=== PATIENT | male | born 1940 | race Caucasian/White ===

== ENCOUNTER 2018-02-03 11:58 | Outpatient (REF) | payer MEDICARE, OTHER, SELFPAY ==
[2018-02-03 21:18] LABS: HGB 12.6 g/dL (13.5-17.5); Mean Corp. HGB Concentration 32.3 g/dL (32.0-36.0); Mean Corpuscular Hemoglobin 30.6 pg (27.0-33.0); Mean Corpuscular Volume 94.7 fL (80-95); Mean Platelet Volume 11.9 fL (8.0-11.0); Platelet Count 175 x1000/uL (130-400); RBC 4.12 m/cumm (4.50-6.00); RBC Distribution Width 13.4 % (11.8-14.1); White Blood Cell Count 7.62 k/cumm (4.4-10.8)
[2018-02-03 22:21] LABS: BUN 25 mg/dL (7-18); CREATININE 1.31 mg/dL (0.70-1.30); Calcium 8.8 mg/dL (8.5-10.1); Chloride 108 mmol/L (98-107); Cholesterol 127 mg/dL (50-200); Estimated GFR 53.06 (mL/min/1.73m2); Glucose 113 mg/dL (70-100); HDL Cholesterol 48 mg/dL (40-60); LDL CHOLESTEROL 60 mg/dL (<100); Potassium 4.9 mmol/L (3.5-5.1); Sodium 142 mmol/L (136-145); Triglyceride 203 mg/dL (30-150); Vitamin B12 523 pg/mL (193-986)
== END 2018-02-03 11:59 ==
LOC: NCHCN 11:58
PROVIDERS: Visit Provider Family Medicine
DX: I25.10 Atherosclerotic heart disease of native coronary artery without angina pectoris (principal); R53.83 Other fatigue; D72.819 Decreased white blood cell count, unspecified; E11.8 Type 2 diabetes mellitus with unspecified complications; E53.8 Deficiency of other specified B group vitamins; E29.1 Testicular hypofunction; F34.1 Dysthymic disorder; M54.5 Low back pain
CPT/HCPCS: 80048; 80061; 83721; 85027; 82607

== ENCOUNTER 2018-05-12 12:40 | Outpatient (REF) | payer MEDICARE, OTHER, SELFPAY ==
[2018-05-12 22:55] LABS: Hemoglobin A1C 6.7 % (4.5-6.2)
[2018-05-16 12:55] LABS: Testosterone, Bioavailable 23 ng/dL (40-168); Testosterone, Total 212 ng/dL (240-950)
[2018-07-17 10:50] LABS: BUN 28 mg/dL (7-18); Calcium 8.9 mg/dL (8.5-10.1); Glucose 117 mg/dL (70-100)
[2018-07-17 10:51] LABS: CREATININE 1.63 mg/dL (0.70-1.30); Estimated GFR 41.12 (mL/min/1.73m2); Total Protein 6.8 g/dL (6.4-8.2)
[2018-07-17 10:52] LABS: Albumin 3.5 g/dL (3.4-5.0); Alkaline Phosphatase 107 U/L (46-116); Bilirubin, Total 0.3 mg/dL (0.2-1.0); Sodium 142 mmol/L (136-145)
[2018-07-17 10:53] LABS: ALT 23 U/L (12-78); AST 17 U/L (15-37); Anion Gap 10.6 mmol/L (3-11); CO2 23.4 mmol/L (21.0-32.0); Chloride 108 mmol/L (98-107); Potassium 4.9 mmol/L (3.5-5.1)
[2018-07-17 10:54] LABS: Bilirubin, Direct 0.11 mg/dL (0.00-0.20)
== END 2018-05-12 13:00 ==
LOC: NCHCN 12:40
PROVIDERS: Visit Provider Family Medicine
DX: E29.1 Testicular hypofunction (principal); E11.8 Type 2 diabetes mellitus with unspecified complications; E78.5 Hyperlipidemia, unspecified
CPT/HCPCS: 80048; 80076; 84402; 84403; 84410; 83036

== ENCOUNTER 2019-05-18 09:55 | Outpatient (REF) | payer MEDICARE, OTHER, SELFPAY ==
[2019-05-22 13:57] LABS: Testosterone, Free 8.75 ng/dL (3.08-11.3); Testosterone, Total 486 ng/dL (240-950)
== END 2019-05-18 10:15 ==
LOC: LBN 09:55
PROVIDERS: Visit Provider Urology
DX: R33.9 Retention of urine, unspecified (principal); N13.8 Other obstructive and reflux uropathy; N40.1 Benign prostatic hyperplasia with lower urinary tract symptoms; E29.1 Testicular hypofunction
CPT/HCPCS: 84402; 84403; 84153

== ENCOUNTER 2019-07-20 15:49 | Outpatient (REF) | payer MEDICARE, OTHER, SELFPAY ==
[2019-07-20 22:16] LABS: HCT 46.3 % (40.0-50.0); HGB 14.9 g/dL (13.5-17.5); Mean Corp. HGB Concentration 32.2 g/dL (32.0-36.0); Mean Corpuscular Hemoglobin 30.3 pg (27.0-33.0); Mean Corpuscular Volume 94.1 fL (80-95); Mean Platelet Volume 11.8 fL (8.0-11.0); Platelet Count 200 x1000/uL (130-400); RBC 4.92 m/cumm (4.50-6.00); RBC Distribution Width 13.8 % (11.8-14.1); White Blood Cell Count 8.09 k/cumm (4.4-10.8)
[2019-07-20 23:04] LABS: ALT 24 U/L (16-63); AST 21 U/L (15-37); Albumin 3.8 g/dL (3.4-5.0); Alkaline Phosphatase 132 U/L (46-116); Anion Gap 13.8 mmol/L (3-11); BUN 29 mg/dL (7-18); Bilirubin, Total 0.4 mg/dL (0.2-1.0); CO2 22.2 mmol/L (21.0-32.0); CREATININE 1.57 mg/dL (0.70-1.30); Calcium 8.8 mg/dL (8.5-10.1); Chloride 107 mmol/L (98-107); Estimated GFR 42.83 (mL/min/1.73m2); Glucose 107 mg/dL (74-106); Potassium 4.7 mmol/L (3.5-5.1); Sodium 143 mmol/L (136-145); Total Protein 7.1 g/dL (6.4-8.2)
== END 2019-07-20 16:09 ==
LOC: NCHCN 15:49
PROVIDERS: Visit Provider Family Medicine
DX: I10 Essential (primary) hypertension (principal); E29.1 Testicular hypofunction; I25.10 Atherosclerotic heart disease of native coronary artery without angina pectoris
CPT/HCPCS: 80053; 85027; 82043; 82570

== ENCOUNTER 2020-01-18 15:44 | Outpatient (REF) | payer MEDICARE, OTHER, SELFPAY ==
[2020-01-19 17:40] LABS: PSA, Diagnostic 3.1 ng/mL (0.0-6.5)
[2020-01-22 11:15] LABS: Testosterone, Free 44.5 ng/dL (3.08-11.3); Testosterone, Total 1590 ng/dL (240-950)
== END 2020-01-18 16:04 ==
LOC: LBN 15:44
PROVIDERS: Visit Provider Urology
DX: N40.1 Benign prostatic hyperplasia with lower urinary tract symptoms (principal); N13.8 Other obstructive and reflux uropathy
CPT/HCPCS: 84402; 84403; 84153

== ENCOUNTER 2020-05-29 22:23 | Outpatient (REF) | payer MEDICARE, OTHER, SELFPAY ==
[2020-06-02 10:12] LABS: COVID-19 RT-PCR Result NEGATIVE (Negative)
== END 2020-05-29 22:43 ==
LOC: NCHCN 22:23
PROVIDERS: Visit Provider Nurse Practitioner Family
DX: R05 Cough (principal)
CPT/HCPCS: U0003

== ENCOUNTER 2020-05-31 19:23 | Outpatient (REF) | payer MEDICARE, OTHER, SELFPAY ==
[2020-05-31 22:27] LABS: HCT 43.3 % (40.0-50.0); HGB 13.9 g/dL (13.5-17.5); MCH 30.9 pg (27.0-33.0); MCHC 32.1 % (32.0-36.0); MCV 96.2 fL (80-95); MPV 11.9 fL (8.0-11.0); Platelet Count 177 10^3/uL (130-400); RDW 13.2 % (11.8-14.1); RDW-SD 47.2 fL; WBC 9.42 10^3/uL (4.4-10.8)
[2020-05-31 22:37] LABS: Bilirubin Negative (Negative); Blood Negative (Negative); Clarity Clear (Clear); Glucose 500 mg/dL (Negative); Ketones Negative (Negative); Leukocyte Esterase Negative (Negative); Nitrite Negative (Negative); Urobilinogen 0.2 EU/dL (Up TO 0.2); pH 5.5 (5-8)
[2020-05-31 22:45] LABS: Anion Gap 10.6 mmol/L (3-11); BUN 24 mg/dL (7-18); CO2 22.4 mmol/L (21.0-32.0); CREATININE 1.64 mg/dL (0.70-1.30); Chloride 108 mmol/L (98-107); Estimated GFR 40.62 (mL/min/1.73m2); Glucose 144 mg/dL (74-106); NT-proBNP 7117 pg/mL (<300); Potassium 4.7 mmol/L (3.5-5.1); Sodium 141 mmol/L (136-145)
[2020-05-31 23:21] LABS: D-Dimer 3026 ng/mlFEU (<500)
== END 2020-05-31 19:43 ==
LOC: NCHCN 19:23
PROVIDERS: Urology; Visit Provider Nurse Practitioner Family
DX: D64.9 Anemia, unspecified (principal); R53.83 Other fatigue; R06.09 Other forms of dyspnea; R07.89 Other chest pain; I25.10 Atherosclerotic heart disease of native coronary artery without angina pectoris; N40.1 Benign prostatic hyperplasia with lower urinary tract symptoms; N13.8 Other obstructive and reflux uropathy; R33.9 Retention of urine, unspecified
CPT/HCPCS: 80048; 85027; 81003; 83880; 85379

== ENCOUNTER 2020-12-19 16:22 | Outpatient (REF) | payer MEDICARE, OTHER, SELFPAY ==
[2020-12-19 21:26] LABS: Abs Immature Grans 0.02 10^3/uL (0.0-0.06); Absolute Basophil Count 0.06 10^3/uL (0.0-0.2); Absolute Lymphocyte Count 1.27 10^3/uL (1.2-3.4); Absolute Monocyte Count 0.89 10^3/uL (0.1-0.8); Absolute Neutrophil Count 5.34 10^3/uL (1.2-6.7); Basophils % 0.8; HCT 44.5 % (40.0-50.0); HGB 14.1 g/dL (13.5-17.5); Immature Grans % 0.3; Lymphocytes % 15.9; MCH 31.2 pg (27.0-33.0); MCHC 31.7 % (32.0-36.0); MCV 98.5 fL (80-95); Monocytes % 11.2; Neutrophils % 66.8; Nucleated RBC 0 %; Platelet Count 159 10^3/uL (130-400); RBC 4.52 10^6/uL (4.36-5.78); RDW 13.2 % (11.8-14.1); RDW-SD 48.2 fL; WBC 7.98 10^3/uL (4.4-10.8)
[2020-12-19 21:39] LABS: ESR 10 mm/hr (0-20)
[2020-12-19 22:41] LABS: ALT 24 U/L (16-63); AST 12 U/L (15-37); Albumin 3.8 g/dL (3.4-5.0); Alkaline Phosphatase 101 U/L (46-116); Anion Gap 14.7 mmol/L (3-11); BUN 45 mg/dL (7-18); Bilirubin, Total 0.4 mg/dL (0.2-1.0); CO2 19.3 mmol/L (21.0-32.0); CREATININE 1.8 mg/dL (0.70-1.30); Calcium 8.9 mg/dL (8.5-10.1); Calculated LDL 54 mg/dL (<100); Chloride 111 mmol/L (98-107); Cholesterol 113 mg/dL (<200); Estimated GFR 36.49 (mL/min/1.73m2); Glucose 145 mg/dL (74-106); HDL Cholesterol 43 mg/dL (40-60); Potassium 4.8 mmol/L (3.5-5.1); Sodium 145 mmol/L (136-145); Total Protein 6.9 g/dL (6.4-8.2); Triglyceride 84 mg/dL (<150)
[2020-12-19 22:50] LABS: C-Reactive Protein 0.06 mg/dL (0.0-0.3)
== END 2020-12-19 16:23 | disposition home or self-care (01) ==
LOC: NCHCN 16:22
PROVIDERS: Visit Provider Family Medicine
DX: I12.9 Hypertensive chronic kidney disease with stage 1 through stage 4 chronic kidney disease, or unspecified chronic kidney disease (principal); E11.22 Type 2 diabetes mellitus with diabetic chronic kidney disease; N18.4 Chronic kidney disease, stage 4 (severe); D63.1 Anemia in chronic kidney disease; M54.5 Low back pain; G89.29 Other chronic pain; E29.1 Testicular hypofunction; M62.81 Muscle weakness (generalized)
CPT/HCPCS: 80053; 80061; 85652; 85025; 86140

== ENCOUNTER 2021-02-19 20:25 | Outpatient (REF) | payer MEDICARE, OTHER, SELFPAY ==
[2021-02-23 15:35] LABS: Testosterone, Total 640 ng/dL (240-950)
== END 2021-02-19 20:26 | disposition home or self-care (01) ==
LOC: NCHCN 20:25
PROVIDERS: Visit Provider Family Medicine
DX: E29.1 Testicular hypofunction (principal)
CPT/HCPCS: 84403

== ENCOUNTER 2021-05-02 15:09 | Outpatient (REF) | payer MEDICARE, OTHER, SELFPAY ==
[2021-05-03 08:19] LABS: BUN 34 mg/dL (7-18); CREATININE 1.5 mg/dL (0.70-1.30); Calcium 8.8 mg/dL (8.5-10.1); Calculated LDL 113 mg/dL (<100); Chloride 108 mmol/L (98-107); Cholesterol 203 mg/dL (<200); Estimated GFR 45.03 (mL/min/1.73m2); Glucose 134 mg/dL (74-106); HDL Cholesterol 46 mg/dL (40-60); Potassium 4.9 mmol/L (3.5-5.1); Sodium 144 mmol/L (136-145); Triglyceride 220 mg/dL (<150); Vitamin B12 > 2000 pg/mL (193-986)
== END 2021-05-02 15:10 | disposition home or self-care (01) ==
LOC: NCHCN 15:09
PROVIDERS: Visit Provider Family Medicine
DX: E11.22 Type 2 diabetes mellitus with diabetic chronic kidney disease (principal); N18.4 Chronic kidney disease, stage 4 (severe); E78.5 Hyperlipidemia, unspecified; E53.8 Deficiency of other specified B group vitamins
CPT/HCPCS: 80048; 80061; 82607

== ENCOUNTER 2021-06-19 13:38 | Outpatient (REF) | payer MEDICARE, OTHER, SELFPAY ==
[2021-06-19 15:27] LABS: COMMENT (LAB VIEW ONLY) 38.78 mg/dL; Microalb ug/mg Crea 22.7 ug/mg Cr
== END 2021-06-19 13:39 | disposition home or self-care (01) ==
LOC: NCHCN 13:38
PROVIDERS: Visit Provider Family Medicine
DX: I10 Essential (primary) hypertension (principal); E11.8 Type 2 diabetes mellitus with unspecified complications
CPT/HCPCS: 82043; 82570

== ENCOUNTER 2021-11-20 15:39 | Outpatient (REF) | payer MEDICARE, OTHER, SELFPAY ==
[2021-11-20 14:24] LABS: ESR 12 mm/hr (0-20)
[2021-11-20 14:53] LABS: C-Reactive Protein 0.11 mg/dL (0.0-0.3); Calculated LDL 103 mg/dL (<100); Cholesterol 183 mg/dL (<200); HDL Cholesterol 53 mg/dL (40-60); NT-proBNP 284 pg/mL (<300); Triglyceride 138 mg/dL (<150)
== END 2021-11-20 15:40 | disposition home or self-care (01) ==
LOC: NCHCN 15:39
PROVIDERS: Visit Provider Family Medicine
DX: E11.8 Type 2 diabetes mellitus with unspecified complications (principal); E78.5 Hyperlipidemia, unspecified; Z71.89 Other specified counseling
CPT/HCPCS: 80061; 85652; 83880; 86140

== ENCOUNTER 2022-02-11 15:32 | Outpatient (REF) | payer MEDICARE, OTHER, SELFPAY ==
[2022-02-11 17:52] LABS: BUN 27 mg/dL (7-18); CREATININE 1.7 mg/dL (0.70-1.30); Estimated GFR 38.88 (mL/min/1.73m2)
== END 2022-02-11 15:33 | disposition home or self-care (01) ==
LOC: LBN 15:32
PROVIDERS: Visit Provider Surgery Vascular Surgery
DX: I71.4 Abdominal aortic aneurysm, without rupture (principal)
CPT/HCPCS: 84520; 82565

== ENCOUNTER 2022-07-17 17:42 | Outpatient (REF) | payer MEDICARE, OTHER, SELFPAY ==
[2022-07-17 15:39] LABS: MCH 31.5 pg (27.0-33.0); MCHC 33.3 % (32.0-36.0); MCV 95 fL (80-95); MPV 11.9 fL (8.0-11.0); Platelet Count 158 10^3/uL (130-400); RBC 4.76 10^6/uL (4.36-5.78); RDW 13.1 % (11.8-14.1); WBC 7.29 10^3/uL (4.4-10.8)
[2022-07-17 16:05] LABS: Anion Gap 10.4 mmol/L (3-11); BUN 26 mg/dL (7-18); CO2 22.6 mmol/L (21.0-32.0); CREATININE 1.7 mg/dL (0.70-1.30); Calcium 9.2 mg/dL (8.5-10.1); Calculated LDL 96 mg/dL (<100); Chloride 102 mmol/L (98-107); Cholesterol 192 mg/dL (<200); Estimated GFR 39.75 (mL/min/1.73m2); Glucose 163 mg/dL (74-106); HDL Cholesterol 50 mg/dL (40-60); Potassium 4.9 mmol/L (3.5-5.1); Sodium 135 mmol/L (136-145); Triglyceride 231 mg/dL (<150)
[2022-07-18 19:25] LABS: PSA, Screening 3.8 ng/mL (<=6.5)
[2022-07-26 13:20] LABS: Testosterone, Bioavailable 72 ng/dL (40-168); Testosterone, Free 14.6 ng/dL (2.88-10.5); Testosterone, Total 646 ng/dL (240-950)
== END 2022-07-17 17:43 | disposition home or self-care (01) ==
LOC: NCHCN 17:42
PROVIDERS: Visit Provider Family Medicine
DX: I10 Essential (primary) hypertension (principal); R53.83 Other fatigue; E29.1 Testicular hypofunction; Z86.73 Personal history of transient ischemic attack (TIA), and cerebral infarction without residual deficits; Z12.5 Encounter for screening for malignant neoplasm of prostate; D63.8 Anemia in other chronic diseases classified elsewhere; E78.5 Hyperlipidemia, unspecified
CPT/HCPCS: 80048; 80061; 84153; 84402; 84403; 84410; 85027

== ENCOUNTER 2022-09-20 21:14 | Outpatient (REF) | payer MEDICARE, OTHER, SELFPAY ==
[2022-09-20 21:33] LABS: HCT 44.8 % (40.0-50.0); HGB 14.8 g/dL (13.5-17.5); MCH 31.4 pg (27.0-33.0); MCV 95 fL (80-95); MPV 11.9 fL (8.0-11.0); Platelet Count 167 10^3/uL (130-400); RBC 4.71 10^6/uL (4.36-5.78); RDW 12.2 % (11.8-14.1); RDW-SD 42.7 fL; WBC 7.98 10^3/uL (4.4-10.8)
[2022-09-20 21:55] LABS: Anion Gap 7.6 mmol/L (3-11); BUN 34 mg/dL (7-18); CO2 26.4 mmol/L (21.0-32.0); CREATININE 1.9 mg/dL (0.70-1.30); Chloride 99 mmol/L (98-107); Estimated GFR 34.79 (mL/min/1.73m2); Glucose 162 mg/dL (74-106); NT-proBNP 483 pg/mL (<300); Potassium 4.8 mmol/L (3.5-5.1); Sodium 133 mmol/L (136-145)
[2022-09-20 22:07] LABS: COMMENT (LAB VIEW ONLY) 27.23 mg/dL; Microalb ug/mg Crea 14.7 ug/mg Cr
== END 2022-09-20 21:15 | disposition home or self-care (01) ==
LOC: NCHCN 21:14
PROVIDERS: Visit Provider Family Medicine
DX: E11.8 Type 2 diabetes mellitus with unspecified complications (principal); R55 Syncope and collapse; I50.21 Acute systolic (congestive) heart failure
CPT/HCPCS: 80048; 85027; 82043; 82570; 83880

== ENCOUNTER 2022-11-12 16:15 | Outpatient (REF) | payer MEDICARE, OTHER, SELFPAY ==
[2022-11-12 20:22] LABS: ESR 19 mm/hr (0-20)
[2022-11-12 21:06] LABS: ALT 30 U/L (16-63); AST 29 U/L (15-37); Albumin 3.9 g/dL (3.4-5.0); Alkaline Phosphatase 95 U/L (46-116); Bilirubin, Direct 0.1 mg/dL (0.0-0.2); Bilirubin, Total 0.4 mg/dL (0.2-1.0); C-Reactive Protein 0.11 mg/dL (0.0-0.3); TSH 1.56 uIU/mL (0.36-3.74)
[2022-11-13 19:09] LABS: Rheumatoid Factor 35.6 IU/mL (<12.0)
[2022-11-14 10:00] LABS: Cyclic Citrullinated Peptide <2.5 U/mL (<5.0)
[2022-11-14 15:30] LABS: ANA Interpretation Negative (Negative)
== END 2022-11-12 16:16 | disposition home or self-care (01) ==
LOC: NCHCN 16:15
PROVIDERS: Visit Provider Family Medicine
DX: R53.83 Other fatigue (principal); M13.0 Polyarthritis, unspecified; Z01.84 Encounter for antibody response examination; I10 Essential (primary) hypertension; E11.9 Type 2 diabetes mellitus without complications
CPT/HCPCS: 80076; 85652; 86200; 84443; 86038; 86140; 86431

== ENCOUNTER 2023-01-14 16:20 | Outpatient (REF) | payer MEDICARE, OTHER, SELFPAY ==
[2023-01-15 10:15] LABS: Lyme Ab w Rflx to Lyme Confirm Negative (Negative)
== END 2023-01-14 16:21 | disposition home or self-care (01) ==
LOC: NCHCN 16:20
PROVIDERS: Visit Provider Family Medicine
DX: R53.83 Other fatigue (principal)
CPT/HCPCS: 86618

== ENCOUNTER 2023-07-11 09:31 | Outpatient (REF) | payer MEDICARE, OTHER, SELFPAY ==
[2023-07-11 14:16] LABS: HCT 38.5 % (40.0-50.0); HGB 12.6 g/dL (13.5-17.5)
[2023-07-15 14:56] LABS: Testosterone, Total 813 ng/dL (240-950)
== END 2023-07-11 09:32 | disposition home or self-care (01) ==
LOC: NCHCN 09:31
PROVIDERS: PCP Family Medicine; Visit Provider Family Medicine
DX: E29.1 Testicular hypofunction (principal)
CPT/HCPCS: 84403; 85014; 85018

== ENCOUNTER 2023-07-20 09:10 | Emergency (ER) | payer MEDICARE, OTHER, SELFPAY ==
[2023-07-20] VITALS (17 sets, daily range): BP systolic 127–163; BP diastolic 52–71; PULSE 55–66; RESP 14–21; TEMP 36.5; O2SAT 97–100
[2023-07-20 09:50] LABS: Abs Immature Grans 0.07 10^3/uL (0.0-0.06); Absolute Basophil Count 0.05 10^3/uL (0.0-0.2); Absolute Eosinophil Count 0.22 10^3/uL (0.0-0.7); Absolute Lymphocyte Count 0.99 10^3/uL (1.2-3.4); Absolute Neutrophil Count 12.69 10^3/uL (1.2-6.7); Basophils % 0.3; Eosinophils % 1.4; HCT 35.4 % (40.0-50.0); HGB 11.6 g/dL (13.5-17.5); Immature Grans % 0.5; Lymphocytes % 6.4; MCH 30.5 pg (27.0-33.0); MCHC 32.8 % (32.0-36.0); MCV 93 fL (80-95); MPV 9.6 fL (8.0-11.0); Monocytes % 9.1; Neutrophils % 82.3; Platelet Count 326 10^3/uL (130-400); RDW 12.6 % (11.8-14.1); RDW-SD 43.2 fL; WBC 15.42 10^3/uL (4.4-10.8)
[2023-07-20] MEDS: Lactated Ringers 500 ML IV (09:57)
[2023-07-20 10:05] LABS: ALT 19 U/L (16-63); AST 11 U/L (15-37); Albumin 2.8 g/dL (3.4-5.0); Alkaline Phosphatase 81 U/L (46-116); Anion Gap 9.5 mmol/L (3-11); BUN 29 mg/dL (7-18); Bilirubin, Total 0.5 mg/dL (0.2-1.0); CO2 24.5 mmol/L (21.0-32.0); CREATININE 1.6 mg/dL (0.70-1.30); Calcium 9.4 mg/dL (8.5-10.1); Chloride 100 mmol/L (98-107); Estimated GFR 42.49 (mL/min/1.73m2); Glucose 174 mg/dL (74-106); Lipase 65 U/L (16-77); Potassium 4.8 mmol/L (3.5-5.1); Sodium 134 mmol/L (136-145); Total Protein 7.3 g/dL (6.4-8.2)
--- NOTE | 2023-07-20 10:15 | DI.CT_ITS ---
Exam(s) CT ABDOMEN PELVIS W EXAM: CT ABDOMEN PELVIS W CLINICAL HISTORY: abdominal pain, leukocytosis, constipation TECHNIQUE: Imaging Protocol: Axial computed tomography images with coronal and sagittal reformatted images were created and reviewed. CONTRAST MATERIAL: Intravenous: Omnipaque 350 Contrast volume:100 mL Oral: No COMPARISON: No exams were available for comparison FINDINGS: ABDOMEN: Lung Bases: Coronary artery calcifications and/or stents are present. There is a calcified granuloma in the right lower lobe. Dependent atelectasis is seen in the lung bases. Liver: Normal density. No measurable mass. Portal, Superior Mesenteric, and Splenic Veins: Unremarkable. Gallbladder and Biliary Tract: No radiodense calculus or dilation. Pancreas: Normal density, no abnormal calcifications or inflammatory process. Spleen: Normal. Adrenals: No masses seen. Kidneys: Normal size, contour and axis. Calcifications are seen in the renal pelves bilaterally which appear vascular. There may be a few nonobstructing stones particularly in the left kidney. No mass es seen. Abdominal Aorta: There is a bill moore's slough 3.7 x 3.7 cm infrarenal abdominal aortic aneurysm. Atherosclerosi s. There is soft tissue thickening around the aorta proximally. There is associated soft tissue str anding around this region. There does appear to be a small arm of contrast anterior to the aorta whi ch may be outside of the aortic lumen (series 5 images 257 through 278). There does appear to be mil d narrowing of both the origins of the celiac axis and the superior mesenteric artery. There is an a tommy bi-iliac stent in place. Bowel: There is a diverticulum associated with the 3rd portion of the duodenum. There is extensive d iverticulosis in the colon but no evidence of acute diverticulitis. There is a moderate amount of st ool throughout the colon suggesting constipation. The cecum has a horizontal appearance and crosses the midline. There is no bowel wall thickening pneumatosis or evidence of obstruction. No evidence of appendicitis. Peritoneal Cavity: No ascites, collection or mesenteric inflammatory response. No free air. Lymph Nodes: Within normal limits. Bones: Within normal limits for the patient's age. Soft Tissues: There is a small fat containing umbilical hernia. There are bilateral fat containing i nguinal hernias. There is a small amount of fluid in the left inguinal hernia. PELVIS: Bladder: Symmetric distention, no gross wall thickening. Reproductive Organs: The prostate gland is enlarged. Lymph Nodes: Within normal limits. Bones: Within normal limits for the patient's age. IMPRESSION: 1. There is an endovascular aortic stent in place. There is soft tissue thickening and fat stranding around the proximal abdominal aorta and the proximal stent. Aortitis should be considered. There a re mildly enlarged lymph nodes in the periaortic region which may be reactive secondary to aortitis. There is a small arm of fluids which appears to go beyond the wall of the aorta which may represent a pseudoaneurysm. A ruptured pseudoaneurysm should also be considered. 2. No other acute abdominal or pelvic process. Incidental findings in the abdomen and pelvis as desc ribed above. RADIATION DOSE DELIVERED: 899.98mGy.cm Total DLP DATA REPOSITORY: All CT scans at this facility are submitted to the National Radiology Data Registry (NRDR) Dose Index Registry (DIR) with the [employer] (A[employer]). RADIATION OPTIMIZATION: All CT scans at this facility use at least one of these dose optimization te chniques: automated exposure control; mA and/or kV adjustment per patient size (includes targeted exa ms where dose is matched to clinical indication); or iterative reconstruction.
[2023-07-20] MEDS: Normal Saline Flush 10 ML SYR IVP (10:31)
[2023-07-20] MEDS: Normal Saline - Diluent 50 ML VIAL IJ (10:33)
[2023-07-20] MEDS: Omnipaque 350 MG/ML 100 ML BTL IJ (10:34)
[2023-07-20 11:03] LABS: Bilirubin Negative (Negative); Blood Negative (Negative); Clarity Clear (Clear); Glucose >=1000 mg/dL (Negative); Ketones Negative (Negative); Leukocyte Esterase Negative (Negative); Nitrite Negative (Negative); Specific Gravity <= 1.005 (1.005-1.025); Urobilinogen 0.2 mg/dL (Up to 0.2)
--- NOTE | 2023-07-20 11:15 | RT.EKG_ITS ---
APPROVED REPORT Exam: Resting ECG Reason for Exam: abdominal pain Patient Location: E HR:57 bpm ECG Measurements Heart Rate 57 AXIS AZ 187 P 76 QRSd 157 QRS -78 QT 458 T 47 QTc 448 Conclusion Sinus bradycardia RBBB
--- NOTE | 2023-07-20 11:24 | DI.VRAD_ITS ---
PROCEDURE INFORMATION: Exam: CT Abdomen And Pelvis With Contrast Exam date and time: 07/20/2023 10:31 AM Age: 83 years old Clinical indication: Other: Abdominal pain, leukocytosis, constipation TECHNIQUE: Imaging protocol: Computed tomography of the abdomen and pelvis with contrast. Radiation optimization: All CT scans at this facility use at least one of these dose optimization techniques: automated exposure control; mA and/or kV adjustment per patient size (includes targeted exams where dose is matched to clinical indication); or iterative reconstruction. Contrast material: OMNI 350; Contrast volume: 100 ml; Contrast route: INTRAVENOUS (IV); COMPARISON: No relevant prior studies available. FINDINGS: Coronary arteries: Coronary artery calcifications noted. Liver: Area of hypoattenuation along the anterior margin of the liver adjacent to the falciform ligament consistent with focal fatty infiltration. The liver is normal in size and contour. Gallbladder and bile ducts: The gallbladder appears unremarkable. No intra- or extra-hepatic biliary ductal dilatation. Pancreas: The pancreas appears normal. Spleen: The spleen appears normal. Adrenal glands: The adrenals appear normal. Kidneys and ureters: The kidneys enhance symmetrically and empty into non-dilated ureters. Stomach and bowel: The stomach appears unremarkable. Air and fluid-filled duodenal diverticula noted. The small bowel loops are not abnormally dilated. The large bowel loops are not abnormally dilated. Redundant mobile cecum located in the left mid abdomen. Mildly prominent fecal burden in the colon. Appendix: The appendix appears normal. Intraperitoneal space: No ascites or significant fluid collection. Vasculature: Fat stranding/soft tissue density along the anterior margin of the aorta in the region of the celiac, SMA, and renal arteries. Endovascular aortic stent graft noted in place. Small focal area of contrast along the right anterior margin of the aorta possibly outside the normal confines of the aortic lumen (axial series 5, image 267) in the region of periaortic fat stranding at and just superior to the region of EVAR placement, measuring approximately 10 x 7 x 8 mm. Questionable mild stenosis at the origin of the celiac artery. Prominent calcified and noncalcified atherosclerotic disease of the origin of the superior mesenteric artery with likely stenosis. The origin of the renal arteries are poorly visualized but with possible at least mild stenosis. Lymph nodes: A few mildly prominent but not significantly enlarged lymph nodes in the periaortic region. Urinary bladder: The bladder is distended and demonstrates no focal contour abnormality. Reproductive: Prostatomegaly. Bones/joints: Unremarkable. Soft tissues: Fat containing bilateral inguinal hernias. Minimal herniation of a portion of the sigmoid colon in the left inguinal hernia. Minimal trapped fluid in the left inguinal hernia. IMPRESSION: 1. Fat stranding/soft tissue density along the anterior margin of the aorta in the region of the celiac, SMA, and renal arteries. Endovascular aortic stent graft noted in place. Small focal area of contrast along the right anterior margin of the aorta possibly outside the normal confines of the aortic lumen (axial series 5, image 267) in the region of periaortic fat stranding at and just superior to the region of EVAR placement, measuring approximately 10 x 7 x 8 mm. Recommend evaluation for possible ruptured pseudoaneurysm versus arteritis. Consider dedicated CTA with noncontrast, arterial, and venous phase imaging. 2. A few mildly prominent but not significantly enlarged lymph nodes in the periaortic region, which could support a diagnosis of arteritis. Recommend comparison with any prior outside imaging. 3. Questionable mild stenosis at the origin of the celiac artery. Prominent calcified and noncalcified atherosclerotic disease of the origin of the superior mesenteric artery with likely stenosis. The origin of the renal arteries are poorly visualized but with possible at least mild stenosis. THIS REPORT CONTAINS FINDINGS THAT MAY BE CRITICAL TO PATIENT CARE. The findings were verbally communicated via telephone conference with Dr. Valerio at 11:20 AM EST on 07/20/2023. The findings were acknowledged and understood. Dictated and Authenticated by: Khanh Guerrero MD. Ordering:MICHELLE Goel MD
--- NOTE | 2023-07-20 11:49 | W.ED.GENAD ---
HPI General Date/Time Provider Initiated Documentation: 07/20/23 09:20. HPI Narrative: This 83-year-old gentleman with history of EVAR placement, diabetes hypertension BPH presents with report of abdominal pain for the past week. Patient states he is having trouble moving his bowels and has not had a bowel movement approximately 1 week, he states this is unusual for him. He denies any new changes aside from discontinuing a probiotic 1 week ago. States that the pain initially was in his back at onset and is now predominantly in his left lower quadrant. He denies exacerbation with walking or movement, with palpation he states exacerbates his pain. He denies any nausea or vomiting. He denies any chest pain or shortness of breath. Denies any falls or injuries or blood in stools. Denies history of coagulopathy. States last colonoscopy was in 2009 not show acute abnormality per patient. Denies fever or chills. Denies any urinary complaints. Related Data Home Medications Medication Instructions Recorded Confirmed acetaminophen 500 mg capsule 500 mg PO Q6H PRN 07/20/23 07/20/23 alogliptin 12.5 mg tablet (Nesina) 12.5 mg PO DAILY 07/20/23 07/20/23 aspirin 325 mg capsule 325 mg PO DAILY 07/20/23 07/20/23 canagliflozin 100 mg tablet 100 mg PO DAILY 07/20/23 07/20/23 (Invokana) coenzyme Q10 10 mg capsule (Co 10 mg PO ONCE 07/20/23 07/20/23 Q-10) diclofenac sodium 1 % topical gel 2 g topical QID 07/20/23 07/20/23 (Aleve (diclofenac)) finasteride 5 mg tablet 5 mg PO DAILY 07/20/23 07/20/23 magnesium oxide 400 mg PO DAILY 07/20/23 07/20/23 metformin 500 mg tablet,extended 500 mg PO DAILY 07/20/23 07/20/23 release 24 hr nebivolol 5 mg tablet 5 mg PO DAILY 07/20/23 07/20/23 omega 9-cof-tpp-fish oil 1,000 mg 1 cap PO DAILY 07/20/23 07/20/23 (120 mg-180 mg) capsule (Fish Oil) valsartan 40 mg tablet 40 mg PO DAILY 07/20/23 07/20/23 vit C 250 mg-vit E 200 unit-zinc 1 cap PO DAILY 07/20/23 07/20/23 ox 12.5 sr-xqwpvd-wotzis-zeax capsule (ICaps AREDS2) vitamin B complex (Complex B-100 1 tab PO DAILY 07/20/23 07/20/23 tablet,extended release) Allergies Allergy/AdvReac Type Severity Reaction Status Date / Time levofloxacin AdvReac Mild Other (See Unverified 07/20/23 09:47 Comment) Statins AdvReac Mild Other (See Uncoded 07/20/23 09:47 Comment) General Stated Complaint: Abd Prob YNES: 3 Course Vital Signs Vital signs: Vital Signs Temperature 36.5 C 07/20/23 09:16 Pulse 66 07/20/23 09:16 Respiratory Rate 16 07/20/23 09:16 Blood Pressure 147/66 H 07/20/23 09:16 Pulse Oximetry 99 07/20/23 09:16 Temperature 36.5 C 07/20/23 09:54 Temperature Source Temporal Artery Scan 07/20/23 09:54 Pulse 66 07/20/23 09:54 Respiratory Rate 16 07/20/23 09:54 Respiratory Effort Normal, Non-Labored 07/20/23 09:54 Blood Pressure 147/66 H 07/20/23 09:54 Blood Pressure Position Supine 07/20/23 09:54 Pulse Oximetry 99 07/20/23 09:54 Pain Level 3 07/20/23 09:54 Lab/Test Results Lab/Test Results: 07/20/23 11:23 Blood Blood Culture - Pending 07/20/23 11:23 Blood Blood Culture - Pending Laboratory Tests Range/Units 07/20/23 07/20/23 09:44 10:55 WBC (4.4-10.8) 10^3/uL 15.42 H RBC (4.36-5.78) 10^6/uL 3.80 L Hgb (13.5-17.5) g/dL 11.6 L Hct (40.0-50.0) % 35.4 L MCV (80-95) fL 93 MCH (27.0-33.0) pg 30.5 MCHC (32.0-36.0) % 32.8 RDW (11.8-14.1) % 12.6 Plt Count (130-400) 10^3/uL 326 MPV (8.0-11.0) fL 9.6 Immature Gran % 0.5 Neutrophils % 82.3 Lymphocytes % 6.4 Monocytes % 9.1 Eosinophils % 1.4 Basophils % 0.3 Nucleated RBC % (0.0-0.3) % 0.0 Absolute Neutrophils (1.2-6.7) 10^3/uL 12.69 H Absolute Lymphocytes (1.2-3.4) 10^3/uL 0.99 L Absolute Monocytes (0.1-0.8) 10^3/uL 1.40 H Absolute Eosinophils (0.0-0.7) 10^3/uL 0.22 Absolute Basophils (0.0-0.2) 10^3/uL 0.05 Sodium (136-145) mmol/L 134 L Potassium (3.5-5.1) mmol/L 4.8 Chloride (98-107) mmol/L 100 Carbon Dioxide (21.0-32.0) mmol/L 24.5 Anion Gap (3-11) mmol/L 9.5 BUN (7-18) mg/dL 29 H Creatinine (0.70-1.30) mg/dL 1.6 H Est GFR (CKD-EPI 2020) (mL/min/1.73m2) 42.49 Glucose (74-106) mg/dL 174 H Calcium (8.5-10.1) mg/dL 9.4 Total Bilirubin (0.2-1.0) mg/dL 0.5 AST (15-37) U/L 11 L ALT (16-63) U/L 19 Alkaline Phosphatase (46-116) U/L 81 Total Protein (6.4-8.2) g/dL 7.3 Albumin (3.4-5.0) g/dL 2.8 L Lipase (16-77) U/L 65 Urine Color (Yellow) Yellow Urine Clarity (Clear) Clear Urine pH (5-8) 5.0 Ur Specific Mobile (1.005-1.025) <= 1.005 Urine Protein (Negative) mg/dL Negative Urine Ketones (Negative) mg/dL Negative Urine Blood (Negative) Negative Urine Nitrite (Negative) Negative Urine Bilirubin (Negative) Negative Urine Urobilinogen (Up to 0.2) mg/dL 0.2 Ur Leukocyte Esterase (Negative) Negative Urine Glucose (Negative) mg/dL >=1000 H Medical Decision Making This 83-year-old male presents with report of abdominal pain for the past week with decreased bowel movements Exquisitely tender diffusely on abdominal exam, no acute distress on assessment, vital stable Mild leukocytosis 15,000, no rebound or guarding appreciated on exam Creatinine baseline for patient at 1.6, actually improved from prior assessment CT with visualized stranding along the anterior margin of the aorta the region of the celiac and SMA and renal arteries, there is a aortic stent in place with concern for extravasation along the right anterior margin of the aorta, radiologist is concern regarding ruptured pseudoaneurysm versus arteritis Case discussed with Dr. Ley, vascular surgeon and recommendation to transfer to emergency department at [facility] for dedicated CTA Patient agreeable to transportation at this time, advanced directives reviewed for transfer, DNR/DNI Patient has been hemodynamically stable throughout this emergency department visit, agreeable to transportation at this time Vitals reviewed with goals [facility] vascular surgeon, Dr Ley and Dr Spain, ED physician and pt accepted in transport will recheck glucose prior to transport Quality:SDOH Health Related Social Needs: No Data to Display PFSH All Active Problems (Updated 07/20/23 @ 14:58 by GEORGE Murray) History of aortic aneurysm repair (Acute) Pseudoaneurysm of aorta (Acute) CKD (chronic kidney disease) (Chronic) Leukocytosis (Acute) Social History Smoking/Tobacco Use Status: Former Tobacco Use Smoking risk assessment performed?: Yes Alcohol Intake: current Alcohol Intake frequency: 0-2 drinks per day Drug use: Never Substance use type: does not use Details: Pt quit smoking 10 years ago Housing: house Do you feel safe at home: Yes Do you feel safe in your relationship?: Yes PAWSS Have you Been Recently Intoxicated or Drunk Within the Last 30 days?: No Have you Ever Experienced Previous Episodes of Alcohol Withdrawal?: No Have you ever Experienced Withdrawal Seizures?: No Have you ever Experienced Delirium Tremens(DT)s?: No Have you ever undergone Alcohol Rehabilitation Treatment (i.e, inpt ot outpatient treatment programs)?: No Have you ever Experienced Blackouts?: No Have you ever Combined Alcohol with other Downers within the last 90 days?: No Have you ever Combined Alcohol with any other Substance of Abuse during the last 90 days?: No Positive Blood Alcohol level on Presentation? [PCS.BAL]: No Evidence of Increased Autonomic Activity (i.e. HR>120, tremor, sweating, agitation, nausea)?: No Result: 0 Discharge Plan Disposition Patient Disposition: Transfer-Acute Inpatient Care Specific Acute Inpt Facility: [facility] Condition: Serious Discharge Details Clinical Impression: Leukocytosis, CKD (chronic kidney disease), Pseudoaneurysm of aorta, History of aortic aneurysm repair Primary Care Provider: Viry Jasmine ED Provider: Manasa Bobo Home Meds and New Rx's Prescriptions: No Action valsartan 40 mg tablet 40 mg PO DAILY Patient Comments: Take 1 tablet by mouth twice a day nebivolol 5 mg tablet 5 mg PO DAILY metformin 500 mg tablet extended release 24 hr 500 mg PO DAILY Patient Comments: Take 1 tablet by mouth once a day alogliptin [Nesina] 12.5 mg tablet 12.5 mg PO DAILY Invokana 100 mg tablet 100 mg PO DAILY finasteride 5 mg tablet 5 mg PO DAILY Patient Comments: Take 1 tablet by mouth every night ICaps AREDS2 250 mg-200 unit -12.5 mg-1 mg capsule 1 cap PO DAILY aspirin 325 mg capsule 325 mg PO DAILY coenzyme Q10 [Co Q-10] 10 mg capsule 10 mg PO ONCE omega 7-qkz-qeu-fish oil [Fish Oil] 1,000 mg (120 mg-180 mg) capsule 1 cap PO DAILY Complex B-100 Tablet Extended Release 1 tab PO DAILY acetaminophen 500 mg capsule 500 mg PO Q6H PRN diclofenac sodium [Aleve (diclofenac)] 1 % gel 2 g topical QID Rx Instructions: apply to single elbow, wrist or hand; for hand includes palm/fingers/back of hand magnesium oxide 400 mg magnesium capsule 400 mg PO DAILY
[2023-07-20 11:54] LABS: ESR 26 mm/hr (0-20)
[2023-07-20 12:05] LABS: INR 1.1 (0.9-1.1); Prothrombin Time 11.2 sec (9.1-11.1)
[2023-07-20 13:35] LABS: Glucose 155 mg/dL (74-106)
--- NOTE | 2023-07-21 07:36 | NUR.NOTE ---
Acessed Pt chart to see if prescribed an antibiotic for the specimen result sheet.
--- NOTE | 2023-07-21 17:44 | NUR.NOTE ---
Accessed Pt chart to obtain if antibiotics were prescribed to patient
--- NOTE | 2023-07-22 15:55 | NUR.NOTE ---
Accessed Pt chart to see if Pt was prescribed any antibiotics for the specimen document.
--- NOTE | 2023-07-23 12:53 | NUR.NOTE ---
Positive blood culture results faxed to [facility] [email or web address]. Fax # . Nursing Note:
== END 2023-07-20 14:02 | disposition short-term general hospital (02) ==
PROVIDERS: Emergency Medicine; Emergency Provider Physician Assistant; PCP Family Medicine
DX: R10.32 Left lower quadrant pain (principal); I71.43 Infrarenal abdominal aortic aneurysm, without rupture; D72.829 Elevated white blood cell count, unspecified; N18.9 Chronic kidney disease, unspecified; E11.9 Type 2 diabetes mellitus without complications; I12.9 Hypertensive chronic kidney disease with stage 1 through stage 4 chronic kidney disease, or unspecified chronic kidney disease; Z79.82 Long term (current) use of aspirin; Z79.84 Long term (current) use of oral hypoglycemic drugs; Z87.891 Personal history of nicotine dependence
CPT/HCPCS: 36410; 80053; 82947; 83690; 85652; 87040; 87077; 93005; 96360; 99285; 74177; 81003; 83605; 85025; 85610; 86140; 87186; 93010; J3490

== ENCOUNTER 2023-11-03 15:31 | Inpatient (IN) | payer MEDICARE, OTHER, SELFPAY ==
[2023-11-03] VITALS (66 sets, daily range): BP systolic 111–172; BP diastolic 35–94; PULSE 36–82; RESP 9–27; TEMP 36.8–36.9; O2SAT 96–100
--- NOTE | 2023-11-03 15:30 | RT.EKG_ITS ---
APPROVED REPORT Exam: Resting ECG Reason for Exam: bradycardia Patient Location: E HR:35 bpm ECG Measurements Heart Rate 35 AXIS MI [id number] P [id number] QRSd 148 QRS -99 QT 529 T [id number] QTc 405 Conclusion Atrial fibrillation...? atrial activity Right bundle branch block...QRSd>120, terminal axis(90,270) Inferior infarct, old...Q >35mS, II III aVF ?junctional rhythm
--- NOTE | 2023-11-03 15:41 | ED.GENADUL_ITS ---
Discharge Plan Disposition Patient Disposition: Admit to [facility] Condition: Stable Discharge Details Clinical Impression: Symptomatic bradycardia Primary Care Provider: Viry Jasmine ED Provider: Be Armstrong Home Meds and New Rx's Prescriptions: No Action ascorbic acid (vitamin C) [Vitamin C] 500 mg tablet 500 mg PO DAILY Senna Plus 8.6-50 mg capsule 1 tab-cap PO PRN ferrous sulfate 325 mg (65 mg iron) tablet 325 mg PO DAILY clopidogrel 75 mg tablet 75 mg PO DAILY carvedilol 25 mg tablet 25 mg PO BID aspirin 81 mg tablet,chewable 1 tab PO DAILY silodosin [Rapaflo] 8 mg capsule 8 mg PO DAILY Patient Comments: Take 1 capsule by mouth once a day with food doxycycline hyclate 100 mg tablet 100 mg PO BID Patient Comments: TAKE 1 TABLET BY MOUTH TWICE DAILY FOR SUPRESSIVE THERAPY amlodipine 10 mg tablet 10 mg PO DAILY B-complex with vitamin C Tablet 1 tab PO DAILY valsartan 40 mg tablet 40 mg PO DAILY Patient Comments: Take 1 tablet by mouth twice a day nebivolol 5 mg tablet 5 mg PO DAILY metformin 500 mg tablet extended release 24 hr 500 mg PO DAILY Patient Comments: Take 1 tablet by mouth once a day Invokana 100 mg tablet 100 mg PO DAILY finasteride 5 mg tablet 5 mg PO DAILY Patient Comments: Take 1 tablet by mouth every night ICaps AREDS2 250 mg-200 unit -12.5 mg-1 mg capsule 1 cap PO DAILY omega 8-qdo-hir-fish oil [Fish Oil] 1,000 mg (120 mg-180 mg) capsule 1 cap PO DAILY Complex B-100 Tablet Extended Release 1 tab PO DAILY HPI General Date/Time Provider Initiated Documentation: 11/03/23 15:41 . HPI Narrative: 83 year-old male presents to ED today by POV with his partner with a chief complaint of severe dizziness, shortness of breath, and some mid-back pain when he sits up with onset this morning, to a lesser degree yesterday. 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 Quality described as severe dizziness, bradycardic in 30s on arrival- is on beta-ana laura, has known atrial fibrillation, no radiation to crushing chest pain, cough, fever, severe abdominal pain. Severity is described as 10/10 for dizziness. Palliating factors include nothing specific attempted. Provoking factors include nothing specific. Patient not anticoagulated, is on DAPT therapy. Related Data Home Medications Medication Instructions Recorded Confirmed canagliflozin 100 mg tablet 100 mg PO DAILY 07/20/23 11/03/23 (Invokana) finasteride 5 mg tablet 5 mg PO DAILY 07/20/23 11/03/23 metformin 500 mg tablet,extended 500 mg PO DAILY 07/20/23 11/03/23 release 24 hr nebivolol 5 mg tablet 5 mg PO DAILY 07/20/23 07/20/23 omega 4-qvz-cps-fish oil 1,000 mg 1 cap PO DAILY 07/20/23 11/03/23 (120 mg-180 mg) capsule (Fish Oil) valsartan 40 mg tablet 40 mg PO DAILY 07/20/23 07/20/23 vit C 250 mg-vit E 200 unit-zinc 1 cap PO DAILY 07/20/23 11/03/23 ox 12.5 jd-bmpcts-zwhiqm-zeax capsule (ICaps AREDS2) vitamin B complex (Complex B-100 1 tab PO DAILY 07/20/23 11/03/23 tablet,extended release) B-complex with vitamin C 1 tab PO DAILY 11/03/23 11/03/23 amlodipine 10 mg tablet 10 mg PO DAILY 11/03/23 11/03/23 ascorbic acid (vitamin C) 500 mg 500 mg PO DAILY 11/03/23 11/03/23 tablet (Vitamin C) aspirin 81 mg chewable tablet 1 tab PO DAILY 11/03/23 11/03/23 carvedilol 25 mg tablet 25 mg PO BID 11/03/23 11/03/23 clopidogrel 75 mg tablet 75 mg PO DAILY 11/03/23 11/03/23 doxycycline hyclate 100 mg tablet 100 mg PO BID 11/03/23 11/03/23 ferrous sulfate 325 mg (65 mg 325 mg PO DAILY 11/03/23 11/03/23 iron) tablet sennosides 8.6 mg-docusate sodium 1 tab-cap PO PRN 11/03/23 11/03/23 50 mg capsule (Senna Plus) silodosin 8 mg capsule (Rapaflo) 8 mg PO DAILY 11/03/23 11/03/23 Allergies Allergy/AdvReac Type Severity Reaction Status Date / Time levofloxacin AdvReac Mild Other (See Unverified 07/20/23 09:47 Comment) Statins AdvReac Mild Other (See Uncoded 07/20/23 09:47 Comment) General Stated Complaint: Dizzy/Sync YNES: 2 Review of Systems All systems reviewed & are unremarkable except as noted in HPI and below Exam Narrative Exam Narrative: GENERAL APPEARANCE: Well-nourished, non-toxic, awake and alert, atraumatic, moderate acute distress. SKIN: Warm, pale, dry, intact, without rashes/lesions/ulcerations. HEAD: Normocephalic, atraumatic, normal hair distribution for gender/age. EYES: Pupils PERRLA, EOMs intact without nystagmus, normal conjunctiva, no exudates on lids/lashes. ENT: Nares patent, no circumoral cyanosis, no facial swelling NECK: Supple, trachea midline, painless cervical ROM. LUNGS/CHEST: Lungs CTA bilaterally, non-labored respirations, normal A/P diameter, symmetrical expansion, no chest wall deformity HEART (CV/PV): Bradycardic irregularly irregular rate and rhythm with systolic murmur at LSB, no peripheral edema of legs, no JVD, no carotid bruit. ABDOMEN: Soft, non-distended, no guarding, protruberant, no pulsatile masses. MSK: Normal ROM, no swelling/deformity to bilateral UEs or LEs, moving all extremities without weakness, no cyanosis, spine midline without tenderness, normal curvature. NEURO: Mental Status AAOx4 - alert to person, place, time, events No facial droop, no forehead involvement. Motor: No focal weakness - strength 5/5 in bilateral UEs and LEs, proximal and distal, symmetric. Sensory: sensation intact to light touch globally. Gait NT. PSYCH: euthymic, cooperative, pleasant, appropriate speech Course Vital Signs Vital signs: Vital Signs Temperature 36.8 C 11/03/23 15:33 Pulse 43 L 11/03/23 15:33 Respiratory Rate 18 11/03/23 15:33 Blood Pressure 124/35 L 11/03/23 15:33 Pulse Oximetry 99 11/03/23 15:33 Temperature 36.8 C 11/03/23 15:33 Temperature Source Skin 11/03/23 15:33 Pulse 43 L 05/13/24 15:33 Respiratory Rate 18 11/03/23 15:33 Blood Pressure 124/35 L 11/03/23 15:33 Blood Pressure Position Sitting 11/03/23 15:33 Pulse Oximetry 99 11/03/23 15:33 Oxygen Delivery Method Room Air 11/03/23 15:33 Oxygen Flow Rate 0 11/03/23 15:33 Pain Level 0 11/03/23 15:33 Comment 8/10 back pain with movement 11/03/23 15:33 Medical Decision Making This dictation utilizes [id number] dictation software and may contain unedited grammatical errors. 83 y/o M presents to ED today with a chief complaint of severe dizziness, back pain, shortness of breath, bradycardia. Patient had penetrating ulcer of aorta and endovascular repair with AAA and two stents placed at [facility] on 08/31/23. Recent d/c from rehab- having dizziness onset yesterday but much more profound today. Pain in mid-back with positional changes. Not on anticoagulation, is on DAPT therapy. 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 Family and social history: Noncontributory, has been resting at home, no sick household contacts, no ETOH use, no illicit substances, has been following strict rehab diet. Pertinent exam findings / vital signs include bradycardic with normal tensive BP, protuberant abdomen without pulsatile mass or bruit, appears pale, moderate acute distress, neuro intact. Differential / pathologies of concern include aortic stent complication, aortic dissection, complete heart block, shock. Diagnostic studies of: -CBC, CMP, lactate, CRP/ESR, troponin, type and screen, D-dimer, BNP, lipase, magnesium, PT/PTT, EKG, CTA thorax abdomen pelvis. -CBC shows stable anemia without leukocytosis -CMP shows elevated creatinine of 2.1, elevated BUN of 48 -BNP 4400 -Troponin negative -Lipase within normal limits -D-dimer 5000 -PT/INR within normal limits, PTT within normal limits -Lactate 2.3 likely in the setting of dehydration -CTA shows no dissection, no rupture- study did not have optimal delayed phasing for endoleak detection, but [facility] vascular was unconcerned with consult with Dr. Scanlon at 1826. -EKG shows atrial fibrillation and a possible junctional rhythm, no P waves visualized, rate is 35, has no significant ST changes, question mild ST depression V4 V5, no dropped beats Interventions of: -Pacer pads placed immediately on arrival. -Upon return from CT, patient had p-waves and was in the 60s for pulse. -Consults with [facility] ED Course/Assessment/Plan: 83-year-old male patient presents with symptomatic bradycardia and near syncope ongoing since this morning, he has mid back pain with positional changes in the setting of lumbar stenosis but also had recent endovascular aortic aneurysm repair and stenting in August at [facility]. He this was secondary to a MRSA infection that led to a penetrating ulcer of the aorta. He has been at rehab and recently was discharged home, he has no history of atrial fibrillation and was possibly in a junctional rhythm on presentation to the ED with heart rates in the 30s dipping to as low as 29 with no P waves seen. This spontaneously converted to normal sinus rhythm at CTs resting comfortably at 60 bpm since then with P waves present and no ST changes. He was having increasing blood pressures throughout the visit in the 170s over 80 with a target blood pressure of around 120 per vascular surgery. I did consult with [facility] cardiology, Dr. Isaacs at 1836, about blood pressure they recommend holding his carvedilol and starting hydralazine for blood pressure control and monitoring on telemetry. He does have a ELVIE with elevated BUN and a lactate of 2.3 that could have been driving his symptomatic bradycardia. I did speak with [facility]'s hospitalist service as it may be somewhat more appropriate for him to be where his specialists are with such symptomatic bradycardia and high risk for discharge. He does not have cardiology consult available here. Hospitalist service refuses suggest an MRA wo Contrast for possible endoleak tomorrow. His electrical engineering designer is Dr. Billy at [facility]. Patient states no history of CHF, states Chronic Heart Failure, states never had an episode of atrial fibrillation. I spoke with Dr. Hackett at 1845 about admission here for BP control, tele, possible MRA- he accepted for admission. Giving 10mg IV hydralazine here for BP control. Findings not consistent with vascular stent or endovascular repair leak or rupture, ACS, CHF with hypoxia, respiratory failure, aortic dissection. Disposition of Symptomatic Bradycardia. Patient verbalized understanding of the plan and return to ED criteria and engaged in shared decision making. Medical Records Medical records reviewed: Yes I reviewed the patient's medical records. Imaging Data Radiologic Study: Attestation: I personally reviewed and interpreted this imaging study as follows: Imaging: CT Scan Radiologist's impression: Exam(s) CT THORAX ABD/PEL CTA EXAM: CT THORAX ABD/PEL CTA CLINICAL HISTORY: sergei, dizzy- recent aortic stents/aneurysms. TECHNIQUE: Imaging Protocol: Axial computed tomography images with coronal and sagittal reformatted images were created and reviewed CONTRAST MATERIAL: Intravenous: Omnipaque 350 Contrast volume:100 ml Oral: None COMPARISON: CT CT ABDOMEN PELVIS W from 07/20/2023 FINDINGS: CHEST:c AORTA: The diameter of the ascending thoracic aorta is 3.8 cm. No evidence of dissection. Diameter of the mid aortic arch is 2.8 cm and diameter of the descending thoracic aorta is 2.9 cm. There is an endovascular stent within the distal thoracic aorta as well as an abdominal aortic EVAR. There also stents in the origins of the celiac artery and left renal artery and the previously present streaking around the origin of the celiac artery has mostly resolved. Flow is seen within the intra stent aspect of the proximal celiac as well as at and distal to the bifurcation of this vessel. The superior mesenteric artery is patent. Maximum diameter of the absentee-[place] aortic sac is 4 cm which is unchanged from previous. There is no obvious endoleak realizing limitations of this single run study. There is no obvious leak at the distal iliac anastomosis ease. No abnormal collections. Satisfactory flow is demonstrated in the external iliac arteries as well as within the common femoral arteries, bilaterally.. LUNGS: No infiltrates nor pleural effusions. No significant nodules. MEDIASTINUM: There is no hilar nor mediastinal adenopathy. ABDOMEN: There is no ascites. There are no ischemic appearing bowel loops. No bowel obstruction, free air, nor abscess. LIVER: There are no focal hepatic lesions nor dilatation of intrahepatic ducts. GALLBLADDER/BILIARY: No obvious gallbladder pathology. CBD is not dilated. PANCREAS: No evidence of pancreatic mass nor dilatation of the pancreatic duct. SPLEEN: Spleen is not enlarged. There are no intrasplenic lesions. Splenic and portal veins are patent. ADRENALS: There are no significant adrenal masses. KIDNEYS: No cysts evident. No calculi nor hydronephrosis. No solid renal masses. ABDOMINAL AORTA: See above/EVAR LYMPH NODES: There is no retroperitoneal nor para-aortic adenopathy. No obvious mesenteric masses. ABDOMINAL WALL: Fat containing bilateral inguinal hernias. GI: Abundant fecal material again noted in the colon. Also fecalization of distal small bowel loops. The appendix appears unremarkable. Sigmoid diverticuli but no evidence of acute diverticulitis. PELVIS: LYMPH NODES: There is no intrapelvic nor inguinal adenopathy. GI: No evidence of appendicitis.Sigmoid diverticuli. No diverticulitis. URINARY BLADDER: Uniform thickening of the urinary bladder wall either due to cystitis or chronic outflow obstruction in this patient with the enlarged prostate REPRODUCTIVE: Enlarged prostate. Measures 6 cm wide. 5 cm AP. OSSEOUS: No significant osseous lesions. Other: Abnormal subcutaneous streaking in the fat over the right buttock. Suspicious for possible developing decubitus ulcer at this level. Subjacent ischial tuberosity is unremarkable. No evidence of osteomyelitis. IMPRESSION: 1. No evidence of significant thoracic aortic aneurysm and no evidence of aortic dissection in the chest. 2. There are endovascular stents within distal most thoracic aorta and aortic abdominal EVAR with additional stents in the celiac and superior mesenteric arteries and renal arteries. No obvious endoleak, realizing the limitations of this single sequence study. 3. No ischemic appearing bowel loops. No ascites. No bowel obstruction. 4. Mobile cecum in the midline. No appendicitis. Discussed with ER physician. Lab Data Lab results reviewed: Yes I reviewed the patient's lab results. Quality:SDOH Health Related Social Needs: No Data to Display Critical Care Time Critical Care Time Critical Care Time: Yes Total Critical Care Time: 30 Attestation: I attest that I spent 30 minutes at patient's bedside interpreting cardiac rhythm strips, EKGs and managing acute symptomatic bradycardia, with pacing pads applied to chest. His symptomatic bradycardia with recent aortic surgical history had a high risk for imminent life threat which required direct attention and intervention and personal management. [id number]. [facility] All Active Problems (Updated 11/03/23 @ 19:43 by Khanh Hackett) HTN (hypertension) (Chronic) Acute dehydration (Acute) CKD (chronic kidney disease) stage 3, GFR 30-59 ml/min (Chronic) Type 2 diabetes mellitus (Chronic) PAF (paroxysmal atrial fibrillation) (Chronic) Symptomatic bradycardia (Acute) Social History Smoking/Tobacco Use Status: Former Tobacco Use Smoking risk assessment performed?: Yes Alcohol Intake: current Alcohol Intake frequency: 0-2 drinks per day Drug use: Never Substance use type: does not use Details: Pt quit smoking 10 years ago Housing: house Do you feel safe at home: Yes Do you feel safe in your relationship?: Yes
[2023-11-03 16:03] LABS: Abs Immature Grans 0.02 10^3/uL (0.0-0.06); Absolute Basophil Count 0.05 10^3/uL (0.0-0.2); Absolute Eosinophil Count 0.58 10^3/uL (0.0-0.7); Absolute Lymphocyte Count 1.76 10^3/uL (1.2-3.4); Absolute Monocyte Count 0.81 10^3/uL (0.1-0.8); Absolute Neutrophil Count 5.68 10^3/uL (1.2-6.7); Basophils % 0.6 %; Eosinophils % 6.5 %; HCT 35.3 % (40.0-50.0); HGB 11.3 g/dL (13.5-17.5); Immature Grans % 0.2 %; Lymphocytes % 19.8 %; MCH 30.5 pg (27.0-33.0); MCV 95 fL (80-95); MPV 10.8 fL (8.0-11.0); Monocytes % 9.1 %; Neutrophils % 63.8 %; Platelet Count 156 10^3/uL (130-400); RBC 3.71 10^6/uL (4.36-5.78); RDW 15.5 % (11.8-14.1); RDW-SD 53.9 fL
[2023-11-03 16:04] LABS: Lactate 2.3 mmol/L (0.6-1.4)
[2023-11-03 16:05] LABS: ESR 13 mm/hr (0-20)
[2023-11-03] MEDS: Normal Saline - Diluent 50 ML VIAL IJ (16:10)
[2023-11-03] MEDS: Omnipaque 350 MG/ML 100 ML BTL IJ (16:11)
[2023-11-03 16:25] LABS: INR 1.1 (0.9-1.1); PTT Activated 26.6 sec (23.6-32.8); Prothrombin Time 10.9 sec (9.1-11.1)
--- NOTE | 2023-11-03 16:34 | DI.CT_ITS ---
Exam(s) CT THORAX ABD/PEL CTA EXAM: CT THORAX ABD/PEL CTA CLINICAL HISTORY: sergei, dizzy- recent aortic stents/aneurysms. TECHNIQUE: Imaging Protocol: Axial computed tomography images with coronal and sagittal reformatted images were created and reviewed CONTRAST MATERIAL: Intravenous: Omnipaque 350 Contrast volume:100 ml Oral: None COMPARISON: CT CT ABDOMEN PELVIS W from 07/20/2023 FINDINGS: CHEST:c AORTA: The diameter of the ascending thoracic aorta is 3.8 cm. No evidence of dissection. Diameter of the mid aortic arch is 2.8 cm and diameter of the descending thoracic aorta is 2.9 cm. There is a n endovascular stent within the distal thoracic aorta as well as an abdominal aortic EVAR. There als o stents in the origins of the celiac artery and left renal artery and the previously present streaki ng around the origin of the celiac artery has mostly resolved. Flow is seen within the intra stent a spect of the proximal celiac as well as at and distal to the bifurcation of this vessel. The superio r mesenteric artery is patent. Maximum diameter of the [place] aortic sac is 4 cm which is unchanged from previous. There is no obvi ous endoleak realizing limitations of this single run study. There is no obvious leak at the distal iliac anastomosis ease. No abnormal collections. Satisfactory flow is demonstrated in the external iliac arteries as well as within the common femoral arteries, bilaterally.. LUNGS: No infiltrates nor pleural effusions. No significant nodules. MEDIASTINUM: There is no hilar nor mediastinal adenopathy. ABDOMEN: There is no ascites. There are no ischemic appearing bowel loops. No bowel obstruction, free air, n or abscess. LIVER: There are no focal hepatic lesions nor dilatation of intrahepatic ducts. GALLBLADDER/BILIARY: No obvious gallbladder pathology. CBD is not dilated. PANCREAS: No evidence of pancreatic mass nor dilatation of the pancreatic duct. SPLEEN: Spleen is not enlarged. There are no intrasplenic lesions. Splenic and portal veins are campa nt. ADRENALS: There are no significant adrenal masses. KIDNEYS: No cysts evident. No calculi nor hydronephrosis. No solid renal masses. ABDOMINAL AORTA: See above/EVAR LYMPH NODES: There is no retroperitoneal nor para-aortic adenopathy. No obvious mesenteric masses. ABDOMINAL WALL: Fat containing bilateral inguinal hernias. GI: Abundant fecal material again noted in the colon. Also fecalization of distal small bowel loops. The appendix appears unremarkable. Sigmoid diverticuli but no evidence of acute diverticulitis. PELVIS: LYMPH NODES: There is no intrapelvic nor inguinal adenopathy. GI: No evidence of appendicitis.Sigmoid diverticuli. No diverticulitis. URINARY BLADDER: Uniform thickening of the urinary bladder wall either due to cystitis or chronic out flow obstruction in this patient with the enlarged prostate REPRODUCTIVE: Enlarged prostate. Measures 6 cm wide. 5 cm AP. OSSEOUS: No significant osseous lesions. Other: Abnormal subcutaneous streaking in the fat over the right buttock. Suspicious for possible de veloping decubitus ulcer at this level. Subjacent ischial tuberosity is unremarkable. No evidence o f osteomyelitis. IMPRESSION: 1. No evidence of significant thoracic aortic aneurysm and no evidence of aortic dissection in the ch est. 2. There are endovascular stents within distal most thoracic aorta and aortic abdominal EVAR with add itional stents in the celiac and superior mesenteric arteries and renal arteries. No obvious endolea k, realizing the limitations of this single sequence study. 3. No ischemic appearing bowel loops. No ascites. No bowel obstruction. 4. Mobile cecum in the midline. No appendicitis. Discussed with ER physician. RADIATION DOSE DELIVERED: 1,002.62mGy.cm Total DLP DATA REPOSITORY: All CT scans at this facility are submitted to the National Radiology Data Registry (NRDR) Dose Index Registry (DIR) with the [employer] ([employer]). RADIATION OPTIMIZATION: All CT scans at this facility use at least one of these dose optimization te chniques: automated exposure control; mA and/or kV adjustment per patient size (includes targeted exa ms where dose is matched to clinical indication); or iterative reconstruction.
[2023-11-03 16:36] LABS: ALT 23 U/L (16-63); AST 14 U/L (15-37); Albumin 3.2 g/dL (3.4-5.0); Alkaline Phosphatase 110 U/L (46-116); Anion Gap 12.6 mmol/L (3-11); BUN 48 mg/dL (7-18); Bilirubin, Total 0.3 mg/dL (0.2-1.0); C-Reactive Protein < 0.50 mg/dL (<or=0.5); CO2 20.4 mmol/L (21.0-32.0); CREATININE 2.1 mg/dL (0.70-1.30); Calcium 8.6 mg/dL (8.5-10.1); Chloride 106 mmol/L (98-107); Estimated GFR 30.66 (mL/min/1.73m2); Glucose 176 mg/dL (74-106); Lipase 49 U/L (16-77); Magnesium 2.2 mg/dL (1.8-2.4); NT-proBNP 4427 pg/mL (<300); Potassium 4.9 mmol/L (3.5-5.1); Sodium 139 mmol/L (136-145); Total Protein 6.9 g/dL (6.4-8.2); Troponin I < 50 ng/L (< or =60)
[2023-11-03 16:39] LABS: D-Dimer 5017 ng/mlFEU (<500)
--- NOTE | 2023-11-03 16:45 | RT.EKG_ITS ---
APPROVED REPORT Exam: Resting ECG Reason for Exam: repeat EKG, arrhythmia Patient Location: E HR:60 bpm ECG Measurements Heart Rate 60 AXIS NE 167 P 27 QRSd 165 QRS -88 QT 473 T 67 QTc 475 Conclusion Sinus rhythm...normal P axis, V-rate 60- 99 Ventricular premature complex...V complex w/ short R-R interval Right bundle branch block...QRSd>120, terminal axis(90,270)
[2023-11-03] MEDS: Normal Saline 1,000 ML 125 ML IV (17:08)
[2023-11-03 19:03] LABS: Troponin I < 50 ng/L (< or =60)
[2023-11-03] MEDS: hydrALAZINE 20 MG/ML VIAL 10 MG IVP (19:18)
--- NOTE | 2023-11-03 19:25 | HPE_ITS ---
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 He was treated at [facility] with endovascular repair and stenting of his abdominal and thoracic aorta. He has been having daily back discomfort which was worse the day of presentation. Patient also had symptomatic bradycardia though he was not severely hypotensive. As a surgery thought that his endovascular repair was intact and his bradycardia could have been vagal response with his other symptoms. The troponins were negative and he did convert from atrial fibrillation where he did have severe bradycardia into the 30s to normal sinus rhythm and a less severe bradycardia in the 50s to 60s. [facility] cardiology and vascular surgery did recommend observation with external pacer pads in place in case of recurrent bradycardia. He also suggested holding his Coreg at this time. Blood pressure control will be maintained with beta- blockade the patient chronically on amlodipine and valsartan. Will also use hydralazine to keep systolic blood pressure around 120 status post endovascular repair of his AAA. Patient is a full code. (2) Acute dehydration: Start date: 11/03/23 Status: Acute Assessment and plan: Patient appears slightly dry from his baseline though he does have CKD with chronic diabetes. Gentle IV hydration patient stated that his heart has never had a problem with fluid overload and [facility] cardiology did report that his left ejection fraction was preserved. He is not chronically on diuretics but does have chronic CHF which is most likely why he has combination of carvedilol and valsartan. (3) PAF (paroxysmal atrial fibrillation): Status: Chronic Assessment and plan: Patient did have bradycardia with his paroxysmal atrial fibrillation on the day of admission which appear to be symptomatic though he was not severely hypotensive. Hold carvedilol but continue valsartan and amlodipine with cardiac monitoring and trending of troponins. He is not on anticoagulation other than dual antiplatelet therapy with low-dose aspirin and Plavix. These will be continued. (4) Type 2 diabetes mellitus: Status: Chronic Assessment and plan: Patient is not aware of treatment of his diabetes other than oral medical therapy. He would like to avoid insulin but is willing to have his glucometer checked with coverage while hospitalized. Qualifiers: Chronic kidney disease stage: stage 3 (moderate) Chronic kidney disease stage 3 subtype: stage 3b (GFR 30-44) Diabetes mellitus complication detail: w ith chronic kidney disease Diabetes mellitus complication status: with kidney complications Diabetes mellitus intermediate designer insulin use: without intermediate designer use Qualified Code(s): E11.22 - Type 2 diabetes mellitus with diabetic chronic kidney disease; N18.32 - Chronic kidney disease, stage 3b (5) HTN (hypertension): Status: Chronic Assessment and plan: Chronically on amlodipine, valsartan and carvedilol with carvedilol being held for now. Hydralazine will be used for blood pressure control to keep systolic blood pressure below 140 and hopefully 120. Watch for exacerbation while hydration for mild dehydration. Qualifiers: Hypertension type: primary hypertension Qualified Code(s): I10 - Essential (primary) hypertension (6) Aortic aneurysm rupture: Start date: 08/31/23 Status: Resolved Assessment and plan: Perforated ulcer associate with vasculitis with MRSA while being hospitalized at [facility]. Patient did have an aneurysm been repaired with vascular repair and stenting. Qualifiers: Aortic location: thoracoabdominal aorta Thoracoabdominal aorta location: unspecified Qualified Code(s): I71.50 - Thoracoabdominal aortic aneurysm, ruptured, unspecified (7) History of repair of aneurysm of abdominal aorta using endovascular stent graft: Start date: 08/31/23 Status: Resolved Assessment and plan: Dental surgery with no apparent complications the patient has been having some mid back pain daily since his surgery. This is acutely worsened the day of presentation and MRA of the thoracic and abdominal aorta will be performed in the morning for completion of studies to assure stability of his repair. He is not having any evidence of dissection at this time. He is a full code. (8) CKD (chronic kidney disease) stage 3, GFR 30-59 ml/min: Status: Chronic Assessment and plan: Slightly exacerbated with dehydration. Monitor lab daily with repeat lactate in the morning. Qualifiers: Chronic kidney disease stage 3 subtype: stage 3b (GFR 30-44) Qualified Code(s): N18.32 - Chronic kidney disease, stage 3b History of Present Illness History of Present Illness Chief Complaint: Severe dizziness with dyspnea and mid back pain Narrative: This is an 83-year-old male patient who recently had a prolonged hospitalization at [facility] for treatment of MRSA infection with vasculitis and complication of a penetrating ulcer of the aorta requiring endovascular aneurysm repair on 08/31/2023. He also had multiple stents placed. He was in long-term rehabilitation for about 1 month post hospitalization at [facility] and has been at home for about 1 month having PT see him and sign off on his care on the day of presentation. He began to have a crescendo of his symptoms of severe dizziness with mid back pain and dyspnea without diaphoresis yesterday which were less severe than upon presentation the day of admission. He denies any retrosternal chest pain or radiation of his back pain which has resolved but has been occurring daily since his surgery. This morning as his symptoms came on more severely he had bradycardia with his heart rate down to 30s with atrial fibrillation at a rate. In the ED he was bradycardic but self resolved return to sinus rhythm with bradycardia and heart rate in the 50s. He never did have severe hypotension with his episode. Imaging in the ED did not reveal any acute decompensation of his aortic aneurysm repair with review by vascular surgery at [facility]. Vascular surgery thought he may have had some vagal response causing his bradycardia on beta-blockers and suggested holding his beta-blockers but treating his hypertension because of his recent surgery to maintain systolic around 120. They did also suggest for follow-up having MRA of the thoracic and abdominal aorta since the timing of the dye with the CTA was slightly off. They did not feel the patient was having any complications of his repair and did not recommend transfer to the tertiary care center but observation at this facility. Patient appears more comfortable and not complaining of back pain at the time I interviewed and examined the patient. He was easily agitated during initial discussion with interview but did calm down with different approach and awareness of his difficulty hearing as well as seeing with macular degeneration. He does have a partner who gives him his medications which are prepackaged and bubble packages. He did have to go to a rehab facility for about a month after his surgery in August but has been home for about 1 month with physical therapy just signing off on his care today. He states that presently he is pain-free and not short of breath lying in bed. He has had no peripheral edema and the surgery was done through the femoral artery with no surgical scars. His appetite has been fair. He does have ZOLL patches in place for external pacing if needed. Presently he is in sinus bradycardia and is not hypotensive but in fact slightly hypertensive. He is a full code. Review of Systems Narrative: 13 point review of systems otherwise unrevealing or stable. PFSH All Active Problems (Updated 11/03/23 @ 19:43 by Khanh Hackett) HTN (hypertension) (Chronic) Acute dehydration (Acute) CKD (chronic kidney disease) stage 3, GFR 30-59 ml/min (Chronic) Type 2 diabetes mellitus (Chronic) PAF (paroxysmal atrial fibrillation) (Chronic) Symptomatic bradycardia (Acute) Social History Smoking/Tobacco Use Status: Former Tobacco Use Smoking risk assessment performed?: Yes Alcohol Intake: current Alcohol Intake frequency: 0-2 drinks per day Drug use: Never Substance use type: does not use Details: Pt quit smoking 10 years ago Housing: house Do you feel safe at home: Yes Do you feel safe in your relationship?: Yes Meds Allergies and Home Medications Allergies Allergy/AdvReac Type Severity Reaction Status Date / Time levofloxacin AdvReac Mild Other (See Unverified 07/20/23 09:47 Comment) Statins AdvReac Mild Other (See Uncoded 07/20/23 09:47 Comment) Home Medications Medication Instructions Recorded Confirmed Type canagliflozin 100 mg tablet 100 mg PO DAILY 07/20/23 11/03/23 History (Invokana) finasteride 5 mg tablet 5 mg PO DAILY 07/20/23 11/03/23 History metformin 500 mg tablet,extended 500 mg PO DAILY 07/20/23 11/03/23 History release 24 hr nebivolol 5 mg tablet 5 mg PO DAILY 07/20/23 07/20/23 History omega 3-psz-zsb-fish oil 1,000 mg 1 cap PO DAILY 07/20/23 11/03/23 History (120 mg-180 mg) capsule (Fish Oil) valsartan 40 mg tablet 40 mg PO DAILY 07/20/23 07/20/23 History vit C 250 mg-vit E 200 unit-zinc 1 cap PO DAILY 07/20/23 11/03/23 History ox 12.5 zt-lhatlh-lurteo-zeax capsule (ICaps AREDS2) vitamin B complex (Complex B-100 1 tab PO DAILY 07/20/23 11/03/23 History tablet,extended release) B-complex with vitamin C 1 tab PO DAILY 11/03/23 11/03/23 History amlodipine 10 mg tablet 10 mg PO DAILY 11/03/23 11/03/23 History ascorbic acid (vitamin C) 500 mg 500 mg PO DAILY 11/03/23 11/03/23 History tablet (Vitamin C) aspirin 81 mg chewable tablet 1 tab PO DAILY 11/03/23 11/03/23 History carvedilol 25 mg tablet 25 mg PO BID 11/03/23 11/03/23 History clopidogrel 75 mg tablet 75 mg PO DAILY 11/03/23 11/03/23 History doxycycline hyclate 100 mg tablet 100 mg PO BID 11/03/23 11/03/23 History ferrous sulfate 325 mg (65 mg 325 mg PO DAILY 11/03/23 11/03/23 History iron) tablet sennosides 8.6 mg-docusate sodium 1 tab-cap PO PRN 11/03/23 11/03/23 History 50 mg capsule (Senna Plus) silodosin 8 mg capsule (Rapaflo) 8 mg PO DAILY 11/03/23 11/03/23 History Exam Narrative Exam Narrative: General: Patient appears appropriate for age, alert and oriented x 3 with slight decreased hearing acuity and having problems with central vision because of macular degeneration. He does stare straight ahead at the interviewer. He is in no acute distress. He is less agitated as the interview proceeded. HEENT: Normocephalic, eyes with pupils equal and reactive to light symmetrically, extraocular movement intact and sclera anicteric. Oropharynx with moist mucosa and fair dentition. Neck: Supple without JVD. Back: Stooped posture without CVA tenderness. Lungs: Clear to auscultation percussion with no focalizing rales or rhonchi. Heart: Distant heart sounds with bradycardic rate, normal rhythm no appreciable murmur or gallop. Abdomen: Slightly obese contour, soft nontender to palpation with no palpable hepatosplenomegaly. Slight protrusion of a small umbilical hernia which is nontender. Bowel sounds positive all quadrants. Genitalia/rectal: Exam deferred. Extremities: Without clubbing, cyanosis or pitting edema. Good capillary refill. Skin: Normal color, warm and dry. Neuro: Cranial nerves II through XII grossly intact with patient having some problems with central focus because of macular degeneration as stated. No focalizing motor deficits. No tremor. Psych: Slightly flattened affect but normal mood. Easily agitated at times. No abnormal thought processes. Remote memory intact with recent memory at times appears to be less intact with patient being defensive. He is supervised by his partner at home. His partner did drive him and to the hospital with his symptoms. Results Imaging Imaging Studies: EXAM: CT THORAX ABD/PEL CTA Date of exam: 11/03/2023 CLINICAL HISTORY: sergei, dizzy- recent aortic stents/aneurysms. TECHNIQUE: Imaging Protocol: Axial computed tomography images with coronal and sagittal reformatted images were created and reviewed CONTRAST MATERIAL: Intravenous: Omnipaque 350 Contrast volume:100 ml Oral: None COMPARISON: CT CT ABDOMEN PELVIS W from 07/20/2023 FINDINGS: CHEST: AORTA: The diameter of the ascending thoracic aorta is 3.8 cm. No evidence of dissection. Diameter of the mid aortic arch is 2.8 cm and diameter of the descending thoracic aorta is 2.9 cm. There is an endovascular stent within the distal thoracic aorta as well as an abdominal aortic EVAR. There also stents in the origins of the celiac artery and left renal artery and the previously present streaking around the origin of the celiac artery has mostly resolved. Flow is seen within the intra stent aspect of the proximal celiac as well as at and distal to the bifurcation of this vessel. The superior mesenteric artery is patent. Maximum diameter of the [place] aortic sac is 4 cm which is unchanged from previous. There is no obvious endoleak realizing limitations of this single run study. There is no obvious leak at the distal iliac anastomosis ease. No abnormal collections. Satisfactory flow is demonstrated in the external iliac arteries as well as within the common femoral arteries, bilaterally.. LUNGS: No infiltrates nor pleural effusions. No significant nodules. MEDIASTINUM: There is no hilar nor mediastinal adenopathy. ABDOMEN: There is no ascites. There are no ischemic appearing bowel loops. No bowel obstruction, free air, nor abscess. LIVER: There are no focal hepatic lesions nor dilatation of intrahepatic ducts. GALLBLADDER/BILIARY: No obvious gallbladder pathology. CBD is not dilated. PANCREAS: No evidence of pancreatic mass nor dilatation of the pancreatic duct. SPLEEN: Spleen is not enlarged. There are no intrasplenic lesions. Splenic and portal veins are patent. ADRENALS: There are no significant adrenal masses. KIDNEYS: No cysts evident. No calculi nor hydronephrosis. No solid renal masses. ABDOMINAL AORTA: See above/EVAR LYMPH NODES: There is no retroperitoneal nor para-aortic adenopathy. No obvious mesenteric masses. ABDOMINAL WALL: Fat containing bilateral inguinal hernias. GI: Abundant fecal material again noted in the colon. Also fecalization of distal small bowel loops. The appendix appears unremarkable. Sigmoid diverticuli but no evidence of acute diverticulitis. PELVIS: LYMPH NODES: There is no intrapelvic nor inguinal adenopathy. GI: No evidence of appendicitis.Sigmoid diverticuli. No diverticulitis. URINARY BLADDER: Uniform thickening of the urinary bladder wall either due to cystitis or chronic outflow obstruction in this patient with the enlarged prostate REPRODUCTIVE: Enlarged prostate. Measures 6 cm wide. 5 cm AP. OSSEOUS: No significant osseous lesions. Other: Abnormal subcutaneous streaking in the fat over the right buttock. Suspicious for possible developing decubitus ulcer at this level. Subjacent ischial tuberosity is unremarkable. No evidence of osteomyelitis. IMPRESSION: 1. No evidence of significant thoracic aortic aneurysm and no evidence of aortic dissection in the chest. 2. There are endovascular stents within distal most thoracic aorta and aortic abdominal EVAR with additional stents in the celiac and superior mesenteric arteries and renal arteries. No obvious endoleak, realizing the limitations of this single sequence study. 3. No ischemic appearing bowel loops. No ascites. No bowel obstruction. 4. Mobile cecum in the midline. No appendicitis. Labs 11/03/23 15:55 11/03/23 15:55 Labs: Laboratory Results - last 24 hr 11/03/23 11/03/23 11/03/23 15:55 16:10 18:43 WBC 8.90 RBC 3.71 L Hgb 11.3 L Hct 35.3 L MCV 95 MCH 30.5 MCHC 32.0 RDW 15.5 H Plt Count 156 MPV 10.8 Immature Gran % 0.2 Neutrophils % 63.8 Lymphocytes % 19.8 Monocytes % 9.1 Eosinophils % 6.5 Basophils % 0.6 Nucleated RBC % 0.0 Absolute Neutrophils 5.68 Absolute Lymphocytes 1.76 Absolute Monocytes 0.81 H Absolute Eosinophils 0.58 Absolute Basophils 0.05 ESR 13 PT 10.9 INR 1.1 APTT 26.6 D-Dimer 5017 H VBG Lactate 2.3 H* Sodium 139 Potassium 4.9 Chloride 106 Carbon Dioxide 20.4 L Anion Gap 12.6 H BUN 48 H Creatinine 2.1 H Est GFR (CKD-EPI 2020) 30.66 Glucose 176 H Calcium 8.6 Magnesium 2.2 Total Bilirubin 0.3 AST 14 L ALT 23 Alkaline Phosphatase 110 Troponin I < 50 < 50 C-Reactive Protein < 0.50 NT-Pro-B Natriuret Pep 4427 H Total Protein 6.9 Albumin 3.2 L Lipase 49 ABO/Rh B Positive Antibody Screen NEGATIVE Last Vital Signs Temp 36.8 C 11/03/23 15:33 Pulse 63 11/03/23 19:15 Resp 14 11/03/23 19:20 BP 172/79 H 11/03/23 19:15 Pulse Ox 99 11/03/23 19:20 Time Spent Time spent with Patient: >75 minutes Time was spent: preparing to see the patient(eg.review tests), obtaining and/or reviewing separately otained hiistory, ordering medications,tests, procedures, indepentently interpreting results and care coordination
[2023-11-03 20:07] LABS: BE (Venous) -3 mmol/L (-2-3); HCO3 (Venous) 22 mmol/L (23-28); O2 Sat (Venous) 71 %; TCO2 (Venous) 20 mmol/L (24-29); pCO2 (Venous) 36 mmHg (41-51); pO2 (Venous) 40 mmHg
[2023-11-03 20:32] LABS: Troponin I < 50 ng/L (< or =60)
[2023-11-03 20:37] LABS: TSH 2.79 uIU/Ml (0.36-3.74)
--- NOTE | 2023-11-03 21:21 | W.PC.ACHO ---
Registration Status: REG ER Primary Language: Preferred Language: ED Information & Data Chief Complaint Dizzy/Sync 11/03/23 15:57 Chief Complaint Dizzy/Sync 11/03/23 15:42 Triage Note Started with dizziness/ SOB 11/03/23 15:33 this morning. Feels like he' s blacking out Most Recent Vital Signs Temperature 36.8 C 11/03/23 15:33 Temperature Source Skin 11/03/23 15:33 Pulse 61 11/03/23 20:01 Pulse 65 11/03/23 20:10 Respiratory Rate 15 11/03/23 20:10 Respiratory Effort Normal, Accessory Muscle Use 11/03/23 15:57 Respiratory Depth Normal 11/03/23 15:57 Respiratory Pattern Normal 11/03/23 15:57 Blood Pressure 163/63 H 11/03/23 20:01 Blood Pressure Mean 100 11/03/23 20:01 Blood Pressure Position Sitting 11/03/23 15:33 Pulse Oximetry 99 11/03/23 20:10 Oxygen Delivery Method Room Air 11/03/23 15:33 Oxygen Flow Rate 0 11/03/23 15:33 Pain Level 0 11/03/23 15:33 Comment 8/10 back pain with movement 11/03/23 15:33 Allergies levofloxacin Adverse Reaction (Mild, Unverified 07/20/23 09:47) Other (See Comment) Statins Adverse Reaction (Mild, Uncoded 07/20/23 09:47) Other (See Comment) Precautions Isolation Standard precaution 11/03/23 15:57 Active Medications Generic Name Dose Route Start Last Admin Trade Name Freq PRN Reason Stop Dose Admin Sodium Chloride 1,000 mls @ 125 mls/hr 11/03/23 17:00 11/03/23 17:08 Saline 1000ml Bag IV 125 mls/hr INFUSION MARTIN Administration Iohexol 100 ml 11/03/23 16:15 11/03/23 16:11 Omnipaque 350 Mg/Ml 100 Ml Btl IJ 12/03/23 23:59 100 ml DIRECTED MARTIN Administration Sodium Chloride 50 ml 11/03/23 16:15 11/03/23 16:10 Normal Saline - Diluent 50 Ml Vial IJ 50 ml .FOR DI USE MARTIN Administration IV IV Catheter Type [Left Saline Lock Antecubital] IV Catheter Type [Right Saline Lock Antecubital] IV Catheter Gauge [Left 18 Antecubital] IV Catheter Gauge [Right 18 Antecubital] Diet Orders Category Date Time Status Diabetes Consistent CHO/Heart Healthy [DIET] Nutrition 11/04/23 Breakfast Ordered Diagnostics 11/03/23 11/03/23 11/03/23 Range/Units 20:05 18:43 16:10 WBC (4.4-10.8) 10^3/uL RBC (4.36-5.78) 10^6/uL Hgb (13.5-17.5) g/dL Hct (40.0-50.0) % MCV (80-95) fL MCH (27.0-33.0) pg MCHC (32.0-36.0) % RDW (11.8-14.1) % Plt Count (130-400) 10^3/uL MPV (8.0-11.0) fL Immature Gran % % Neutrophils % % Lymphocytes % % Monocytes % % Eosinophils % % Basophils % % Nucleated RBC % (0.0-0.3) % Absolute Neutrophils (1.2-6.7) 10^3/uL Absolute Lymphocytes (1.2-3.4) 10^3/uL Absolute Monocytes (0.1-0.8) 10^3/uL Absolute Eosinophils (0.0-0.7) 10^3/uL Absolute Basophils (0.0-0.2) 10^3/uL ESR (0-20) mm/hr PT (9.1-11.1) sec INR (0.9-1.1) APTT (23.6-32.8) sec D-Dimer (<500) ng/mlFEU VBG pH 7.40 (7.31-7.41) VBG pCO2 36 L (41-51) mmHg VBG pO2 40 mmHg VBG HCO3 22 L (23-28) mmol/L VBG Total CO2 20 L (24-29) mmol/L VBG O2 Saturation 71 % VBG Base Excess -3 L (-2-3) mmol/L VBG Lactate (0.6-1.4) mmol/L Sodium (136-145) mmol/L Potassium (3.5-5.1) mmol/L Chloride (98-107) mmol/L Carbon Dioxide (21.0-32.0) mmol/L Anion Gap (3-11) mmol/L BUN (7-18) mg/dL Creatinine (0.70-1.30) mg/dL Est GFR (CKD-EPI 2020) (mL/min/1.73m2) Glucose (74-106) mg/dL Calcium (8.5-10.1) mg/dL Magnesium (1.8-2.4) mg/dL Total Bilirubin (0.2-1.0) mg/dL AST (15-37) U/L ALT (16-63) U/L Alkaline Phosphatase (46-116) U/L Troponin I < 50 < 50 (< or =60) ng/L C-Reactive Protein (<or=0.5) mg/dL NT-Pro-B Natriuret Pep (<300) pg/mL Total Protein (6.4-8.2) g/dL Albumin (3.4-5.0) g/dL Lipase (16-77) U/L TSH 2.79 (0.36-3.74) uIU/Ml ABO/Rh B Positive Antibody Screen NEGATIVE 11/03/23 Range/Units 15:55 WBC 8.90 (4.4-10.8) 10^3/uL RBC 3.71 L (4.36-5.78) 10^6/uL Hgb 11.3 L (13.5-17.5) g/dL Hct 35.3 L (40.0-50.0) % MCV 95 (80-95) fL MCH 30.5 (27.0-33.0) pg MCHC 32.0 (32.0-36.0) % RDW 15.5 H (11.8-14.1) % Plt Count 156 (130-400) 10^3/uL MPV 10.8 (8.0-11.0) fL Immature Gran % 0.2 % Neutrophils % 63.8 % Lymphocytes % 19.8 % Monocytes % 9.1 % Eosinophils % 6.5 % Basophils % 0.6 % Nucleated RBC % 0.0 (0.0-0.3) % Absolute Neutrophils 5.68 (1.2-6.7) 10^3/uL Absolute Lymphocytes 1.76 (1.2-3.4) 10^3/uL Absolute Monocytes 0.81 H (0.1-0.8) 10^3/uL Absolute Eosinophils 0.58 (0.0-0.7) 10^3/uL Absolute Basophils 0.05 (0.0-0.2) 10^3/uL ESR 13 (0-20) mm/hr PT 10.9 (9.1-11.1) sec INR 1.1 (0.9-1.1) APTT 26.6 (23.6-32.8) sec D-Dimer 5017 H (<500) ng/mlFEU VBG pH (7.31-7.41) VBG pCO2 (41-51) mmHg VBG pO2 mmHg VBG HCO3 (23-28) mmol/L VBG Total CO2 (24-29) mmol/L VBG O2 Saturation % VBG Base Excess (-2-3) mmol/L VBG Lactate 2.3 H* (0.6-1.4) mmol/L Sodium 139 (136-145) mmol/L Potassium 4.9 (3.5-5.1) mmol/L Chloride 106 (98-107) mmol/L Carbon Dioxide 20.4 L (21.0-32.0) mmol/L Anion Gap 12.6 H (3-11) mmol/L BUN 48 H (7-18) mg/dL Creatinine 2.1 H (0.70-1.30) mg/dL Est GFR (CKD-EPI 2020) 30.66 (mL/min/1.73m2) Glucose 176 H (74-106) mg/dL Calcium 8.6 (8.5-10.1) mg/dL Magnesium 2.2 (1.8-2.4) mg/dL Total Bilirubin 0.3 (0.2-1.0) mg/dL AST 14 L (15-37) U/L ALT 23 (16-63) U/L Alkaline Phosphatase 110 (46-116) U/L Troponin I < 50 (< or =60) ng/L C-Reactive Protein < 0.50 (<or=0.5) mg/dL NT-Pro-B Natriuret Pep 4427 H (<300) pg/mL Total Protein 6.9 (6.4-8.2) g/dL Albumin 3.2 L (3.4-5.0) g/dL Lipase 49 (16-77) U/L TSH (0.36-3.74) uIU/Ml ABO/Rh Antibody Screen Intake and Output - 24 Hour Total 11/03/23 15:31 thru 11/03/23 15:33 Weight 75.75 kg Falls Risk Assessment History of Falls No History 11/03/23 15:57 Fall Total Score 0 11/03/23 15:57 Level of Risk Standard/Low Risk 11/03/23 15:57 Problems (Last Reviewed 11/03/23 @ 19:29 by Khanh Hackett) HTN (hypertension) (Chronic) Acute dehydration (Acute) CKD (chronic kidney disease) stage 3, GFR 30-59 ml/min (Chronic) Type 2 diabetes mellitus (Chronic) PAF (paroxysmal atrial fibrillation) (Chronic) Symptomatic bradycardia (Acute) v v v v v v v v v Sending and/or Receiving Nurses: Please use comment section below to note any information pertinent to the patient hand-off not included above. Information / Comments: Report received from: Radha GU
[2023-11-03] MEDS: hydrALAZINE 25 MG TAB PO (23:49)
[2023-11-04] VITALS (16 sets, daily range): BP systolic 118–163; BP diastolic 51–84; PULSE 57–81; RESP 16–30; O2SAT 95–100
[2023-11-04] MEDS: Normal Saline 1,000 ML 125 ML IV ×2 (01:44→09:24)
[2023-11-04] MEDS: Normal Saline Flush 10 ML SYR IVP ×2 (04:07→09:18)
[2023-11-04 05:28] LABS: Lactate 0.9 mmol/L (0.6-1.4)
[2023-11-04 05:31] LABS: HCT 34.8 % (40.0-50.0); HGB 11.3 g/dL (13.5-17.5); MCH 30.4 pg (27.0-33.0); MCHC 32.5 % (32.0-36.0); MCV 94 fL (80-95); Platelet Count 162 10^3/uL (130-400); RBC 3.72 10^6/uL (4.36-5.78); RDW 15.7 % (11.8-14.1); WBC 7.31 10^3/uL (4.4-10.8)
[2023-11-04 05:48] LABS: INR 1.1 (0.9-1.1); Prothrombin Time 11.2 sec (9.1-11.1)
[2023-11-04 05:52] LABS: ALT 20 U/L (16-63); AST 11 U/L (15-37); Albumin 2.9 g/dL (3.4-5.0); Alkaline Phosphatase 90 U/L (46-116); Anion Gap 10.1 mmol/L (3-11); BUN 41 mg/dL (7-18); Bilirubin, Total 0.3 mg/dL (0.2-1.0); CO2 22.9 mmol/L (21.0-32.0); CREATININE 1.7 mg/dL (0.70-1.30); Calcium 8.3 mg/dL (8.5-10.1); Chloride 110 mmol/L (98-107); Estimated GFR 39.51 (mL/min/1.73m2); Glucose 150 mg/dL (74-106); Potassium 4.1 mmol/L (3.5-5.1); Sodium 143 mmol/L (136-145); Total Protein 6.4 g/dL (6.4-8.2)
[2023-11-04 05:56] LABS: Troponin I < 50 ng/L (< or =60)
--- NOTE | 2023-11-04 06:33 | NUR.NOTE ---
Nursing Note: Attempted to administer AM dose of hydralazine to maintain systolic BP <140 per MD orders. Pt refused medication stating This is irrelevant. I'm never going to take this again anyway Attempt to educate pt on importance of medication r/t recent aortic aneurysm was made, pt wanted to know current BP which was 140/62. Pt states That's fine and confirmed refusal.
--- NOTE | 2023-11-04 08:45 | INITIAL_ITS ---
Date of service: 11/04/23 Time of Service: 08:45 Care Management Initial Assmt Initial Assessment REASON FOR HOSPITALIZATION:: Symptomatic bradycardia with PAF, HTN uncontrolled PREVIOUS FUNCTIONAL STATUS/SOCIAL/FAMILY SUPPORTS:: Sandra resides in [facility] with his significant other Carlyle. His step-son Sanjiv is very supportive as well. CURRENT FUNCTIONAL STATUS:: Up independently, per Sandra advocated for discharge today; please refer to MD note for further details. ADVANCE DIRECTIVES:: None on file. Has patient been provided with info about the portal/API?: Yes Did the patient sign up for the portal?: No CODE STATUS:: Full Code INSURANCE COVERAGE / FINANCIAL ISSUES:: Medicare, [employer] PRIMARY CARE PHYSICIAN:: Viry Jasmine POTENTIAL DISCHARGE NEEDS:: Follow up appointments. PATIENT/FAMILY EDUCATION NEEDS:: Review discharge instructions, discuss Ask Me Three. ANTICIPATED BARRIERS TO DISCHARGE:: None identified. TRANSPORTATION:: Via private vehicle with family. PLAN:: Sandra will return home when medically stable, he will follow up with outpatient providers and transport via private vehicle. CM following. PFSH All Active Problems (Updated 11/04/23 @ 14:34 by Jasbir Valentino MD) HTN (hypertension) (Chronic) CKD (chronic kidney disease) stage 3, GFR 30-59 ml/min (Chronic) Type 2 diabetes mellitus (Chronic) PAF (paroxysmal atrial fibrillation) (Chronic) Symptomatic bradycardia (Acute) Social History Smoking/Tobacco Use Status: Former Tobacco Use Smoking risk assessment performed?: Yes Alcohol Intake: current Alcohol Intake frequency: 0-2 drinks per day Drug use: Never Substance use type: does not use Details: Pt quit smoking 10 years ago Housing: house Do you feel safe at home: Yes Do you feel safe in your relationship?: Yes SDOH(Care Management) Screening Will the Patient Participate in the Screening?: Yes Do you worry about having a steady place to live?: no Problems where you live: no known problems In the past 12 months, have you had to go without electric, gas, oil or water in your home?: no Have you or anyone in your house had to go without enough food to eat?: no Has lack of transportation kept you from medical appointments or from doing things needed for daily living?: no Has anyone in your support network made you feel unsafe for any reason?: no
[2023-11-04] MEDS: Ferrous Sulfate 325 MG TAB PO (09:17)
[2023-11-04] MEDS: Vitamins B Comp w/C TAB 1 TAB PO (09:17)
[2023-11-04] MEDS: Finasteride 5 MG TAB PO (09:17)
[2023-11-04] MEDS: Aspirin 81 MG CHEW PO (09:17)
[2023-11-04] MEDS: Doxycycline Hyclate 100 MG CAP PO (09:17)
[2023-11-04] MEDS: Omega-3 Fatty Acids 1000 MG CAP PO (09:17)
[2023-11-04] MEDS: Ascorbic Acid 500 MG TAB PO (09:18)
[2023-11-04] MEDS: Clopidogrel 75 MG TAB PO (09:18)
[2023-11-04] MEDS: amLODIPine 10 MG TAB PO (09:18)
[2023-11-04] MEDS: Valsartan 40 MG TAB PO (09:18)
--- NOTE | 2023-11-04 12:57 | W.INDIABCONS ---
Date of service: 11/04/23 Time of Service: 12:30 Diabetes Inpatient Consult Reason for Visit: consult - diabetes mgt/education DESCRIPTION/ASSESSMENT: 83yo male admitted for symptomatic bradycardia. CKD, DMII with macular degeneration. Last Hgb A1c looks like 6.7% in - pt states was 6.1 within the last year. metformin at home but otherwise manages with diet mostly - states not dairy, avoids most breads except pumpernickle, usually has 2 meals and an afternoon snack of an apple with cashews. States he is being asked to start insulin but he declines that he will do this at home. denies concerns with appetite/intake, constipation/diarrhea. FBG 150 this morning. Pt anticipates discharge this evening and declines more aggressive education at this time, but does appreciate the time. INTERVENTION: gave my card with contact info should he decide he would like more help with menu planning or need additional resources. PLAN: will approach for follow up this admission to see if any additional needs for education if pt remains longer duration admission and will be available for oupt support as well. Time Spent in Nutritional Counseling and Treatment: 10 minutes
--- NOTE | 2023-11-04 14:12 | W.PM.DS.N ---
Date of service: 11/04/23 Time of Service: 14:13 DS: Diagnosis Discharge Diagnosis (1) Symptomatic bradycardia: Status: Acute (2) Acute dehydration: Status: Resolved (3) PAF (paroxysmal atrial fibrillation): Status: Chronic (4) Type 2 diabetes mellitus: Status: Chronic (5) HTN (hypertension): Status: Chronic (6) History of repair of aneurysm of abdominal aorta using endovascular stent graft: Status: Resolved (7) CKD (chronic kidney disease) stage 3, GFR 30-59 ml/min: Status: Chronic Discharge Plan Disposition Patient Disposition: Home Condition: Improving Discharge Details Reason For Visit: Symptomatic bradycardia with PAF, HTN uncontrolled Admit Date/Time: 11/03/23 19:45 Admit Provider: Khanh Hackett Attending Provider: Khanh Hackett Primary Care Provider: Viry Jasmine Hospital Course Hospital Course: 83 yr old male w/ hx of HTN, AAA s/p EVAR 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 at [facility] last night w/ sx of dizziness, dyspnea and mid back pain (patient reports he has had back pain ever since his EVAR. Evaluation in the E.D. included labs that demonstrated worsening renal fx w/BUN 48 and creatinine 2.1. Patient was begun on iv fluids. However he was noted to be bradycardic down to 35 bpm w/ RBBB and what appeared to be atrial fibrillation. He did not require any chronotropic or vasopressor drugs nor did he require any pacing. Rhythm resolved spontaneously to sinus bradycardia at 60 bpm again w/ RBBB configuration. Patient had serial troponin levels check which were negative and d/t his back pain complaints, CTA of chest abdomen and pelvis were done, the results as below: IMPRESSION: 1. No evidence of significant thoracic aortic aneurysm and no evidence of aortic dissection in the chest. 2. There are endovascular stents within distal most thoracic aorta and aortic abdominal EVAR with additional stents in the celiac and superior mesenteric arteries and renal arteries. No obvious endoleak, realizing the limitations of this single sequence study. 3. No ischemic appearing bowel loops. No ascites. No bowel obstruction. 4. Mobile cecum in the midline. No appendicitis. Patient was monitored overnight and had no further symptoms of dizziness and had no hypotension and his heart rate and rhythm remained stable w/ lowest HR being 55 sinus bradycardia. Patient was begun on hydralazine for BP control but did not like the way it made him feel and he refused further doses. He was put on valsartan mistakenly as this was still on his home med list even though it was not on his home med list that he provided from [facility]. Also noted that his hospital home med list also included another beta ana laura, nebivolol, which apparently had been replaced w/ carvedilol. At discharge, I have stopped his carvedilol and ordered a holter monitor to placed on him upon discharge. He should follow up w/ his PCP, Dr. Viry Jasmine, at [place] (appt made for him for November 06) Home Meds and New Rx's Prescriptions: Continued ascorbic acid (vitamin C) [Vitamin C] 500 mg tablet 500 mg PO DAILY Senna Plus 8.6-50 mg capsule 1 tab-cap PO BID ferrous sulfate 325 mg (65 mg iron) tablet 325 mg PO DAILY clopidogrel 75 mg tablet 75 mg PO DAILY aspirin 81 mg tablet,chewable 1 tab PO DAILY silodosin [Rapaflo] 8 mg capsule 8 mg PO DAILY Patient Comments: Take 1 capsule by mouth once a day with food doxycycline hyclate 100 mg tablet 100 mg PO BID Patient Comments: TAKE 1 TABLET BY MOUTH TWICE DAILY FOR SUPRESSIVE THERAPY amlodipine 10 mg tablet 10 mg PO DAILY B-complex with vitamin C Tablet 1 tab PO DAILY PreserVision AREDS-2 250-90-40-1 mg capsule 1 tab PO BID omega-3 fatty acids [Super [place]-3] 1,000 mg capsule 1,000 mg PO DAILY vitamin B complex Capsule 1 cap PO DAILY metformin 500 mg tablet extended release 24 hr 500 mg PO DAILY Patient Comments: Take 1 tablet by mouth once a day Invokana 100 mg tablet 100 mg PO DAILY finasteride 5 mg tablet 5 mg PO DAILY Patient Comments: Take 1 tablet by mouth every night Discontinued carvedilol 25 mg tablet 25 mg PO BID Discharge Instructions Instructions: Bradycardia (DC) Additional Instructions: You were admitted to the hospital overnight on observation due to symptoms of lightheadedness w/ near syncope. You were found to be dehydrated and having a slow heart rate in the 30's. Your EKG showed heart rate of 35 bpm and this appeared to be a slow atrial fibrillation. Your carvedilol (Coreg) was witheld and your heart rate has improved back to a normal sinus rhythm in the 60's. You were given iv fluids overnight w/ improvement in your BUN and creatinine. You have chronic kidney disease but your BUN and creatinine were higher than baseline on admission but improved after iv fluids. It is recommended that you continue to withold your carvedilol and get a follow up cardiac holter which we have ordered and you should follow up w/ your ophthalmic assistant, Dr. Billy (whom I attempted to reach but could not speak with him either at [facility] nor at [facility], although messages were left for him to call me. continue to monitor your blood pressure and pulse twice a day and keep recordings. If your BP rises (goal is SBP <140) while off the carvedilol, call Dr. Billy or your primary care provider Dr. Viry Jasmine to discuss alternative blood pressure agents that will not cause a drop in your heart rate. I did speak w/ Dr. Jasmine regarding your evaluation and treatment here at [facility] Referrals: None,None [MD NON-[facility] STAFF PHYSICIAN] - (Cardiology will call to set up an appointment for heart monitor) Viry Jasmine [Primary Care Provider] - 11/07/23 10:00 am Activity:: Activity as Tolerated Equipment/Supplies:: No Equipment Needed Diet:: Carb Counting Discharge Orders Discharge Orders: Discharge Order (Routine); Ordered 11/04/23 Ordered By: Jasbir Valentino Other Ambulatory Orders: Holter Monitor (Routine) Timeframe: 1 Day Facility: [facility] - Location: Respiratory Therapy Ordered By: Jasbir Valentino DS: Summary Time Spent with Patient providing and/or coordinating discharge services: Greater than 30 minutes Status at Discharge Functional status at discharge: independent ambulation Overall status at discharge: patient is back to baseline Mental Status: mental status grossly normal Speech and Movement: speech and movement normal Mood: congruent mood Affect: normal affect Quality:SDOH Health Related Social Needs: No Data to Display Exam Narrative Exam Narrative: Mr. Whitfield is alert and oriented, he denies any dizziness, lightheadedness, CP or palpitations at present. He says that he did not have syncope but had feelings of near syncope. He says that he has had similar episodes in the past but that they are usually brief, fleeting and resolve on its own. He has never passed out Lungs: clear Heart: regular (review of heart rhythm demonstrates sinus bradycardia lowest of 55 but generally in the 60's) Extremities: no edema Psych Mental Status: mental status grossly normal Speech and Movement: speech and movement normal Mood: congruent mood Affect: normal affect DS: Data Vitals/I&O Vitals and I&O: Vital Signs Temperature 36.9 C 11/03/23 22:00 Temperature Source Temporal Artery Scan 11/04/23 13:49 Pulse 65 11/04/23 13:02 Pulse 65 11/04/23 13:02 Respiratory Rate 20 11/04/23 06:01 Respiratory Effort Normal, Non-Labored 11/04/23 13:49 Respiratory Depth Normal 11/04/23 13:49 Respiratory Pattern Normal 11/04/23 13:49 Blood Pressure 163/60 H 11/04/23 13:02 Blood Pressure Mean 89 11/04/23 13:02 Blood Pressure Position Sitting 11/03/23 15:33 Pulse Oximetry 99 11/04/23 13:02 Oxygen Delivery Method Room Air 11/04/23 13:49 Oxygen Flow Rate 0 11/04/23 13:49 Pain Level 1 11/04/23 13:49 Comment 8/10 back pain with movement 11/03/23 15:33 Intake & Output 11/03/23 11/04/23 11/04/23 23:59 11:59 23:59 Intake Total 2218.333 / 3042.916 824.583 / 3042.916 Output Total 2100 / 2100 Balance 118.333 / 942.916 824.583 / 942.916 Weight 75.75 kg Intake: IV 1978.333 / 2442.916 464.583 / 2442.916 Oral 240 / 600 360 / 600 Output: Urine 2100 / 2100 Other: Urine Color Yellow Urine Appearance Cloudy Urine Odor Normal Voiding Methods Urinal Data Completed and Pending Completed studies during hospitalization [Text1]: CTA chest/abdomen/pelvis: IMPRESSION: 1. No evidence of significant thoracic aortic aneurysm and no evidence of aortic dissection in the chest. 2. There are endovascular stents within distal most thoracic aorta and aortic abdominal EVAR with additional stents in the celiac and superior mesenteric arteries and renal arteries. No obvious endoleak, realizing the limitations of this single sequence study. 3. No ischemic appearing bowel loops. No ascites. No bowel obstruction. 4. Mobile cecum in the midline. No appendicitis. Labs on day of discharge: Labs from last 24 hours 11/04/23 11/03/23 11/03/23 05:15 20:05 18:43 WBC 7.31 RBC 3.72 L Hgb 11.3 L Hct 34.8 L MCV 94 MCH 30.4 MCHC 32.5 RDW 15.7 H Plt Count 162 MPV 11.0 Immature Gran % Neutrophils % Lymphocytes % Monocytes % Eosinophils % Basophils % Nucleated RBC % Absolute Neutrophils Absolute Lymphocytes Absolute Monocytes Absolute Eosinophils Absolute Basophils ESR PT 11.2 H INR 1.1 APTT D-Dimer VBG pH 7.40 VBG pCO2 36 L VBG pO2 40 VBG HCO3 22 L VBG Total CO2 20 L VBG O2 Saturation 71 VBG Base Excess -3 L VBG Lactate 0.9 Sodium 143 Potassium 4.1 Chloride 110 H Carbon Dioxide 22.9 Anion Gap 10.1 BUN 41 H Creatinine 1.7 H Est GFR (CKD-EPI 2020) 39.51 Glucose 150 H Calcium 8.3 L Magnesium Total Bilirubin 0.3 AST 11 L ALT 20 Alkaline Phosphatase 90 Troponin I < 50 < 50 < 50 C-Reactive Protein NT-Pro-B Natriuret Pep Total Protein 6.4 Albumin 2.9 L Lipase TSH 2.79 ABO/Rh Antibody Screen 11/03/23 11/03/23 16:10 15:55 WBC 8.90 RBC 3.71 L Hgb 11.3 L Hct 35.3 L MCV 95 MCH 30.5 MCHC 32.0 RDW 15.5 H Plt Count 156 MPV 10.8 Immature Gran % 0.2 Neutrophils % 63.8 Lymphocytes % 19.8 Monocytes % 9.1 Eosinophils % 6.5 Basophils % 0.6 Nucleated RBC % 0.0 Absolute Neutrophils 5.68 Absolute Lymphocytes 1.76 Absolute Monocytes 0.81 H Absolute Eosinophils 0.58 Absolute Basophils 0.05 ESR 13 PT 10.9 INR 1.1 APTT 26.6 D-Dimer 5017 H VBG pH VBG pCO2 VBG pO2 VBG HCO3 VBG Total CO2 VBG O2 Saturation VBG Base Excess VBG Lactate 2.3 H* Sodium 139 Potassium 4.9 Chloride 106 Carbon Dioxide 20.4 L Anion Gap 12.6 H BUN 48 H Creatinine 2.1 H Est GFR (CKD-EPI 2020) 30.66 Glucose 176 H Calcium 8.6 Magnesium 2.2 Total Bilirubin 0.3 AST 14 L ALT 23 Alkaline Phosphatase 110 Troponin I < 50 C-Reactive Protein < 0.50 NT-Pro-B Natriuret Pep 4427 H Total Protein 6.9 Albumin 3.2 L Lipase 49 TSH ABO/Rh B Positive Antibody Screen NEGATIVE Additional Comments Additional comments: serial EKG done in the E.D. 1st one done at 15:45 on 11/02 demonstrated slow heart rate of 35 bpm and RBBB configuration, questionable slow afib vs junctional rhythm. the rhythm appears irregular, however there is one wave that looks like p wave on the second beat on the rhythm strip (also seen in leads I, II, III). Repeat EKG on 11/02 taken at 17:06 clearly is sinus bradycardia at 60 bpm w/ RBB configuration. PFSH All Active Problems (Updated 11/04/23 @ 14:34 by Jasbir Valentino MD) HTN (hypertension) (Chronic) CKD (chronic kidney disease) stage 3, GFR 30-59 ml/min (Chronic) Type 2 diabetes mellitus (Chronic) PAF (paroxysmal atrial fibrillation) (Chronic) Symptomatic bradycardia (Acute) Social History Smoking/Tobacco Use Status: Former Tobacco Use Smoking risk assessment performed?: Yes Alcohol Intake: current Alcohol Intake frequency: 0-2 drinks per day Drug use: Never Substance use type: does not use Details: Pt quit smoking 10 years ago Housing: house Do you feel safe at home: Yes Do you feel safe in your relationship?: Yes Time Spent with Patient Time Spent with Patient: 45-69 minutes Time was spent: preparing to see the patient(eg.review tests), ordering medications,tests, procedures, referring, communicating with other health home care chaplain, indepentently interpreting results, counseling the patient and care coordination
--- NOTE | 2023-11-04 16:45 | CHAPLAIN ---
I had a brief visit with Taco before he was discharged. He was dressed waiting for his paperwork. He old me he doesn't hear well, and his partner, David, said he doesn't see well. I introduced myself and explained my role. Taco was admitted yesterday and was heading home to [place].
== END 2023-11-04 16:00 | disposition home or self-care (01) | DRG 310 ==
LOC: ER 19:27 → ICU 21:27
PROVIDERS: Admitting Provider Family Medicine; Emergency Provider Physician Assistant; PCP Family Medicine; Visit Provider Family Medicine
DX: R00.1 Bradycardia, unspecified (principal); I48.0 Paroxysmal atrial fibrillation; E86.0 Dehydration; E11.22 Type 2 diabetes mellitus with diabetic chronic kidney disease; N18.32 Chronic kidney disease, stage 3b; I12.9 Hypertensive chronic kidney disease with stage 1 through stage 4 chronic kidney disease, or unspecified chronic kidney disease; Z95.828 Presence of other vascular implants and grafts; M54.6 Pain in thoracic spine; R42 Dizziness and giddiness; Z86.14 Personal history of Methicillin resistant Staphylococcus aureus infection; I45.10 Unspecified right bundle-branch block
CPT/HCPCS: 00123; 36415; 71275; 80053; 82805; 83690; 85027; 85652; 86850; 86900; 86901; 93005; 96374; 99291; 74174; 83605; 83735; 83880; 84443; 84484; 85025; 85379; 85610; 85730; 86140; 93010; 99223; 99239; J0360; J1815; J3490

== ENCOUNTER 2023-11-24 12:45 | Outpatient (REF) | payer MEDICARE, OTHER, SELFPAY ==
[2023-11-24 15:51] LABS: Anion Gap 11.3 mmol/L (3-11); BUN 32 mg/dL (7-18); CO2 21.7 mmol/L (21.0-32.0); CREATININE 1.9 mg/dL (0.70-1.30); Chloride 107 mmol/L (98-107); Estimated GFR 34.57 (mL/min/1.73m2); Glucose 177 mg/dL (74-106); Sodium 140 mmol/L (136-145)
== END 2023-11-24 12:46 | disposition home or self-care (01) ==
LOC: NCHCN 12:45
PROVIDERS: PCP Family Medicine; Visit Provider Family Medicine
DX: N18.9 Chronic kidney disease, unspecified (principal)
CPT/HCPCS: 80048

== ENCOUNTER 2023-12-29 13:39 | Outpatient (REF) | payer MEDICARE, OTHER, SELFPAY ==
[2023-12-29 15:55] LABS: Anion Gap 10.5 mmol/L (3-11); BUN 35 mg/dL (7-18); CO2 24.5 mmol/L (21.0-32.0); Calcium 9.1 mg/dL (8.5-10.1); Chloride 107 mmol/L (98-107); Estimated GFR 32.51 (mL/min/1.73m2); Glucose 283 mg/dL (74-106); NT-proBNP 4859 pg/mL (<300); Potassium 5.5 mmol/L (3.5-5.1); Sodium 142 mmol/L (136-145)
[2023-12-29 16:30] LABS: Hemoglobin A1C 7.8 % (<5.7)
== END 2023-12-29 13:40 | disposition home or self-care (01) ==
LOC: NCHCN 13:39
PROVIDERS: PCP Family Medicine; Visit Provider Family Medicine
DX: E11.8 Type 2 diabetes mellitus with unspecified complications (principal); N18.9 Chronic kidney disease, unspecified; I50.9 Heart failure, unspecified
CPT/HCPCS: 80048; 83036; 83880

== ENCOUNTER 2024-02-09 15:22 | Inpatient (IN) | payer MEDICARE, OTHER, SELFPAY ==
[2024-02-09] VITALS (58 sets, daily range): BP systolic 109–212; BP diastolic 49–113; PULSE 70–108; RESP 17–43; TEMP 36.5–36.8; O2SAT 89–98
--- NOTE | 2024-02-09 15:15 | RT.EKG_ITS ---
APPROVED REPORT Exam: Resting ECG Reason for Exam: Dizziness Patient Location: E HR:78 bpm ECG Measurements Heart Rate 78 AXIS WA 161 P 49 QRSd 143 QRS -86 QT 440 T 68 QTc 502 Conclusion Sinus rhythm...normal P axis, V-rate 60- 99 RBBB and LAFB...QRSd >120mS, axis(-40,240) sinus, left axis, bifascicular block
--- NOTE | 2024-02-09 17:00 | DI.RAD_ITS ---
Exam(s) XR CHEST 2V PA LATERAL EXAM: XR CHEST 2V PA LATERAL CLINICAL HISTORY: SOB TECHNIQUE: 2D digital imaging was performed of the chest. Two images were obtained. PA and lateral views were obtained. COMPARISON: No exams were available for comparison FINDINGS: MEDIASTINUM: Normal. HEART: Cardiomegaly. PULMONARY VASCULATURE: Normal. LUNGS: No focal consolidating infiltrates are seen. Prominent interstitial markings are seen in the lungs bilaterally likely reflecting pulmonary edema. PLEURAL SPACE: There are bilateral pleural effusions, left greater than right. BONE:Within normal limits for the patient's age. OTHER FINDINGS:Normal. IMPRESSION: Cardiomegaly and pulmonary venous congestion with bilateral pleural effusions. The findings are susp icious for fluid overload/CHF. DATA REPOSITORY: RADIATION DOSE DELIVERED:
[2024-02-09 17:40] LABS: Abs Immature Grans 0.02 10^3/uL (0.0-0.06); Absolute Basophil Count 0.06 10^3/uL (0.0-0.2); Absolute Eosinophil Count 0.31 10^3/uL (0.0-0.7); Absolute Lymphocyte Count 1.34 10^3/uL (1.2-3.4); Absolute Monocyte Count 0.75 10^3/uL (0.1-0.8); Absolute Neutrophil Count 4.88 10^3/uL (1.2-6.7); Basophils % 0.8 %; Eosinophils % 4.2 %; HCT 35.4 % (40.0-50.0); HGB 11.1 g/dL (13.5-17.5); Immature Grans % 0.3 %; Lymphocytes % 18.2 %; MCH 31.2 pg (27.0-33.0); MCHC 31.4 % (32.0-36.0); MCV 99 fL (80-95); MPV 11.6 fL (8.0-11.0); Monocytes % 10.2 %; Neutrophils % 66.3 %; Platelet Count 180 10^3/uL (130-400); RBC 3.56 10^6/uL (4.36-5.78); RDW 15.1 % (11.8-14.1); RDW-SD 55.3 fL; WBC 7.36 10^3/uL (4.4-10.8)
[2024-02-09 18:18] LABS: COVID-19 PCR Negative (Negative); Influenza A PCR Negative (Negative); Influenza B PCR Negative (Negative); RSV PCR Negative (Negative); Source NASOPHARYNX
[2024-02-09 18:25] LABS: ALT 17 U/L (16-63); AST 13 U/L (15-37); Albumin 3.1 g/dL (3.4-5.0); Alkaline Phosphatase 103 U/L (46-116); BUN 37 mg/dL (7-18); Bilirubin, Total 0.51 mg/dL (0.2-1.0); CREATININE 1.9 mg/dL (0.70-1.30); Chloride 110 mmol/L (98-107); Estimated GFR 34.57 (mL/min/1.73m2); Glucose 135 mg/dL (74-106); Magnesium 2.4 mg/dL (1.8-2.4); NT-proBNP 10465 pg/mL (<300); Potassium 4.3 mmol/L (3.5-5.1); Sodium 142 mmol/L (136-145); Total Protein 6.8 g/dL (6.4-8.2)
[2024-02-09 18:29] LABS: Troponin I 62 ng/L (< or =60)
[2024-02-09] MEDS: Furosemide 100 MG/10 ML VIAL 80 MG IVP (18:44)
[2024-02-09 19:13] LABS: Troponin I 61 ng/L (< or =60)
--- NOTE | 2024-02-09 20:14 | HPE_ITS ---
Date of service: 02/09/24 Time of Service: 20:17 Assessment and Plan Assessment and plan (1) CHF (congestive heart failure): Status: Chronic Assessment and plan: Apparently newly overt CHF, manifesting with MONZON, markedly elevated BNP and pulmonary edema. Precipitant not evident at present, perhaps had some event a month ago by history. Will update ECHO and will uptitrate dose Lasix to 160 now. Will also complete troponin series. DM: usual basal Lantus plus SS coverage. Is listed as taking metformin but contraindicated by Creat 1.9. Reviewed ADs, requests Full Code, but no prolonged life support if futile. History of Present Illness History of Present Illness Chief Complaint: SOB Narrative: 83 male with h/o HTN, DM, s/p AAA repair, CRF (stage 3). Has h/o of what he describes as chronic heart failure but has never been on diuretics. baseline BNPs have ranged 4-7000, I see no prior ECHO but report is that outside ECHO showed normal EF. With that much as background he comes in today with one month of progressive MONZON. Denies orthopnea or ankle swelling, no CP. Partner has recently had URI but he has not, but says that hazy smoke in the air has been bothering him as well. here in ER findings of note for tachypnea with O2 sats mid 90s on RA; Hct 35 (approx baseline); BNP >10,000, EKG NSR, no ischemic changes, no change from baseline; troponinas flat at 62/61, though second notably only 40 minutes later; and CXR showing cardiomegaly and modest pulmonary edema. patient given Lasix 80 IV with approx 400 cc recorded output over 2 hours. I was asked to evaluate for admission. Review of Systems Narrative: per HPI PFSH All Active Problems (Updated 02/09/24 @ 20:27 by Khanh Serna MD) CHF (congestive heart failure) (Chronic) HTN (hypertension) (Chronic) CKD (chronic kidney disease) stage 3, GFR 30-59 ml/min (Chronic) Type 2 diabetes mellitus (Chronic) PAF (paroxysmal atrial fibrillation) (Chronic) Symptomatic bradycardia (Acute) Social History Smoking/Tobacco Use Status: Former Tobacco Use Smoking risk assessment performed?: Yes Alcohol Intake: current Alcohol Intake frequency: 0-2 drinks per day Drug use: Never Substance use type: does not use Details: Pt quit smoking 10 years ago Housing: house Do you feel safe at home: Yes Do you feel safe in your relationship?: Yes Meds Allergies and Home Medications Allergies Allergy/AdvReac Type Severity Reaction Status Date / Time levofloxacin AdvReac Mild Other (See Unverified 02/09/24 15:34 Comment) Statins AdvReac Mild Other (See Uncoded 02/09/24 15:34 Comment) Home Medications ?Medication ?Instructions ?Recorded ?Confirmed ?Type finasteride 5 mg tablet 5 mg PO DAILY 07/20/23 02/09/24 History metformin 500 mg tablet,extended 500 mg PO DAILY 07/20/23 02/09/24 History release 24 hr B-complex with vitamin C 1 tab PO DAILY 11/03/23 02/09/24 History amlodipine 10 mg tablet 10 mg PO DAILY 11/03/23 02/09/24 History ascorbic acid (vitamin C) 500 mg 500 mg PO DAILY 11/03/23 02/09/24 History tablet (Vitamin C) aspirin 81 mg chewable tablet 1 tab PO DAILY 11/03/23 02/09/24 History clopidogrel 75 mg tablet 75 mg PO DAILY 11/03/23 02/09/24 History doxycycline hyclate 100 mg tablet 100 mg PO BID 11/03/23 02/09/24 History ferrous sulfate 325 mg (65 mg 325 mg PO DAILY 11/03/23 02/09/24 History iron) tablet sennosides 8.6 mg-docusate sodium 1 tab-cap PO BID 11/03/23 02/09/24 History 50 mg capsule (Senna Plus) silodosin 8 mg capsule (Rapaflo) 8 mg PO DAILY 11/03/23 02/09/24 History omega-3 fatty acids 1,000 mg 1,000 mg PO DAILY 11/04/23 02/09/24 History capsule (Super [place]-3) vit C 250 mg-vit E 90 mg-zinc 40 1 tab PO BID 11/04/23 02/09/24 History mg-copper 1 no-tnrxdh-fpnqab capsule (PreserVision AREDS-2) vitamin B complex 1 cap PO DAILY 11/04/23 02/09/24 History acetaminophen 500 mg capsule 1,000 mg PO Q6H PRN 02/09/24 02/09/24 History bisacodyl 10 mg rectal suppository 10 mg NV DAILY PRN 02/09/24 02/09/24 History (Dulcolax (bisacodyl)) dapagliflozin propanediol 5 mg 5 mg PO DAILY 02/09/24 02/09/24 History tablet (Farxiga) docusate sodium 100 mg capsule 100 mg PO BID 02/09/24 02/09/24 History insulin glargine 100 unit/mL (3 10 unit subcut DAILY 02/09/24 02/09/24 History mL) subcutaneous pen (Lantus Solostar U-100 Insulin) polyethylene glycol 3350 17 17 g PO DAILY 02/09/24 02/09/24 History gram/dose oral powder (ClearLax) testosterone 2 pump topical DAILY 02/09/24 02/09/24 History Exam Narrative Exam Narrative: 130/75, 89, 36.5, 33, 94% RA. HEENT atraumatic; neck supple, unable to gauge JVP; lungs bibasilar rales; heart PMI seems slightly hypodynamic, otherwiase RRR but distant sounds; abdomen soft and NT; extremities w/o ecdema; neuro Ox3, lucid, moves all 4s Results Labs 02/09/24 17:20 02/09/24 18:00 Labs: Laboratory Results - last 24 hr 02/09/24 02/09/24 02/09/24 17:20 18:00 18:40 WBC 7.36 RBC 3.56 L Hgb 11.1 L Hct 35.4 L MCV 99 H MCH 31.2 MCHC 31.4 L RDW 15.1 H Plt Count 180 MPV 11.6 H Immature Gran % 0.3 Neutrophils % 66.3 Lymphocytes % 18.2 Monocytes % 10.2 Eosinophils % 4.2 Basophils % 0.8 Nucleated RBC % 0.0 Absolute Neutrophils 4.88 Absolute Lymphocytes 1.34 Absolute Monocytes 0.75 Absolute Eosinophils 0.31 Absolute Basophils 0.06 Sodium Cancelled 142 Potassium Cancelled 4.3 Chloride Cancelled 110 H Carbon Dioxide Cancelled 23.0 Anion Gap Cancelled 9.0 BUN Cancelled 37 H Creatinine Cancelled 1.9 H Est GFR (CKD-EPI 2020) Cancelled 34.57 Glucose Cancelled 135 H Calcium Cancelled 9.0 Magnesium Cancelled 2.4 Total Bilirubin Cancelled 0.51 AST Cancelled 13 L ALT Cancelled 17 Alkaline Phosphatase Cancelled 103 Troponin I Cancelled 62 H* 61 H NT-Pro-B Natriuret Pep Cancelled 87234 H Total Protein Cancelled 6.8 Albumin Cancelled 3.1 L COVID-19 Source NASOPHARYNX SARS-CoV-2 (PCR) Negative Influenza Type A (PCR) Negative Influenza Type B (PCR) Negative RSV (PCR) Negative Last Vital Signs Temp 36.5 C 02/09/24 15:28 Pulse 89 02/09/24 20:01 Resp 33 H 02/09/24 20:01 BP 130/75 02/09/24 20:01 Pulse Ox 94 02/09/24 20:01 Time Spent Time spent with Patient: 55-74 minutes Time was spent: preparing to see the patient(eg.review tests), obtaining and/or reviewing separately otained hiistory, ordering medications,tests, procedures, referring, communicating with other health care services manager and indepentently interpreting results
--- NOTE | 2024-02-09 21:37 | ED.GENADUL_ITS ---
Discharge Plan Disposition Patient Disposition: Admit to [facility] Condition: Stable Discharge Details Chief Complaint: SOB Clinical Impression: CHF (congestive heart failure) Primary Care Provider: Viry Jasmine ED Provider: Marvin Valerio Home Meds and New Rx's Prescriptions: No Action ascorbic acid (vitamin C) [Vitamin C] 500 mg tablet 500 mg PO DAILY Senna Plus 8.6-50 mg capsule 1 tab-cap PO BID ferrous sulfate 325 mg (65 mg iron) tablet 325 mg PO DAILY clopidogrel 75 mg tablet 75 mg PO DAILY aspirin 81 mg tablet,chewable 1 tab PO DAILY silodosin [Rapaflo] 8 mg capsule 8 mg PO DAILY Patient Comments: Take 1 capsule by mouth once a day with food doxycycline hyclate 100 mg tablet 100 mg PO BID Patient Comments: TAKE 1 TABLET BY MOUTH TWICE DAILY FOR SUPRESSIVE THERAPY amlodipine 10 mg tablet 10 mg PO DAILY B-complex with vitamin C Tablet 1 tab PO DAILY PreserVision AREDS-2 250-90-40-1 mg capsule 1 tab PO BID omega-3 fatty acids [Super Cascade-3] 1,000 mg capsule 1,000 mg PO DAILY vitamin B complex Capsule 1 cap PO DAILY metformin 500 mg tablet extended release 24 hr 500 mg PO DAILY Patient Comments: Take 1 tablet by mouth once a day finasteride 5 mg tablet 5 mg PO DAILY Patient Comments: Take 1 tablet by mouth every night acetaminophen 500 mg capsule 1,000 mg PO Q6H PRN bisacodyl [Dulcolax (bisacodyl)] 10 mg suppository 10 mg MA DAILY PRN docusate sodium 100 mg capsule 100 mg PO BID dapagliflozin propanediol [Farxiga] 5 mg tablet 5 mg PO DAILY polyethylene glycol 3350 [ClearLax] 17 gram/dose powder 17 g PO DAILY testosterone 20.25 mg/1.25 gram (1.62 %) gel in metered-dose pump 2 pump topical DAILY Rx Instructions: apply 1 pump amount over max area of EACH upper arm and shoulder insulin glargine [Lantus Solostar U-100 Insulin] 100 unit/mL (3 mL) insulin pen 10 unit subcut DAILY HPI General Date/Time Provider Initiated Documentation: 02/09/24 17:00 . Limitations to Documentation: no limitations . Information obtained by: patient and family . HPI Narrative: 83-year-old gentleman with past medical history of diabetes, CHF, AAA s/p repair presents for evaluation shortness of breath. Symptoms of shortness of breath have been increasing over the last 3 weeks. He reports during this time his p artner had a cold and so he assumed he also had a cold. His symptoms have significantly worsened over the last few days. He feels like he cannot catch his breath. Worse with exertion. Not associated with chest pain. Has not had any fever. Does not have a productive cough. Related Data Home Medications ?Medication ?Instructions ?Recorded ?Confirmed finasteride 5 mg tablet 5 mg PO DAILY 07/20/23 02/09/24 metformin 500 mg tablet,extended 500 mg PO DAILY 07/20/23 02/09/24 release 24 hr B-complex with vitamin C 1 tab PO DAILY 11/03/23 02/09/24 amlodipine 10 mg tablet 10 mg PO DAILY 11/03/23 02/09/24 ascorbic acid (vitamin C) 500 mg 500 mg PO DAILY 11/03/23 02/09/24 tablet (Vitamin C) aspirin 81 mg chewable tablet 1 tab PO DAILY 11/03/23 02/09/24 clopidogrel 75 mg tablet 75 mg PO DAILY 11/03/23 02/09/24 doxycycline hyclate 100 mg tablet 100 mg PO BID 11/03/23 02/09/24 ferrous sulfate 325 mg (65 mg 325 mg PO DAILY 11/03/23 02/09/24 iron) tablet sennosides 8.6 mg-docusate sodium 1 tab-cap PO BID 11/03/23 02/09/24 50 mg capsule (Senna Plus) silodosin 8 mg capsule (Rapaflo) 8 mg PO DAILY 11/03/23 02/09/24 omega-3 fatty acids 1,000 mg 1,000 mg PO DAILY 11/04/23 02/09/24 capsule (Super Cascade-3) vit C 250 mg-vit E 90 mg-zinc 40 1 tab PO BID 11/04/23 02/09/24 mg-copper 1 to-[id number] capsule (PreserVision AREDS-2) vitamin B complex 1 cap PO DAILY 11/04/23 02/09/24 acetaminophen 500 mg capsule 1,000 mg PO Q6H PRN 02/09/24 02/09/24 bisacodyl 10 mg rectal suppository 10 mg MA DAILY PRN 02/09/24 02/09/24 (Dulcolax (bisacodyl)) dapagliflozin propanediol 5 mg 5 mg PO DAILY 02/09/24 02/09/24 tablet (Farxiga) docusate sodium 100 mg capsule 100 mg PO BID 02/09/24 02/09/24 insulin glargine 100 unit/mL (3 10 unit subcut DAILY 02/09/24 02/09/24 mL) subcutaneous pen (Lantus Solostar U-100 Insulin) polyethylene glycol 3350 17 17 g PO DAILY 02/09/24 02/09/24 gram/dose oral powder (ClearLax) testosterone 2 pump topical DAILY 02/09/24 02/09/24 Allergies Allergy/AdvReac Type Severity Reaction Status Date / Time levofloxacin AdvReac Mild Other (See Unverified 02/09/24 15:34 Comment) Statins AdvReac Mild Other (See Uncoded 02/09/24 15:34 Comment) General Stated Complaint: SOB YNES: 2 Exam Narrative Exam Narrative: Review of Systems: All systems reviewed & are unremarkable except as noted in HPI and below Well-developed, mild distress NCAT PERRL, normal conjunctiva RRR no murmur Tachypnea without hypoxia, crackles bilaterally Nondistended abdomen Extremities w/o edema Course Vital Signs Vital signs: Vital Signs Temperature 36.5 C 02/09/24 15:28 Pulse 89 02/09/24 15:28 Respiratory Rate 20 02/09/24 15:28 Blood Pressure 122/68 02/09/24 15:28 Pulse Oximetry 93 02/09/24 15:28 Temperature 36.5 C 02/09/24 15:28 Temperature Source Oral 02/09/24 15:28 Pulse 86 02/09/24 21:16 Pulse 91 H 02/09/24 21:20 Respiratory Rate 28 H 02/09/24 21:20 Respiratory Effort Short of Breath, Labored 02/09/24 18:28 Respiratory Depth Normal 02/09/24 18:28 Respiratory Pattern Tachypnea 02/09/24 18:28 Blood Pressure 132/49 L 02/09/24 21:16 Blood Pressure Mean 76 02/09/24 21:16 Pulse Oximetry 92 02/09/24 20:10 Oxygen Delivery Method Room Air 02/09/24 15:28 Oxygen Flow Rate 0 02/09/24 15:28 Pain Level 0 02/09/24 18:44 Lab/Test Results Lab/Test Results: Laboratory Tests Range/Units 02/09/24 02/09/24 02/09/24 17:20 18:00 18:40 WBC (4.4-10.8) 10^3/uL 7.36 RBC (4.36-5.78) 10^6/uL 3.56 L Hgb (13.5-17.5) g/dL 11.1 L Hct (40.0-50.0) % 35.4 L MCV (80-95) fL 99 H MCH (27.0-33.0) pg 31.2 MCHC (32.0-36.0) % 31.4 L RDW (11.8-14.1) % 15.1 H Plt Count (130-400) 10^3/uL 180 MPV (8.0-11.0) fL 11.6 H Immature Gran % % 0.3 Neutrophils % % 66.3 Lymphocytes % % 18.2 Monocytes % % 10.2 Eosinophils % % 4.2 Basophils % % 0.8 Nucleated RBC % (0.0-0.3) % 0.0 Absolute Neutrophils (1.2-6.7) 10^3/uL 4.88 Absolute Lymphocytes (1.2-3.4) 10^3/uL 1.34 Absolute Monocytes (0.1-0.8) 10^3/uL 0.75 Absolute Eosinophils (0.0-0.7) 10^3/uL 0.31 Absolute Basophils (0.0-0.2) 10^3/uL 0.06 Sodium Cancelled 142 Potassium Cancelled 4.3 Chloride Cancelled 110 H Carbon Dioxide Cancelled 23.0 Anion Gap Cancelled 9.0 BUN Cancelled 37 H Creatinine Cancelled 1.9 H Est GFR (CKD-EPI 2020) Cancelled 34.57 Glucose Cancelled 135 H Calcium Cancelled 9.0 Magnesium Cancelled 2.4 Total Bilirubin Cancelled 0.51 AST Cancelled 13 L ALT Cancelled 17 Alkaline Phosphatase Cancelled 103 Troponin I Cancelled 62 H* 61 H NT-Pro-B Natriuret Pep Cancelled 31294 H Total Protein Cancelled 6.8 Albumin Cancelled 3.1 L COVID-19 Source NASOPHARYNX SARS-CoV-2 (PCR) (Negative) Negative Influenza Type A (PCR) (Negative) Negative Influenza Type B (PCR) (Negative) Negative RSV (PCR) (Negative) Negative Medical Decision Making Evaluation of shortness of breath. Patient is noted to be tachypneic, but not associated with hypoxia. He does have a history of CHF and does have crackles on examination, but does not have lower extremity edema. Partner recently had URI symptoms. Both tested negative for COVID at home. Initial differential includes viral illness, pneumonia, CHF exacerbation. His EKG is reviewed, sinus rhythm, no STEMI, no acute ischemic changes. Does not have real sick symptoms like fever, productive cough. Have a low suspicion for myocarditis. As he also does not have any chest pain. Lab work was reviewed. No significant elevation in white blood cell count. Anemia is baseline for the patient. He has a creatinine of 1.9 which is his baseline. His BNP is significantly elevated at over 10,000. Serial troponins were drawn and are stable. His viral testing has negative. Chest x-ray was obtained and reviewed, it is consistent with cardiomegaly and pulmonary edema, no pleural effusion. Patient was placed on 2 L nasal cannula to help with his work of breathing and tachypnea. This did seem to help slightly. Given stable troponins I doubt ACS. The patient's symptoms are likely CHF exacerbation. He is given IV Lasix and has had thus far had minimal diuresis. This time I feel he would benefit from admission for further IV diuresis. Discussed with the hospitalist who concurs. Medical Records Medical records reviewed: Yes I reviewed the patient's medical records. Lab Data Lab results reviewed: Yes I reviewed the patient's lab results. Quality:SDOH Health Related Social Needs: No Data to Display [facility] All Active Problems (Updated 02/09/24 @ 21:42 by Marvin Valerio MD) CHF (congestive heart failure) (Chronic) HTN (hypertension) (Chronic) CKD (chronic kidney disease) stage 3, GFR 30-59 ml/min (Chronic) Type 2 diabetes mellitus (Chronic) PAF (paroxysmal atrial fibrillation) (Chronic) Symptomatic bradycardia (Acute) Social History Smoking/Tobacco Use Status: Former Tobacco Use Smoking risk assessment performed?: Yes Alcohol Intake: current Alcohol Intake frequency: 0-2 drinks per day Drug use: Never Substance use type: does not use Details: Pt quit smoking 10 years ago Housing: house Do you feel safe at home: Yes Do you feel safe in your relationship?: Yes
--- NOTE | 2024-02-09 22:03 | W.PC.ACHO ---
Registration Status: Primary Language: Preferred Language: ED Information & Data Chief Complaint SOB 02/09/24 21:42 Other Complaint Dizzy/Sync 02/09/24 15:28 Triage Note Pt arrives to ED c/o 02/09/24 15:28 increasing SOB and dizziness x approx. 3 weeks. Worse since yesterday. Most Recent Vital Signs Temperature 36.5 C 02/09/24 15:28 Temperature Source Oral 02/09/24 15:28 Pulse 86 02/09/24 21:16 Pulse 91 H 02/09/24 21:20 Respiratory Rate 28 H 02/09/24 21:20 Respiratory Effort Short of Breath, Labored 02/09/24 18:28 Respiratory Depth Normal 02/09/24 18:28 Respiratory Pattern Tachypnea 02/09/24 18:28 Blood Pressure 132/49 L 02/09/24 21:16 Blood Pressure Mean 76 02/09/24 21:16 Pulse Oximetry 92 02/09/24 20:10 Oxygen Delivery Method Room Air 02/09/24 15:28 Oxygen Flow Rate 0 02/09/24 15:28 Pain Level 0 02/09/24 18:44 Allergies levofloxacin Adverse Reaction (Mild, Unverified 02/09/24 15:34) Other (See Comment) Statins Adverse Reaction (Mild, Uncoded 02/09/24 15:34) Other (See Comment) Precautions Isolation PUI 02/09/24 17:40 IV IV Catheter Type [Left Forearm Peripheral IV ] IV Catheter Gauge [Left 18 Forearm] Diet Orders Category Date Time Status Diabetes Consistent CHO/Low Na [DIET] Nutrition 02/10/24 Breakfast Ordered Diagnostics 02/09/24 02/09/24 02/09/24 Range/Units 18:40 18:00 17:20 WBC 7.36 (4.4-10.8) 10^3/uL RBC 3.56 L (4.36-5.78) 10^6/uL Hgb 11.1 L (13.5-17.5) g/dL Hct 35.4 L (40.0-50.0) % MCV 99 H (80-95) fL MCH 31.2 (27.0-33.0) pg MCHC 31.4 L (32.0-36.0) % RDW 15.1 H (11.8-14.1) % Plt Count 180 (130-400) 10^3/uL MPV 11.6 H (8.0-11.0) fL Immature Gran % 0.3 % Neutrophils % 66.3 % Lymphocytes % 18.2 % Monocytes % 10.2 % Eosinophils % 4.2 % Basophils % 0.8 % Nucleated RBC % 0.0 (0.0-0.3) % Absolute Neutrophils 4.88 (1.2-6.7) 10^3/uL Absolute Lymphocytes 1.34 (1.2-3.4) 10^3/uL Absolute Monocytes 0.75 (0.1-0.8) 10^3/uL Absolute Eosinophils 0.31 (0.0-0.7) 10^3/uL Absolute Basophils 0.06 (0.0-0.2) 10^3/uL Sodium 142 Cancelled Potassium 4.3 Cancelled Chloride 110 H Cancelled Carbon Dioxide 23.0 Cancelled Anion Gap 9.0 Cancelled BUN 37 H Cancelled Creatinine 1.9 H Cancelled Est GFR (CKD-EPI 2020) 34.57 Cancelled Glucose 135 H Cancelled Calcium 9.0 Cancelled Magnesium 2.4 Cancelled Total Bilirubin 0.51 Cancelled AST 13 L Cancelled ALT 17 Cancelled Alkaline Phosphatase 103 Cancelled Troponin I 61 H 62 H* Cancelled NT-Pro-B Natriuret Pep 27893 H Cancelled Total Protein 6.8 Cancelled Albumin 3.1 L Cancelled COVID-19 Source NASOPHARYNX SARS-CoV-2 (PCR) Negative (Negative) Influenza Type A (PCR) Negative (Negative) Influenza Type B (PCR) Negative (Negative) RSV (PCR) Negative (Negative) Intake and Output - 24 Hour Total 02/09/24 15:22 thru 02/09/24 20:15 Output Total 400 Balance -400 Weight 77.111 kg Output: Urine 400 Falls Risk Assessment History of Falls No History 02/09/24 17:40 Contributing Factors Unstable,Medications 02/09/24 17:40 Ambulatory Aids Independent 02/09/24 17:40 Tubes/Lines None 02/09/24 17:40 Gait Evaluation No gait disturbance 02/09/24 17:40 Cognition No cognitive impairment 02/09/24 17:40 Fall Total Score 6 02/09/24 17:40 Level of Risk Standard/Low Risk 02/09/24 17:40 Problems (Last Reviewed 02/09/24 @ 21:38 by Marvin Valerio MD) CHF (congestive heart failure) (Chronic) v v v v v v v v v Sending and/or Receiving Nurses: Please use comment section below to note any information pertinent to the patient hand-off not included above. Information / Comments: no further question Report received from: Drew Lancaster
[2024-02-10] MEDS: Furosemide 100 MG/10 ML VIAL 160 MG IVP (00:16)
[2024-02-10] MEDS: Doxycycline Hyclate 100 MG CAP PO ×3 (00:18→19:29)
[2024-02-10 03:23] VITALS: BP 109/60; PULSE 86; RESP 20; TEMP 36.7; O2SAT 94
[2024-02-10] MEDS: Lidocaine 2% Jelly 11 ML SYR (05:47)
[2024-02-10] MEDS: Acetaminophen 500 MG TAB 1000 MG PO ×2 (06:30→19:28)
[2024-02-10 07:45] LABS: Anion Gap 11.7 mmol/L (3-11); BUN 43 mg/dL (7-18); CO2 24.3 mmol/L (21.0-32.0); CREATININE 2.1 mg/dL (0.70-1.30); Calcium 8.7 mg/dL (8.5-10.1); Chloride 105 mmol/L (98-107); Estimated GFR 30.66 (mL/min/1.73m2); Glucose 158 mg/dL (74-106); Potassium 3.4 mmol/L (3.5-5.1); Sodium 141 mmol/L (136-145)
[2024-02-10 08:00] LABS: Troponin I 68 ng/L (< or =60)
[2024-02-10 08:08] VITALS: BP 117/71; PULSE 81; RESP 18; TEMP 36.2; O2SAT 96
[2024-02-10 08:37] VITALS: O2SAT 91
[2024-02-10] MEDS: Furosemide 100 MG/10 ML VIAL 80 MG IVP ×2 (08:44→16:48)
[2024-02-10] MEDS: Normal Saline Flush 10 ML SYR IVP ×3 (08:45→20:57)
[2024-02-10] MEDS: Polyethylene Glycol 3350 17 GM PACKET PO (08:45)
[2024-02-10] MEDS: Aspirin 81 MG CHEW PO (08:46)
[2024-02-10] MEDS: Ferrous Sulfate 325 MG TAB PO (08:47)
[2024-02-10] MEDS: Vitamins B Comp w/C TAB 1 TAB PO (08:47)
[2024-02-10] MEDS: Docusate Sodium 100 MG CAP PO ×2 (08:47→19:29)
[2024-02-10] MEDS: Sennosides/Docusate Sodium TAB 1 TAB PO ×2 (08:47→19:28)
[2024-02-10] MEDS: amLODIPine 10 MG TAB PO (08:47)
[2024-02-10] MEDS: Clopidogrel 75 MG TAB PO (08:48)
[2024-02-10] MEDS: Finasteride 5 MG TAB PO (08:48)
[2024-02-10] MEDS: Insulin Glargine 300 UNITS/3 ML PEN 10 UNITS SC (09:04)
[2024-02-10] MEDS: Tamsulosin 0.4 MG CAPCR PO (09:56)
[2024-02-10] MEDS: Insulin Aspart 300 UNITS/3 ML PEN SC ×2 (12:04→17:11)
[2024-02-10] MEDS: POTASSIUM CHLORIDE 20 MEQ/100 ML BAG 50 MEQ IVINF (12:17)
[2024-02-10 12:32] LABS: Lab Add On Test DONE
[2024-02-10 12:43] LABS: Magnesium 2.1 mg/dL (1.8-2.4)
[2024-02-10] MEDS: Methocarbamol 750 MG TAB PO ×2 (13:06→19:11)
[2024-02-10 15:03] VITALS: BP 111/67; PULSE 80; RESP 20; TEMP 36.7; O2SAT 95
--- NOTE | 2024-02-10 15:03 | W.NUTRFU ---
Date of service: 02/10/24 Time of Service: 15:03 Nutrition Note NOTE: Received inpatient consult re: diabetes education/mgt Pt is 83yo male admitted with CHF exacerbation. PMH significant for aortic aneurysm, HTN, dehydration, CKD3, DMII with macular degeneration. Pt familiar to me from last admission in October. Weight reported as stable - some minimal gains reported by pt and wt history shows stable weight patterns. Takes metformin ER 500mg per day and 10units insulin glargine AM. Also takes dapagliflozin propanediol 5mg daily. A1C was 7.8% last month with recent history below 8% consistently. PT checks fasting glucose and at 5pm prior to dinner. Pt reports hx of hiatal hernia and about once every 3 months or so food feels stuck/lodged and he has to make it come up for relief. Lives at home with partner and a person who he describes as someone who would be homeless if he didn't live with them. [employer] does most of the shopping and cooking with transportation assistance from house mates. He takes 1gm n-s supplement , AREDS eye formula and b complex for macular health and gets OTC magnesium (unsure of type or does). Potassium 3.4 today and pt c/o leg cramping with initiation of IV KCL. FPG this morning 158. was 172 at lunchtime fingerstick. - pt managed with sensitive ss insulin aspart at meals, and continues home diabetes meds (except metfomin is on hold). Pt eats a large bkst at home - pumpernickle bread, 2 soft eggs and berries lately. He will have a small lunch like handful of nuts and an apple and then have a big dinner with meat, veggies, starch. Pt feels he does well at his age managing diabetes for as long as has. Has a friend from [place] who was holistic provider there and internal medicine doc in the states that he will approach for advice - for example he avoids dairy due to suspect inflammatory response. Reviewed pt diet order which he has no questions about. no known food allergies. Pt has good glycemic control for his age and considering CKD and CHF comorbidities. Offered to sit in the outpatient setting if he desires, to go over his specific nutrition needs and given my card to contact if desired. He feels he is adequately prepared to continue managing his diabetes and will continue to work on healthy eating and activity as tolerated. Will monitor for any significant changes in glycemic control, labs, weight, po intake. Time Spent in Nutritional Counseling and Treatment: 20 minutes
--- NOTE | 2024-02-10 15:39 | W.PM.PROGNOT ---
Date of Service Date of service: 02/10/24 Time of Service: 15:39 Assessment and Plan Assessment and plan (1) CHF (congestive heart failure): Status: Chronic Assessment and plan: Severe cardiomyopathy, HFrEF, probably ischemic however patient denies any current chest pain. Will work on continued diuresis correction of any potassium problems or magnesium problems. Will get him on goal-directed therapy with spironolactone and Entresto he is already on an SGLT2 inhibitor. Qualifiers: Heart failure type: combined systolic and diastolic Heart failure chronicity: acute on chronic Qualified Code(s): I50.43 - Acute on chronic combined systolic (congestive) and diastolic (congestive) heart failure (2) HTN (hypertension): Status: Chronic Assessment and plan: Stable blood pressure continue current meds Qualifiers: Hypertension type: primary hypertension Qualified Code(s): I10 - Essential (primary) hypertension (3) CKD (chronic kidney disease) stage 3, GFR 30-59 ml/min: Status: Chronic Assessment and plan: Stable chronic kidney disease Qualifiers: Chronic kidney disease stage 3 subtype: stage 3b (GFR 30-44) Qualified Code(s): N18.32 - Chronic kidney disease, stage 3b (4) Type 2 diabetes mellitus: Status: Chronic Assessment and plan: Continue glucose monitoring and basal bolus insulin 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 mellitus manager intermediate insulin use: without snf use Diabetes mellitus complication status: with kidney complications Diabetes mellitus complication detail: with chronic kidney disease Chronic kidney disease stage: stage 3 (moderate) Chronic kidney disease stage 3 subtype: stage 3b (GFR 30-44) Qualified Code(s): E11.22 - Type 2 diabetes mellitus with diabetic chronic kidney disease; N18.32 - Chronic kidney disease, stage 3b (5) PAF (paroxysmal atrial fibrillation): Status: Chronic Assessment and plan: Patient was not started on telemetry upon admission to medical/surgical floor but was on monitoring the emergency department. Clinically seems to be in a regular rhythm. EKG on admission shows sinus rhythm with a right bundle branch block and left anterior fascicular block. Subjective Subjective Interval history since last seen: Patient present with acute dyspnea found to be in heart failure. Echocardiogram shows heart failure with reduced ejection fraction with global LV dysfunction of a severe degree with an LVEF of only 28% per Sellers's biplane evaluation. RV size was normal and RV function was normal. He has mild functional mitral regurgitation from his dilated cardiomyopathy. Patient seems to perseverate on his leg cramps. He has had some chronic leg cramps however today had really severe case this morning which I suspect it is due to to hypokalemia from aggressive diuresis. Potassium dropped overnight from 4.3-3.4 with aggressive diuresis. I had ordered IV potassium replacement however while he was running in he had another severe right leg spasm which she associated temporarily with the infusion of the potassium. I explained to him that I had nothing to do with the potassium infusion but was doing low potassium levels. Nevertheless his muscle spasm was treated with Robaxin the patient drank 3 to 4 glasses of water. I recommend he take some oral potassium replacement and told me if he has any further muscle spasms he can take more Robaxin but I think replacing his potassium would do more for this. Patient denies any chest pain or pressure. He had some mildly elevated troponin levels with his current admission but remains pain-free. He has not had any recent stress MPI and no recent cardiac catheterizations. He previously had seen Dr. Billy at [facility] but has not seen him for several months. I am recommending him to follow-up outpatient stress MPI and follow-up with Dr. Suero regarding his dilated cardiomyopathy. In the interim I told him we would work on getting him on goal-directed therapy for his cardiomyopathy. This should include combination of a loop diuretic such as torsemide or furosemide along with spironolactone and he should go back on Entresto. Exam Narrative Exam Narrative: Elderly white male sitting up in bed talking with his partner he is alert and oriented x 3 he is very anxious over possibly having another muscle cramp and fearful of getting out of bed. Currently not having any muscle spasm. Lungs consistent with bibasilar rales no rhonchi or wheezing Heart is bradycardic but regular with a prominent systolic murmur over the apex Abdomen soft and nontender Lower extremities without peripheral edema or cyanosis no calf tenderness to palpation Objective Last Vital Signs Temp 36.7 C 02/10/24 15:03 Pulse 80 02/10/24 15:03 Resp 20 02/10/24 15:03 BP 111/67 02/10/24 15:03 Pulse Ox 95 02/10/24 15:03 Laboratory Results - last 24 hr 08/19/24 08/19/24 08/19/24 17:20 18:00 18:40 WBC 7.36 RBC 3.56 L Hgb 11.1 L Hct 35.4 L MCV 99 H MCH 31.2 MCHC 31.4 L RDW 15.1 H Plt Count 180 MPV 11.6 H Immature Gran % 0.3 Neutrophils % 66.3 Lymphocytes % 18.2 Monocytes % 10.2 Eosinophils % 4.2 Basophils % 0.8 Nucleated RBC % 0.0 Absolute Neutrophils 4.88 Absolute Lymphocytes 1.34 Absolute Monocytes 0.75 Absolute Eosinophils 0.31 Absolute Basophils 0.06 Sodium Cancelled 142 Potassium Cancelled 4.3 Chloride Cancelled 110 H Carbon Dioxide Cancelled 23.0 Anion Gap Cancelled 9.0 BUN Cancelled 37 H Creatinine Cancelled 1.9 H Est GFR (CKD-EPI 2020) Cancelled 34.57 Glucose Cancelled 135 H Calcium Cancelled 9.0 Magnesium Cancelled 2.4 Total Bilirubin Cancelled 0.51 AST Cancelled 13 L ALT Cancelled 17 Alkaline Phosphatase Cancelled 103 Troponin I Cancelled 62 H* 61 H NT-Pro-B Natriuret Pep Cancelled 01521 H Total Protein Cancelled 6.8 Albumin Cancelled 3.1 L COVID-19 Source NASOPHARYNX SARS-CoV-2 (PCR) Negative Influenza Type A (PCR) Negative Influenza Type B (PCR) Negative RSV (PCR) Negative Add-On Test Request 02/10/24 07:15 WBC RBC Hgb Hct MCV MCH MCHC RDW Plt Count MPV Immature Gran % Neutrophils % Lymphocytes % Monocytes % Eosinophils % Basophils % Nucleated RBC % Absolute Neutrophils Absolute Lymphocytes Absolute Monocytes Absolute Eosinophils Absolute Basophils Sodium 141 Potassium 3.4 L Chloride 105 Carbon Dioxide 24.3 Anion Gap 11.7 H BUN 43 H Creatinine 2.1 H Est GFR (CKD-EPI 2020) 30.66 Glucose 158 H Calcium 8.7 Magnesium 2.1 Total Bilirubin AST ALT Alkaline Phosphatase Troponin I 68 H* NT-Pro-B Natriuret Pep Total Protein Albumin COVID-19 Source SARS-CoV-2 (PCR) Influenza Type A (PCR) Influenza Type B (PCR) RSV (PCR) Add-On Test Request DONE PAWSS Have you Been Recently Intoxicated or Drunk Within the Last 30 days?: No Have you Ever Experienced Previous Episodes of Alcohol Withdrawal?: No Have you ever Experienced Withdrawal Seizures?: No Have you ever Experienced Delirium Tremens(DT)s?: No Have you ever undergone Alcohol Rehabilitation Treatment (i.e, inpt ot outpatient treatment programs)?: No Have you ever Experienced Blackouts?: No Have you ever Combined Alcohol with other Downers within the last 90 days?: No Have you ever Combined Alcohol with any other Substance of Abuse during the last 90 days?: No Positive Blood Alcohol level on Presentation? [PCS.BAL]: No Evidence of Increased Autonomic Activity (i.e. HR>120, tremor, sweating, agitation, nausea)?: No Result: 0 Time Spent with Patient Time Spent with Patient: 35-49 minutes Time was spent: preparing to see the patient(eg.review tests), obtaining and/or reviewing separately otained hiistory, ordering medications,tests, procedures, referring, communicating with other health direct care worker, indepentently interpreting results, counseling the patient and care coordination
[2024-02-10] MEDS: Spironolactone 25 MG TAB PO (16:49)
[2024-02-10] MEDS: Potassium Chloride 10 MEQ CAPCR 20 MEQ PO ×2 (16:49→19:29)
[2024-02-10] MEDS: LORazepam 0.5 MG TAB PO (22:02)
[2024-02-11] VITALS (18 sets, daily range): BP systolic 97–133; BP diastolic 43–84; PULSE 79–135; RESP 14–42; TEMP 36.5–38.4; O2SAT 90–98
[2024-02-11 07:24] LABS: Anion Gap 13.2 mmol/L (3-11); BUN 47 mg/dL (7-18); CO2 22.8 mmol/L (21.0-32.0); Calcium 8.9 mg/dL (8.5-10.1); Chloride 99 mmol/L (98-107); Estimated GFR 32.51 (mL/min/1.73m2); Glucose 175 mg/dL (74-106); Sodium 135 mmol/L (136-145)
[2024-02-11 08:44] LABS: Lab Add On Test DONE
[2024-02-11] MEDS: Furosemide 100 MG/10 ML VIAL 80 MG IVP (08:58)
[2024-02-11] MEDS: Normal Saline Flush 10 ML SYR IVP ×3 (09:01→22:54)
[2024-02-11] MEDS: Potassium Chloride 10 MEQ CAPCR 20 MEQ PO ×2 (09:01→14:46)
[2024-02-11] MEDS: Doxycycline Hyclate 100 MG CAP PO (09:02)
[2024-02-11] MEDS: Aspirin 81 MG CHEW PO (09:03)
[2024-02-11] MEDS: amLODIPine 10 MG TAB PO (09:03)
[2024-02-11] MEDS: Vitamins B Comp w/C TAB 1 TAB PO (09:03)
[2024-02-11] MEDS: Tamsulosin 0.4 MG CAPCR PO (09:04)
[2024-02-11] MEDS: Sennosides/Docusate Sodium TAB 1 TAB PO ×2 (09:04→22:33)
[2024-02-11] MEDS: Ferrous Sulfate 325 MG TAB PO (09:04)
[2024-02-11] MEDS: Clopidogrel 75 MG TAB PO (09:05)
[2024-02-11] MEDS: Spironolactone 25 MG TAB PO (09:05)
[2024-02-11] MEDS: Insulin Glargine 300 UNITS/3 ML PEN 10 UNITS SC (09:07)
[2024-02-11] MEDS: Insulin Aspart 300 UNITS/3 ML PEN SC ×3 (09:07→18:55)
[2024-02-11 09:21] LABS: NT-proBNP 8450 pg/mL (<300)
[2024-02-11] MEDS: Finasteride 5 MG TAB PO (09:57)
--- NOTE | 2024-02-11 11:47 | INITIAL_ITS ---
Date of service: 02/10/24 Time of Service: 11:48 Care Management Initial Assmt Initial Assessment Reason for Hospitalization: CHF Functional Status/Living Situation Patient Presentation: Taco is lying in bed, stating he is experiencing painful cramps in his legs. CM offered to relay information to MD-Taco verbalized wanting to continue with CM consult. Later during interaction he stated you cured my pain, with distraction [place] Residence: [facility] Resides with: Spouse (David-spouse, and a friend resides in home as well. ) Significant Other/Family: Local Natural Supports: Additional friend lives within the home. Taco identifies strong support network. 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 RCT information reviewed. ) Activities/Hobbies/SocialSupport: Reports prior activities are more difficult now with his age and vision. 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 Medications Medication Management: No Issues/Barriers identified (Reports meds are bubble packed. ) Advance Directives Advance Directives: Do you have an Advance Directive: N 07/29/17 09:21 AD On File at [facility]: N 09/09/12 16:03 Date Asked 02/09/24 02/09/24 15:27 AD Date Reviewed COLST On File at [facility] COLST Date Scanned Comment: Reports document is on file at [facility]. David as agent. Code Status Resuscitation Status Full Code Portal Pt does not currently have a portal and education provided: No Portal Education: Patient declined Insurance Coverage/Financial Issues Insurance: [facility], [employer] [place], reports having termite helper care insurance as well. Care Team Visit Care Team Role Provider Type Viry Jasmine Primary Care Provider NON-[facility] STAFF PHYSICIAN Alexa Blakely RDN, CDCES Other Providers SALES INCENTIVE ANALYST Sabina Hansen Other Providers SALES INCENTIVE ANALYST Vale Faria Other Providers OTHER Flaquito Mello RDN Other Providers SALES INCENTIVE ANALYST Marvin Valerio MD Emergency Provider [facility] STAFF PHYSICIAN Khanh Serna MD Admit Provider [facility] STAFF PHYSICIAN Attending Provider Discharge Potential Discharge Needs: PT Evaluation Anticipated Barriers to Discharge: None Identified Patient/Family Education Needs: Review discharge instructions, discuss Ask Me Three Transportation: Private vehicle Plan: Taco will return home with his spouse, and transport via private vehicle. He will follow up with community providers and plan of care as prescribed. No additional services anticipated, CM following. PFSH All Active Problems (Updated 02/10/24 @ 22:06 by Jasbir Valentino MD) CHF (congestive heart failure) (Chronic) HTN (hypertension) (Chronic) CKD (chronic kidney disease) stage 3, GFR 30-59 ml/min (Chronic) Type 2 diabetes mellitus (Chronic) PAF (paroxysmal atrial fibrillation) (Chronic) Symptomatic bradycardia (Acute) Social History Smoking/Tobacco Use Status: Former Tobacco Use Smoking risk assessment performed?: Yes Alcohol Intake: current Alcohol Intake frequency: 0-2 drinks per day Drug use: Never Substance use type: does not use Details: Pt quit smoking 10 years ago Housing: house Do you feel safe at home: Yes Do you feel safe in your relationship?: Yes SDOH(Care Management) Screening Will the Patient Participate in the Screening?: Declined to provide Do you worry about having a steady place to live?: no In the past 12 months, have you had to go without electric, gas, oil or water in your home?: no Have you or anyone in your house had to go without enough food to eat?: no Has lack of transportation kept you from medical appointments or from doing things needed for daily living?: no Has anyone in your support network made you feel unsafe for any reason?: no
--- NOTE | 2024-02-11 11:56 | PDOC.CMDIS ---
Date of service: 02/11/24 Time of Service: 11:56 LACE Index Scoring Tool Questions: Length of Stay (in days): 2 Was the patient admitted via the E.D.?: Yes Comorbidities: Diabetes w/o Complication, Congestive Heart Failure and Mild Liver/Renal Disease E.D. Visits: 2 Answers: Total Score: 12 Risk of Readmission: High Risk Care Management Discharge Plan Reason for Hospitalization: CHF Discharge Plan: Taco will return home with his spouse, and transport via private vehicle. He will follow up with community providers and his plan of care as prescribed. Patient/Family Education Needs: Review discharge instructions, discuss Ask Me Three. SDOH Health Related Social Needs: No Data to Display
--- NOTE | 2024-02-11 12:20 | IN_ITS ---
PT Notes Visit Reasons: Congestive heart failure Inpatient Physical Therapy Evaluation Date:02/11/2024 Referring Doctor: Dr Valentino PT Orders: PT CONSULT: Exacerbation of chronic condition Precautions: impulsive poor safety Patient Profile/Admitting Diagnosis: Pt is an 83 yo male presented to ED with several week progressive increased in dyspnea. Medical work up in ED included ECHO which revealed Heart failure with LVEF of 28%. Pt received IV diuretics and then developed severe cramping BLE d/t Hypokalemia. Pt treated with potassium with resolution of BLE cramps. PMHX: HTN, CKD stage 3, paroxysmal Afib, DM Social History/Home Situation: Lives with spouse and friend in a home in [facility]. He reports 14 stairs in home. 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 Current Functional Limitations: impaired ambulation and stairs Equipment Owned/DME:cane Subjective: I have to get dressed so I can get home Objective: General Observation: Pt presented standing in room with no clothing on, floor wet with urine, Pt anxious wanting his personal clothing on. Mental Status: Alert Oriented to self , anxious Pain: denies Vital Signs: or sats > 93% increased RR to 26 with ambulation ROM: Right Upper Extremity: WNL Left Upper Extremity: WNL Right Lower Extremity: WNL Left Lower Extremity:WNL Strength: Right Upper Extremity: grossly 5/5 Left Upper Extremity: grossly 5/5 Right Lower Extremity: hip 3-/5 knee 3/5 ankle 3/5 Left Lower Extremity: hip 3-/5, knee 3/5 ankle 3/5 Sensation: intact Bed Mobility/Transfers: independent bed mobility Independent sit to stand from 19 height; min A from 17 height surface Pt demonstrates poor approach to surfaces attempts to sit prior to getting completely infront of chair. Gait: amb with cane CGA 75 feet wide KEVIN , reaches for furniture for additional support. stagger stepping requiring CGA to steady. (+) MONZON Stairs : 4 with rail and cane CGA step to pattern for breath control and pacing. (+) MONZON Balance: Static Sitting: normal Dynamic Sitting: normal Static Standing: fair Dynamic Standing: fair - Special Tests: Mobility Limitations Standardized Measure [facility] AM-PAC 6 clicks Basic Mobility Inpatient Short Form: Raw Score: 21 CMS Score:28.97% Informed Consent/Education: Patient instructed in purpose of PT consult and pl an of care. Assessment: Patient is an 83year old male referred to physical therapy services with the diagnosis of CHF exacerbation. Patient presents with clinical signs and symptoms consistent with acute diagnosis, as demonstrated by the following impairment level findings: 1. decreased functional activity tolerance 2. decreased stand balance 3. decreased LE strength. 4. impaired safety awareness/judgement Impairments are contributing to the following functional limitations: 1. AMPAC score. 2. inability to ambulate with cane independently and safely 3. Inability to ascend/descend stairs with rail independently to safely enter exit home Patient is assessed as a [X] Moderate 38105 complexity based on the following: History:Pt is an 83 yo male presenting with CHF exacerbation and BLE cramps relatesd to hypokalemia from aggressive diuresis. Examination: see above Presentation: evolving Decision Making: low Goals: Goals X1 week 1. Gait supervison with cane 150 2. Stairs 14 with rail supervision 3. Independent with home exercise program Plan of Care/Treatment Plan: 1-2x/day, 7 days/week x 1 week. Plan of care has been reviewed with the MANAGER STRATEGY & ACCOUNT providing the service under Physical Therapy direction. Initiate Physical Therapy intervention for strengthening, bed mobility, transfers, gait, stairs, balance training, use of assistive device. DISCHARGE RECOMMENDATIONS: [] [X] Home with services PT TREATMENT CODE/TIME:[id number]; [id number] [phone] Please sign an return this page within 30 days if you agree with the above POC. Thank you! Physician Signature Date [facility]
--- NOTE | 2024-02-11 14:00 | DI.RAD_ITS ---
Exam(s) XR PORTABLE CHEST AP EXAM: XR PORTABLE CHEST AP CLINICAL HISTORY: dyspnea TECHNIQUE: 2D digital imaging was performed of the chest. One image was obtained. An AP view was ob tained. COMPARISON: CR XR CHEST 2V PA LATERAL from 02/09/2024 FINDINGS: MEDIASTINUM: Normal. HEART: Heart size is within normal limits. Is decreased in size compared to the prior examination. PULMONARY VASCULATURE: There is pulmonary venous congestion. LUNGS: There are bilateral basilar infiltrates. PLEURAL SPACE: Bilateral pleural effusions are present. No pneumothorax. BONE:Within normal limits for the patient's age. OTHER FINDINGS:Normal. IMPRESSION: 1. Worsening pulmonary edema since 02/09/2024. 2. Persistent small bilateral pleural effusions. 3. Bilateral basilar infiltrates, left greater than right. A superimposed pneumonia cannot be entire ly excluded. Please correlate clinically. DATA REPOSITORY: RADIATION DOSE DELIVERED:
--- NOTE | 2024-02-11 14:15 | W.PM.PROGNOT ---
Date of Service Date of service: 02/11/24 Time of Service: 14:15 Assessment and Plan Assessment and plan (1) Sepsis: Status: Acute Assessment and plan: severe sepsis d/t combination of pneumonia and UTI; he did not present w/ fevers but was diagnosed w/ exacerbation of his CHF. He has a dilated cardiomyopathy, unclear whether or not ischemic or nonischemic. Echo was done yesterday that demonstrated LVEF donw to 28% with severe global HK but normal RV size and function w/ mild functional MR. No prior echo to compare. He has been patient of Dr. Billy in [place], [place] ([facility]). He has been getting aggressive diuresis w/ lasix 80 mg IV Q12H w/ good response, he is down 8.5 liters since admission, and there had been initially improvement in his dypsnea yesterday. This morning I had planned to transiton him to oral diuretic today and monitor overnight for probable discharge tomorrow. This morning while reviewing labs and vitals I noted that he had been tachycardic in low 100's so I asked for telemetry to be placed on him. He has hx of PAF but when I took care of him November 04, 2023 he was having symptmatic bradycardia w/ either very slow afib vs junctional rhythm in the 30's but he recovere to sinus bradycardia in the 60's. He did not have a UA on admission, although he had UTI in past including MRSA. This admission he was soley being treated for acute CHF exacerbation and we were working on getting to goal therapy. Today however he appears to have severe sepsis w/ encephalopathy and hepatic and renal insufficiency although not septic shock, as he has not required vasopressors. I did bedside pocus lung and limited echo on him to evaluate the degree of CHF vs suspected pneumonia and determine whether he should be given further volume. His VTI did not improve w/ PLR, his lungs showed bibasilar consolidation w/ parapneumonic effusions and air bronchograms. I have expanded his antibiotic coverage to cefepime and vancomcyin from his ceftriaxone given this morning and transferred him to ICU and begun dobutamine at 2.5 mcg/kg/minute and his rhythm is suspicious for atrial flutter vs SVT, I will start him on amiodarone as he is unlikely to respond to digoxin and w/ his CKD is prone to digoxin toxicity. Critical care time spent interviewing and examining the patient, reviewing studies, discussing case with patient's nurse and consulting physicians was 75 minutes, in addition to time spent performing POCUS studies Qualifiers: Sepsis acute organ dysfunction status: with acute organ dysfunction Sepsis type: sepsis due to unspecified organism Severe sepsis acute organ dysfunction type: encephalopathy Severe sepsis shock status: without septic shock Qualified Code(s): A41.9 - Sepsis, unspecified organism; R65.20 - Severe sepsis without septic shock; G93.41 - Metabolic encephalopathy (2) PSVT (paroxysmal supraventricular tachycardia): Status: Acute Assessment and plan: PSVT vs atrial flutter; will begin on low dose lopressor and amiodarone; I had considered digoxin but given his CKD, and unlikely effectiveness in controlling atrial flutter and he would only be able to handle limited amounts; I decided on amiodarone. Due to his cardiomyopathy I did not want to use a non-dihydropyridine calcium channel ana laura such as diltiazem or verapamil. I am reluctant to use lopressor given his low EF, however, this would lowere his autonomic response to sepsis and work conjunctively w/ the amiodarone to control his HR (3) Community acquired pneumonia: Status: Acute Assessment and plan: bilateral lower lobe consolidations; antibiotic coverage expaned to include cefepime, vancomycin, and azithromycin was ordered but dc in favor of doxycycline ( which he has been on orally); azithromycin has high potential interaction w/ amiodarone w/ QTC prolongation. Qualifiers: Laterality: unspecified laterality Qualified Code(s): J18.9 - Pneumonia, unspecified organism (4) Complicated UTI (urinary tract infection): Status: Acute Assessment and plan: expanded antibiotic coverage as above; check renal ultrasound in the morning, also will check abdominal US looking at GB and liver (5) HFrEF (heart failure with reduced ejection fraction): Status: Acute Assessment and plan: unclear whether ischemic or nonischemic CM; I will try to reach Dr. Billy tomorrow to discuss prior workups such as last echo results, stress MPI or heart cath reports I have begun low dose dobutamine for inotropic support I think he has been more than adequately diuresed and therefore would not give further diuretics but treat his rhythm and sepsis; if he becomes hypotensive, his negative PLR would suggest that he would not benefit from fluid trial but I would not be averse to small judicious fluid bolus i.e. 250 mL if his urine output drops off or he becomes hypotensive but he certainly would not tolerate the 30 mL/kg surviving sepsis protocol would call for. If he gets iv fluids, I would trial small boluses of 250 mL at a time and see what his UO and BP and HR do; if one is accomplished in POCUS, then could repeat his VTI after each bolus and see if it goes up. Normal VTI is 18 to 22 cm, his has been around 8 cm, I think a significant response would be a 15 % increase in his VTI (6) CKD (chronic kidney disease) stage 3, GFR 30-59 ml/min: Status: Chronic Qualifiers: Chronic kidney disease stage 3 subtype: stage 3b (GFR 30-44) Qualified Code(s): N18.32 - Chronic kidney disease, stage 3b (7) Type 2 diabetes mellitus: Status: Chronic Assessment and plan: basal/bolus insulin; glucose ac Qualifiers: Chronic kidney disease stage: stage 3 (moderate) Chronic kidney disease stage 3 subtype: stage 3b (GFR 30-44) Diabetes mellitus complication detail: with chronic kidney disease Diabetes mellitus complication status: with kidney complications Diabetes mellitus longterm insulin use: without longterm use Qualified Code(s): E11.22 - Type 2 diabetes mellitus with diabetic chronic kidney disease; N18.32 - Chronic kidney disease, stage 3b (8) HTN (hypertension): Status: Chronic Assessment and plan: currently not hypotensive Qualifiers: Hypertension type: primary hypertension Qualified Code(s): I10 - Essential (primary) hypertension (9) DVT prophylaxis: Status: Acute Assessment and plan: patient has not been on any prophylaxis; I have added heparin 5000 units SC q8h. (10) Advanced care planning/counseling discussion: Status: Acute Assessment and plan: I had a brief discussion w/ the patient and his partner about advanced directives and whether or not Sandra would want to be resuscitated and put on life support in the event of a CP arrest. At present, Sandra is too confused to give an informed consent about changing his code status. His partner says that they had an advanced directive but changed him to full code when he underwent endovascular repair of his AAA. At present, I explained to partner that presently if he has cardiac or respiratory arrest of failure and needed resuscitation, we would be doing everything possible to keep him alive including CPR, defibrillation, and intubation. At present they would like to talk it over. I have requested a Palliative care consult, [facility] has notifed palliative care, and I met Dariela Rodas RECREATIONAL THERAPY TECHNICIAN from Palliative Care who came to see another patient. She indicated that Dr. Moe would be seing him tomorrow. Subjective Subjective Interval history since last seen: Patient is febrile and tachycardic w/ narrow complex tachycardia; initially thought to be afib but on closer inspection appears to be either sinus tachycardia or atrial flutter vs PSVT. Patient was given single dose of lopressor 2.5 mg IVP w/ no response. Urine culture was found to be positive for gram negative organisms but patient was not begun on antibiotics yesterday when urine culture was ordered; however, he was asymptomatic yesterday. I began him on ceftriaxone. He is more dyspneic this afternoon compared to yesterday despite diuresis. I have ordered a stat chest xray, EKG, and labs. I have discussed his care w/ the charge nurse and it would be prudent to transfer him to ICU while determining the cause of his tachycardia and worsening hypoxia. I suspect either sepsis, either urosepsis or possible concommittant pneumonia. Exam Narrative Exam Narrative: Sandra appears to be lethargic and confused, keeps asking who I am and does not recall where he is at, nursing states that he is hallucinating he appears jaundiced and slightly icteric He is confused, not recognizing me Lungs: bilateral bases w/ markedly diminished breath sounds and rales Heart: regular but tachycardic w/ systolic murmur at apex Abdomen: slight distended, soft, nontender Extremities: no pitting edema, chronic venous stasis skin changes Objective Last Vital Signs Temp 38.4 C H 02/11/24 13:55 Pulse 79 02/11/24 13:55 Resp 20 02/11/24 13:55 BP 118/84 02/11/24 13:55 Pulse Ox 98 02/11/24 13:55 Laboratory Results - last 24 hr 02/10/24 02/11/24 02/11/24 16:00 06:16 08:44 Sodium 135 L Potassium Cancelled 4.0 Chloride 99 Carbon Dioxide 22.8 Anion Gap 13.2 H BUN 47 H Creatinine 2.0 H Est GFR (CKD-EPI 2020) 32.51 Glucose 175 H Calcium 8.9 Magnesium 2.0 NT-Pro-B Natriuret Pep 8450 H Add-On Test Request DONE Objective Narrative Objective Narrative: POCUS studies of lungs shows bilateral lower lobe consolidations and parapneumonic effusions, some biteral B lines but in an A/B pattern more consistent w/ pneumonia and some superimposed CHF; echo shows severely dilated and globally hypocontractile LV w/ preserved RV function and IVC which is small and responsive to inspiratory collapse albeit at slightly less than 50%. PAWSS Have you Been Recently Intoxicated or Drunk Within the Last 30 days?: No Have you Ever Experienced Previous Episodes of Alcohol Withdrawal?: No Have you ever Experienced Withdrawal Seizures?: No Have you ever Experienced Delirium Tremens(DT)s?: No Have you ever undergone Alcohol Rehabilitation Treatment (i.e, inpt ot outpatient treatment programs)?: No Have you ever Experienced Blackouts?: No Have you ever Combined Alcohol with other Downers within the last 90 days?: No Have you ever Combined Alcohol with any other Substance of Abuse during the last 90 days?: No Positive Blood Alcohol level on Presentation? [PCS.BAL]: No Evidence of Increased Autonomic Activity (i.e. HR>120, tremor, sweating, agitation, nausea)?: No Result: 0 Time Spent with Patient Time Spent with Patient: >50 minutes Time was spent: preparing to see the patient(eg.review tests), ordering medications,tests, procedures, referring, communicating with other health residential caregiver, indepentently interpreting results, counseling the patient and care coordination
[2024-02-11] MEDS: cefTRIAXone 2 GM/50 ML BAG IVPB (14:46)
[2024-02-11] MEDS: Metoprolol 5 MG/5 ML VIAL 2.5 MG IVP (14:47)
[2024-02-11 14:59] LABS: HCT 42.2 % (40.0-50.0); HGB 14.1 g/dL (13.5-17.5); MCH 31.8 pg (27.0-33.0); MCHC 33.4 % (32.0-36.0); MCV 95 fL (80-95); MPV 11.8 fL (8.0-11.0); Platelet Count 210 10^3/uL (130-400); RBC 4.43 10^6/uL (4.36-5.78); RDW 14.6 % (11.8-14.1); RDW-SD 50.4 fL; WBC 17.81 10^3/uL (4.4-10.8)
--- NOTE | 2024-02-11 15:00 | RT.EKG_ITS ---
APPROVED REPORT Exam: Resting ECG Reason for Exam: rapid rates, difficulty identifying rhythm on tele Patient Location: I HR:128 bpm ECG Measurements Heart Rate 128 AXIS AZ [id number] P [id number] QRSd 149 QRS -90 QT 356 T 49 QTc 520 Conclusion Atrial flutter/fibrillation...A-rate 246, multiple Ps Right bundle branch block...QRSd>120, terminal axis(90,270)
[2024-02-11 15:10] LABS: C-Reactive Protein 4.91 mg/dL (<or=0.5)
[2024-02-11 15:34] LABS: Procalcitonin 0.3 ng/mL
[2024-02-11 15:42] LABS: Absolute Basophil Count 0.18 10^3/uL (0.0-0.2); Absolute Lymphocyte Count 0.53 10^3/uL (1.2-3.4); Absolute Monocyte Count 0.71 10^3/uL (0.1-0.8); Absolute Neutrophil Count 16.39 10^3/uL (1.2-6.7); Bands % 1 %; Diff Comment Manual Differential; RBC Morphology Normal
--- NOTE | 2024-02-11 16:32 | PDOC.CMPRO ---
Date of service: 02/11/24 Time of Service: 16:32 Care Management Progress Note Progress Note Text Progress Note Text: Taco was standing outside of his room fully dressed this morning. Mid-morning PT notified of HH/PT recommendation related to dyspnea on exertion and fall risk, CM notified MD. In the late afternoon, Taco was transferred to ICU. Palliative consult ordered 1515; Palliative office reported Dr. Moe will see Taco tomorrow morning at 0900-CM notified MD and HOTEL ADMINISTRATIVE ASSISTANT Ilda. Discharge Potential Discharge Needs: Consult Consult Services Needed: Palliative, PT Evaluation and PCP F/U Appt Anticipated Barriers to Discharge: Medical Status Patient/Family Education Needs: Review discharge instructions, discuss Ask Me Three Transportation: Private vehicle Plan: Undetermined plan at this time as Taco was transferred to ICU- awaiting further MD guidance at time of documentation. SDOH(Care Management) Screening Will the Patient Participate in the Screening?: Declined to provide Do you worry about having a steady place to live?: no In the past 12 months, have you had to go without electric, gas, oil or water in your home?: no Have you or anyone in your house had to go without enough food to eat?: no Has lack of transportation kept you from medical appointments or from doing things needed for daily living?: no Has anyone in your support network made you feel unsafe for any reason?: no
[2024-02-11 16:49] LABS: COVID-19 PCR Negative (Negative); Influenza A PCR Negative (Negative); Influenza B PCR Negative (Negative); RSV PCR Negative (Negative)
[2024-02-11 16:52] LABS: Source Nasopharynx
[2024-02-11] MEDS: DOBUTamine 500 MG/250 ML BAG 11.431 MG IV (17:29)
[2024-02-11] MEDS: Lidocaine 2% Jelly 6 ML SYR (17:54)
--- NOTE | 2024-02-11 17:58 | POCUS_ITS ---
Pocus Exam Limited Thoracic Lung Exam DATE OF EXAM: 02/11/24 TIME OF EXAM: 16:36 PROVIDER THAT PERFORMED THE STUDY: Jasbir Valentino REASON FOR EXAM: Hypoxia and Shortness ofBreath VISUALIZED STRUCTURES: right anterior (A line pattern in superior region; some increased B lines in right anterior inferior region), left anterior (superior and inferior region w/ A line pattern; ), right lateral, left lateral (inferolateral region w/ thickened pleura and moderate to severe increased B line coalesce to consolidation pattern; superior/posterolateral region (axilla) has predominant A line pattern ), right posterior, left posterior (pleural thickening and consolidation w/ moderate B lines and small pleural effusion seen in left posterior inferior; left posterior superior region), right subcostal (right subcostal/left posterolateral region w/ marked consolidation w/ air bronchograms, moderate effusion) and left subcostal (same as left inferior posterolateral: consolidation and small effusion; thickened pleura w/ subpleural consolidations) PERTINENT FINDINGS/IMPRESSION: B-lines/left side thoracis location: lateral and posterior, B-lines/right side thoracis location: lateral and posterior, Pneumo scooter (bibasilar lung consolidations w/ air bronchograms and simple parapneumonic effusions), Left pleural effusion (moderate) and Right pleural effusion (small) Exam complete
--- NOTE | 2024-02-11 17:59 | W.POCUS ---
Pocus Exam Limited Cardiac Exam DATE OF EXAM: 02/11/24 TIME OF EXAM: 16:56 PROVIDER THAT PERFORMED THE STUDY: Jasbir Valentino REASON FOR EXAM: Congestive heart failure, Dyspnea, Hypoxia and Septic Shock VISUALIZED STRUCTURES: four chambers, LVOT (2.05 cm diameter), aortic valve, mitral valve, Interventricular septum and IVC VIEW OBTAINED: Apical 4-Chamber, Parasternal long-axis and Subxiphoid PERTINENT FINDINGS/IMPRESSION: LV dysfunction :severe; no IVC inspiratory collapsability, No RV dilation and No RV dysfunction INCIDENTAL FINDINGS: VTI done pre PLR, post PLR and baseline again; there was no significant response to PLR. Pre PLR was 8.6 cm; i.e. avg CO 3.5 liter/min; Post PLR avg VTI 7.96 cm, avg CO 3.08 liter/min, IVC maximum 1.55 cm w/ 45% inspiratory collapse Findings are consistent w/ severe cardiomyopathy w/ preserved RV function and no hemodynamic response to passive leg raising. IV is not plethoric but has slightly less than 50% inspiratory collapse suggesting mild degree of elevated RAP around 8 cm. Exam complete
--- NOTE | 2024-02-11 18:33 | PCNE_ITS ---
Date of service: 02/12/24 Time of Service: 08:34 History of Present Illness Narrative: Palliative care chart preparation notes, patient not yet seen: Mr. Sandra Whitfield is an 83 gentleman who lives in [place], [place] who was admitted to [facility] 3 days ago with 1 month history of dyspnea and found to be in heart failure (estimated ejection fraction on ultrasound 28% compared to previously reported normal). His initial treatment was aimed at improving cardiac status. Unfortunately, over the last 24 hours he has become sicker with suspected sepsis from UTI and/or pneumonia, with development of delirium , tachcardia, CVA 9affects R hand). We have been asked by hospitalist team to see him to flush out goals of care and confirm CODE STATUS. 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 THen June of this year he has an erosive infectious aneurysm with MRSA sepsisi. Sent to [facility]. After discussion with Palliative Care, he decided to go forward with the high risk surgery and happily did well. Had to go to [facility] for a month after that surgery (needed IV ABX for 6 weeks total). He has an appt to be [facility] [place] [facility] [place] (transferring from Dr. Billy). Care Team: Primary Care physician: Dr.Sarah Jasmine, [facility] Cardiology: Previously Dr. Jason Billy, [facility].[place] [facility] [place], first Social HX: Marital Status: Lives with David (Carlyle Holland, together 19 years, david leaves house daily to go to work) and another friend (Sanjiv Doran, step son from prior partner, lives in [place])in [facility]. Dog [place] recent CCL surgery. Supportive Friends live in area. 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 [employer] [place], had CCL surgery last week. Additional Services: Participates in [employer] meetings. Has some funding from senior living care insurance for assistance, Impression of currents health status: I don't know how my health is today but yesterday my heart failure and breathing got worse. What bothers you the most: reduced Vision What worries you the most: That his functioning will not return to previous baseline after this admission. Most important to get back: improved walking (also bad from spinal stenosis), Vision (will not get better) and cardiac health (not having to worry about it). Goals: Looks forward hearing classical music Hopes to live at home for the rest of his life Current information preferences: Function: Ambulation: uses cane when out and about. ADLs: Independent. iADLs: He does most of the cooking, Cleaning lady comes in. He can wash dishes. Cannot read bank statement. Hearing: OK. Vision: 80% blind Macular degeneration Cognition:Occasional issues with remembering recipes. Falls: 6 weeks ago in garden (over raised bed). bruises. Driving: Not in a few years, very bothersome Palliative Performance Scale % Ambulation Activity and Evidence of Disease Self Care Intake Level of Consciousness 100 Full Normal activity, no evidence of disease Full Normal Full 90 Full Normal activity, some evidence of disease Full Normal Full 80 Full Normal activity with effort, some evidence of disease Full Normal or reduced Full 70 Reduced Unable to do normal work, some evidence of disease Full Normal or reduced Full 60 Reduced Unable to do hobby or some housework, significant disease Occasional assist necessary Normal or reduced Full or confusion 50 Mainly sit/lie Unable to do any work, extensive disease Considerable assistance required Normal or reduced Full or confusion 40 Mainly in bed Unable to do any work, extensive disease Mainly assistance Normal or reduced Full, drowsy, or confusion 30 Totally bed bound Unable to do any work, extensive disease Total care Reduced Full, drowsy, or confusion 20 Totally bed bound Unable to do any work, extensive disease Total care Minimal sips Full, drowsy, or confusion 10 Totally bed bound Unable to do any work, extensive disease Total care Mouth care only Drowsy or coma 0 - - - - Patient Score:60-70 Spiritual history: Not restorationist. Palliative review of systems: Pain: Dyspnea: GI symptoms: Appetite: Depression: Anxiety: None Emotional Distress: Spiritual/Existential Distress: Labs: Cr: Jump to 2.5 overnight; 1.9?2.0 since admission (Range over the previous year: 1.6?2.1) Liver panel: Normal Albumin: 3.1 CBC: Hemoglobin 14.1 (11.1 at admission); white count jump last 24 hours to 17k Echo 02/10/2024: Ejection fraction 23% with severe global hypokinesis ([facility] Advanced Care Planning: Advanced Directive: AD obtained today from PCP: short form Health Care Agent: Beadvanced directive names spouse Carlyle Holland as healthcare agent and Sanjiv Doran ([employer]). COLST: Patient desires full code and no limits on treatment Limitations: Aging plan: To age in place at home. He has a long insurance plan: This provides funds to help with transportation, additional in home help.. 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 He has several other complicating factors including type 2 diabetes, history A-fib, Of note, he is status post elective AAA repair about 8 years ago. But then a year ago experienced a dramatic septic erosion of his [place] aorta adjacent to the graft. Apparently this was a quite a serious situation and he met with [facility] palliative care as part of the process of deciding whether or not to attempt surgical repair. He tells me that working with palliative care was quite helpful and he looks forward to working with us again during this admission. He points out that this seems to be in much less dire medical situation. What most bothers him today is that he cannot remember being transferred to the intensive care unit last night. However he is glad he is feeling better today. 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 He now gets to enjoy music vicariously. He also very much wishes to continue to live at home as long as possible with his partner David. He also very much enjoys the company of his [employer] [place]. Although Sanjiv lives in [place], he visits frequently and just left after an enjoyable stay in [place]. He used to enjoy reading. He is still trying to figure out the best way for him to listen to audio books. He was able to garden Using raised beds this summer, but unfortunately tripped and fell into a raised bed just last week. Advance care planning: I Started off my consult today with merely a report of the existence of an Advacned Directive. Luckily a copy of the AD arrived by the end of my stay, confirming his choice of healthcare agents. We discussed the procedure of CPaR, actual mechanical process, rate of success in restoring heartbeat, short and long-term side effects in survivors (including likely decreased physical and cognitive functioning). Questions were answered. Patient says he very much wants to be a full code. This question has been asked him in the past. He says we need to try . If it does not work it does not work . I shared my concern that given his significant heart failure with ejection fraction under 25%, I was concerned that if he had a cardiac arrest and there was delay in restoring heartbeat, that he would be significantly weaker and likely have decline in his cognitive status. He was willing to accept this as a possible side effect and still very much wants to have CPR. He seems to have capacity to understand this decision today. Additionally, he would want a trial of intubation. He would not want to be on a ventilator forever, he would leave decision for limitation to his healthcare agents. Follow-up: Given Apryl current clinical status now with activity limiting CHF with reduced EF, and the fact that he has found it helpful to meet with palliative care in the past, I offered him follow-up with PC Team. He thinks this would be a good idea. Unfortunately he lives outside of the area where we can do home visits. We will offer him office visit follow-up in 3 months. I think it would also be helpful to have his and healthcare agent David present at future appointment. 25 minutes spent today on Advance Care Planning. Patient and family participated voluntarily. Advance care planning may include (not limited to) explanation and discussion of advance directives, choosing and appointing healthcare agents, alternatives to various ACP tools, discussion of (and if indicated, completion of) COLST form, discussion of patient's values and overall goals for treatment, palliative and disease directive care options, ways to avoid hospital readmission including hospice discussions, care preferences should the patient's several other adverse health events.See today's palliative care note for additional information. This note was dictated using speech recognition software. Attempt was made at proofreading, but errors may be present. Please call with questions. Qualifiers: Heart failure chronicity: acute on chronic Heart failure type: combined systolic and diastolic Qualified Code(s): I50.43 - Acute on chronic combined systolic (congestive) and diastolic (congestive) heart failure (2) CKD (chronic kidney disease) stage 3, GFR 30-59 ml/min: Status: Chronic Qualifiers: Chronic kidney disease stage 3 subtype: stage 3b (GFR 30-44) Qualified Code(s): N18.32 - Chronic kidney disease, stage 3b (3) Type 2 diabetes mellitus: Status: Chronic Qualifiers: Chronic kidney disease stage: stage 3 (moderate) Chronic kidney disease stage 3 subtype: stage 3b (GFR 30-44) Diabetes mellitus complication detail: w ith chronic kidney disease Diabetes mellitus complication status: with kidney complications Diabetes mellitus senior living insulin use: without termite technician use Q ualified Code(s): E11.22 - Type 2 diabetes mellitus with diabetic chronic kidney disease; N18.32 - Chronic kidney disease, stage 3b (4) PAF (paroxysmal atrial fibrillation): Status: Chronic (5) Palliative care encounter: Status: Acute (6) Advanced care planning/counseling discussion: Status: Acute PFSH All Active Problems (Updated 02/12/24 @ 13:44 by Jasbir Valentino MD) Elevated troponin I level (Acute) DVT prophylaxis (Acute) HFrEF (heart failure with reduced ejection fraction) (Acute) Complicated UTI (urinary tract infection) (Acute) Community acquired pneumonia (Acute) PSVT (paroxysmal supraventricular tachycardia) (Acute) Sepsis (Acute) Advanced care planning/counseling discussion (Acute) Palliative care encounter (Acute) CHF (congestive heart failure) (Chronic) HTN (hypertension) (Chronic) CKD (chronic kidney disease) stage 3, GFR 30-59 ml/min (Chronic) Type 2 diabetes mellitus (Chronic) PAF (paroxysmal atrial fibrillation) (Chronic) Symptomatic bradycardia (Acute) Social History Smoking/Tobacco Use Status: Former Tobacco Use Smoking risk assessment performed?: Yes Alcohol Intake: current Alcohol Intake frequency: 0-2 drinks per day Drug use: Never Substance use type: does not use Details: Pt quit smoking 10 years ago Housing: house Do you feel safe at home: Yes Do you feel safe in your relationship?: Yes Exam Narrative Exam Narrative: Pleasant elderly gentleman laying in bed. No evidence of respiratory distress. He is very hungry and eats an entire full breakfast throughout my visit including 2 eggs, 2 pieces of toast, hashbrowns and 3 glasses of orange juice. He gets slightly short of breath when trying to eat and talk at the same time. No cough. He is alert and oriented x 3 this morning. His speech is fluid. Results Last Vital Signs Temp 38.4 C H 02/11/24 13:55 Pulse 132 H 02/11/24 14:47 Resp 20 02/11/24 13:55 BP 114/84 02/11/24 14:47 Pulse Ox 98 02/11/24 13:55 Labs 02/11/24 14:35 02/12/24 06:23 Labs: Laboratory Results - last 24 hr 02/11/24 02/11/24 02/11/24 06:16 08:44 14:09 WBC RBC Hgb Hct MCV MCH MCHC RDW Plt Count MPV Immature Gran % Neutrophils % Band Neutrophils % Lymphocytes % Monocytes % Eosinophils % Basophils % Nucleated RBC % Absolute Neutrophils Absolute Lymphocytes Absolute Monocytes Absolute Eosinophils Absolute Basophils RBC Morphology Sodium 135 L Potassium 4.0 Chloride 99 Carbon Dioxide 22.8 Anion Gap 13.2 H BUN 47 H Creatinine 2.0 H Est GFR (CKD-EPI 2020) 32.51 Glucose 175 H Calcium 8.9 Magnesium 2.0 C-Reactive Protein NT-Pro-B Natriuret Pep 8450 H Procalcitonin Urine Color Cancelled Urine Clarity Cancelled Urine pH Cancelled Ur Specific [place] Cancelled Urine Protein Cancelled Urine Ketones Cancelled Urine Blood Cancelled Urine Nitrite Cancelled Urine Bilirubin Cancelled Urine Urobilinogen Cancelled Ur Leukocyte Esterase Cancelled Urine Glucose Cancelled COVID-19 Source SARS-CoV-2 (PCR) Influenza Type A (PCR) Influenza Type B (PCR) RSV (PCR) Add-On Test Request DONE 02/11/24 02/11/24 14:35 16:00 WBC 17.81 H RBC 4.43 Hgb 14.1 D Hct 42.2 MCV 95 D MCH 31.8 MCHC 33.4 RDW 14.6 H Plt Count 210 MPV 11.8 H Immature Gran % 0.0 Neutrophils % 91.0 Band Neutrophils % 1 Lymphocytes % 3.0 Monocytes % 4.0 Eosinophils % 0.0 Basophils % 1.0 Nucleated RBC % 0.0 Absolute Neutrophils 16.39 H Absolute Lymphocytes 0.53 L Absolute Monocytes 0.71 Absolute Eosinophils 0.00 Absolute Basophils 0.18 RBC Morphology Normal Sodium Potassium Chloride Carbon Dioxide Anion Gap BUN Creatinine Est GFR (CKD-EPI 2020) Glucose Calcium Magnesium C-Reactive Protein 4.91 H NT-Pro-B Natriuret Pep Procalcitonin 0.3 Urine Color Urine Clarity Urine pH Ur Specific [place] Urine Protein Urine Ketones Urine Blood Urine Nitrite Urine Bilirubin Urine Urobilinogen Ur Leukocyte Esterase Urine Glucose COVID-19 Source Nasopharynx SARS-CoV-2 (PCR) Negative Influenza Type A (PCR) Negative Influenza Type B (PCR) Negative RSV (PCR) Negative Add-On Test Request Time Spent Time Spent with Patient Time Spent(min): 75
[2024-02-11] MEDS: Acetaminophen 500 MG TAB 1000 MG PO (18:53)
[2024-02-11] MEDS: AZITHROMYCIN 500 MG in Normal Saline 250 ML 250 MG IVPB (18:54)
[2024-02-11] MEDS: Normal Saline 500 ML 30 ML IV (18:57)
[2024-02-11] MEDS: CEFEPIME 2 GM in Normal Saline 100 ML IVPB (20:41)
[2024-02-11] MEDS: Metoprolol 5 MG/5 ML VIAL IVP (20:42)
[2024-02-11 20:45] LABS: Troponin I 55 ng/L (< or =60)
[2024-02-11] MEDS: DOXYCYCLINE 100 MG in Normal Saline 100 ML IVPB (21:21)
[2024-02-11] MEDS: Metoprolol 12.5 MG TAB PO (22:34)
[2024-02-11] MEDS: Melatonin 3 MG TAB 6 MG PO (22:35)
[2024-02-11] MEDS: Heparin 5,000 UNITS/ML VIAL 5000 UNITS SC (22:35)
[2024-02-11] MEDS: VANCOMYCIN/WATER (PEG) 2 GM/400 ML BAG IVPB (22:35)
[2024-02-11] MEDS: Docusate Sodium 100 MG CAP PO (22:35)
[2024-02-12] VITALS (101 sets, daily range): BP systolic 79–132; BP diastolic 39–101; PULSE 48–107; RESP 12–54; TEMP 36.4–37.3; O2SAT 94–100
--- NOTE | 2024-02-12 | DI.US_ITS ---
Exam(s) US ABDOMEN RENAL EXAM: US ABDOMEN RENAL CLINICAL HISTORY: sepsis, ELVIE, jaundiced TECHNIQUE: Ultrasound abdomen performed using standard protocol. COMPARISON: CT CT THORAX ABD/PEL CTA from 11/03/2023 CR XR PORTABLE CHEST AP from 02/11/2024 FINDINGS: Small right pleural effusion. LIVER: Normal size and echogenicity. No focal liver lesions are seen. GALLBLADDER: No evidence of cholelithiasis. No evidence of wall thickening. No pericholecystic fluid identified. POSADAS'S SIGN: Negative. BILIARY SYSTEM: No intrahepatic or extrahepatic biliary ductal dilation. KIDNEYS: Kidneys are symmetric in size. No evidence of renal calculi. No evidence of hydronephrosis. No renal mass or cyst identified. PANCREAS: Normal where visualized. Partially obscured by bowel gas. SPLEEN: Not enlarged. ABDOMINAL AORTA AND IVC: Visualized portions normal caliber. Aorta partially obscured by bowel gas. Aorta bi-iliac stent noted. ASCITES: None seen. Bladder: Benjamin catheter in place. Not well distended with a volume 78 cc. Both ureteral jets were v isualized. Enlarged prostate with volume of 74 cc. IMPRESSION: Liver and gallbladder are unremarkable. No evidence of hydronephrosis or renal calculi. Renal echogenicity appears normal. Enlarged prostate. Aorto bi-iliac stent. DATA REPOSITORY:
--- NOTE | 2024-02-12 | W.PC.ACHO ---
Registration Status: Primary Language: Preferred Language: ED Information & Data Chief Complaint SOB 02/09/24 21:42 Other Complaint Dizzy/Sync 02/09/24 15:28 Triage Note Pt arrives to ED c/o 02/09/24 15:28 increasing SOB and dizziness x approx. 3 weeks. Worse since yesterday. Most Recent Vital Signs Temperature 38.4 C H 02/11/24 13:55 Temperature Source Skin 02/11/24 13:55 Pulse 79 02/11/24 21:12 Pulse Rhythm Regular 02/11/24 09:20 Pulse 75 02/09/24 22:01 Respiratory Rate 20 02/11/24 13:55 Respiratory Effort Normal, Non-Labored 02/11/24 09:20 Respiratory Depth Normal 02/11/24 09:20 Respiratory Pattern Normal 02/11/24 09:20 Blood Pressure 114/84 02/11/24 14:47 Blood Pressure Mean 74 02/09/24 22:00 Pulse Oximetry 94 02/11/24 16:20 Oxygen Delivery Method Nasal Cannula 02/11/24 16:20 Oxygen Flow Rate 4 02/11/24 16:20 Pain Level 0 02/11/24 07:39 Allergies levofloxacin Adverse Reaction (Mild, Unverified 02/09/24 15:34) Other (See Comment) Statins Adverse Reaction (Mild, Uncoded 02/09/24 15:34) Other (See Comment) Precautions Isolation PUI 02/09/24 17:40 Active Medications Generic Name Dose Route Start Last Admin Trade Name Freq PRN Reason Stop Dose Admin Amlodipine Besylate 10 mg 02/10/24 08:30 02/11/24 09:03 Amlodipine 10 Mg Tab PO 10 mg DAILY MARTIN Administration Aspirin 81 mg 02/10/24 08:30 02/11/24 09:03 Aspirin 81 Mg Chew PO 81 mg DAILY MARTIN Administration Clopidogrel Bisulfate 75 mg 02/10/24 08:30 02/11/24 09:05 Clopidogrel 75 Mg Tab PO 75 mg DAILY MARTIN Administration Docusate Sodium 100 mg 02/10/24 08:30 02/11/24 22:35 Docusate Sodium 100 Mg Cap PO 100 mg BID MARTIN Administration Doxycycline Hyclate 100 mg 02/10/24 08:30 02/11/24 09:02 Doxycycline Hyclate 100 Mg Cap PO 100 mg BID MARTIN Administration Ferrous Sulfate 325 mg 02/10/24 08:30 02/11/24 09:04 Ferrous Sulfate 325 Mg Tab PO 325 mg DAILY MARTIN Administration Finasteride 5 mg 02/10/24 08:30 02/11/24 09:57 Finasteride 5 Mg Tab PO 5 mg DAILY MARTIN Administration Furosemide 80 mg 02/11/24 14:00 02/11/24 20:18 Furosemide 100 Mg/10 Ml Vial IVP Not Given Q8H MARTIN Heparin Sodium (Porcine) 5,000 units 02/11/24 20:30 02/11/24 22:35 Heparin 5,000 Units/Ml Vial SC 5,000 units Q8H MARTIN Administration Sodium Chloride 500 mls @ 0 mls/hr 02/10/24 09:15 02/11/24 18:57 Saline 500ml Bag IV 30 mls/hr DIRECTED PRN Administration As Directed Dobutamine HCl/Dextrose 500 mg in 250 mls @ 11.431 mls/hr 02/11/24 15:45 02/11/24 17:29 Dobutrex IV 5 mcg/kg/min INFUSION MARTIN 11.431 mls/hr Administration Protocol 5 MCG/KG/MIN Cefepime HCl 2 gm/ Sodium 100 mls @ 200 mls/hr 02/11/24 18:00 02/11/24 21:50 Chloride IVPB Infused Q12H MARTIN Infusion Doxycycline Hyclate 100 mg/ 100 mls @ 100 mls/hr 02/11/24 20:00 02/11/24 21:21 Sodium Chloride IVPB 100 mls/hr Q12H MARTIN Administration Insulin Aspart 0 units 02/10/24 08:00 02/11/24 18:55 Insulin Aspart 300 Units/3 Ml Pen SC 1 units 0800,1200,1700 [facility] Administration Protocol Insulin Glargine 10 units 02/10/24 08:30 02/11/24 09:07 Insulin Glargine 300 Units/3 Ml Pen SC 10 units DAILY MARTIN Administration Melatonin 6 mg 02/11/24 20:00 02/11/24 22:35 Melatonin 3 Mg Tab PO 6 mg HS MARTIN Administration Methocarbamol 750 mg 02/10/24 11:36 02/10/24 19:11 Methocarbamol 750 Mg Tab PO 750 mg QID PRN PRN Administration Metoprolol Tartrate 12.5 mg 02/11/24 20:00 02/11/24 22:34 Metoprolol 12.5 Mg Tab PO 12.5 mg QID MARTIN Administration Patient's Own 1 each 02/10/24 08:30 02/11/24 09:06 Medication ( PO Not Given Dapagliflozin [ DAILY MARTIN Farxiga] 5 Mg Tab) Patient's Own 2 each 02/10/24 08:30 02/10/24 08:50 Medication ( TP Not Given Testosterone 1.62% DAILY MARTIN Gel) Polyethylene Glycol 17 gm 02/10/24 08:30 02/11/24 09:06 Polyethylene Glycol 3350 17 Gm Packet PO Not Given DAILY MARTIN Senna/Docusate Sodium 1 tab 02/10/24 08:30 02/11/24 22:33 Sennosides/Docusate Sodium Tab PO 1 tab BID MARTIN Administration Sodium Chloride 0 ml 02/09/24 17:00 02/11/24 14:59 Normal Saline Flush 10 Ml Syr IVP 10 ml PRN PRN Administration Sodium Chloride 0 ml 02/09/24 20:00 02/11/24 22:54 Normal Saline Flush 10 Ml Syr IVP 20 ml BID MARTIN Administration Spironolactone 25 mg 02/11/24 08:30 02/11/24 09:05 Spironolactone 25 Mg Tab PO 25 mg DAILY MARTIN Administration Tamsulosin HCl 0.4 mg 02/10/24 10:00 02/11/24 09:04 Tamsulosin 0.4 Mg Capcr PO 0.4 mg DAILY MARTIN Administration Vit C/Vit E/Zinc/Copper/Lutein 1 tab 02/10/24 08:30 02/11/24 22:35 Preservision Tablet PO 1 tab BID MARTIN Administration Vitamin B Complex/Vitamin C 1 tab 02/10/24 08:30 02/11/24 09:03 Vitamins B Comp W/C Tab PO 1 tab DAILY MARTIN Administration IV IV Catheter Type [] Peripheral IV IV Catheter Type [Left Forearm Peripheral IV ] IV Catheter Gauge [] 20 IV Catheter Gauge [Left 18 Forearm] Diagnostics 02/11/24 02/11/24 02/11/24 Range/Units 22:58 22:26 22:21 WBC (4.4-10.8) 10^3/uL RBC (4.36-5.78) 10^6/uL Hgb (13.5-17.5) g/dL Hct (40.0-50.0) % MCV (80-95) fL MCH (27.0-33.0) pg MCHC (32.0-36.0) % RDW (11.8-14.1) % Plt Count (130-400) 10^3/uL MPV (8.0-11.0) fL Immature Gran % % Neutrophils % % Band Neutrophils % % Lymphocytes % % Monocytes % % Eosinophils % % Basophils % % Nucleated RBC % (0.0-0.3) % Absolute Neutrophils (1.2-6.7) 10^3/uL Absolute Lymphocytes (1.2-3.4) 10^3/uL Absolute Monocytes (0.1-0.8) 10^3/uL Absolute Eosinophils (0.0-0.7) 10^3/uL Absolute Basophils (0.0-0.2) 10^3/uL RBC Morphology Sodium (136-145) mmol/L Potassium (3.5-5.1) mmol/L Chloride (98-107) mmol/L Carbon Dioxide (21.0-32.0) mmol/L Anion Gap (3-11) mmol/L BUN (7-18) mg/dL Creatinine (0.70-1.30) mg/dL Est GFR (CKD-EPI 2020) (mL/min/1.73m2) Glucose (74-106) mg/dL Calcium (8.5-10.1) mg/dL Magnesium (1.8-2.4) mg/dL Troponin I (< or =60) ng/L C-Reactive Protein (<or=0.5) mg/dL NT-Pro-B Natriuret Pep (<300) pg/mL Procalcitonin ng/mL Urine Color Pending Urine Clarity Pending Urine pH Pending Ur Specific [place] Pending Urine Protein Pending Urine Ketones Pending Urine Blood Pending Urine Nitrite Pending Urine Bilirubin Pending Urine Urobilinogen Pending Ur Leukocyte Esterase Pending Urine Glucose Pending COVID-19 Source SARS-CoV-2 (PCR) (Negative) Influenza Type A (PCR) (Negative) Influenza Type B (PCR) (Negative) Urine Legionella Ag Pending RSV (PCR) (Negative) MRSA (TEM-PCR) Pending Ur Strep pneumoniae Ag Add-On Test Request 02/11/24 02/11/24 02/11/24 Range/Units 22:20 20:12 16:00 WBC (4.4-10.8) 10^3/uL RBC (4.36-5.78) 10^6/uL Hgb (13.5-17.5) g/dL Hct (40.0-50.0) % MCV (80-95) fL MCH (27.0-33.0) pg MCHC (32.0-36.0) % RDW (11.8-14.1) % Plt Count (130-400) 10^3/uL MPV (8.0-11.0) fL Immature Gran % % Neutrophils % % Band Neutrophils % % Lymphocytes % % Monocytes % % Eosinophils % % Basophils % % Nucleated RBC % (0.0-0.3) % Absolute Neutrophils (1.2-6.7) 10^3/uL Absolute Lymphocytes (1.2-3.4) 10^3/uL Absolute Monocytes (0.1-0.8) 10^3/uL Absolute Eosinophils (0.0-0.7) 10^3/uL Absolute Basophils (0.0-0.2) 10^3/uL RBC Morphology Sodium (136-145) mmol/L Potassium (3.5-5.1) mmol/L Chloride (98-107) mmol/L Carbon Dioxide (21.0-32.0) mmol/L Anion Gap (3-11) mmol/L BUN (7-18) mg/dL Creatinine (0.70-1.30) mg/dL Est GFR (CKD-EPI 2020) (mL/min/1.73m2) Glucose (74-106) mg/dL Calcium (8.5-10.1) mg/dL Magnesium (1.8-2.4) mg/dL Troponin I 55 (< or =60) ng/L C-Reactive Protein (<or=0.5) mg/dL NT-Pro-B Natriuret Pep (<300) pg/mL Procalcitonin ng/mL Urine Color Urine Clarity Urine pH Ur Specific [place] Urine Protein Urine Ketones Urine Blood Urine Nitrite Urine Bilirubin Urine Urobilinogen Ur Leukocyte Esterase Urine Glucose COVID-19 Source Nasopharynx SARS-CoV-2 (PCR) Negative (Negative) Influenza Type A (PCR) Negative (Negative) Influenza Type B (PCR) Negative (Negative) Urine Legionella Ag RSV (PCR) Negative (Negative) MRSA (TEM-PCR) Ur Strep pneumoniae Ag Pending Add-On Test Request 02/11/24 02/11/24 02/11/24 Range/Units 14:35 14:09 08:44 WBC 17.81 H (4.4-10.8) 10^3/uL RBC 4.43 (4.36-5.78) 10^6/uL Hgb 14.1 D (13.5-17.5) g/dL Hct 42.2 (40.0-50.0) % MCV 95 D (80-95) fL MCH 31.8 (27.0-33.0) pg MCHC 33.4 (32.0-36.0) % RDW 14.6 H (11.8-14.1) % Plt Count 210 (130-400) 10^3/uL MPV 11.8 H (8.0-11.0) fL Immature Gran % 0.0 % Neutrophils % 91.0 % Band Neutrophils % 1 % Lymphocytes % 3.0 % Monocytes % 4.0 % Eosinophils % 0.0 % Basophils % 1.0 % Nucleated RBC % 0.0 (0.0-0.3) % Absolute Neutrophils 16.39 H (1.2-6.7) 10^3/uL Absolute Lymphocytes 0.53 L (1.2-3.4) 10^3/uL Absolute Monocytes 0.71 (0.1-0.8) 10^3/uL Absolute Eosinophils 0.00 (0.0-0.7) 10^3/uL Absolute Basophils 0.18 (0.0-0.2) 10^3/uL RBC Morphology Normal Sodium (136-145) mmol/L Potassium (3.5-5.1) mmol/L Chloride (98-107) mmol/L Carbon Dioxide (21.0-32.0) mmol/L Anion Gap (3-11) mmol/L BUN (7-18) mg/dL Creatinine (0.70-1.30) mg/dL Est GFR (CKD-EPI 2020) (mL/min/1.73m2) Glucose (74-106) mg/dL Calcium (8.5-10.1) mg/dL Magnesium (1.8-2.4) mg/dL Troponin I (< or =60) ng/L C-Reactive Protein 4.91 H (<or=0.5) mg/dL NT-Pro-B Natriuret Pep (<300) pg/mL Procalcitonin 0.3 ng/mL Urine Color Cancelled Urine Clarity Cancelled Urine pH Cancelled Ur Specific [place] Cancelled Urine Protein Cancelled Urine Ketones Cancelled Urine Blood Cancelled Urine Nitrite Cancelled Urine Bilirubin Cancelled Urine Urobilinogen Cancelled Ur Leukocyte Esterase Cancelled Urine Glucose Cancelled COVID-19 Source SARS-CoV-2 (PCR) (Negative) Influenza Type A (PCR) (Negative) Influenza Type B (PCR) (Negative) Urine Legionella Ag RSV (PCR) (Negative) MRSA (TEM-PCR) Ur Strep pneumoniae Ag Add-On Test Request DONE 02/11/24 Range/Units 06:16 WBC (4.4-10.8) 10^3/uL RBC (4.36-5.78) 10^6/uL Hgb (13.5-17.5) g/dL Hct (40.0-50.0) % MCV (80-95) fL MCH (27.0-33.0) pg MCHC (32.0-36.0) % RDW (11.8-14.1) % Plt Count (130-400) 10^3/uL MPV (8.0-11.0) fL Immature Gran % % Neutrophils % % Band Neutrophils % % Lymphocytes % % Monocytes % % Eosinophils % % Basophils % % Nucleated RBC % (0.0-0.3) % Absolute Neutrophils (1.2-6.7) 10^3/uL Absolute Lymphocytes (1.2-3.4) 10^3/uL Absolute Monocytes (0.1-0.8) 10^3/uL Absolute Eosinophils (0.0-0.7) 10^3/uL Absolute Basophils (0.0-0.2) 10^3/uL RBC Morphology Sodium 135 L (136-145) mmol/L Potassium 4.0 (3.5-5.1) mmol/L Chloride 99 (98-107) mmol/L Carbon Dioxide 22.8 (21.0-32.0) mmol/L Anion Gap 13.2 H (3-11) mmol/L BUN 47 H (7-18) mg/dL Creatinine 2.0 H (0.70-1.30) mg/dL Est GFR (CKD-EPI 2020) 32.51 (mL/min/1.73m2) Glucose 175 H (74-106) mg/dL Calcium 8.9 (8.5-10.1) mg/dL Magnesium 2.0 (1.8-2.4) mg/dL Troponin I (< or =60) ng/L C-Reactive Protein (<or=0.5) mg/dL NT-Pro-B Natriuret Pep 8450 H (<300) pg/mL Procalcitonin ng/mL Urine Color Urine Clarity Urine pH Ur Specific [place] Urine Protein Urine Ketones Urine Blood Urine Nitrite Urine Bilirubin Urine Urobilinogen Ur Leukocyte Esterase Urine Glucose COVID-19 Source SARS-CoV-2 (PCR) (Negative) Influenza Type A (PCR) (Negative) Influenza Type B (PCR) (Negative) Urine Legionella Ag RSV (PCR) (Negative) MRSA (TEM-PCR) Ur Strep pneumoniae Ag Add-On Test Request 02/11/24 14:40 Blood Culture - Pending Blood 02/11/24 14:40 Blood Culture - Pending Blood 02/10/24 02:59 Urine Culture - Preliminary Urine - Clean Catch Gram Negative Korey [id number] Documentation Fingerstick Glucose Start: 02/09/24 20:38 Freq: .AC Status: Active Protocol: Activity Type Activity Date Activity User E-sign Co-sign Detail Recorded Client Recorded Date Recorded By Document 02/11/24 18:50 BKG DAEMON(3) [id number] 02/11/24 18:53 BKG DAEMON(4) Intake and Output - 24 Hour Total 02/09/24 15:22 thru 02/11/24 23:50 Intake Total 2591.667 Output Total 04228 Balance -8993.333 Weight 76.204 kg Intake: IV 271.667 Oral 2320 Output: Urine 00169 Other: Urine Color Yellow Urine Appearance Sediment Urine Odor Normal Comment [place] bag Stool Size Small Stool Characteristics Formed Urinary Catheter Urinary Catheter Date of 02/11/24 Insertion [Uretheral (Benjamin)] Urinary Catheter Date of 02/10/24 Insertion [Uretheral (Benjamin)] Time of insertion [Uretheral ( 19:30 Benjamin)] Time of insertion [Uretheral ( 03:22 Benjamin)] Falls Risk Assessment History of Falls Previous History 02/09/24 22:48 Contributing Factors Impairments 02/09/24 22:48 Ambulatory Aids Uses ambulatory device 02/09/24 22:48 Tubes/Lines W/no contributing factors 02/09/24 22:48 Gait Evaluation W/any additional score 02/09/24 22:48 Cognition No cognitive impairment 02/09/24 17:40 Fall Total Score 63 02/09/24 22:48 Level of Risk High Risk 02/09/24 22:48 Problems (Last Reviewed 02/09/24 @ 21:38 by Marvin Valerio MD) DVT prophylaxis (Acute) HFrEF (heart failure with reduced ejection fraction) (Acute) Complicated UTI (urinary tract infection) (Acute) Community acquired pneumonia (Acute) PSVT (paroxysmal supraventricular tachycardia) (Acute) Sepsis (Acute) Advanced care planning/counseling discussion (Acute) Palliative care encounter (Acute) CHF (congestive heart failure) (Chronic) HTN (hypertension) (Chronic) CKD (chronic kidney disease) stage 3, GFR 30-59 ml/min (Chronic) Type 2 diabetes mellitus (Chronic) PAF (paroxysmal atrial fibrillation) (Chronic) v v v v v v v v v Sending and/or Receiving Nurses: Please use comment section below to note any information pertinent to the patient hand-off not included above. Information / Comments: Report received from: Corey GU
[2024-02-12] MEDS: Heparin 5,000 UNITS/ML VIAL 5000 UNITS SC ×2 (05:21→13:17)
[2024-02-12] MEDS: CEFEPIME 2 GM in Normal Saline 100 ML IVPB (06:31)
--- NOTE | 2024-02-12 07:20 | NUR.NOTE ---
0730-Radiology called to state they would come up at 0930 to do the abdominal US and to clamp the garcia now. Garcia clamped.Nursing Note:
[2024-02-12 07:37] LABS: ALT 13 U/L (16-63); AST 13 U/L (15-37); Albumin 2.6 g/dL (3.4-5.0); Alkaline Phosphatase 91 U/L (46-116); Bilirubin, Direct 0.2 mg/dL (0.0-0.2); Bilirubin, Total 0.67 mg/dL (0.2-1.0); Total Protein 6.5 g/dL (6.4-8.2)
[2024-02-12 07:53] LABS: Anion Gap 14.9 mmol/L (3-11); BUN 61 mg/dL (7-18); CO2 23.1 mmol/L (21.0-32.0); CREATININE 2.5 mg/dL (0.70-1.30); Calcium 8.6 mg/dL (8.5-10.1); Chloride 101 mmol/L (98-107); Estimated GFR 24.87 (mL/min/1.73m2); Glucose 184 mg/dL (74-106); Potassium 3.7 mmol/L (3.5-5.1); Sodium 139 mmol/L (136-145); Vancomycin, Random 24.9 ug/mL
[2024-02-12 07:56] LABS: Troponin I 62 ng/L (< or =60)
--- NOTE | 2024-02-12 08:15 | W.CRITCARECO ---
General Date Of Service Date of service: 02/12/24 Time of Service: 08:15 Requesting physician: Jasbir Valentino Reason for Consult: Septic shock, UTI, CAP History of Present Illness History of Present Illness Chief Complaint: SOB Narrative: 83 male with h/o HTN, DM, s/p AAA repair, CRF (stage 3) admitted 02/08 w/ SOB felt initially 2/2 to acute on chronic HFrEF, w/ Echo showing EF 28%. Found to have +Urine cultures w/ Klebsiella. Hospital course complicated by tachycardia, hypotension subsequently transferred to ICU 02/10. Started on dobutamine for shock (septic/cardiogenic). CXR showing bibasilar opacities R>L. Antibiotics broaden to cefepime/vanco. This am his mentation had improved, he had no particular concerns other that he wanted ot have breakfast. Still on 5mcg Dobitamine . Review of Systems All systems reviewed & are unremarkable except as noted in HPI and below Cardiovascular Comments: RRR S1S2 ? murmur no lower ext edema Respiratory Comments: bibasilar crackles Gastrointestinal Comments: soft BS+ ND/NT PFSH All Active Problems (Updated 02/12/24 @ 13:44 by Jasbir Valentino MD) Elevated troponin I level (Acute) DVT prophylaxis (Acute) HFrEF (heart failure with reduced ejection fraction) (Acute) Complicated UTI (urinary tract infection) (Acute) Community acquired pneumonia (Acute) PSVT (paroxysmal supraventricular tachycardia) (Acute) Sepsis (Acute) Advanced care planning/counseling discussion (Acute) Palliative care encounter (Acute) CHF (congestive heart failure) (Chronic) HTN (hypertension) (Chronic) CKD (chronic kidney disease) stage 3, GFR 30-59 ml/min (Chronic) Type 2 diabetes mellitus (Chronic) PAF (paroxysmal atrial fibrillation) (Chronic) Symptomatic bradycardia (Acute) Social History Smoking/Tobacco Use Status: Former Tobacco Use Smoking risk assessment performed?: Yes Alcohol Intake: current Alcohol Intake frequency: 0-2 drinks per day Drug use: Never Substance use type: does not use Details: Pt quit smoking 10 years ago Housing: house Do you feel safe at home: Yes Do you feel safe in your relationship?: Yes Visit Medication and Allergies Active Medications Generic Name Dose Route Start Last Admin Trade Name Freq PRN Reason Stop Dose Admin Amlodipine Besylate 10 mg 02/10/24 08:30 02/11/24 09:03 Amlodipine 10 Mg Tab PO 10 mg DAILY [facility] Administration Ascorbic Acid 500 mg 02/12/24 08:30 Ascorbic Acid 500 Mg Tab PO DAILY [facility] Aspirin 81 mg 02/10/24 08:30 02/11/24 09:03 Aspirin 81 Mg Chew PO 81 mg DAILY [facility] Administration Bisacodyl 10 mg 02/09/24 20:39 Bisacodyl 10 Mg Supp [place] DAILY PRN Clopidogrel Bisulfate 75 mg 02/10/24 08:30 02/11/24 09:05 Clopidogrel 75 Mg Tab PO 75 mg DAILY [facility] Administration Dextrose 0 gm 02/09/24 20:38 Glucose Oral Gel 15 Gm/37.5 Gm Tube PO DIRECTED PRN Dextrose/Water 0 gm 02/09/24 20:38 Dextrose 50%-Water 25 Gm/50 Ml Syr IVP DIRECTED PRN Diclofenac Sodium 100 gm 02/10/24 11:37 Diclofenac 1% Gel 100 Gm Tube TP QID PRN PRN muscle pain Docusate Sodium 100 mg 02/10/24 08:30 02/11/24 22:35 Docusate Sodium 100 Mg Cap PO 100 mg BID [facility] Administration Doxycycline Hyclate 100 mg 02/10/24 08:30 02/11/24 09:02 Doxycycline Hyclate 100 Mg Cap PO 100 mg BID [facility] Administration Ferrous Sulfate 325 mg 02/10/24 08:30 02/11/24 09:04 Ferrous Sulfate 325 Mg Tab PO 325 mg DAILY [facility] Administration Finasteride 5 mg 02/10/24 08:30 02/11/24 09:57 Finasteride 5 Mg Tab PO 5 mg DAILY [facility] Administration Fish Oil 1,000 mg 02/12/24 08:30 [place]-3 Fatty Acids 1000 Mg Cap PO DAILY [facility] Furosemide 80 mg 02/11/24 14:00 02/11/24 20:18 Furosemide 100 Mg/10 Ml Vial IVP Not Given Q8H [facility] Heparin Sodium (Porcine) 5,000 units 02/11/24 20:30 02/12/24 05:21 Heparin 5,000 Units/Ml Vial SC 5,000 units Q8H [facility] Administration Sodium Chloride 500 mls @ 0 mls/hr 02/10/24 09:15 02/11/24 18:57 Saline 500ml Bag IV 30 mls/hr DIRECTED PRN Administration As Directed Dobutamine HCl/Dextrose 500 mg in 250 mls @ 11.431 mls/hr 02/11/24 15:45 02/11/24 17:29 Dobutrex IV 5 mcg/kg/min INFUSION [facility] 11.431 mls/hr Administration Protocol 5 MCG/KG/MIN Cefepime HCl 2 gm/ Sodium 100 mls @ 200 mls/hr 02/11/24 18:00 02/12/24 06:31 Chloride IVPB 100 mls/hr Q12H [facility] Administration Vancomycin/PEG/NADA/Lysine/Water 750 mg in 150 mls @ 150 mls/hr 02/12/24 20:00 Vancocin Injection IVPB Q24H [facility] Doxycycline Hyclate 100 mg/ 100 mls @ 100 mls/hr 02/11/24 20:00 02/11/24 21:21 Sodium Chloride IVPB 100 mls/hr Q12H [facility] Administration Amiodarone HCl/Dextrose 360 mg in 200 mls @ 0 mls/hr 02/11/24 19:45 Nexterone IV DIRECTED [facility] Protocol Per Protocol Acetaminophen 1,000 mg in 100 mls @ 400 mls/hr 02/11/24 19:52 Ofirmev IVPB Q8H PRN PRN IV Miscellaneous Supplies 1 each 02/10/24 09:15 Iv Access IV DIRECTED [facility] Insulin Aspart 0 units 02/10/24 08:00 02/11/24 18:55 Insulin Aspart 300 Units/3 Ml Pen SC 1 units 0800,1200,1700 [facility] Administration Protocol Insulin Glargine 10 units 02/10/24 08:30 02/11/24 09:07 Insulin Glargine 300 Units/3 Ml Pen SC 10 units DAILY [facility] Administration Levalbuterol HCl 1.25 mg 02/11/24 17:56 Levalbuterol 1.25 Mg/3 Ml Upd Vial UPD Q4H PRN PRN Melatonin 6 mg 02/11/24 20:00 02/11/24 22:35 Melatonin 3 Mg Tab PO 6 mg HS [facility] Administration Methocarbamol 750 mg 02/10/24 11:36 02/10/24 19:11 Methocarbamol 750 Mg Tab PO 750 mg QID PRN PRN Administration Metoprolol Tartrate 12.5 mg 02/11/24 20:00 02/11/24 22:34 Metoprolol 12.5 Mg Tab PO 12.5 mg QID [facility] Administration Pantoprazole Sodium 40 mg 02/12/24 08:15 Pantoprazole 40 Mg Vial IVP Q24H [facility] Patient's Own 1 each 02/10/24 08:30 02/11/24 09:06 Medication ( PO Not Given Dapagliflozin [ DAILY [facility] Farxiga] 5 Mg Tab) Patient's Own 2 each 02/10/24 08:30 02/10/24 08:50 Medication ( TP Not Given Testosterone 1.62% DAILY [facility] Gel) Polyethylene Glycol 17 gm 02/10/24 08:30 02/11/24 09:06 Polyethylene Glycol 3350 17 Gm Packet PO Not Given DAILY [facility] Senna/Docusate Sodium 1 tab 02/10/24 08:30 02/11/24 22:33 Sennosides/Docusate Sodium Tab PO 1 tab BID [facility] Administration Sodium Chloride 0 ml 02/09/24 17:00 02/11/24 14:59 Normal Saline Flush 10 Ml Syr IVP 10 ml PRN PRN Administration Sodium Chloride 0 ml 02/09/24 20:00 02/11/24 22:54 Normal Saline Flush 10 Ml Syr IVP 20 ml BID [facility] Administration Sodium Chloride 0 ml 02/09/24 17:00 Normal Saline 10 Ml Vial IJ DIRECTED PRN Spironolactone 25 mg 02/11/24 08:30 02/11/24 09:05 Spironolactone 25 Mg Tab PO 25 mg DAILY [facility] Administration Tamsulosin HCl 0.4 mg 02/10/24 10:00 02/11/24 09:04 Tamsulosin 0.4 Mg Capcr PO 0.4 mg DAILY [facility] Administration Vit C/Vit E/Zinc/Copper/Lutein 1 tab 02/10/24 08:30 02/11/24 22:35 Preservision Tablet PO 1 tab BID [facility] Administration Vitamin B Complex/Vitamin C 1 tab 02/10/24 08:30 02/11/24 09:03 Vitamins B Comp W/C Tab PO 1 tab DAILY [facility] Administration Vitamin B Complex/Vitamin C 1 tab 02/12/24 08:30 Vitamins B Comp W/C Tab PO DAILY [facility] Allergies levofloxacin Adverse Reaction (Mild, Unverified 02/09/24 15:34) Other (See Comment) Statins Adverse Reaction (Mild, Uncoded 02/09/24 15:34) Other (See Comment) Assessment and Plan Assessment and plan (1) Sepsis: Status: Acute Assessment and plan: Klebsiella UTI, new bibasilar PNA. Wean ionotorpe to kep MAP >65 monitor UO agree w/ antibiotic choice. may narrow if improving based on sensitivities and clinical status. Qualifiers: Sepsis type: sepsis due to unspecified organism Sepsis acute organ dysfunction status: with acute organ dysfunction Severe sepsis acute organ dysfunction type: encephalopathy Severe sepsis shock status: without septic shock Qualified Code(s): A41.9 - Sepsis, unspecified organism; R65.20 - Severe sepsis without septic shock; G93.41 - Metabolic encephalopathy (2) PSVT (paroxysmal supraventricular tachycardia): Status: Acute Assessment and plan: PSVT vs atrial flutter; patient is converted to sinus rhythm rate. (3) Community acquired pneumonia: Status: Acute Assessment and plan: cont cefepime/doxy off vanco follow final cultures Qualifiers: Laterality: unspecified laterality Qualified Code(s): J18.9 - Pneumonia, unspecified organism (4) Complicated UTI (urinary tract infection): Status: Acute Assessment and plan: as above US pending (5) Elevated troponin I level: Status: Acute Assessment and plan: Likely secondary to demand ischemia. check q8h till trend down (6) HFrEF (heart failure with reduced ejection fraction): Status: Acute Assessment and plan: cont to wean dobuta hold off further diuresis resume entresto when able. (7) CKD (chronic kidney disease) stage 3, GFR 30-59 ml/min: Status: Chronic Qualifiers: Chronic kidney disease stage 3 subtype: stage 3b (GFR 30-44) Qualified Code(s): N18.32 - Chronic kidney disease, stage 3b (8) Type 2 diabetes mellitus: Status: Chronic Assessment and plan: basal/bolus insulin; glucose ac 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 mellitus termite inspector insulin use: without termite inspector use Diabetes mellitus complication status: with kidney complications Diabetes mellitus complication detail: with chronic kidney disease Chronic kidney disease stage: stage 3 (moderate) Chronic kidney disease stage 3 subtype: stage 3b (GFR 30-44) Qualified Code(s): E11.22 - Type 2 diabetes mellitus with diabetic chronic kidney disease; N18.32 - Chronic kidney disease, stage 3b (9) HTN (hypertension): Status: Chronic Qualifiers: Hypertension type: primary hypertension Qualified Code(s): I10 - Essential (primary) hypertension (10) DVT prophylaxis: Status: Acute Assessment and plan: Eliquis given severe CM Results Last Vital Signs Temp 37.3 C 02/12/24 03:53 Pulse 88 02/12/24 05:01 Resp 22 02/12/24 05:30 BP 101/53 L 02/12/24 05:01 Pulse Ox 97 02/12/24 04:00 Labs 02/11/24 14:35 02/12/24 06:23 Labs: Laboratory Results - last 24 hr 02/11/24 02/11/24 02/11/24 06:16 08:44 14:09 WBC RBC Hgb Hct MCV MCH MCHC RDW Plt Count MPV Immature Gran % Neutrophils % Band Neutrophils % Lymphocytes % Monocytes % Eosinophils % Basophils % Nucleated RBC % Absolute Neutrophils Absolute Lymphocytes Absolute Monocytes Absolute Eosinophils Absolute Basophils RBC Morphology Sodium Potassium Chloride Carbon Dioxide Anion Gap BUN Creatinine Est GFR (CKD-EPI 2020) Glucose Calcium Total Bilirubin Conjugated Bilirubin AST ALT Alkaline Phosphatase Troponin I C-Reactive Protein NT-Pro-B Natriuret Pep 8450 H Total Protein Albumin Procalcitonin Urine Color Cancelled Urine Clarity Cancelled Urine pH Cancelled Ur Specific [place] Cancelled Urine Protein Cancelled Urine Ketones Cancelled Urine Blood Cancelled Urine Nitrite Cancelled Urine Bilirubin Cancelled Urine Urobilinogen Cancelled Ur Leukocyte Esterase Cancelled Urine Glucose Cancelled Random Vancomycin COVID-19 Source SARS-CoV-2 (PCR) Influenza Type A (PCR) Influenza Type B (PCR) RSV (PCR) Add-On Test Request DONE 02/11/24 02/11/24 02/11/24 14:35 16:00 20:12 WBC 17.81 H RBC 4.43 Hgb 14.1 D Hct 42.2 MCV 95 D MCH 31.8 MCHC 33.4 RDW 14.6 H Plt Count 210 MPV 11.8 H Immature Gran % 0.0 Neutrophils % 91.0 Band Neutrophils % 1 Lymphocytes % 3.0 Monocytes % 4.0 Eosinophils % 0.0 Basophils % 1.0 Nucleated RBC % 0.0 Absolute Neutrophils 16.39 H Absolute Lymphocytes 0.53 L Absolute Monocytes 0.71 Absolute Eosinophils 0.00 Absolute Basophils 0.18 RBC Morphology Normal Sodium Potassium Chloride Carbon Dioxide Anion Gap BUN Creatinine Est GFR (CKD-EPI 2020) Glucose Calcium Total Bilirubin Conjugated Bilirubin AST ALT Alkaline Phosphatase Troponin I 55 C-Reactive Protein 4.91 H NT-Pro-B Natriuret Pep Total Protein Albumin Procalcitonin 0.3 Urine Color Urine Clarity Urine pH Ur Specific [place] Urine Protein Urine Ketones Urine Blood Urine Nitrite Urine Bilirubin Urine Urobilinogen Ur Leukocyte Esterase Urine Glucose Random Vancomycin COVID-19 Source Nasopharynx SARS-CoV-2 (PCR) Negative Influenza Type A (PCR) Negative Influenza Type B (PCR) Negative RSV (PCR) Negative Add-On Test Request 02/12/24 06:23 WBC RBC Hgb Hct MCV MCH MCHC RDW Plt Count MPV Immature Gran % Neutrophils % Band Neutrophils % Lymphocytes % Monocytes % Eosinophils % Basophils % Nucleated RBC % Absolute Neutrophils Absolute Lymphocytes Absolute Monocytes Absolute Eosinophils Absolute Basophils RBC Morphology Sodium 139 Potassium 3.7 Chloride 101 Carbon Dioxide 23.1 Anion Gap 14.9 H BUN 61 H Creatinine 2.5 H Est GFR (CKD-EPI 2020) 24.87 Glucose 184 H Calcium 8.6 Total Bilirubin 0.67 Conjugated Bilirubin 0.2 AST 13 L ALT 13 L Alkaline Phosphatase 91 Troponin I 62 H* C-Reactive Protein NT-Pro-B Natriuret Pep Total Protein 6.5 Albumin 2.6 L Procalcitonin Urine Color Urine Clarity Urine pH Ur Specific [place] Urine Protein Urine Ketones Urine Blood Urine Nitrite Urine Bilirubin Urine Urobilinogen Ur Leukocyte Esterase Urine Glucose Random Vancomycin 24.9 COVID-19 Source SARS-CoV-2 (PCR) Influenza Type A (PCR) Influenza Type B (PCR) RSV (PCR) Add-On Test Request
--- NOTE | 2024-02-12 09:02 | CMPROGNOTE_ITS ---
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 Discharge Potential Discharge Needs: Consult Consult Services Needed: Palliative, PT Evaluation (PT recommending HH/PT-uncertain if Taco will be agreeable. ) and PCP F/U Appt Anticipated Barriers to Discharge: Medical Status (Transferred to ICU) Patient/Family Education Needs: Review discharge instructions, discuss Ask Me Three Transportation: Private vehicle (with spouse, David. ) Plan: Undetermined plan at this time as Taco was transferred to ICU-CM awaiting further MD guidance at time of documentation. Taco met with Palliative Care and continues to be evaluated by PT-who are recommending HH/PT, CM following. SDOH(Care Management) Screening Will the Patient Participate in the Screening?: Declined to provide Do you worry about having a steady place to live?: no In the past 12 months, have you had to go without electric, gas, oil or water in your home?: no Have you or anyone in your house had to go without enough food to eat?: no Has lack of transportation kept you from medical appointments or from doing things needed for daily living?: no Has anyone in your support network made you feel unsafe for any reason?: no
[2024-02-12] MEDS: DOXYCYCLINE 100 MG in Normal Saline 100 ML IVPB ×2 (09:38→21:31)
[2024-02-12] MEDS: Pantoprazole 40 MG VIAL IVP (09:39)
[2024-02-12] MEDS: Normal Saline Flush 10 ML SYR IVP ×2 (09:41→23:21)
[2024-02-12] MEDS: Omega-3 Fatty Acids 1000 MG CAP PO (09:46)
[2024-02-12] MEDS: amLODIPine 10 MG TAB PO (09:46)
[2024-02-12] MEDS: Docusate Sodium 100 MG CAP PO ×2 (09:46→20:39)
[2024-02-12] MEDS: Polyethylene Glycol 3350 17 GM PACKET PO (09:46)
[2024-02-12] MEDS: Finasteride 5 MG TAB PO (09:46)
[2024-02-12] MEDS: Aspirin 81 MG CHEW PO (09:46)
[2024-02-12] MEDS: Sennosides/Docusate Sodium TAB 1 TAB PO ×2 (09:46→21:35)
[2024-02-12] MEDS: Vitamins B Comp w/C TAB 1 TAB PO (09:47)
[2024-02-12] MEDS: Ascorbic Acid 500 MG TAB PO (09:47)
[2024-02-12] MEDS: Clopidogrel 75 MG TAB PO (09:47)
[2024-02-12] MEDS: Tamsulosin 0.4 MG CAPCR PO (09:47)
[2024-02-12] MEDS: Metoprolol 12.5 MG TAB PO ×3 (09:47→16:47)
[2024-02-12] MEDS: Ferrous Sulfate 325 MG TAB PO (09:47)
[2024-02-12] MEDS: Insulin Glargine 300 UNITS/3 ML PEN 10 UNITS SC (10:37)
[2024-02-12] MEDS: Insulin Aspart 300 UNITS/3 ML PEN SC ×3 (10:38→17:20)
[2024-02-12 11:46] LABS: Troponin I 63 ng/L (< or =60)
--- NOTE | 2024-02-12 12:22 | PGE_ITS ---
Date of Service Date of service: 02/12/24 Time of Service: 12:22 Assessment and Plan Assessment and plan (1) Sepsis: Status: Acute Assessment and plan: Severe sepsis without shock as the patient did not require vasopressors for hemodynamic support although he was put on dobutamine for inotropic support of his cardiomyopathy. Source of sepsis is combination of bibasilar pneumonia and UTI. Urine is growing a pansensitive Klebsiella pneumoniae a was only resistant to ampicillin. Patient is currently on cefepime, doxycycline, vancomycin. Nasal MSRA is pending and blood cultures pending. Continue ICU care with dobutamine started to wean dobutamine down to 2.5 mcg/kg/min. Of note he had an decent response to dobutamine his average VTI this morning is 13 cm this is a significant response from his baseline of 8 cm yesterday. His IVC is dilated but collapses greater than 50% with inspiration. Yesterday his IVC was not dilated. At this point I will refrain from giving him any fluids but will continue to withhold his diuretics at this point as he was aggressively diuresed on admission losing over 8 L. He did have an acute kidney in the setting of his CKD But I expect this to recover as he recovers from his sepsis. Critical care time spent interviewing and examining the patient, reviewing studies, discussing case with patient's nurse and consulting physicians was 45 minutes Qualifiers: Sepsis type: sepsis due to unspecified organism Sepsis acute organ dysfunction status: with acute organ dysfunction Severe sepsis acute organ dysfunction type: encephalopathy Severe sepsis shock status: without septic shock Qualified Code(s): A41.9 - Sepsis, unspecified organism; R65.20 - Severe sepsis without septic shock; G93.41 - Metabolic encephalopathy (2) PSVT (paroxysmal supraventricular tachycardia): Status: Acute Assessment and plan: PSVT vs atrial flutter; patient is converted to sinus rhythm rate. At this point I will continue on on low-dose Lopressor. Patient never required amiodarone. (3) Community acquired pneumonia: Status: Acute Assessment and plan: bilateral lower lobe consolidations; antibiotic coverage expaned to include cefepime, vancomycin, and azithromycin was ordered but dc in favor of doxycycline ( which he has been on orally); could consider switching to azithromycin given that he never required the amiodarone at this point I will stick with the doxycycline cefepime and vancomycin combination. If his MRSA screen is negative and there is no evidence of a staph pneumonia I will discontinue the vancomycin. Qualifiers: Laterality: unspecified laterality Qualified Code(s): J18.9 - Pneumonia, unspecified organism (4) Complicated UTI (urinary tract infection): Status: Acute Assessment and plan: expanded antibiotic coverage as above; check renal ultrasound in the morning, Abdominal ultrasound showed unremarkable liver and gallbladder with no evidence of a hiatal light. Renal echogenicity is normal. He has an enlarged prostate. (5) Elevated troponin I level: Status: Acute Assessment and plan: Likely secondary to demand ischemia. Troponin levels have plateaued. Patient has had intermittent right sided atypical chest discomfort. I will repeat 1 more troponin this afternoon and check an EKG. But unless there is a significant rise in his troponin I think his right-sided chest pain is more related to pleurisy from his pneumonia (6) HFrEF (heart failure with reduced ejection fraction): Status: Acute Assessment and plan: Continue dobutamine support but start to wean to 2.5 mcg/kg/min. Will try to reach out to Dr. Billy at [facility] today to discuss his prior cardiac workups and update Dr. Billy on the patient's current condition. This point patient does not require diuresis nor do I think it judicious to give any fluids at this point given his IVC size is increased since yesterday. Tomorrow we may consider restarting judicious use of diuretics to maintain euvolemia. Also once his kidneys recover we should consider resumption of Entresto. His VTI yesterday it was around 8 cm on average and ash to an average of 13 cm this is a significant increase I think this is help with stabilizing him from his sepsis. (7) CKD (chronic kidney disease) stage 3, GFR 30-59 ml/min: Status: Chronic Assessment and plan: ELVIE in the setting of CKD. BUN is up to 61 creatinine 2.5 from his baseline creatinine of 1.8-2.0 Qualifiers: Chronic kidney disease stage 3 subtype: stage 3b (GFR 30-44) Qualified Code(s): N18.32 - Chronic kidney disease, stage 3b (8) Type 2 diabetes mellitus: Status: Chronic Assessment and plan: basal/bolus insulin; glucose ac 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 mellitus snf insulin use: without terminal worker use Diabetes mellitus complication status: with kidney complications Diabetes mellitus complication detail: with chronic kidney disease Chronic kidney disease stage: stage 3 (moderate) Chronic kidney disease stage 3 subtype: stage 3b (GFR 30-44) Qualified Code(s): E11.22 - Type 2 diabetes mellitus with diabetic chronic kidney disease; N18.32 - Chronic kidney disease, stage 3b (9) HTN (hypertension): Status: Chronic Assessment and plan: Stable blood pressures. Once his renal function has recovered and will trial him on Entresto for now continue low-dose Lopressor as this seemed to control and convert his PSVT Qualifiers: Hypertension type: primary hypertension Qualified Code(s): I10 - Essential (primary) hypertension (10) DVT prophylaxis: Status: Acute Assessment and plan: I have discussed putting him on an oral anticoagulant in light of his severe cardiomyopathy. He is not on a DOAC but has been on DAPT w/ ASA and plavix. I will dc his ASA but continue his Plavix for CAD protection and start him on Eliquis. (11) Advanced care planning/counseling discussion: Status: Acute Assessment and plan: Dr. Moe met w/ the patient and his partner, David, and the patient would like to remain full CODE in the event of CP arrest/failure. Subjective Subjective Interval history since last seen: MAGDIEL is better today he is no longer confused blood pressure stabilized and overnight he is PSVT converted to sinus rhythm. He never required amiodarone. He is having good urine output and stable blood pressure. He remains on dobutamine at 5 mcg/kg/min which we will start to wean down today. He has had some fleeting intermittent right-sided chest pressure that last for a minute or 2 or even less he has had this in the past as an outpatient. Of note he did have a troponin leak on admission which improved and returned to normal and then yesterday with the sepsis he had a mild troponin leak again. His initial troponin last night was 55 which was normal but then ash to 62 this morning and repeat level at 11 AM is 63. We will recheck an EKG but I do not feel that this is an NSTEMI but rather demand ischemia brought on by his sepsis. Exam Narrative Exam Narrative: Taco is alert sitting up in bed talking with his partner he is anxious at times and will become mildly tachypneic for a minute or 2 and then settle down into a normal conversation and does not appear to be in any acute respiratory distress. Lungs are clear anteriorly posterolateral bases with diminished breath sounds no rhonchi with some bibasilar rales Heart is regular with a faint systolic murmur over the apex no thrill or gallop or heave Abdomen soft nontender Lower extremities without edema Benjamin catheter draining clear yellow urine with over 500 mL this morning Objective Last Vital Signs Temp 37.3 C 02/12/24 11:14 Pulse 87 02/12/24 11:14 Resp 22 02/12/24 05:30 BP 105/86 02/12/24 11:14 Pulse Ox 95 02/12/24 11:14 Laboratory Results - last 24 hr 02/11/24 02/11/24 02/11/24 14:09 14:35 16:00 WBC 17.81 H RBC 4.43 Hgb 14.1 D Hct 42.2 MCV 95 D MCH 31.8 MCHC 33.4 RDW 14.6 H Plt Count 210 MPV 11.8 H Immature Gran % 0.0 Neutrophils % 91.0 Band Neutrophils % 1 Lymphocytes % 3.0 Monocytes % 4.0 Eosinophils % 0.0 Basophils % 1.0 Nucleated RBC % 0.0 Absolute Neutrophils 16.39 H Absolute Lymphocytes 0.53 L Absolute Monocytes 0.71 Absolute Eosinophils 0.00 Absolute Basophils 0.18 RBC Morphology Normal Sodium Potassium Chloride Carbon Dioxide Anion Gap BUN Creatinine Est GFR (CKD-EPI 2020) Glucose Calcium Total Bilirubin Conjugated Bilirubin AST ALT Alkaline Phosphatase Troponin I C-Reactive Protein 4.91 H Total Protein Albumin Procalcitonin 0.3 Urine Color Cancelled Urine Clarity Cancelled Urine pH Cancelled Ur Specific [place] Cancelled Urine Protein Cancelled Urine Ketones Cancelled Urine Blood Cancelled Urine Nitrite Cancelled Urine Bilirubin Cancelled Urine Urobilinogen Cancelled Ur Leukocyte Esterase Cancelled Urine Glucose Cancelled Random Vancomycin COVID-19 Source Nasopharynx SARS-CoV-2 (PCR) Negative Influenza Type A (PCR) Negative Influenza Type B (PCR) Negative RSV (PCR) Negative 02/11/24 02/12/24 02/12/24 20:12 06:23 11:10 WBC RBC Hgb Hct MCV MCH MCHC RDW Plt Count MPV Immature Gran % Neutrophils % Band Neutrophils % Lymphocytes % Monocytes % Eosinophils % Basophils % Nucleated RBC % Absolute Neutrophils Absolute Lymphocytes Absolute Monocytes Absolute Eosinophils Absolute Basophils RBC Morphology Sodium 139 Potassium 3.7 Chloride 101 Carbon Dioxide 23.1 Anion Gap 14.9 H BUN 61 H Creatinine 2.5 H Est GFR (CKD-EPI 2020) 24.87 Glucose 184 H Calcium 8.6 Total Bilirubin 0.67 Conjugated Bilirubin 0.2 AST 13 L ALT 13 L Alkaline Phosphatase 91 Troponin I 55 62 H* 63 H* C-Reactive Protein Total Protein 6.5 Albumin 2.6 L Procalcitonin Urine Color Urine Clarity Urine pH Ur Specific [place] Urine Protein Urine Ketones Urine Blood Urine Nitrite Urine Bilirubin Urine Urobilinogen Ur Leukocyte Esterase Urine Glucose Random Vancomycin 24.9 COVID-19 Source SARS-CoV-2 (PCR) Influenza Type A (PCR) Influenza Type B (PCR) RSV (PCR) PAWSS Have you Been Recently Intoxicated or Drunk Within the Last 30 days?: No Have you Ever Experienced Previous Episodes of Alcohol Withdrawal?: No Have you ever Experienced Withdrawal Seizures?: No Have you ever Experienced Delirium Tremens(DT)s?: No Have you ever undergone Alcohol Rehabilitation Treatment (i.e, inpt ot outpatient treatment programs)?: No Have you ever Experienced Blackouts?: No Have you ever Combined Alcohol with other Downers within the last 90 days?: No Have you ever Combined Alcohol with any other Substance of Abuse during the last 90 days?: No Positive Blood Alcohol level on Presentation? [PCS.BAL]: No Evidence of Increased Autonomic Activity (i.e. HR>120, tremor, sweating, agitation, nausea)?: No Result: 0 Time Spent with Patient Time Spent with Patient: 35-49 minutes Time was spent: preparing to see the patient(eg.review tests), ordering medications,tests, procedures, referring, communicating with other health health care coordinator, indepentently interpreting results, counseling the patient and care coordination
--- NOTE | 2024-02-12 12:22 | W.POCUS ---
Pocus Exam Limited Cardiac Exam DATE OF EXAM: 02/12/24 TIME OF EXAM: 11:55 PROVIDER THAT PERFORMED THE STUDY: Jasbir Valentino IS THIS A REPEAT EXAM DURING THIS ENCOUNTER: no REASON FOR EXAM: Congestive heart failure and Septic Shock VISUALIZED STRUCTURES: four chambers, LVOT, aortic valve, mitral valve, Interventricular septum and IVC VIEW OBTAINED: Apical 4-Chamber and Subxiphoid PERTINENT FINDINGS/IMPRESSION: IVC inspiratory collapsability, LV dysfunction :severe (LVOT VTI avg 13.5 cm, (while on dobutamine 5 mcg/kg/min, and HR of 87 bpm sinus rhythm) this is a significant increase in his VTI from his avg of 8 yesterday.), Plethoric IVC (IVC cross diameter in short axis view is 2.44 cm round rather than elliptical and collapses 66%) and Other (mitral regurgitation and tricuspid regurgitation seen on CW but not quantified) severe dilated cardiomyopathy w/ improved SV (VTI) while on dobutamine, IVC plethoric but w/ increased inspiratory collapsability, estimated RAP 8 cm ; No pericardial effusion, No RV dilation and No RV dysfunction Exam complete
--- NOTE | 2024-02-12 13:20 | PHACLINREV_ITS ---
Pharmacy Admission Review Admission Clinical Review Admission Pharmacy Review: DVT prophylaxis (Acute) HFrEF (heart failure with reduced ejection fraction) (Acute) Complicated UTI (urinary tract infection) (Acute) Community acquired pneumonia (Acute) PSVT (paroxysmal supraventricular tachycardia) (Acute) Sepsis (Acute) Advanced care planning/counseling discussion (Acute) Palliative care encounter (Acute) levofloxacin Adverse Reaction (Mild, Unverified 02/09/24 15:34) Other (See Comment) Statins Adverse Reaction (Mild, Uncoded 02/09/24 15:34) Other (See Comment) Resuscitation Status Full Code Height 6 ft Weight 75.8 kg Pharmacy Admission Review Renal Dosing Renal Dosing: BUN 61 mg/dL (7-18) H 02/12/24 06:23 Creatinine 2.5 mg/dL (0.70-1.30) H 02/12/24 06:23 Medications needing adjustments: Intervened (CrCl 24 mL/min, BUN increased from 47 and SCr increased from 2) List of meds needing interventions: Decreased cefepime dose from 2g q12h to 1g q12h due to CrCl < 30 Anticoagulation Anticoagulation: Hgb 14.1 g/dL (13.5-17.5) D 02/11/24 14:35 Hct 42.2 % (40.0-50.0) 02/11/24 14:35 Plt Count 210 10^3/uL (130-400) 02/11/24 14:35 Creatinine 2.5 mg/dL (0.70-1.30) H 02/12/24 06:23 DVT Prophylaxis: Reviewed Medications: Heparin (q8h) Relevant Labs Relevant Labs: Sodium 139 mmol/L (136-145) 02/12/24 06:23 Potassium 3.7 mmol/L (3.5-5.1) 02/12/24 06:23 Chloride 101 mmol/L (98-107) 02/12/24 06:23 Magnesium 2.0 mg/dL (1.8-2.4) 02/11/24 06:16 C-Reactive Protein 4.91 mg/dL (<or=0.5) H 02/11/24 14:35 Electrolytes, C-Reactive P, ESR: Reviewed DM Control DM Control: Glucose 184 mg/dL (74-106) H 02/12/24 06:23 Finger Stick Blood Glucose 279 1315 Finger Stick Blood Glucose 279 1244 Finger Stick Blood Glucose 279 1244 Finger Stick Blood Glucose 190 1038 Finger Stick Blood Glucose 190 1037 Finger Stick Blood Glucose 190 0741 Finger Stick Blood Glucose 190 0741 DM Control: Reviewed Insulin Dosing, Diabetic Medication: Has order for SS insulin and glargine 10 units daily Cardiac Review Cardiac Review: Troponin I 63 ng/L (< or =60) H* 02/12/24 11:10 NT-Pro-B Natriuret Pep 8450 pg/mL (<300) H 02/11/24 06:16 Blood Pressure [Left Arm] 105/86 1114 Blood Pressure 101/53 0501 Blood Pressure 105/57 0400 Blood Pressure 100/61 0301 Blood Pressure 94/53 0201 BP, HR, EF%: Reviewed (HR WNL, troponin slightly decreased from 62 today at 0623) List meds needing interventions: Currently on amlodipine 10mg daily, clopidogrel 75mg daily, dobutamine infusion, furosemide 80mg q8h, metoprolol 12.5mg QID MARTIN and spironolactone 25mg daily QTc Review QTc: Reviewed (502 from 02/09/24) IV to PO Switch IV Medications: Reviewed (acetaminophen, cefepime, doxycycline, furosemide, pantoprazole, vancomycin) Home Meds Home Med List reviewed: Reviewed Relevent Home Meds Not ordered & why?: metformin (has order for SS insulin and glargine), silodosin (last filled 04/22/23 per [facility] fill history) Current Meds Current Medication Order Review: Intervened Comments: Dobutamine infusion currently at 5 mcg/kg/min Added 2nd PRN to Bisacodyl order per pharmacy protocol Discontinued duplicate order for vitamin B complex with C 2 orders were put in as patients own: dapagliflozin and testosterone gel. I don't see any notes that nursing was called, reached out to see if these can be brought in for the patient. Nursing will call back. Pharmacy Antibiotic Review Relevant Labs: Relevant Labs 02/11/24 14:35 C-Reactive Protein 4.91 H Procalcitonin 0.3 WBC 17.81 10^3/uL (4.4-10.8) H 02/11/24 14:35 Procalcitonin 0.3 ng/mL 02/11/24 14:35 Temperature 37.3 C Temperature 37.3 C Microbiology 02/10/24 02:59 Urine Culture - Final Urine - Clean Catch Klebsiella pneumoniae Pharmacy Antibiotic Activity: C/S review and Renal function adjustment (cefepime changed from 2g q12h to 1g q12h) Comments: Patient is on cefepime (day 1), vancomycin (day 1) and doxycycline (day 3) for sepsis pneumonia/UTI. Vancomycin loading dose given, maintenance set to start today at 2000 at 750mg q24h. Level this morning from 0623 was 24.9, new recommended dose was 250mg q12h with predicted AUC of 420 and trough of 15.6. Patients kidney function has declined, so ordered another level for 1800 and have not changed order yet. Blood cultures are pending.
--- NOTE | 2024-02-12 13:45 | RT.EKG_ITS ---
APPROVED REPORT Exam: Resting ECG Reason for Exam: elevated troponin Patient Location: I HR:91 bpm ECG Measurements Heart Rate 91 AXIS WV 129 P 45 QRSd 157 QRS -85 QT 425 T 77 QTc 524 Conclusion Sinus rhythm...normal P axis, V-rate 50- 99 Probable left atrial enlargement...P >50mS, <-0.10mV V1 RBBB and LAFB...QRSd >120mS, axis(-40,240)
[2024-02-12 14:17] LABS: Bilirubin Negative (Negative); Blood Negative (Negative); Clarity Clear (Clear); Glucose 500 mg/dL (Negative); Ketones Negative (Negative); Leukocyte Esterase Trace (Negative); Nitrite Negative (Negative); Urobilinogen 0.2 mg/dL (Up to 0.2)
[2024-02-12 14:28] LABS: Bacteria Few HPF (Negative); C & S Indicated? No; Casts Negative LPF (Negative); Crystals Negative HPF (Negative); Epithelial Cells Few HPF (Negative); Mucus Negative (Negative); RBC 0-2 HPF (0-2)
[2024-02-12 15:31] LABS: Troponin I 62 ng/L (< or =60)
[2024-02-12 15:59] LABS: MRSA PCR Negative (Negative)
[2024-02-12] MEDS: Levalbuterol 1.25 MG/3 ML UPD VIAL UPD (16:52)
[2024-02-12] MEDS: LORazepam 2 MG/ML VIAL 0.5 MG IVP (18:05)
--- NOTE | 2024-02-12 18:06 | W.EVENT ---
Date of service: 02/12/24 Time of Service: 18:06 Time Spent with Patient Time spent in critical care(minutes): 60 Time Spent Included: Coordination of care, Documenting critically ill care, Time at immediate bedside, Discussing critically ill care with other medical staff and Discussing Hx and/or treatment with family
--- NOTE | 2024-02-12 18:15 | RT.EKG_ITS ---
APPROVED REPORT Exam: Resting ECG Reason for Exam: pulmonary edema Patient Location: I HR:60 bpm ECG Measurements Heart Rate 60 AXIS MA 252 P 0 QRSd 152 QRS -88 QT 430 T 74 QTc 430 Conclusion Sinus rhythm...normal P axis, V-rate 50- 99 Atrial premature complexes...SV complexes w/ short R-R intvls Prolonged MA interval...MA >220, V-rate 50- 90 RBBB and LAFB...QRSd >120mS, axis(-40,240)
[2024-02-12] MEDS: Furosemide 100 MG/10 ML VIAL 120 MG IVP (18:38)
[2024-02-12 18:45] LABS: BE (Venous) -8 mmol/L (-2-3); HCO3 (Venous) 18 mmol/L (23-28); O2 Sat (Venous) 86 %; TCO2 (Venous) 17 mmol/L (24-29); pCO2 (Venous) 34 mmHg (41-51); pH (Venous) 7.34 (7.31-7.41); pO2 (Venous) 56 mmHg
[2024-02-12] MEDS: nitroGLYcerin in D5W 50 MG/250 ML BTL IV (18:56)
[2024-02-12] MEDS: DOBUTamine 500 MG/250 ML BAG 10 MG IV (18:59)
--- NOTE | 2024-02-12 19:02 | W.POCUS ---
Pocus Exam Limited Thoracic Lung Exam DATE OF EXAM: 02/12/24 TIME OF EXAM: 18:00 PROVIDER THAT PERFORMED THE STUDY: Jasbir Valentino IS THIS A REPEAT EXAM DURING THIS ENCOUNTER: No REASON FOR EXAM: Cardiogenic Pulmonary Edema and Hypoxia VISUALIZED STRUCTURES: right anterior, left anterior, right lateral and left lateral PERTINENT FINDINGS/IMPRESSION: B-lines/left side thoracis location: anterior and lateral and B-lines/right side thoracis location: anterior and lateral INCIDENTAL FINDINGS: Called to see patient emergently due to acute respiratory distress. Patient with loud coarse audible wheezing. Patient had been given a Xopenex treatment with no improvement. On arrival he was found to be tachypneic respiratory rate of 40-50 times per minute and obvious respiratory distress accessory respiratory muscle use sitting up trying to breathe. Patient required high flow facemask and even then was having hypoxemia. Patient was showing bradycardia heart rate in the 50s to 60s with PACs. Patient was placed on BiPAP mask given 120 mg of Lasix IV as dobutamine drip was increased to 5 mcg/min and then further to 10 mcg/min. Nitroglycerin drip was ordered and Diuril 1000 mg IV was ordered. Patient was having intermittent spells of tachypnea followed by periods of apnea lasting 30 seconds. Because of his facial fuentes respiratory therapy was not able to keep an adequate seal to maintain an adequate tidal volume during his backup rates from the BiPAP machine. We prepared for urgent intubation however the patient became arousable sat up and talk to us. He seemed to be improving no longer was diaphoretic and although he was still tachypneic he was not in respiratory extremis. I did feel that he was coherent enough to understand my discussion with him about life support. I explained to Taco that if we allowed this to go on any longer he was going to cardiopulmonary arrest and I felt that it if he were not turning around fairly quickly he would need to be intubated emergently. MAGDIEL clearly indicated to me that he would not want to be on life support he understands that he has an end-stage cardiomyopathy and that even with full life support including intubation and mechanical ventilation or CPR or defibrillation the end result will eventually be the same and that would lead to his demise he would only prolong his suffering. I called his partner David and spoke with him about this. David indicated that he would relay Taco's condition. Taco remains in critical condition however at this time he does seem to be turning the corner with her current efforts. 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 If he fails NIPPV then we will make him comfortable and allow him to pass. Of note bedside POCUS exam of his lungs showed diffuse bilateral B-lines in the anterior superior lung casiano which had not been present yesterday but with BiPAP and Lasix and nitroglycerin there is been improvement in the degree of B-lines and anterior superior and inferior lung casiano. Exam complete
[2024-02-12 19:08] LABS: Troponin I 89 ng/L (< or =60)
--- NOTE | 2024-02-12 19:23 | CE_ITS ---
Date of service: 02/12/24 Time of Service: 18:00 Event Note: Called to patient's bedside emergently because of acute respiratory distress patient was tachypneic respiratory rate of 50, hypoxemic requiring high flow oxygen facemask and diaphoretic with audible wheezes and developing bradycardia. Patient was placed on BiPAP given Lasix 120 mg IV order was given for Diuril 1000 mg but this was not given as it was not available nitroglycerin drip was ordered at 5 mcg/min his dobutamine was increased from 2.5 mcg/kg/min to 5 mcg/kg/min and subsequently to 10 mcg/kg/min. Patient's condition stabilized over a 30 to 40-minute. I had a discussion with the patient during a period where he felt he was lucid and had a emerson discussion with him about intubation and mechanical ventilation and resuscitation the patient was firm with me that he would not want to be on life support. Based on that discussion I decided not to intubate him. His partner David was updated regarding the patient's condition I had a couple of phone calls to David first when his partner was in acute respiratory distress indicating Taco's change in his condition and then once BAART stabilized I called David again to let him know that Oz decided not to pursue intubation mechanical ventilation or further life support. Patient still wants medical treatment to try to stabilize his condition and optimize things. Of note bedside POCUS exam of his lungs showed diffuse bilateral B-lines in the anterior superior lung casiano which had not been present yesterday but with BiPAP and Lasix and nitroglycerin there is been improvement in the degree of B- lines and anterior superior and inferior lung casiano. Time Spent with Patient Time spent in critical care(minutes): 75 Time Spent Included: Performing procedures not included in c.c time (less than 3 minutes spent in performing lung US), Coordination of care, Documenting critically ill care, Time at immediate bedside, Discussing critically ill care with other medical staff and Discussing Hx and/or treatment with family
[2024-02-12] MEDS: Pantoprazole 40 MG TABCR PO (20:39)
[2024-02-12] MEDS: Melatonin 3 MG TAB 6 MG PO (20:39)
[2024-02-12] MEDS: Apixaban 2.5 MG TAB PO (20:39)
[2024-02-12] MEDS: VANCOMYCIN/WATER (PEG) 750 MG/150 ML BAG 150 MG IVPB (20:40)
[2024-02-12] MEDS: CEFEPIME 1 GM in Normal Saline 50 ML IVPB (20:40)
[2024-02-12 21:28] LABS: Troponin I 126 ng/L (< or =60)
[2024-02-12 23:00] LABS: Hepatitis A Antibody IgM Negative (Negative); Hepatitis B Core Antibody Positive (Negative); Hepatitis B surface Ag Negative (Negative); Hepatitis C Ab w Rflx HCV PCR Negative (Negative)
[2024-02-13] VITALS (106 sets, daily range): BP systolic 86–140; BP diastolic 41–97; PULSE 62–103; RESP 0–46; TEMP 36.2–37; O2SAT 90–100
[2024-02-13 00:18] LABS: Abs Immature Grans 0.06 10^3/uL (0.0-0.06); Absolute Basophil Count 0.02 10^3/uL (0.0-0.2); Absolute Lymphocyte Count 0.58 10^3/uL (1.2-3.4); Absolute Monocyte Count 0.85 10^3/uL (0.1-0.8); Basophils % 0.2 %; HGB 11.5 g/dL (13.5-17.5); Immature Grans % 0.5 %; Lymphocytes % 4.9 %; MCH 31.9 pg (27.0-33.0); MCHC 32.9 % (32.0-36.0); MCV 97 fL (80-95); MPV 12.1 fL (8.0-11.0); Monocytes % 7.2 %; Neutrophils % 87.2 %; Platelet Count 158 10^3/uL (130-400); RBC 3.61 10^6/uL (4.36-5.78); RDW 14.7 % (11.8-14.1); RDW-SD 52.9 fL; WBC 11.84 10^3/uL (4.4-10.8)
[2024-02-13 00:19] LABS: Absolute Neutrophil Count 10.32 10^3/uL (1.2-6.7)
--- NOTE | 2024-02-13 01:22 | NUR.NOTE ---
Nursing Note: Pt who had been very difficult to rouse, woke up confused with no recent memory of events. He was very confused about the presence of a bi-pap and removed it stating he was not going to wear it. He was able to answer basic orientation questions but with some hesitation. Pt currently sats well on RA and his respirations are down below 30 with clear lung sounds. RT consulted about continued need for bi-pap as attempts to put it back on are likely to agitate pt. RT agreed that he is likely ok without it at this point as long as vitals remain stable with no respiratory distress. Will continue to monitor.
[2024-02-13] MEDS: CEFEPIME 1 GM in Normal Saline 50 ML IVPB ×2 (06:16→18:06)
[2024-02-13 06:47] LABS: Abs Immature Grans 0.04 10^3/uL (0.0-0.06); Absolute Basophil Count 0.05 10^3/uL (0.0-0.2); Absolute Eosinophil Count 0.09 10^3/uL (0.0-0.7); Absolute Lymphocyte Count 1.06 10^3/uL (1.2-3.4); Absolute Monocyte Count 1.12 10^3/uL (0.1-0.8); Basophils % 0.5 %; Eosinophils % 0.8 %; HCT 30.2 % (40.0-50.0); HGB 10.1 g/dL (13.5-17.5); Immature Grans % 0.4 %; Lymphocytes % 9.8 %; MCH 31.7 pg (27.0-33.0); MCHC 33.4 % (32.0-36.0); MCV 95 fL (80-95); MPV 12.4 fL (8.0-11.0); Monocytes % 10.3 %; Neutrophils % 78.2 %; Platelet Count 174 10^3/uL (130-400); RBC 3.19 10^6/uL (4.36-5.78); RDW 14.6 % (11.8-14.1); WBC 10.85 10^3/uL (4.4-10.8)
[2024-02-13 06:52] LABS: Absolute Neutrophil Count 8.48 10^3/uL (1.2-6.7)
[2024-02-13 07:19] LABS: Anion Gap 13.4 mmol/L (3-11); BUN 70 mg/dL (7-18); CO2 23.6 mmol/L (21.0-32.0); CREATININE 2.8 mg/dL (0.70-1.30); Calcium 8.7 mg/dL (8.5-10.1); Chloride 101 mmol/L (98-107); Estimated GFR 21.71 (mL/min/1.73m2); Glucose 161 mg/dL (74-106); Potassium 3.5 mmol/L (3.5-5.1); Sodium 138 mmol/L (136-145)
--- NOTE | 2024-02-13 08:25 | PDOC.CMPRO ---
Date of service: 02/13/24 Time of Service: 08:25 Care Management Progress Note Progress Note Text Progress Note Text: Taco was lying in bed in the ICU when CM met with. When asked how he was doing he answered not good. His nurse was in the room at the time and reported that Taco has been having chest pain and shortness of breath. He is currently receiving Cefepime and Doxycycline for community acquired pneumonia. The provider has ordered troponins, an EKG, and a nitroglycerin drip to address the new onset chest pain. Taco's partner David was present at the time, offering support to Taco. SDOH(Care Management) Screening Will the Patient Participate in the Screening?: Declined to provide Do you worry about having a steady place to live?: no In the past 12 months, have you had to go without electric, gas, oil or water in your home?: no Have you or anyone in your house had to go without enough food to eat?: no Has lack of transportation kept you from medical appointments or from doing things needed for daily living?: no Has anyone in your support network made you feel unsafe for any reason?: no
[2024-02-13] MEDS: DOXYCYCLINE 100 MG in Normal Saline 100 ML IVPB (08:49)
[2024-02-13] MEDS: Ascorbic Acid 500 MG TAB PO (08:50)
[2024-02-13] MEDS: Finasteride 5 MG TAB PO (08:51)
[2024-02-13] MEDS: Pantoprazole 40 MG TABCR PO ×2 (08:51→20:11)
[2024-02-13] MEDS: Tamsulosin 0.4 MG CAPCR PO (08:51)
[2024-02-13] MEDS: Ferrous Sulfate 325 MG TAB PO (08:51)
[2024-02-13] MEDS: Omega-3 Fatty Acids 1000 MG CAP PO (08:51)
[2024-02-13] MEDS: Vitamins B Comp w/C TAB 1 TAB PO (08:51)
[2024-02-13] MEDS: Insulin Aspart 300 UNITS/3 ML PEN SC ×3 (09:10→17:21)
[2024-02-13] MEDS: Insulin Glargine 300 UNITS/3 ML PEN 10 UNITS SC (09:11)
[2024-02-13] MEDS: Normal Saline Flush 10 ML SYR IVP ×2 (09:11→20:12)
[2024-02-13 09:32] LABS: Lab Add On Test DONE
[2024-02-13 09:56] LABS: Troponin I 110 ng/L (< or =60)
[2024-02-13 10:08] LABS: HCT 32.3 % (40.0-50.0); HGB 10.4 g/dL (13.5-17.5)
--- NOTE | 2024-02-13 10:14 | PGE_ITS ---
Date of Service Date of service: 02/13/24 Time of Service: 10:14 Assessment and Plan Assessment and plan (1) Sepsis: Status: Acute Assessment and plan: severe sepsis, but improving. etiology is Klebsiella pneumoniae UTI w/ bacteremia along w/ bibasilar pneumonia continue Cefepime pending ID of gram negatives in the blood but presumed to be same as urine culture. If confirmed then can down grade to CTX 2 gm daily. dc vancomycin, MRSA screen negative so pneumonia unlikely d/t MRSA continue dobutamine but start to wean off. will add oral nitrates as tolerate by his BP Critical care time spent interviewing and examining the patient, reviewing studies, discussing case with patient's nurse and consulting physicians was 30 minutes Qualifiers: Sepsis type: sepsis due to unspecified organism Sepsis acute organ dysfunction status: with acute organ dysfunction Severe sepsis acute organ dysfunction type: encephalopathy Severe sepsis shock status: without septic shock Qualified Code(s): A41.9 - Sepsis, unspecified organism; R65.20 - Severe sepsis without septic shock; G93.41 - Metabolic encephalopathy (2) PSVT (paroxysmal supraventricular tachycardia): Status: Acute Assessment and plan: PSVT vs atrial flutter; patient is converted to sinus rhythm rate.remains in SR w/ BBB, lopressor dc yesterday in setting of pulmonary edema. If he needs rate control then consider digoxin. (3) Community acquired pneumonia: Status: Acute Assessment and plan: bibasilar pneumonia; continue pulmonary toiletry; continue cefepime for now, dc vancomycin, change iv doxycycline back to his usual oral dosing Qualifiers: Laterality: unspecified laterality Qualified Code(s): J18.9 - Pneumonia, unspecified organism (4) Complicated UTI (urinary tract infection): Status: Acute Assessment and plan: continue as above. will leave garcia in for now (5) Elevated troponin I level: Status: Acute Assessment and plan: troponin peaked at 126 last night, now down to 110, will check one more today to be sure that trend is truly declining, however, still believe that this represents demand ischemia probably from sepsis and his acute pulmonary edema yesterday. however he has severe CM w/ LVEF 28% so he may have some ischemic CAD; I had to hold his Plavix d/t the heme positive stools but if his hemoglobin remains stable then will resume tomorrow. (6) HFrEF (heart failure with reduced ejection fraction): Status: Acute Assessment and plan: as above. does not need lasix this moring, will try to ultasound him later today to determine his filling pressures, CVP etc. I expect he will need some daily diuretic but not now. wean dobutamine as tolerated. (7) CKD (chronic kidney disease) stage 3, GFR 30-59 ml/min: Status: Chronic Assessment and plan: ELVIE in the setting of CKD. 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 Once his renal function has recovered and will trial him on Entresto f Qualifiers: Hypertension type: primary hypertension Qualified Code(s): I10 - Essential (primary) hypertension (10) DVT prophylaxis: Status: Acute Assessment and plan: I have discussed putting him on an oral anticoagulant in light of his severe cardiomyopathy. He is not on a DOAC but has been on DAPT w/ ASA and plavix. I will dc his ASA but continue his Plavix for CAD protection and start him on Eliquis. (11) Advanced care planning/counseling discussion: Status: Acute Assessment and plan: CODE status change last night by me after discussion w/ the patient and involvement in his partner in that discussion. Now DNR/DNI, I think it would be appropriate to explore going home on hospice when medically ready. Subjective Subjective Interval history since last seen: Taco is breathing much easier this morning. No CP. he remains on dobutamine drip at 10 mcg/kg/minute but NTG had to be stopped last night d/t low BP. He had heme postive melena last night. Repeat hemoglobin was checked and found to be down to 11.5 gm from prior level of 14 gm, however I think this was a spurious reading of 14 gm as all of his prior Hb have been 11 gm. Nevertheless, his apixaban got stopped (it was just begun yesterday) and his Plavix was put on hold (I stopped his ASA yesterday when I began his apixaban). He is already on protonix 40 mg bid. I will add carafate. He was net negative nearly 1 liter yesterday and since midnight he has been net negative by 1.1 liters. I am holding diuretics this morning as his BP has been soft. I think yesterdays event was flash pulm onary edema. He will need to go back on scheduled diuretics but I think at present he appears to be euvolemic. Exam Narrative Exam Narrative: Trey appears tired but not in any respiratory distress, he is now on RA w/ SPO2 of 99% Lungs: anterior casiano are clear, posteriorly he has basilar rales, diminished breath sounds but no rhonchi or wheezing Heart: RRR, rhythm is NSR w/ BBB, rate 86 bpm, soft systolic murmur over apex Abdomen: benign, soft ,nontender Legs/feet: no edema Objective Last Vital Signs Temp 37.0 C 02/13/24 08:17 Pulse 82 02/13/24 08:17 Resp 35 H 02/13/24 08:17 BP 91/57 L 02/13/24 07:16 Pulse Ox 96 02/13/24 08:17 Laboratory Results - last 24 hr 02/11/24 02/12/24 02/12/24 14:00 06:23 11:10 WBC RBC Hgb Hct MCV MCH MCHC RDW Plt Count MPV Immature Gran % Neutrophils % Lymphocytes % Monocytes % Eosinophils % Basophils % Nucleated RBC % Absolute Neutrophils Absolute Lymphocytes Absolute Monocytes Absolute Eosinophils Absolute Basophils VBG pH VBG pCO2 VBG pO2 VBG HCO3 VBG Total CO2 VBG O2 Saturation VBG Base Excess Sodium Potassium Chloride Carbon Dioxide Anion Gap BUN Creatinine Est GFR (CKD-EPI 2020) Glucose Calcium Troponin I 63 H* Urine Color Urine Clarity Urine pH Ur Specific [place] Urine Protein Urine Ketones Urine Blood Urine Nitrite Urine Bilirubin Urine Urobilinogen Ur Leukocyte Esterase Urine RBC Urine WBC Ur Epithelial Cells Urine Crystals Urine Bacteria Urine Casts Urine Mucus Ur Culture Indicated? Urine Glucose Random Vancomycin Hepatitis A IgM Ab Negative Hep Bs Antigen Negative Hep B Core Total Ab Positive A Hepatitis C Antibody Negative MRSA (TEM-PCR) Negative Add-On Test Request ABO/Rh Antibody Screen 02/12/24 02/12/24 02/12/24 13:50 15:02 17:42 WBC RBC Hgb Hct MCV MCH MCHC RDW Plt Count MPV Immature Gran % Neutrophils % Lymphocytes % Monocytes % Eosinophils % Basophils % Nucleated RBC % Absolute Neutrophils Absolute Lymphocytes Absolute Monocytes Absolute Eosinophils Absolute Basophils VBG pH VBG pCO2 VBG pO2 VBG HCO3 VBG Total CO2 VBG O2 Saturation VBG Base Excess Sodium Potassium Chloride Carbon Dioxide Anion Gap BUN Creatinine Est GFR (CKD-EPI 2020) Glucose Calcium Troponin I 62 H* Urine Color Yellow Urine Clarity Clear Urine pH 5.0 Ur Specific [place] 1.020 Urine Protein 30 H Urine Ketones Negative Urine Blood Negative Urine Nitrite Negative Urine Bilirubin Negative Urine Urobilinogen 0.2 Ur Leukocyte Esterase Trace H Urine RBC 0-2 Urine WBC 3-5 Ur Epithelial Cells Few Urine Crystals Negative Urine Bacteria Few Urine Casts Negative Urine Mucus Negative Ur Culture Indicated? No Urine Glucose 500 H Random Vancomycin 16.0 Hepatitis A IgM Ab Hep Bs Antigen Hep B Core Total Ab Hepatitis C Antibody MRSA (TEM-PCR) Add-On Test Request ABO/Rh Antibody Screen 02/12/24 02/12/24 02/13/24 18:37 20:55 00:04 WBC 11.84 H RBC 3.61 L Hgb 11.5 L D Hct 35.0 L MCV 97 H MCH 31.9 MCHC 32.9 RDW 14.7 H Plt Count 158 MPV 12.1 H Immature Gran % 0.5 Neutrophils % 87.2 Lymphocytes % 4.9 Monocytes % 7.2 Eosinophils % 0.0 Basophils % 0.2 Nucleated RBC % 0.0 Absolute Neutrophils 10.32 H Absolute Lymphocytes 0.58 L Absolute Monocytes 0.85 H Absolute Eosinophils 0.00 Absolute Basophils 0.02 VBG pH 7.34 VBG pCO2 34 L VBG pO2 56 VBG HCO3 18 L VBG Total CO2 17 L VBG O2 Saturation 86 VBG Base Excess -8 L Sodium Potassium Chloride Carbon Dioxide Anion Gap BUN Creatinine Est GFR (CKD-EPI 2020) Glucose Calcium Troponin I 89 H* 126 H* Urine Color Urine Clarity Urine pH Ur Specific [place] Urine Protein Urine Ketones Urine Blood Urine Nitrite Urine Bilirubin Urine Urobilinogen Ur Leukocyte Esterase Urine RBC Urine WBC Ur Epithelial Cells Urine Crystals Urine Bacteria Urine Casts Urine Mucus Ur Culture Indicated? Urine Glucose Random Vancomycin Hepatitis A IgM Ab Hep Bs Antigen Hep B Core Total Ab Hepatitis C Antibody MRSA (TEM-PCR) Add-On Test Request ABO/Rh B Positive Antibody Screen NEGATIVE 02/13/24 02/13/24 02/13/24 05:44 05:47 09:32 WBC 10.85 H RBC 3.19 L Hgb 10.1 L Hct 30.2 L MCV 95 MCH 31.7 MCHC 33.4 RDW 14.6 H Plt Count 174 MPV 12.4 H Immature Gran % 0.4 Neutrophils % 78.2 Lymphocytes % 9.8 Monocytes % 10.3 Eosinophils % 0.8 Basophils % 0.5 Nucleated RBC % 0.0 Absolute Neutrophils 8.48 H Absolute Lymphocytes 1.06 L Absolute Monocytes 1.12 H Absolute Eosinophils 0.09 Absolute Basophils 0.05 VBG pH VBG pCO2 VBG pO2 VBG HCO3 VBG Total CO2 VBG O2 Saturation VBG Base Excess Sodium 138 Potassium 3.5 Chloride 101 Carbon Dioxide 23.6 Anion Gap 13.4 H BUN 70 H Creatinine 2.8 H Est GFR (CKD-EPI 2020) 21.71 Glucose 161 H Calcium 8.7 Troponin I 110 H* Urine Color Urine Clarity Urine pH Ur Specific [place] Urine Protein Urine Ketones Urine Blood Urine Nitrite Urine Bilirubin Urine Urobilinogen Ur Leukocyte Esterase Urine RBC Urine WBC Ur Epithelial Cells Urine Crystals Urine Bacteria Urine Casts Urine Mucus Ur Culture Indicated? Urine Glucose Random Vancomycin Hepatitis A IgM Ab Hep Bs Antigen Hep B Core Total Ab Hepatitis C Antibody MRSA (TEM-PCR) Add-On Test Request DONE ABO/Rh Antibody Screen 02/13/24 10:07 WBC RBC Hgb 10.4 L Hct 32.3 L MCV MCH MCHC RDW Plt Count MPV Immature Gran % Neutrophils % Lymphocytes % Monocytes % Eosinophils % Basophils % Nucleated RBC % Absolute Neutrophils Absolute Lymphocytes Absolute Monocytes Absolute Eosinophils Absolute Basophils VBG pH VBG pCO2 VBG pO2 VBG HCO3 VBG Total CO2 VBG O2 Saturation VBG Base Excess Sodium Potassium Chloride Carbon Dioxide Anion Gap BUN Creatinine Est GFR (CKD-EPI 2020) Glucose Calcium Troponin I Urine Color Urine Clarity Urine pH Ur Specific [place] Urine Protein Urine Ketones Urine Blood Urine Nitrite Urine Bilirubin Urine Urobilinogen Ur Leukocyte Esterase Urine RBC Urine WBC Ur Epithelial Cells Urine Crystals Urine Bacteria Urine Casts Urine Mucus Ur Culture Indicated? Urine Glucose Random Vancomycin Hepatitis A IgM Ab Hep Bs Antigen Hep B Core Total Ab Hepatitis C Antibody MRSA (TEM-PCR) Add-On Test Request ABO/Rh Antibody Screen PAWSS Have you Been Recently Intoxicated or Drunk Within the Last 30 days?: No Have you Ever Experienced Previous Episodes of Alcohol Withdrawal?: No Have you ever Experienced Withdrawal Seizures?: No Have you ever Experienced Delirium Tremens(DT)s?: No Have you ever undergone Alcohol Rehabilitation Treatment (i.e, inpt ot outpatient treatment programs)?: No Have you ever Experienced Blackouts?: No Have you ever Combined Alcohol with other Downers within the last 90 days?: No Have you ever Combined Alcohol with any other Substance of Abuse during the last 90 days?: No Positive Blood Alcohol level on Presentation? [PCS.BAL]: No Evidence of Increased Autonomic Activity (i.e. HR>120, tremor, sweating, agitation, nausea)?: No Result: 0 Time Spent with Patient Time Spent with Patient: 25-34 minutes Time was spent: preparing to see the patient(eg.review tests), ordering medications,tests, procedures, referring, communicating with other health children's zoo caretaker, indepentently interpreting results, counseling the patient (And patient's partner, David) and care coordination
[2024-02-13] MEDS: Isosorbide Dinitrate 10 MG TAB PO ×2 (11:16→20:11)
[2024-02-13] MEDS: Sucralfate 1 GM TAB PO ×3 (12:25→20:10)
--- NOTE | 2024-02-13 15:30 | RT.EKG_ITS ---
APPROVED REPORT Exam: Resting ECG Reason for Exam: chest pain Patient Location: I HR:87 bpm ECG Measurements Heart Rate 87 AXIS OR [id number] P [id number] QRSd 157 QRS -95 QT 431 T 77 QTc 519 Conclusion Sinus rhythm RBBB and LAFB...QRSd >120mS, axis(-40,240)
[2024-02-13] MEDS: nitroGLYcerin in D5W 50 MG/250 ML BTL IV (15:45)
[2024-02-13 15:57] LABS: HCT 29.5 % (40.0-50.0); HGB 9.5 g/dL (13.5-17.5)
[2024-02-13 16:20] LABS: Troponin I 82 ng/L (< or =60)
[2024-02-13 18:51] LABS: HCT 28.6 % (40.0-50.0); HGB 9.2 g/dL (13.5-17.5)
[2024-02-13] MEDS: Melatonin 3 MG TAB 6 MG PO (20:10)
[2024-02-13] MEDS: Doxycycline Hyclate 100 MG CAP PO (22:16)
[2024-02-14] VITALS (113 sets, daily range): BP systolic 96–132; BP diastolic 50–85; PULSE 60–97; RESP 0–41; TEMP 36.2–37.2; O2SAT 93–100
[2024-02-14] MEDS: CEFEPIME 1 GM in Normal Saline 50 ML IVPB ×2 (06:20→18:00)
[2024-02-14 06:26] LABS: Abs Immature Grans 0.02 10^3/uL (0.0-0.06); Absolute Basophil Count 0.04 10^3/uL (0.0-0.2); Absolute Eosinophil Count 0.46 10^3/uL (0.0-0.7); Absolute Lymphocyte Count 0.98 10^3/uL (1.2-3.4); Absolute Monocyte Count 1.08 10^3/uL (0.1-0.8); Absolute Neutrophil Count 5.54 10^3/uL (1.2-6.7); Basophils % 0.5 %; Eosinophils % 5.7 %; HCT 30.2 % (40.0-50.0); Immature Grans % 0.2 %; Lymphocytes % 12.1 %; MCH 31.7 pg (27.0-33.0); MCHC 33.1 % (32.0-36.0); MCV 96 fL (80-95); Monocytes % 13.3 %; Neutrophils % 68.2 %; Platelet Count 184 10^3/uL (130-400); RBC 3.15 10^6/uL (4.36-5.78); RDW 14.4 % (11.8-14.1); RDW-SD 50.2 fL; WBC 8.12 10^3/uL (4.4-10.8)
[2024-02-14 06:48] LABS: ALT 19 U/L (16-63); AST 16 U/L (15-37); Albumin 2.4 g/dL (3.4-5.0); Alkaline Phosphatase 91 U/L (46-116); Anion Gap 13.6 mmol/L (3-11); BUN 65 mg/dL (7-18); Bilirubin, Total 0.62 mg/dL (0.2-1.0); CO2 23.4 mmol/L (21.0-32.0); CREATININE 2.3 mg/dL (0.70-1.30); Calcium 8.5 mg/dL (8.5-10.1); Chloride 103 mmol/L (98-107); Estimated GFR 27.49 (mL/min/1.73m2); Glucose 150 mg/dL (74-106); Potassium 3.6 mmol/L (3.5-5.1); Sodium 140 mmol/L (136-145); Total Protein 6.6 g/dL (6.4-8.2)
[2024-02-14] MEDS: ACETAMINOPHEN 1,000 MG/100 ML BTL 400 MG IVPB (07:30)
[2024-02-14] MEDS: Normal Saline Flush 10 ML SYR IVP ×2 (07:51→21:04)
[2024-02-14] MEDS: Tamsulosin 0.4 MG CAPCR PO (07:52)
[2024-02-14] MEDS: Pantoprazole 40 MG TABCR PO ×2 (07:52→21:04)
[2024-02-14] MEDS: Finasteride 5 MG TAB PO (07:52)
[2024-02-14] MEDS: Sucralfate 1 GM TAB PO ×4 (07:52→21:04)
[2024-02-14] MEDS: Sennosides/Docusate Sodium TAB 1 TAB PO (07:52)
[2024-02-14] MEDS: Docusate Sodium 100 MG CAP PO (07:53)
[2024-02-14] MEDS: Ascorbic Acid 500 MG TAB PO (07:53)
[2024-02-14] MEDS: Ferrous Sulfate 325 MG TAB PO (07:53)
[2024-02-14] MEDS: Vitamins B Comp w/C TAB 1 TAB PO (07:53)
[2024-02-14] MEDS: Omega-3 Fatty Acids 1000 MG CAP PO (07:53)
[2024-02-14] MEDS: Isosorbide Dinitrate 10 MG TAB PO (07:53)
[2024-02-14] MEDS: DOBUTamine 500 MG/250 ML BAG 11.431 MG IV (07:53)
[2024-02-14] MEDS: Insulin Aspart 300 UNITS/3 ML PEN SC ×3 (08:34→17:24)
[2024-02-14] MEDS: Insulin Glargine 300 UNITS/3 ML PEN 10 UNITS SC (08:34)
[2024-02-14] MEDS: Doxycycline Hyclate 100 MG CAP PO ×2 (09:00→21:06)
--- NOTE | 2024-02-14 10:43 | PGE_ITS ---
Date of Service Date of service: 02/14/24 Time of Service: 10:43 Assessment and Plan Assessment and plan (1) Sepsis: Status: Acute Assessment and plan: severe sepsis, but improving. etiology is Klebsiella pneumoniae UTI w/ bacteremia along w/ bibasilar pneumonia clinically he is improving, afebrile, normal WBC. Given that he has had recurrent UTI and has lower urinary obstructive symptoms, I think that he ought to have prolonged course of antibiotics treatment presuming that he probably has prostate infection. From pneumonia standpoint, he is improving, no longer dyspneic and not requiring oxygen. He remains on cefepime 2 gm IV q12h (day #3), along w/ doxycycline 100 mg PO BID (d#5), he did have a day of CTRX I will continue the cefepime for at least 5 days then switch to oral antibiotics targeted his prostate for another 10 days. Will follow up his CXR prior to discharge Qualifiers: Sepsis type: sepsis due to unspecified organism Sepsis acute organ dysfunction status: with acute organ dysfunction Severe sepsis acute organ dysfunction type: encephalopathy Severe sepsis shock status: without septic shock Qualified Code(s): A41.9 - Sepsis, unspecified organism; R65.20 - Severe sepsis without septic shock; G93.41 - Metabolic encephalopathy (2) PSVT (paroxysmal supraventricular tachycardia): Status: Acute Assessment and plan: PSVT vs atrial flutter;patient has had no further arrhythmias, remains in NSR (3) Community acquired pneumonia: Status: Acute Assessment and plan: bibasilar pneumonia; continue pulmonary toiletry; continue cefepime and vancomycin as above Qualifiers: Laterality: unspecified laterality Qualified Code(s): J18.9 - Pneumonia, unspecified organism (4) Complicated UTI (urinary tract infection): Status: Acute Assessment and plan: continue as above. will leave garcia in for now (5) Elevated troponin I level: Status: Acute Assessment and plan: trooponin I peaked at 126 now down to 82. I think that this was demand ischemia. Now that his GI bleeding has stopped, I will resume Plavix, continue to hold ASA and avoid resumption of apixaban. 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 He appears to be euvolemic at present and his ELVIE is improving and his respiratory status has stabilized. I will wean off dobutamine today, transfer to med/surg status (7) CKD (chronic kidney disease) stage 3, GFR 30-59 ml/min: Status: Chronic Assessment and plan: ELVIE in the setting of CKD. BUN is up to 61 creatinine 2.5 from his baseline creatinine of 1.8-2.0 Qualifiers: Chronic kidney disease stage 3 subtype: stage 3b (GFR 30-44) Qualified Code(s): N18.32 - Chronic kidney disease, stage 3b (8) Type 2 diabetes mellitus: Status: Chronic Assessment and plan: basal/bolus insulin; glucose ac 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 mellitus penitentiary insulin use: without penitentiary use Diabetes mellitus complication status: with kidney complications Diabetes mellitus complication detail: with chronic kidney disease Chronic kidney disease stage: stage 3 (moderate) Chronic kidney disease stage 3 subtype: stage 3b (GFR 30-44) Qualified Code(s): E11.22 - Type 2 diabetes mellitus with diabetic chronic kidney disease; N18.32 - Chronic kidney disease, stage 3b (9) HTN (hypertension): Status: Chronic Assessment and plan: Stable blood pressures. Once his renal function has recovered and will trial him on Entresto Qualifiers: Hypertension type: primary hypertension Qualified Code(s): I10 - Essential (primary) hypertension (10) DVT prophylaxis: Status: Acute Assessment and plan: in light of melena, not a candidate for chemoprophylaxis; use SCD (11) Advanced care planning/counseling discussion: Status: Acute Assessment and plan: DNR/DNI per my discussions w/ him. I have discussed hospice as an option. (12) Discharge planning issues: Status: Acute Assessment and plan: patient desire is to return home. I told him that we will get P.T. to work with him. He does not want to go to SNF. Subjective Subjective Interval history since last seen: Taco is feeling better today, tired but no CP or dyspnea. I had a long talk w/ him regarding his multiple acute and chronic medical conditions. I explained to him that his cardiomyopathy is severe and that he ought to think about home hospice. His acute problems such as his Klebsiella bactreremia and pneumonia are problems that we can resolve and they are improving. He has had no further GI bleeding. Exam Narrative Exam Narrative: Taco is lying in bed not requiring any supplemental oxygen and appears to be calm with no dyspnea or chest pain. Lungs are clear anteriorly posteriorly he has some diminished breath sounds at the bases but overall fairly good aeration throughout his lungs Heart is regular rate and rhythm Abdomen soft nontender nondistended Extremities without peripheral cyanosis or edema Garcia catheter draining clear yellow urine Objective Last Vital Signs Temp 36.7 C 02/14/24 09:34 Pulse 82 02/14/24 09:34 Resp 17 02/14/24 09:34 BP 118/64 02/14/24 09:34 Pulse Ox 95 02/14/24 09:34 Laboratory Results - last 24 hr 02/13/24 02/13/24 02/14/24 15:51 18:45 05:52 WBC RBC Hgb 9.5 L 9.2 L Hct 29.5 L 28.6 L MCV MCH MCHC RDW Plt Count MPV Immature Gran % Neutrophils % Lymphocytes % Monocytes % Eosinophils % Basophils % Nucleated RBC % Absolute Neutrophils Absolute Lymphocytes Absolute Monocytes Absolute Eosinophils Absolute Basophils Sodium 140 Potassium 3.6 Chloride 103 Carbon Dioxide 23.4 Anion Gap 13.6 H BUN 65 H Creatinine 2.3 H Est GFR (CKD-EPI 2020) 27.49 Glucose 150 H Calcium 8.5 Total Bilirubin 0.62 AST 16 ALT 19 Alkaline Phosphatase 91 Troponin I 82 H* Total Protein 6.6 Albumin 2.4 L 02/14/24 06:00 WBC 8.12 RBC 3.15 L Hgb 10.0 L Hct 30.2 L MCV 96 H MCH 31.7 MCHC 33.1 RDW 14.4 H Plt Count 184 MPV 12.0 H Immature Gran % 0.2 Neutrophils % 68.2 Lymphocytes % 12.1 Monocytes % 13.3 Eosinophils % 5.7 Basophils % 0.5 Nucleated RBC % 0.0 Absolute Neutrophils 5.54 Absolute Lymphocytes 0.98 L Absolute Monocytes 1.08 H Absolute Eosinophils 0.46 Absolute Basophils 0.04 Sodium Potassium Chloride Carbon Dioxide Anion Gap BUN Creatinine Est GFR (CKD-EPI 2020) Glucose Calcium Total Bilirubin AST ALT Alkaline Phosphatase Troponin I Total Protein Albumin PAWSS Have you Been Recently Intoxicated or Drunk Within the Last 30 days?: No Have you Ever Experienced Previous Episodes of Alcohol Withdrawal?: No Have you ever Experienced Withdrawal Seizures?: No Have you ever Experienced Delirium Tremens(DT)s?: No Have you ever undergone Alcohol Rehabilitation Treatment (i.e, inpt ot outpatient treatment programs)?: No Have you ever Experienced Blackouts?: No Have you ever Combined Alcohol with other Downers within the last 90 days?: No Have you ever Combined Alcohol with any other Substance of Abuse during the last 90 days?: No Positive Blood Alcohol level on Presentation? [PCS.BAL]: No Evidence of Increased Autonomic Activity (i.e. HR>120, tremor, sweating, agitation, nausea)?: No Result: 0 Time Spent with Patient Time Spent with Patient: >50 minutes Time was spent: preparing to see the patient(eg.review tests), ordering medications,tests, procedures, referring, communicating with other health lpn care manager, indepentently interpreting results, counseling the patient and care coordination
--- NOTE | 2024-02-14 12:45 | RT.EKG_ITS ---
APPROVED REPORT Exam: Resting ECG Reason for Exam: chest pain Patient Location: I HR:79 bpm ECG Measurements Heart Rate 79 AXIS GA 212 P 52 QRSd 160 QRS -91 QT 455 T 65 QTc 522 Conclusion Sinus rhythm...normal P axis, V-rate 50- 99 Borderline prolonged GA interval...GA >212, V-rate 50- 90 RBBB and LAFB...QRSd >120mS, axis(-40,240)
[2024-02-14] MEDS: nitroGLYcerin 0.4 MG TAB ×3 (12:57→13:41)
[2024-02-14 13:42] LABS: Troponin I 67 ng/L (< or =60)
[2024-02-14] MEDS: nitroGLYcerin 2% 1 INCH/1 GM PKT TP ×2 (15:06→20:59)
[2024-02-14] MEDS: Isosorbide Mononitrate 30 MG TABCR PO (15:06)
[2024-02-14] MEDS: Polyethylene Glycol 3350 17 GM PACKET PO (20:58)
[2024-02-14] MEDS: Melatonin 3 MG TAB 6 MG PO (21:01)
[2024-02-14 22:17] LABS: Legionella Ag Detection Urine Negative (Negative)
[2024-02-15] VITALS (43 sets, daily range): BP systolic 84–120; BP diastolic 48–70; PULSE 47–93; RESP 0–42; TEMP 36.4–37.2; O2SAT 95–100
[2024-02-15] MEDS: nitroGLYcerin 2% 1 INCH/1 GM PKT TP ×4 (03:00→21:03)
[2024-02-15] MEDS: CEFEPIME 1 GM in Normal Saline 50 ML IVPB (05:48)
[2024-02-15 06:50] LABS: Abs Immature Grans 0.03 10^3/uL (0.0-0.06); Absolute Basophil Count 0.07 10^3/uL (0.0-0.2); Absolute Eosinophil Count 0.66 10^3/uL (0.0-0.7); Absolute Lymphocyte Count 1.24 10^3/uL (1.2-3.4); Absolute Monocyte Count 0.94 10^3/uL (0.1-0.8); Eosinophils % 9.4 %; HCT 30.9 % (40.0-50.0); HGB 10.2 g/dL (13.5-17.5); Immature Grans % 0.4 %; Lymphocytes % 17.6 %; MCV 97 fL (80-95); MPV 12.1 fL (8.0-11.0); Monocytes % 13.4 %; Neutrophils % 58.2 %; Platelet Count 208 10^3/uL (130-400); RBC 3.19 10^6/uL (4.36-5.78); RDW 13.8 % (11.8-14.1); RDW-SD 49.2 fL; WBC 7.04 10^3/uL (4.4-10.8)
[2024-02-15 07:08] LABS: ALT 14 U/L (16-63); AST 15 U/L (15-37); Albumin 2.3 g/dL (3.4-5.0); Alkaline Phosphatase 84 U/L (46-116); Anion Gap 12.1 mmol/L (3-11); BUN 56 mg/dL (7-18); Bilirubin, Total 0.45 mg/dL (0.2-1.0); CO2 23.9 mmol/L (21.0-32.0); CREATININE 1.9 mg/dL (0.70-1.30); Chloride 105 mmol/L (98-107); Estimated GFR 34.57 (mL/min/1.73m2); Glucose 148 mg/dL (74-106); Potassium 3.3 mmol/L (3.5-5.1); Sodium 141 mmol/L (136-145); Total Protein 6.4 g/dL (6.4-8.2)
[2024-02-15] MEDS: Pantoprazole 40 MG TABCR PO ×2 (08:22→21:01)
[2024-02-15] MEDS: Finasteride 5 MG TAB PO (08:23)
[2024-02-15] MEDS: Clopidogrel 75 MG TAB PO (08:23)
[2024-02-15] MEDS: Sennosides/Docusate Sodium TAB 1 TAB PO ×2 (08:23→21:02)
[2024-02-15] MEDS: Tamsulosin 0.4 MG CAPCR PO (08:23)
[2024-02-15] MEDS: Vitamins B Comp w/C TAB 1 TAB PO (08:23)
[2024-02-15] MEDS: Sucralfate 1 GM TAB PO ×4 (08:23→21:02)
[2024-02-15] MEDS: Isosorbide Mononitrate 30 MG TABCR PO (08:24)
[2024-02-15] MEDS: Ranolazine 500 MG TABCR PO (08:24)
[2024-02-15] MEDS: Ascorbic Acid 500 MG TAB PO (08:24)
[2024-02-15] MEDS: Ferrous Sulfate 325 MG TAB PO (08:24)
[2024-02-15] MEDS: Omega-3 Fatty Acids 1000 MG CAP PO (08:24)
[2024-02-15] MEDS: Docusate Sodium 100 MG CAP PO ×2 (08:24→21:02)
[2024-02-15] MEDS: Polyethylene Glycol 3350 17 GM PACKET PO (08:25)
[2024-02-15] MEDS: Normal Saline Flush 10 ML SYR IVP ×4 (08:25→23:30)
[2024-02-15 08:29] LABS: Lab Add On Test DONE
[2024-02-15 08:40] LABS: Magnesium 2.6 mg/dL (1.8-2.4)
[2024-02-15] MEDS: Potassium Chloride 10 MEQ CAPCR 30 MEQ PO (08:40)
[2024-02-15] MEDS: Sacubitril/Valsartan 24 mg/26 mg TAB 1 EACH PO ×2 (08:41→21:02)
[2024-02-15] MEDS: Insulin Glargine 300 UNITS/3 ML PEN 10 UNITS SC (08:42)
[2024-02-15] MEDS: Insulin Aspart 300 UNITS/3 ML PEN SC ×3 (08:43→16:56)
--- NOTE | 2024-02-15 10:04 | PT.INIE ---
Date of service: 02/15/24 Time of Service: 09:30 PT Notes Visit Reasons: Congestive heart failure Inpatient Physical Therapy Evaluation Date: February 15, 2024 Referring Doctor: Jasbir Valentino PT Orders: PT CONSULT: Extended stay weakness Precautions: Standard Patient Profile/Admitting Diagnosis: Sandra is an 83 year old male admitted secondary to congestive heart failure. PMHX: (Updated 02/09/24 @ 20:27 by Khanh Serna MD) CHF (congestive heart failure) (Chronic) HTN (hypertension) (Chronic) CKD (chronic kidney disease) stage 3, GFR 30-59 ml/min (Chronic) Type 2 diabetes mellitus (Chronic) PAF (paroxysmal atrial fibrillation) (Chronic) Symptomatic bradycardia (Acute) Social History/Home Situation: Lives with partner and friend in a home in [facility]. He reports 14 stairs in home to get to his bedroom. 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 Current Functional Limitations: impaired ambulation and stairs, decreased activity tolerance Equipment Owned/DME:cane Subjective: Sandra notes he feels overall weak and is unsure what he can do with PT this morning. Objective: General Observation: telemetry, IV R UE, catheter Mental Status: Alert and oriented x3 Pain: Declined any pain at time of PT consult Vital Signs: Monitored via nursing ROM: Right Upper Extremity: Demonstrates WFL A R UE ROM Left Upper Extremity: Demonstrates WFL A L UE ROM Right Lower Extremity: Demonstrates WFL A R LE ROM Left Lower Extremity: Demonstrates WFL A L LE ROM Strength: Right Upper Extremity: Demonstrates good gravity resisted strength R UE Left Upper Extremity: Demonstrates good gravity resisted strength L UE Right Lower Extremity: Hip flexion 4/5, knee extension 4/5, knee flexion 4/5, DF 4/5 Left Lower Extremity: Hip flexion 4/5, knee extension 4/5, knee flexion 4/5, DF 4/5 Bed Mobility/Transfers: Supine-sit: Independent Sit-stand: CGA with cueing for proper hand placement Stand-sit: CGA with cueing for proper hand placement Bed-chair: CGA with FWW Gait: FWW, WBAT, nonantalgic, 25 ft bed to chair, chair to door, door back to chair; O2 saturation above 94% throughout Balance: Static Sitting: Good Dynamic Sitting: Good Static Standing: Good Dynamic Standing: Good 4 stage balance assessment: feet together 10 seconds, foot in instep of other foot 10 seconds, tandem 5 secconds, unilateral able to lift foot independently 3-4 seconds Special Tests: Mobility Limitations Standardized Measure [facility] AM-PAC 6 clicks Basic Mobility Inpatient Short Form: Raw Score: 20 CMS Score: 36% Informed Consent/Education: Patient instructed in purpose of PT consult and plan of care. Assessment: Patient is a 83 year old male referred to physical therapy services with the diagnosis of congestive heart failure. Patient presents with clinical signs and symptoms consistent with diagnosis, as demonstrated by the following impairment level findings: 1. decreased functional activity tolerance 2. decreased stand balance 3. decreased LE strength. Impairments are contributing to the following functional limitations: 1. AMPAC score. 2. inability to ambulate with cane independently and safely 3. Inability to ascend/descend stairs with rail independently to safely enter exit home Patient is assessed as a Moderate 12209 complexity based on the following: History:As above Examination: see above Presentation: evolving Decision Making: Moderate Goals: Goals X1 week 1. Supine-Sit independent 2. Sit-Supine independent 3. Sit-Stand independent 4. Stand-Sit independent 5. Bed-Chair supervision with front wheeled walker 6. Chair-Bed supervision with front wheeled walker 7. Gait supervision with front wheeled walker 200 feet or greater 8. Stairs up-and-down flight of stairs unilateral railing Plan of Care/Treatment Plan: 1-2x/day, 7 days/week x 1 week. Plan of care has been reviewed with the [facility] [facility] providing the service under Physical Therapy direction. Initiate Physical Therapy intervention for strengthening, bed mobility, transfers, gait, stairs, balance training, use of assistive device. DISCHARGE RECOMMENDATIONS: Home with services: PT/OT TREATMENT CODE/TIME: 96248, IE, 30 minutes 9:30 am RAMON [facility] Please sign an return this page within 30 days if you agree with the above POC. Thank you! Physician Signature Date [facility] Disclaimer: This note was created using [email or web address] voice recognition software. It was reviewed for major content. However, there may be multiple small discrepancies and errors due to the voice recognition aspects of the software.
[2024-02-15] MEDS: Doxycycline Hyclate 100 MG CAP PO ×2 (10:08→23:03)
--- NOTE | 2024-02-15 13:27 | W.PM.PROGNOT ---
Date of Service Date of service: 02/15/24 Time of Service: 13:27 Assessment and Plan Assessment and plan (1) Sepsis: Status: Acute Assessment and plan: severe sepsis, but improving. etiology is Klebsiella pneumoniae UTI w/ bacteremia along w/ bibasilar pneumonia clinically he is improving, afebrile, normal WBC. Given that he has had recurrent UTI and has lower urinary obstructive symptoms, I think that he ought to have prolonged course of antibiotics treatment presuming that he probably has prostate infection. From pneumonia standpoint, he is improving, no longer dyspneic and not requiring oxygen. He remains on cefepime 2 gm IV q12h (day #5), along w/ doxycycline 100 mg PO BID(he is chronically on this for suppressive treatment) he did have a day of CTRX continue current antibiotics, will treat w/ parenteral antibiotics for another two days then switch to oral for another week for his urosepsis, treat prostate No longer having sepsis and no longer in hypoxic respiratory failure from his CHF and his pneumonia Professional time spent interviewing and examining patient, discussion of goals of care with hospital team (care management, nursing and consulting professionals) was 50 minutes. Qualifiers: Sepsis type: sepsis due to unspecified organism Sepsis acute organ dysfunction status: with acute organ dysfunction Severe sepsis acute organ dysfunction type: encephalopathy Severe sepsis shock status: without septic shock Qualified Code(s): A41.9 - Sepsis, unspecified organism; R65.20 - Severe sepsis without septic shock; G93.41 - Metabolic encephalopathy (2) PSVT (paroxysmal supraventricular tachycardia): Status: Acute Assessment and plan: PSVT vs atrial flutter;patient has had no further arrhythmias, remains in NSR avoid metoprolol (went into pulmonary edema while on this, I dont think his LVEF can handle any beta blockade); if he has recurrent atrial dysrhythmias then I would put him on amiodarone (3) Community acquired pneumonia: Status: Acute Assessment and plan: bibasilar pneumonia; continue pulmonary toiletry; continue cefepime, vancomycin was stopped on 02/11 after negative MRSA Qualifiers: Laterality: unspecified laterality Qualified Code(s): J18.9 - Pneumonia, unspecified organism (4) Complicated UTI (urinary tract infection): Status: Acute Assessment and plan: continue as above. will leave garcia in for now (5) Elevated troponin I level: Status: Acute Assessment and plan: trooponin I peaked at 126 now down to 82. I think that this was demand ischemia. Plavix was resumed once GI bleeding had ceased but in light of new hematuria I have put this on hold. 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 He appears to be euvolemic at present and his ELVIE is improving and his respiratory status has stabilized. patient remains off dobutamine. (7) CKD (chronic kidney disease) stage 3, GFR 30-59 ml/min: Status: Chronic Assessment and plan: ELVIE in the setting of CKD. BUN is up to 61 creatinine 2.5 from his baseline creatinine of 1.8-2.0 Now improved to 56 and 1.9. Qualifiers: Chronic kidney disease stage 3 subtype: stage 3b (GFR 30-44) Qualified Code(s): N18.32 - Chronic kidney disease, stage 3b (8) Type 2 diabetes mellitus: Status: Chronic Assessment and plan: basal/bolus insulin; glucose ac 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 mellitus chcf insulin use: without shirt turner use Diabetes mellitus complication status: with kidney complications Diabetes mellitus complication detail: with chronic kidney disease Chronic kidney disease stage: stage 3 (moderate) Chronic kidney disease stage 3 subtype: stage 3b (GFR 30-44) Qualified Code(s): E11.22 - Type 2 diabetes mellitus with diabetic chronic kidney disease; N18.32 - Chronic kidney disease, stage 3b (9) HTN (hypertension): Status: Chronic Assessment and plan: Stable blood pressures. Now trial of Entresto for GDT of his cardiomyopathy Qualifiers: Hypertension type: primary hypertension Qualified Code(s): I10 - Essential (primary) hypertension (10) DVT prophylaxis: Status: Acute Assessment and plan: in light of melena, not a candidate for chemoprophylaxis; use SCD (11) Advanced care planning/counseling discussion: Status: Acute Assessment and plan: DNR/DNI per my discussions w/ him. I have discussed hospice as an option. (12) Discharge planning issues: Status: Acute Assessment and plan: patient desire is to return home. I told him that we will get P.T. to work with him. He does not want to go to SNF. Subjective Subjective Interval history since last seen: Taco is doing better from pulmonar and cardiac standpoint today. No CP or dysnea. He is not requiring any oxygen supplementation and did well w/ his walk within the ICU w/ no desaturation in his oxygen levels. However, he developed some hematuria today. This morning it was just tea colored looking, probably, garcia trauma ( I confirmed w/ nursing that during the night, the patient had tried to get out of bed and the garcia was pulled on, necessitating the night nurse to deflate, advance the catheter and reinflate the balloon and there was noted hematuria last night). However this afternoon his urine looks like dark ramirez colored Jhoan Aid. He has no suprapubic pain. Exam Narrative Exam Narrative: Brittaney is lying in bed resting after having walked around the ICU unit with his nurse. He is not requiring any supplemental oxygen and his O2 saturation is well-maintained Lungs are clear anteriorly posteriorly just some faint basilar rales no rhonchi or wheezing Heart is regular rhythm appears to be sinus Abdomen soft and nontender Garcia catheter draining dark ramirez colored urine Extremities without peripheral cyanosis or edema Objective Last Vital Signs Temp 36.4 C L 02/15/24 09:41 Pulse 79 02/15/24 11:15 Resp 19 02/15/24 11:06 BP 99/62 L 02/15/24 11:15 Pulse Ox 98 02/14/24 20:21 Laboratory Results - last 24 hr 02/14/24 02/15/24 13:07 06:03 WBC 7.04 RBC 3.19 L Hgb 10.2 L Hct 30.9 L MCV 97 H MCH 32.0 MCHC 33.0 RDW 13.8 Plt Count 208 MPV 12.1 H Immature Gran % 0.4 Neutrophils % 58.2 Lymphocytes % 17.6 Monocytes % 13.4 Eosinophils % 9.4 Basophils % 1.0 Nucleated RBC % 0.0 Absolute Neutrophils 4.10 Absolute Lymphocytes 1.24 Absolute Monocytes 0.94 H Absolute Eosinophils 0.66 Absolute Basophils 0.07 Sodium 141 Potassium 3.3 L Chloride 105 Carbon Dioxide 23.9 Anion Gap 12.1 H BUN 56 H Creatinine 1.9 H Est GFR (CKD-EPI 2020) 34.57 Glucose 148 H Calcium 9.0 Magnesium 2.6 H Total Bilirubin 0.45 AST 15 ALT 14 L Alkaline Phosphatase 84 Troponin I 67 H* Total Protein 6.4 Albumin 2.3 L Add-On Test Request DONE PAWSANTHOSH Have you Been Recently Intoxicated or Drunk Within the Last 30 days?: No Have you Ever Experienced Previous Episodes of Alcohol Withdrawal?: No Have you ever Experienced Withdrawal Seizures?: No Have you ever Experienced Delirium Tremens(DT)s?: No Have you ever undergone Alcohol Rehabilitation Treatment (i.e, inpt ot outpatient treatment programs)?: No Have you ever Experienced Blackouts?: No Have you ever Combined Alcohol with other Downers within the last 90 days?: No Have you ever Combined Alcohol with any other Substance of Abuse during the last 90 days?: No Positive Blood Alcohol level on Presentation? [PCS.BAL]: No Evidence of Increased Autonomic Activity (i.e. HR>120, tremor, sweating, agitation, nausea)?: No Result: 0 Time Spent with Patient Time Spent with Patient: 35-49 minutes Time was spent: preparing to see the patient(eg.review tests), ordering medications,tests, procedures, referring, communicating with other health college and career counselor, indepentently interpreting results, counseling the patient and care coordination
[2024-02-15 16:42] LABS: HCT 31.7 % (40.0-50.0); HGB 10.2 g/dL (13.5-17.5)
[2024-02-15] MEDS: metFORMIN C.R. 500 MG TABCR PO (16:54)
[2024-02-15] MEDS: Lidocaine 2% Jelly 6 ML SYR (18:29)
[2024-02-15] MEDS: CEFEPIME 2 GM in Normal Saline 100 ML IVPB (18:29)
[2024-02-15] MEDS: Melatonin 3 MG TAB 6 MG PO (21:01)
[2024-02-15 21:12] LABS: HCT 33.4 % (40.0-50.0); HGB 10.8 g/dL (13.5-17.5)
[2024-02-16] VITALS (21 sets, daily range): BP systolic 108–119; BP diastolic 59–82; PULSE 74–92; RESP 13–43; TEMP 36.7–36.9; O2SAT 95–99
[2024-02-16] MEDS: nitroGLYcerin 2% 1 INCH/1 GM PKT TP ×4 (01:57→19:44)
[2024-02-16] MEDS: CEFEPIME 2 GM in Normal Saline 100 ML IVPB ×2 (05:52→16:57)
[2024-02-16 06:19] LABS: Anion Gap 9.8 mmol/L (3-11); BUN 53 mg/dL (7-18); CO2 23.2 mmol/L (21.0-32.0); CREATININE 1.9 mg/dL (0.70-1.30); Calcium 8.7 mg/dL (8.5-10.1); Chloride 105 mmol/L (98-107); Estimated GFR 34.57 (mL/min/1.73m2); Glucose 161 mg/dL (74-106); Potassium 3.8 mmol/L (3.5-5.1); Sodium 138 mmol/L (136-145)
[2024-02-16 06:30] LABS: C-Reactive Protein 2.81 mg/dL (<or=0.5); NT-proBNP 6660 pg/mL (<300)
[2024-02-16] MEDS: Sennosides/Docusate Sodium TAB 1 TAB PO (07:53)
[2024-02-16] MEDS: Vitamins B Comp w/C TAB 1 TAB PO (07:53)
[2024-02-16] MEDS: Ranolazine 500 MG TABCR PO (07:53)
[2024-02-16] MEDS: Tamsulosin 0.4 MG CAPCR PO (07:53)
[2024-02-16] MEDS: Pantoprazole 40 MG TABCR PO ×2 (07:53→19:44)
[2024-02-16] MEDS: Sacubitril/Valsartan 24 mg/26 mg TAB 1 EACH PO ×2 (07:53→19:44)
[2024-02-16] MEDS: Isosorbide Mononitrate 30 MG TABCR PO (07:54)
[2024-02-16] MEDS: Sucralfate 1 GM TAB PO ×4 (07:54→19:45)
[2024-02-16] MEDS: Ferrous Sulfate 325 MG TAB PO (07:54)
[2024-02-16] MEDS: Ascorbic Acid 500 MG TAB PO (07:54)
[2024-02-16] MEDS: Polyethylene Glycol 3350 17 GM PACKET PO (07:54)
[2024-02-16] MEDS: Docusate Sodium 100 MG CAP PO (07:54)
[2024-02-16] MEDS: Finasteride 5 MG TAB PO (07:54)
[2024-02-16] MEDS: Normal Saline Flush 10 ML SYR IVP ×2 (07:55→19:45)
[2024-02-16] MEDS: Insulin Glargine 300 UNITS/3 ML PEN 10 UNITS SC (08:22)
[2024-02-16] MEDS: Omega-3 Fatty Acids 1000 MG CAP PO (08:23)
[2024-02-16] MEDS: Insulin Aspart 300 UNITS/3 ML PEN SC ×3 (08:23→17:03)
--- NOTE | 2024-02-16 09:26 | CMPROGNOTE_ITS ---
Date of service: 02/16/24 Time of Service: : Care Management Progress Note Progress Note Text Progress Note Text: Taco was lying in bed when CM met with him. He was polite but not very talkative. Taco is scheduled to be discharged tomorrow. He requested that an appointment be made with his PCP. CM contacted his PCP office and was able to schedule an appointment for Friday02/18/24 at 4:30 pm with Viry Jasmine in [place]. Taco has been told but CM was unable to reach his partner David to share the information. Taco also shared that prior to coming to the hospital he had scheduled an appointment with [facility] for 02/20/24 but is not sure of the time. Taco is a bit concerned about his medications. He gets them bubble-packed through [facility] and has just received about a month's worth. He informed CM that it takes 5 days for delivery so he will need a prescription for enough medications to last for 5 days after his PCP appointment. Since he will see her on Friday about a 7 day supply should be adequate. Those prescriptions can be sent to [facility] in [facility]. Clinically, Taco has been doing much better. He was able to ambulate 3 loops on the Med-Surg unit today and was even able to climb 14 stairs. CM inquired about home health services, but Taco does not feel it would be helpful. He did state he would not refuse if it was strongly recommended. Discharge Potential Discharge Needs: PCP F/U Appt and Other (possibly hospice) Anticipated Barriers to Discharge: Medical Status Patient/Family Education Needs: Review discharge instructions, discuss Ask Me Three Transportation: Private vehicle Plan: Anticipate Taco will be discharged home, possibly with home health services, although he does not feel it is necessary. He will follow up with his community providers and plan of care and transport with his partner. CM will follow and continue to assess for discharge needs. CM coordinated a follow up appointment with his PCP Viry Jasmine in [place] for Friday02/18/24 at 4:40 pm. SDOH(Care Management) Screening Will the Patient Participate in the Screening?: Declined to provide Do you worry about having a steady place to live?: no In the past 12 months, have you had to go without electric, gas, oil or water in your home?: no Have you or anyone in your house had to go without enough food to eat?: no Has lack of transportation kept you from medical appointments or from doing things needed for daily living?: no Has anyone in your support network made you feel unsafe for any reason?: no
--- NOTE | 2024-02-16 09:39 | W.UROLOGYCON ---
Date of service: 02/16/24 Time of Service: 12:35 Assessment and Plan Assessment and plan (1) Hematuria: Status: Acute (2) Complicated UTI (urinary tract infection): Status: Acute Assessment and plan: I expect the hematuria is multifactorial with a urinary tract infection, an indwelling catheter and anticoagulants. He has normal upper tract imaging. I would not recommend cystoscopy at this point but if the hematuria continues even after the urinary tract infection has cleared and the catheter has been removed, a cystoscopy might be useful. In terms of his bladder outlet obstruction, he is already on maximal medical therapy. I think it is quite reasonable to give him a voiding trial. If he is unable to void, we would need to consider surgical management. He is already had a discussion regarding a transurethral resection of the prostate with his urologist back at [facility], so he is familiar with the concept. He tells me he is really only interested in the surgical approach as a last resort. History of Present Illness History of Present Illness Chief Complaint: Hematuria Narrative: This is an 83-year-old gentleman who is currently hospitalized with congestive heart failure and a complicated urinary tract infection. He has a long history of bladder outlet obstruction and has seen the urology services both at the [facility] and at [facility]. He has had several episodes of urinary retention. He tells me the episodes generally occur when he has taken [id number] antihistamines and decongestants. Since his last episode of urinary retention, he has been on finasteride 5 mg daily and Rapaflo 8 mg daily. He was still able to void when he was admitted to the hospital during this visit. His biggest complaint on admission was shortness of breath. He did have some pain with urination, so he is not surprised that he had a urinary tract infection. He has had at least 1 previous infection, but he cannot really tell me if it was associated with the catheter or not. During the hospitalization, he developed gross hematuria while he was on anticoagulants. The hematuria improved once the anticoagulants were discontinued. He had bladder irrigation which was discontinued earlier today. There is an order to have his catheter removed later on today. His bowels are moving as of this morning. He has been ambulating today as well. In the past, there have been discussions regarding a transurethral resection of the prostate should his symptoms progress on maximal medical therapy. Review of Systems Narrative: No fevers or chills Decreased visual acuity. No dysphasia Diabetes. No thyroid dysfunction Shortness of breath. No hemoptysis No chest pain or palpitations No nausea, vomiting, hepatitis, ulcers, jaundice No seizures, strokes or peripheral neuropathy No gout PFSH All Active Problems (Updated 02/16/24 @ 09:44 by Chicho Douglas MD) Severe sepsis (Acute) Hematuria (Acute) Discharge planning issues (Acute) Elevated troponin I level (Acute) DVT prophylaxis (Acute) HFrEF (heart failure with reduced ejection fraction) (Acute) Complicated UTI (urinary tract infection) (Acute) Community acquired pneumonia (Acute) PSVT (paroxysmal supraventricular tachycardia) (Acute) Sepsis (Acute) Advanced care planning/counseling discussion (Acute) Palliative care encounter (Acute) CHF (congestive heart failure) (Chronic) HTN (hypertension) (Chronic) CKD (chronic kidney disease) stage 3, GFR 30-59 ml/min (Chronic) Type 2 diabetes mellitus (Chronic) PAF (paroxysmal atrial fibrillation) (Chronic) Symptomatic bradycardia (Acute) Social History Smoking/Tobacco Use Status: Former Tobacco Use Smoking risk assessment performed?: Yes Alcohol Intake: current Alcohol Intake frequency: 0-2 drinks per day Drug use: Never Substance use type: does not use Details: Pt quit smoking 10 years ago Housing: house Do you feel safe at home: Yes Do you feel safe in your relationship?: Yes Exam Narrative Exam Narrative: He is a very pleasant gentleman in no obvious distress His vital signs are documented elsewhere There is a Benjamin catheter in place that is draining brown-tinged urine but the urine itself is transparent with no clots or particulate matter His abdomen is soft with no peritoneal signs He is awake and alert I reviewed his abdominal/renal ultrasound that was done during this hospitalization. I see no evidence of kidney stones or hydronephrosis. He does have some additional CAT scans in our system and again no renal abnormalities are found. His admission urinalysis (02/11) showed 0 to 2 RBC/hpf His urine culture is growing Klebsiella I find no prior urine cultures on EMR search Results Last Vital Signs Temp 36.7 C 02/16/24 00:01 Pulse 80 02/16/24 04:01 Resp 35 H 02/16/24 06:00 BP 108/59 L 02/16/24 04:01 Pulse Ox 95 02/16/24 00:01 Labs 02/15/24 20:53 02/16/24 05:44 Labs: Laboratory Results - last 24 hr 02/12/24 02/15/24 02/15/24 21:45 16:34 20:53 Hgb 10.2 L 10.8 L Hct 31.7 L 33.4 L Sodium Potassium Chloride Carbon Dioxide Anion Gap BUN Creatinine Est GFR (CKD-EPI 2020) Glucose Calcium C-Reactive Protein NT-Pro-B Natriuret Pep Procalcitonin Urine Legionella Ag Negative 02/16/24 05:44 Hgb Hct Sodium 138 Potassium 3.8 Chloride 105 Carbon Dioxide 23.2 Anion Gap 9.8 BUN 53 H Creatinine 1.9 H Est GFR (CKD-EPI 2020) 34.57 Glucose 161 H Calcium 8.7 C-Reactive Protein 2.81 H NT-Pro-B Natriuret Pep 6660 H Procalcitonin 1.0 Urine Legionella Ag
--- NOTE | 2024-02-16 09:43 | PGE_ITS ---
Date of Service Date of service: 02/16/24 Time of Service: 09:43 Assessment and Plan Assessment and plan (1) Severe sepsis: Status: Acute Assessment and plan: -developed severe sepsis during admission with temp 101.0oF, WBC 17.81, troponin of 62 (peaked at 126 and has since decreased), ELVIE on CKD with Cr 2.5 (baseline ~2), and source of infection being combination of CAP and klebsiella UTI and bacteremia -severe sepsis pathology has since resolved -has been on cefepime (now day #6), will transition to PO on 02/16 (2) PSVT (paroxysmal supraventricular tachycardia): Status: Acute Assessment and plan: -PSVT vs atrial flutter;patient has had no further arrhythmias, remains in NSR -avoid metoprolol (went into pulmonary edema while on this, I dont think his LVEF can handle any beta blockade); if he has recurrent atrial dysrhythmias then I would put him on amiodarone (3) Community acquired pneumonia: Status: Acute Assessment and plan: -as noted above Qualifiers: Laterality: unspecified laterality Qualified Code(s): J18.9 - Pneumonia, unspecified organism (4) Complicated UTI (urinary tract infection): Status: Acute Assessment and plan: -as noted above (5) Elevated troponin I level: Status: Acute Assessment and plan: -trooponin I peaked at 126 now down to 82, likely due to denamd ischemia in the setting of severe sepsis as noted above (6) HFrEF (heart failure with reduced ejection fraction): Status: Acute Assessment and plan: -severe cardiomyopathy w/ LVEF 28%. -appears to be euvolemic at present and his ELVIE is improving and his respiratory status has stabilized (7) CKD (chronic kidney disease) stage 3, GFR 30-59 ml/min: Status: Chronic Assessment and plan: -ELVIE in the setting of CKD. -BUN had been up to 61 creatinine 2.5 from his baseline creatinine of 1.8-2.0 -Now improved to 56 and 1.9. Qualifiers: Chronic kidney disease stage 3 subtype: stage 3b (GFR 30-44) Qualified Code(s): N18.32 - Chronic kidney disease, stage 3b (8) Type 2 diabetes mellitus: Status: Chronic Assessment and plan: -basal/bolus insulin; glucose ac Qualifiers: Chronic kidney disease stage: stage 3 (moderate) Chronic kidney disease stage 3 subtype: stage 3b (GFR 30-44) Diabetes mellitus complication detail: with chronic kidney disease Diabetes mellitus complication status: with kidney complications Diabetes mellitus correction insulin use: without correction use Qualified Code(s): E11.22 - Type 2 diabetes mellitus with diabetic chronic kidney disease; N18.32 - Chronic kidney disease, stage 3b (9) HTN (hypertension): Status: Chronic Assessment and plan: -Stable blood pressures. -Now trial of Entresto for GDT of his cardiomyopathy Qualifiers: Hypertension type: primary hypertension Qualified Code(s): I10 - Essential (primary) hypertension (10) DVT prophylaxis: Status: Acute Assessment and plan: -in light of melena, not a candidate for chemoprophylaxis; use SCD (11) Advanced care planning/counseling discussion: Status: Acute Assessment and plan: -DNR/DNI per my discussions w/ him. I have discussed hospice as an option. (12) Discharge planning issues: Status: Acute Assessment and plan: -patient desire is to return home -f/u PT eval -He does not want to go to SNF. Subjective Subjective Interval history since last seen: Patient states that he is doing very well today but that he did not get much sleep last night. He understands the plan to monitor his urine output after discontinuing the continuous bladder irrigation and removing his garcia catheter, as well as to continue IV antibiotics for an additional day. Otherwise he has no other complaints or concerns at this time. Exam Narrative Exam Narrative: well appearing gentleman laying in bed in no acute distress, AOx4, heart RRR, lungs CTAB, abdomen soft, non-tender and non-distended Objective Last Vital Signs Temp 98.1 F 02/16/24 00:01 Pulse 80 02/16/24 04:01 Resp 35 H 02/16/24 06:00 BP 108/59 L 02/16/24 04:01 Pulse Ox 95 02/16/24 00:01 Laboratory Results - last 24 hr 02/12/24 02/15/24 02/15/24 21:45 16:34 20:53 Hgb 10.2 L 10.8 L Hct 31.7 L 33.4 L Sodium Potassium Chloride Carbon Dioxide Anion Gap BUN Creatinine Est GFR (CKD-EPI 2020) Glucose Calcium C-Reactive Protein NT-Pro-B Natriuret Pep Procalcitonin Urine Legionella Ag Negative 02/16/24 05:44 Hgb Hct Sodium 138 Potassium 3.8 Chloride 105 Carbon Dioxide 23.2 Anion Gap 9.8 BUN 53 H Creatinine 1.9 H Est GFR (CKD-EPI 2020) 34.57 Glucose 161 H Calcium 8.7 C-Reactive Protein 2.81 H NT-Pro-B Natriuret Pep 6660 H Procalcitonin 1.0 Urine Legionella Ag PAWSS Have you Been Recently Intoxicated or Drunk Within the Last 30 days?: No Have you Ever Experienced Previous Episodes of Alcohol Withdrawal?: No Have you ever Experienced Withdrawal Seizures?: No Have you ever Experienced Delirium Tremens(DT)s?: No Have you ever undergone Alcohol Rehabilitation Treatment (i.e, inpt ot outpatient treatment programs)?: No Have you ever Experienced Blackouts?: No Have you ever Combined Alcohol with other Downers within the last 90 days?: No Have you ever Combined Alcohol with any other Substance of Abuse during the last 90 days?: No Positive Blood Alcohol level on Presentation? [PCS.BAL]: No Evidence of Increased Autonomic Activity (i.e. HR>120, tremor, sweating, agitation, nausea)?: No Result: 0 Time Spent with Patient Time Spent with Patient: >50 minutes Time was spent: preparing to see the patient(eg.review tests), obtaining and/or reviewing separately otained hiistory, ordering medications,tests, procedures, referring, communicating with other health inspector health care facilities, indepentently interpreting results, counseling the patient and care coordination
[2024-02-16] MEDS: Doxycycline Hyclate 100 MG CAP PO ×2 (10:00→22:37)
[2024-02-16 12:50] LABS: HBc IgM Ab, S Negative (Negative)
--- NOTE | 2024-02-16 13:53 | PT.INTREAT ---
PT Notes Visit Reasons: Congestive heart failure Inpatient Physical Therapy Treatment Note [facility] Date: [] PRECAUTIONS:[] SUBJECTIVE: pt reports I am willing to go do the stairs and walk OBJECTIVE:supine in bed , Nurse removed garcia catheter and telemetry prior to treatment. ? PAIN: denies VITALS: pre-treatment 114/76; 84bpm ? Therapeutic Activities (01132v5): Direct one-on-one instruction in dynamic activities to improve functional performance. ? BED MOBILITY/TRANSFERS? Rolling L/R: Independent Supine-sit: Independent? Sit-supine: Independent? Sit-stand: SBA? Stand-sit:SBA ? Bed-Chair: SBA?with and without FWW ? Chair-bed: SBA with and without FWW Provided skilled cues and instruction on performance and technique throughout. Gait Training (05104z3): Direct one-on-one instruction and skilled instruction in: [] employing an assistive device [] modified weight-bearing status [X] movement sequencing [X] turning and movement with proper form [] Provided verbal cues for equipment management and technique [] Provided instruction in gait pattern [X] Patient education regarding pacing and breathing techniques to maximize activity tolerance? GAIT? Assistive Device: Trial 1: no device ? Trial 2: FWW? Weight bearing: Full Assist: CGA ? Trial 2: SBA? Distance:? 100 feet Trial 2: 200 feet ? Deviation: wide KEVIN, decreased step height , decreased desmond and stride length without FWW.; Trial 2: reciprocal pattern with increased desmond increased step height and length with FWW ? STAIRS:14 steps with 1UE on 1 rail step to pattern ascending and BUE on 1 rail descending step to pattern.? ASSESSMENT:? Pt demonstrate significant improvement in functional activity tolerance and standing balance during functional tasks. He able to complete 14 steps with 1 rail then perfrom stand rest prior to descending stairs with BUE on left rail step to pattern. Pt demonstrates increased distance of ambulation with less fatigue with use of FWW as compared to no device. He utilizes a cane at home which will be assessed next session in anticipation to discharge to home. PLAN: continue functional mobility training including stairs and gait with LRD, balance training TREATMENT CODE/TIME: [id number], [id number] DISCHARGE RECOMMENDATION: Home with PT
[2024-02-16] MEDS: metFORMIN C.R. 500 MG TABCR PO (16:57)
[2024-02-16] MEDS: Melatonin 3 MG TAB 6 MG PO (19:45)
[2024-02-17] VITALS (9 sets, daily range): BP systolic 103–127; BP diastolic 67; PULSE 46–85; RESP 14–27; TEMP 36.7–37.3; O2SAT 93–100
[2024-02-17] MEDS: nitroGLYcerin 2% 1 INCH/1 GM PKT TP ×2 (02:14→08:43)
[2024-02-17] MEDS: Normal Saline Flush 10 ML SYR IVP ×2 (02:15→08:30)
[2024-02-17] MEDS: CEFEPIME 2 GM in Normal Saline 100 ML IVPB (06:11)
[2024-02-17 06:38] LABS: HCT 33.1 % (40.0-50.0); HGB 10.9 g/dL (13.5-17.5); MCH 31.2 pg (27.0-33.0); MCHC 32.9 % (32.0-36.0); MCV 95 fL (80-95); MPV 11.4 fL (8.0-11.0); Platelet Count 235 10^3/uL (130-400); RBC 3.49 10^6/uL (4.36-5.78); RDW 13.6 % (11.8-14.1); RDW-SD 47.8 fL; WBC 9.57 10^3/uL (4.4-10.8)
[2024-02-17 06:51] LABS: Anion Gap 10.5 mmol/L (3-11); BUN 52 mg/dL (7-18); CO2 22.5 mmol/L (21.0-32.0); Calcium 8.8 mg/dL (8.5-10.1); Chloride 106 mmol/L (98-107); Estimated GFR 32.51 (mL/min/1.73m2); Glucose 152 mg/dL (74-106); Potassium 4.3 mmol/L (3.5-5.1); Sodium 139 mmol/L (136-145)
[2024-02-17] MEDS: Polyethylene Glycol 3350 17 GM PACKET PO (08:30)
[2024-02-17] MEDS: Insulin Glargine 300 UNITS/3 ML PEN 10 UNITS SC (08:39)
[2024-02-17] MEDS: Insulin Aspart 300 UNITS/3 ML PEN SC (08:39)
[2024-02-17] MEDS: Isosorbide Mononitrate 30 MG TABCR PO (08:41)
[2024-02-17] MEDS: Doxycycline Hyclate 100 MG CAP PO (08:41)
[2024-02-17] MEDS: Sacubitril/Valsartan 24 mg/26 mg TAB 1 EACH PO (08:41)
[2024-02-17] MEDS: Finasteride 5 MG TAB PO (08:42)
[2024-02-17] MEDS: Omega-3 Fatty Acids 1000 MG CAP PO (08:42)
[2024-02-17] MEDS: Docusate Sodium 100 MG CAP PO (08:42)
[2024-02-17] MEDS: Tamsulosin 0.4 MG CAPCR PO (08:42)
[2024-02-17] MEDS: Ferrous Sulfate 325 MG TAB PO (08:42)
[2024-02-17] MEDS: Pantoprazole 40 MG TABCR PO (08:42)
[2024-02-17] MEDS: Sennosides/Docusate Sodium TAB 1 TAB PO (08:42)
[2024-02-17] MEDS: Vitamins B Comp w/C TAB 1 TAB PO (08:42)
[2024-02-17] MEDS: Ascorbic Acid 500 MG TAB PO (08:42)
[2024-02-17] MEDS: Ranolazine 500 MG TABCR PO (08:42)
--- NOTE | 2024-02-17 09:07 | CMDISCH_ITS ---
Date of service: 02/17/24 Time of Service: 09:07 LACE Index Scoring Tool Questions: Length of Stay (in days): 7 - 13 Was the patient admitted via the E.D.?: Yes Comorbidities: Diabetes w/o Complication, Congestive Heart Failure and Liver or Renal Disease E.D. Visits: 1 Answers: Total Score: 14 Risk of Readmission: High Risk Care Management Discharge Plan Reason for Hospitalization: CHF Discharge Plan: Taco returned home today with no new services. was offered, but he declined. He was transported home via private vehicle by his partner. He will follow up with his PCP (02/18/24 at 4:40pm), [facility]), and his discharge plan of care. He is happy to be going home. Patient/Family Education Needs: Review discharge instructions and limitations, discussion of self care needs including ask me three. [facility] Health Related Social Needs: No Data to Display
--- NOTE | 2024-02-17 10:15 | DSE_ITS ---
Date of service: 02/17/24 Time of Service: 14:12 DS: Diagnosis Discharge Diagnosis (1) Severe sepsis: Status: Acute Asessment and Plan: -developed severe sepsis during admission with temp 101.0oF, WBC 17.81, troponin of 62 (peaked at 126 and has since decreased), ELVIE on CKD with Cr 2.5 (baseline ~2), and source of infection being combination of CAP and klebsiella UTI and bacteremia -severe sepsis pathology has since resolved -has been on cefepime for 7 days -transitioned to PO augmentin on 02/16 for additional 7 days (2) PSVT (paroxysmal supraventricular tachycardia): Status: Acute Asessment and Plan: -PSVT vs atrial flutter;patient has had no further arrhythmias, remains in NSR (3) Hematuria: Status: Acute Asessment and Plan: -in the setting of urinary cath placement and antiplatelet therapy -has since resolved (4) Complicated UTI (urinary tract infection): Status: Acute Asessment and Plan: -as noted above (5) Elevated troponin I level: Status: Acute Asessment and Plan: -troponin I peaked at 126 now down to 82, likely due to denamd ischemia in the setting of severe sepsis as noted above (6) HFrEF (heart failure with reduced ejection fraction): Status: Acute Asessment and Plan: -severe cardiomyopathy w/ LVEF 28%. -appears to be euvolemic at present and his ELVIE is improving and his respiratory status has stabilized -discontinued home amlodipine -started entresto, imdur -has cardiology follow-up this Monday 02/19 (7) Urinary retention: Status: Acute Asessment and Plan: -history of worsening BPH despite maximal medical therapy -has had discussion with his Urologist regarding possible need for TURP -had garcia cath removed on 02/15 but was retaining on the morning of 02/16 -garcia cath was placed, and patiet will have close follow-up with his Urologist Discharge Plan Disposition Patient Disposition: Home Condition: Good Discharge Details Reason For Visit: CHF Admit Date/Time: 02/09/24 20:35 Admit Provider: Khanh Serna Attending Provider: Khanh Serna Primary Care Provider: Viry Jasmine Hospital Course Hospital Course: Patient initially presented with signs and symptoms consistent with a new diagnosis of CHF which was confirmed on TTE showeing EF of 28% with sever global hypokinesis. He was treated with dobutamine for CHF exacerbation, diuresed well, and was ultimately put on GDT with entresto. However, the patient also developed severe sepsis due to a combination of CAP and Klebsiella UTI/bacteremia for which he was treated with cefepime, and will be discharged with an additional 7 days of augmentin. The patient also experienced urinary obstruction, likely worsening of his BPH in the setting of severe sepsis UTI, and failed voiding trail. He will be discharged with a garcia catheter and will have very close follow-up appointment with his Urologist. Home Meds and New Rx's Prescriptions: New isosorbide mononitrate 30 mg Tablet Extended Release 24 Hr 30 mg PO DAILY Qty: 7 0RF methocarbamol 750 mg Tablet 750 mg PO QID PRN PRNQty: 12 0RF ranolazine 500 mg Tablet Extended Release 12 Hr 500 mg PO DAILY Qty: 7 0RF sucralfate 1 gram Tablet 1 g PO 0730,1130,1630,2000 Qty: 90 0RF Entresto 24-26 mg Tablet 1 tab PO BID Qty: 14 0RF amoxicillin-pot clavulanate 875-125 mg tablet 1 tab PO BID Qty: 14 0RF Continued ascorbic acid (vitamin C) [Vitamin C] 500 mg tablet 500 mg PO DAILY Senna Plus 8.6-50 mg capsule 1 tab-cap PO BID ferrous sulfate 325 mg (65 mg iron) tablet 325 mg PO DAILY clopidogrel 75 mg tablet 75 mg PO DAILY aspirin 81 mg tablet,chewable 1 tab PO DAILY silodosin [Rapaflo] 8 mg capsule 8 mg PO DAILY Patient Comments: Take 1 capsule by mouth once a day with food doxycycline hyclate 100 mg tablet 100 mg PO BID Patient Comments: TAKE 1 TABLET BY MOUTH TWICE DAILY FOR SUPRESSIVE THERAPY PreserVision AREDS-2 250-90-40-1 mg capsule 1 tab PO BID omega-3 fatty acids [Super [place]-3] 1,000 mg capsule 1,000 mg PO DAILY vitamin B complex Capsule 1 cap PO DAILY metformin 500 mg tablet extended release 24 hr 500 mg PO DAILY Patient Comments: Take 1 tablet by mouth once a day finasteride 5 mg tablet 5 mg PO DAILY Patient Comments: Take 1 tablet by mouth every night acetaminophen 500 mg capsule 1,000 mg PO Q6H PRN bisacodyl [Dulcolax (bisacodyl)] 10 mg suppository 10 mg DE DAILY PRN docusate sodium 100 mg capsule 100 mg PO BID dapagliflozin propanediol [Farxiga] 5 mg tablet 5 mg PO DAILY polyethylene glycol 3350 [ClearLax] 17 gram/dose powder 17 g PO DAILY testosterone 20.25 mg/1.25 gram (1.62 %) gel in metered-dose pump 2 pump topical DAILY Rx Instructions: apply 1 pump amount over max area of EACH upper arm and shoulder insulin glargine [Lantus Solostar U-100 Insulin] 100 unit/mL (3 mL) insulin pen 10 unit subcut DAILY Mary-Merissa 0.8 mg tablet 1 tab PO DAILY Discontinued amlodipine 10 mg tablet 10 mg PO DAILY Discharge Instructions Referrals: Viry Jasmine [Primary Care Provider] - 02/18/24 4:30 pm Activity:: Activity as Tolerated Equipment/Supplies:: No Equipment Needed Diet:: As Tolerated Discharge Orders Discharge Orders: Discharge Order (Routine); Ordered 02/17/24 Ordered By: Chicho Douglas DS: Summary Time Spent with Patient providing and/or coordinating discharge services: Greater than 30 minutes Status at Discharge Functional status at discharge: independent ambulation Overall status at discharge: patient is back to baseline Mental Status: mental status grossly normal Speech and Movement: speech and movement normal Mood: congruent mood Affect: normal affect Quality:SDOH Health Related Social Needs: No Data to Display Exam Narrative Exam Narrative: well appearing gentleman laying in bed in no acute distress, AOx4, heart RRR, jan ngs CTAB, abdomen soft, non-tender and non-distended Psych Mental Status: mental status grossly normal Speech and Movement: speech and movement normal Mood: congruent mood Affect: normal affect DS: Data Vitals/I&O Vitals and I&O: Vital Signs Temperature 99.1 F 02/17/24 08:11 Temperature Source Temporal Artery Scan 02/17/24 08:11 Pulse 85 02/17/24 08:11 Pulse Rhythm Regular 02/17/24 09:09 Pulse 85 02/17/24 02:11 Respiratory Rate 23 02/17/24 08:11 Respiratory Effort Non-Labored 02/17/24 09:09 Respiratory Depth Normal 02/17/24 09:09 Respiratory Pattern Normal 02/17/24 09:09 Blood Pressure 127/67 02/17/24 08:11 Blood Pressure Mean 82 02/17/24 02:11 Blood Pressure Position Supine 02/15/24 15:55 Pulse Oximetry 100 02/17/24 08:11 Oxygen Delivery Method Room Air 02/17/24 08:11 Oxygen Flow Rate 0 02/17/24 08:11 Fraction of Inspired Oxygen (FIO2) 35 02/13/24 00:30 Pain Level 10 02/17/24 08:11 Intake & Output 02/16/24 02/17/24 02/17/24 17:59 05:59 17:59 Intake Total 910 / 910 120 / 1030 Output Total 350 / 350 975 / 1325 485 / 485 Balance 560 / 560 -855 / -295 -485 / -485 Weight 168 lb 3.403 oz 169 lb 12.095 oz Intake: IV 110 / 110 120 / 230 Oral 800 / 800 Output: Urine 350 / 350 975 / 1325 485 / 485 Other: Urine Color Light Geetha Dark Geetha Dark Geetha Brown Brown Urine Appearance Sediment Clear Sediment Hematuria Hematuria Urine Odor Normal Normal Normal Comment small amount incontinence in bed also Stool Size Large Small Stool Characteristics Soft Soft Formed Formed Brown Voiding Methods Urinal Urinal Urinal Data Completed and Pending Labs on day of discharge: Labs from last 24 hours 02/17/24 02/12/24 06:10 06:23 WBC 9.57 RBC 3.49 L Hgb 10.9 L Hct 33.1 L MCV 95 MCH 31.2 MCHC 32.9 RDW 13.6 Plt Count 235 MPV 11.4 H Sodium 139 Potassium 4.3 Chloride 106 Carbon Dioxide 22.5 Anion Gap 10.5 BUN 52 H Creatinine 2.0 H Est GFR (CKD-EPI 2020) 32.51 Glucose 152 H Calcium 8.8 Hep B Core IgM Ab Negative PFSH All Active Problems (Updated 02/17/24 @ 14:16 by Chicho Douglas MD) Urinary retention (Acute) Severe sepsis (Acute) Hematuria (Acute) Discharge planning issues (Acute) Elevated troponin I level (Acute) DVT prophylaxis (Acute) HFrEF (heart failure with reduced ejection fraction) (Acute) Complicated UTI (urinary tract infection) (Acute) Community acquired pneumonia (Acute) PSVT (paroxysmal supraventricular tachycardia) (Acute) Sepsis (Acute) Advanced care planning/counseling discussion (Acute) Palliative care encounter (Acute) CHF (congestive heart failure) (Chronic) HTN (hypertension) (Chronic) CKD (chronic kidney disease) stage 3, GFR 30-59 ml/min (Chronic) Type 2 diabetes mellitus (Chronic) PAF (paroxysmal atrial fibrillation) (Chronic) Symptomatic bradycardia (Acute) Social History Smoking/Tobacco Use Status: Former Tobacco Use Smoking risk assessment performed?: Yes Alcohol Intake: current Alcohol Intake frequency: 0-2 drinks per day Drug use: Never Substance use type: does not use Details: Pt quit smoking 10 years ago Housing: house Do you feel safe at home: Yes Do you feel safe in your relationship?: Yes Time Spent with Patient Time Spent with Patient: <45 minutes Time was spent: preparing to see the patient(eg.review tests), obtaining and/or reviewing separately otained hiistory, ordering medications,tests, procedures, referring, communicating with other health manager home healthcare, indepentently interpreting results, counseling the patient and care coordination
[2024-02-17] MEDS: Lidocaine 2% Jelly 6 ML SYR (10:26)
[2024-02-17] MEDS: Methocarbamol 750 MG TAB PO (10:46)
[2024-02-17 14:23] LABS: Streptococcus Pneumoniae Ag, U Negative (Negative)
== END 2024-02-17 12:00 | disposition home or self-care (01) | DRG 291 ==
LOC: ER 21:42 → MS 22:13 → ICU 02-11 16:11
PROVIDERS: Family Medicine; Internal Medicine; Student in an Organized Health Care Education/Training Program; Admitting Provider General Practice; Emergency Provider Emergency Medicine; PCP Family Medicine; Visit Provider General Practice
DX: I13.0 Hypertensive heart and chronic kidney disease with heart failure and stage 1 through stage 4 chronic kidney disease, or unspecified chronic kidney disease (principal); A41.9 Sepsis, unspecified organism; I50.43 Acute on chronic combined systolic (congestive) and diastolic (congestive) heart failure; R65.20 Severe sepsis without septic shock; G93.41 Metabolic encephalopathy; J18.9 Pneumonia, unspecified organism; J96.01 Acute respiratory failure with hypoxia; I47.10 Supraventricular tachycardia, unspecified; N39.0 Urinary tract infection, site not specified; I24.89 Other forms of acute ischemic heart disease; N17.9 Acute kidney failure, unspecified; K92.1 Melena; N13.8 Other obstructive and reflux uropathy; E11.22 Type 2 diabetes mellitus with diabetic chronic kidney disease; I48.0 Paroxysmal atrial fibrillation; R33.9 Retention of urine, unspecified; R00.1 Bradycardia, unspecified; N18.32 Chronic kidney disease, stage 3b; Z79.4 Long term (current) use of insulin; Z79.84 Long term (current) use of oral hypoglycemic drugs; Z87.891 Personal history of nicotine dependence; E87.6 Hypokalemia; R25.2 Cramp and spasm; I42.0 Dilated cardiomyopathy; H54.8 Legal blindness, as defined in USA; B96.1 Klebsiella pneumoniae [K. pneumoniae] as the cause of diseases classified elsewhere; R31.0 Gross hematuria; Z66 Do not resuscitate; N40.1 Benign prostatic hyperplasia with lower urinary tract symptoms
CPT/HCPCS: 00123; 36410; 36415; 76604; 76770; 80048; 80053; 80076; 82805; 84145; 85027; 86704; 86709; 86803; 86850; 86900; 86901; 87040; 87077; 87340; 87449; 87637; 87641; 93005; 93308; 96374; 97116; 97162; 97530; 99222; 99285; 99291; 71045; 71046; 76700; 80202; 81003; 81015; 83735; 83880; 84132; 84484; 85014; 85018; 85025; 86140; 86705; 87070; 87086; 87186; 87205; 87581; 87899; 93010; 93306; 94640; 94660; 99232; 99233; 99238; 99292; J0131; J0456; J0692; J0696; J1205; J1250; J1644; J1815; J1940; J2060; J2305; J2470; J3372; J3480; J3490; J7614

== ENCOUNTER → 2024-02-16 07:43 | Outpatient (BNVA) | payer MEDICARE, OTHER, SELFPAY | PROVIDERS: PCP Family Medicine; Referring Provider Family Medicine; Visit Provider Urology ==

== ENCOUNTER 2024-02-28 08:49 | Emergency (ER) | payer MEDICARE, OTHER, SELFPAY ==
[2024-02-28] VITALS (44 sets, daily range): BP systolic 107–145; BP diastolic 68–91; PULSE 88–108; RESP 13–44; TEMP 36.6–36.7; O2SAT 97–98
--- NOTE | 2024-02-28 08:45 | RT.EKG_ITS ---
APPROVED REPORT Exam: Resting ECG Reason for Exam: sob Patient Location: E HR:104 bpm ECG Measurements Heart Rate 104 AXIS [place] 132 P 20 QRSd 148 QRS -83 QT 402 T 53 QTc 528 Conclusion Sinus tachycardia...rate> 99 Right bundle branch block...QRSd>120, terminal axis(90,270) sinus tach, RBBB unchanged from most recent
--- NOTE | 2024-02-28 08:45 | DI.RAD_ITS ---
Exam(s) XR PORTABLE CHEST AP EXAM: XR PORTABLE CHEST AP CLINICAL HISTORY: SOB TECHNIQUE: 2D digital imaging was performed of the chest. One image was obtained. An AP view was ob tained. COMPARISON: CR XR PORTABLE CHEST AP from 02/11/2024 FINDINGS: MEDIASTINUM: Normal. HEART: Normal. PULMONARY VASCULATURE: Normal. LUNGS: There is an infiltrate in the left lower lobe. Lungs appear hyperinflated suggesting underlyi ng COPD. PLEURAL SPACE: No pleural effusion or pneumothorax. BONE:Within normal limits for the patient's age. OTHER FINDINGS:Normal. IMPRESSION: Left lower lobe infiltrate which may represent atelectasis or pneumonia. DATA REPOSITORY: RADIATION DOSE DELIVERED:
--- NOTE | 2024-02-28 09:01 | ED.GENADUL_ITS ---
Discharge Plan Disposition Patient Disposition: Home Condition: Stable Discharge Details Clinical Impression: CHF (congestive heart failure), Left lower lobe pneumonia Primary Care Provider: Viry Jasmine ED Provider: Ilda Russell Home Meds and New Rx's Prescriptions: New cefpodoxime 200 mg tablet 200 mg PO BID 10 Days Qty: 20 0RF Rx Instructions: must administer with a meal/food furosemide [Lasix] 20 mg tablet 20 mg PO DAILY 20 Days Qty: 20 1RF Rx Instructions: Take 1 tablet daily in the morning Continued ascorbic acid (vitamin C) [Vitamin C] 500 mg tablet 500 mg PO DAILY Senna Plus 8.6-50 mg capsule 1 tab-cap PO BID ferrous sulfate 325 mg (65 mg iron) tablet 325 mg PO DAILY clopidogrel 75 mg tablet 75 mg PO DAILY aspirin 81 mg tablet,chewable 1 tab PO DAILY silodosin [Rapaflo] 8 mg capsule 8 mg PO DAILY Patient Comments: Take 1 capsule by mouth once a day with food doxycycline hyclate 100 mg tablet 100 mg PO BID Patient Comments: TAKE 1 TABLET BY MOUTH TWICE DAILY FOR SUPRESSIVE THERAPY PreserVision AREDS-2 250-90-40-1 mg capsule 1 tab PO BID omega-3 fatty acids [Super [place]-3] 1,000 mg capsule 1,000 mg PO DAILY vitamin B complex Capsule 1 cap PO DAILY metformin 500 mg tablet extended release 24 hr 500 mg PO DAILY Patient Comments: Take 1 tablet by mouth once a day finasteride 5 mg tablet 5 mg PO DAILY Patient Comments: Take 1 tablet by mouth every night acetaminophen 500 mg capsule 1,000 mg PO Q6H PRN bisacodyl [Dulcolax (bisacodyl)] 10 mg suppository 10 mg [place] DAILY PRN docusate sodium 100 mg capsule 100 mg PO BID dapagliflozin propanediol [Farxiga] 5 mg tablet 5 mg PO DAILY polyethylene glycol 3350 [ClearLax] 17 gram/dose powder 17 g PO DAILY testosterone 20.25 mg/1.25 gram (1.62 %) gel in metered-dose pump 2 pump topical DAILY Rx Instructions: apply 1 pump amount over max area of EACH upper arm and shoulder insulin glargine [Lantus Solostar U-100 Insulin] 100 unit/mL (3 mL) insulin pen 10 unit subcut DAILY Mary-Merissa 0.8 mg tablet 1 tab PO DAILY isosorbide mononitrate 30 mg Tablet Extended Release 24 Hr 30 mg PO DAILY Qty: 7 0RF methocarbamol 750 mg Tablet 750 mg PO QID PRN PRNQty: 12 0RF ranolazine 500 mg Tablet Extended Release 12 Hr 500 mg PO DAILY Qty: 7 0RF sucralfate 1 gram Tablet 1 g PO 0730,1130,1630,2000 Qty: 90 0RF Entresto 24-26 mg Tablet 1 tab PO BID Qty: 14 0RF Discharge Instructions Instructions: Heart failure with reduced ejection fraction, Pneumonia, Adult ED, Heart Failure ED Additional Instructions: Please keep your appointment as previously scheduled on Friday. Please take the antibiotic twice daily for the next 10 days as directed. Take with food and yogurt or a probiotic. Please take the diuretic Lasix once a day in the morning. Follow up with primary care provider in 3-5 days. Return to ED sooner if any worsening or concerns. Referrals: Viry Jasmine [Primary Care Provider] - 3 days HPI General Mode of arrival: ambulatory . Date/Time Provider Initiated Documentation: 02/28/24 08:59 . Limitations to Documentation: no limitations . Information obtained by: patient, RN notes reviewed and old records reviewed . HPI Narrative: 83 year old male presents to the ED with cc of increasing shortness of breath. He also reports midsternal chest pain. He describes this is mild. Patient was admitted and discharged approximately 10 days ago for CHF pneumonia and UTI. He reports that he did see his urologist and he self caths at home. He reports over the last couple of days his shortness of breath is increased. Reports mild productive cough. Denies any nausea vomiting diarrhea. Upon arrival he is tachypneic mildly tachycardic with a rate of 104, alert and oriented. Denies any fever or chills. No lower extremity edema noted on exam. Past medical history includes CHF, type 2 diabetes, hypertension, chronic kidney disease, PSVT, A-fib. Related Data Home Medications ?Medication ?Instructions ?Recorded ?Confirmed finasteride 5 mg tablet 5 mg PO DAILY 07/20/23 02/28/24 metformin 500 mg tablet,extended 500 mg PO DAILY 07/20/23 02/28/24 release 24 hr ascorbic acid (vitamin C) 500 mg 500 mg PO DAILY 11/03/23 02/28/24 tablet (Vitamin C) aspirin 81 mg chewable tablet 1 tab PO DAILY 11/03/23 02/28/24 clopidogrel 75 mg tablet 75 mg PO DAILY 11/03/23 02/28/24 doxycycline hyclate 100 mg tablet 100 mg PO BID 11/03/23 02/28/24 ferrous sulfate 325 mg (65 mg 325 mg PO DAILY 11/03/23 02/28/24 iron) tablet sennosides 8.6 mg-docusate sodium 1 tab-cap PO BID 11/03/23 02/28/24 50 mg capsule (Senna Plus) silodosin 8 mg capsule (Rapaflo) 8 mg PO DAILY 11/03/23 02/28/24 omega-3 fatty acids 1,000 mg 1,000 mg PO DAILY 11/04/23 02/28/24 capsule (Super [place]-3) vit C 250 mg-vit E 90 mg-zinc 40 1 tab PO BID 11/04/23 02/28/24 mg-copper 1 [id number] capsule (PreserVision AREDS-2) vitamin B complex 1 cap PO DAILY 11/04/23 02/28/24 acetaminophen 500 mg capsule 1,000 mg PO Q6H PRN 02/09/24 02/28/24 bisacodyl 10 mg rectal suppository 10 mg [place] DAILY PRN 02/09/24 02/28/24 (Dulcolax (bisacodyl)) dapagliflozin propanediol 5 mg 5 mg PO DAILY 02/09/24 02/28/24 tablet (Farxiga) docusate sodium 100 mg capsule 100 mg PO BID 02/09/24 02/28/24 insulin glargine 100 unit/mL (3 10 unit subcut DAILY 02/09/24 02/28/24 mL) subcutaneous pen (Lantus Solostar U-100 Insulin) polyethylene glycol 3350 17 17 g PO DAILY 02/09/24 02/28/24 gram/dose oral powder (ClearLax) testosterone 2 pump topical DAILY 02/09/24 02/28/24 vitamin B complex-vitamin C-folic 1 tab PO DAILY 02/12/24 02/28/24 acid 0.8 mg tablet (Mary-Merissa) isosorbide mononitrate 30 mg 30 mg PO DAILY #7 tabs 02/17/24 02/28/24 tablet,extended release 24 hr methocarbamol 750 mg tablet 750 mg PO QID PRN PRN #12 tabs 02/17/24 02/28/24 ranolazine 500 mg tablet,extended 500 mg PO DAILY #7 tabs 02/17/24 02/28/24 release,12 hr sacubitril 24 mg-valsartan 26 mg 1 tab PO BID #14 tabs 02/17/24 02/28/24 tablet (Entresto) sucralfate 1 gram tablet 1 g PO 0730,1130,1630,2000 #90 tabs 02/17/24 02/28/24 cefpodoxime 200 mg tablet 200 mg PO BID Pneumonia 10 days 02/28/24 #20 tabs furosemide 20 mg tablet (Lasix) 20 mg PO DAILY CHF 20 days #20 tabs 02/28/24 Previous Rx's ?Medication ?Instructions ?Recorded isosorbide mononitrate 30 mg 30 mg PO DAILY #7 tabs 02/17/24 tablet,extended release 24 hr methocarbamol 750 mg tablet 750 mg PO QID PRN PRN #12 tabs 02/17/24 ranolazine 500 mg tablet,extended 500 mg PO DAILY #7 tabs 02/17/24 release,12 hr sacubitril 24 mg-valsartan 26 mg 1 tab PO BID #14 tabs 02/17/24 tablet (Entresto) sucralfate 1 gram tablet 1 g PO 0730,1130,1630,2000 #90 tabs 02/17/24 cefpodoxime 200 mg tablet 200 mg PO BID Pneumonia 10 days 02/28/24 #20 tabs furosemide 20 mg tablet (Lasix) 20 mg PO DAILY CHF 20 days #20 tabs 02/28/24 Allergies Allergy/AdvReac Type Severity Reaction Status Date / Time levofloxacin AdvReac Mild Other (See Unverified 02/28/24 09:02 Comment) Statins AdvReac Mild Other (See Uncoded 02/28/24 09:02 Comment) General YNES: 2 Review of Systems All systems reviewed & are unremarkable except as noted in HPI and below Cardiovascular Cardiovascular: Reports chest pain, Denies pedal edema, Reports dyspnea and Reports dyspnea on exertion Respiratory Respiratory: Reports dyspnea and Reports dyspnea on exertion Gastrointestinal Gastrointestinal: Denies diarrhea, Denies nausea and Denies vomiting Exam Narrative Exam Narrative: Constitutional: Alert and oriented x3. Appears stated age. Normal body habitus. Head: Normocephalic, no trauma. Eyes: Pupils PERRL, Red reflex noted, EOM's intact. Eyelids symmetrical without lesions, discharge, or swelling. ENT: Bilateral TM's WNL, External ear normal to inspection, no mastoid TTP, swelling, or erythema, Nasal turbinates WNL, no nasal discharge. Normal dentition, Posterior pharynx WNL, no exudate. Chest: RRR, Normal S1, S2, distal pulses intact. Patient is tachycardic with a rate of 104, Resp: Lungs clear to auscultation bilaterally, no wheezes, rales, or rhonchi. Tachypneic. Abdomen: Soft, non-distended, Normoactive bowel sounds all 4 quads. Musculoskeletal: Normal gait, Moves all 4 extremities without difficulty. Skin: No suspicious rashes or lesions. Capillary refill less than 2 sec. Neurologic: Cranial nerves II-XII intact. Alert and oriented x 3. Motor: No deficits noted. Sensory: Intact bilaterally all 4 extremities. Hematologic/Lymphatic: No ecchymosis, no lymphadenopathy. Medical Decision Making 83 year old male presents to the ED with cc of increasing shortness of breath. He also reports midsternal chest pain. He describes this is mild. Patient was admitted and discharged approximately 10 days ago for CHF pneumonia and UTI. He reports that he did see his urologist and he self caths at home. He reports over the last couple of days his shortness of breath is increased. Reports mild productive cough. Denies any nausea vomiting diarrhea. Upon arrival he is tachypneic mildly tachycardic with a rate of 104, alert and oriented. Denies any fever or chills. No lower extremity edema noted on exam. Past medical history includes CHF, type 2 diabetes, hypertension, chronic kidney disease, PSVT, A-fib. EKG was reviewed by myself and Dr. Amairani Camarena ER attending, right bundle branch block, old EKG available for review. Cardiac workup ordered including troponin, chest x-ray fluid will consider CT chest pending labs. 1052: Hospitalist paged. CBC shows no leukocytosis, D-dimer 4003 or 62, BUN 33 creatinine 2.3 GFR 27, glucose 151 proBNP is 12,670 up from 6000 his last visit. COVID flu RSV negative. High sensitivity troponin negative. 1111: Spoke with Dr. roberts with hospitalist team, he recommends 20mg IV Lasix and treat his pneumonia. Patient road tested O2 sat maintained at 93%. Patient reports dizziness and shortness of breath which he states is at his baseline. Patient is chronically on doxycycline. Patient just finished Augmentin. Will give cefpodoxime. Patient discharged into the care of family in hemodynamically stable condition. Discussed return instructions and home care verbalized understanding. This text was generated using [employer] system, please disregard any oddities of phrase or misspellings. Medical Records Medical records reviewed: Yes I reviewed the patient's medical records. Medical records narrative: Admission and discharge summary from 02/16 Imaging Data Radiologic Study: Imaging: X-Ray Radiologist's impression: TECHNIQUE: Imaging protocol: Radiologic exam of the chest. Views: 1 view. COMPARISON: CR XR PORTABLE CHEST AP 02/11/2024 2:30 PM FINDINGS: Lungs: Left basilar airspace consolidation. Pleural spaces: Unremarkable. No pleural effusion. No pneumothorax. Heart/Mediastinum: Unremarkable. No cardiomegaly. Bones/joints: Unremarkable. IMPRESSION: Left basilar pneumonia or atelectasis. Thank you for allowing us to participate in the care of your patient. Dictated and Authenticated by: Zahira Singh MD Lab Data Lab results reviewed: Yes I reviewed the patient's lab results. Labs: Laboratory Tests Range/Units 02/28/24 09:30 WBC (4.4-10.8) 10^3/uL 10.22 RBC (4.36-5.78) 10^6/uL 3.23 L Hgb (13.5-17.5) g/dL 10.0 L Hct (40.0-50.0) % 31.5 L MCV (80-95) fL 98 H MCH (27.0-33.0) pg 31.0 MCHC (32.0-36.0) % 31.7 L RDW (11.8-14.1) % 14.5 H Plt Count (130-400) 10^3/uL 227 MPV (8.0-11.0) fL 11.9 H Immature Gran % % 0.3 Neutrophils % % 79.2 Lymphocytes % % 11.0 Monocytes % % 6.0 Eosinophils % % 2.9 Basophils % % 0.6 Nucleated RBC % (0.0-0.3) % 0.0 Absolute Neutrophils (1.2-6.7) 10^3/uL 8.10 H Absolute Lymphocytes (1.2-3.4) 10^3/uL 1.12 L Absolute Monocytes (0.1-0.8) 10^3/uL 0.61 Absolute Eosinophils (0.0-0.7) 10^3/uL 0.30 Absolute Basophils (0.0-0.2) 10^3/uL 0.06 PT (9.1-11.1) sec 11.3 H INR (0.9-1.1) 1.1 APTT (23.6-32.8) sec 27.9 D-Dimer (<500) ng/mlFEU 4362 H VBG pH (7.31-7.41) 7.42 H VBG pCO2 (41-51) mmHg 31 L VBG pO2 mmHg 59 VBG HCO3 (23-28) mmol/L 20 L VBG Total CO2 (24-29) mmol/L 19 L VBG O2 Saturation % 91 VBG Base Excess (-2-3) mmol/L -4 L Sodium (136-145) mmol/L 138 Potassium (3.5-5.1) mmol/L 4.1 Chloride (98-107) mmol/L 105 Carbon Dioxide (21.0-32.0) mmol/L 20.9 L Anion Gap (3-11) mmol/L 12.1 H BUN (7-18) mg/dL 33 H Creatinine (0.70-1.30) mg/dL 2.3 H Est GFR (CKD-EPI 2020) (mL/min/1.73m2) 27.49 Glucose (74-106) mg/dL 151 H Calcium (8.5-10.1) mg/dL 9.0 Total Bilirubin (0.2-1.0) mg/dL 0.56 AST (15-37) U/L 14 L ALT (16-63) U/L 13 L Alkaline Phosphatase (46-116) U/L 84 Troponin I High Sens (4-76) ng/L 58 NT-Pro-B Natriuret Pep (<300) pg/mL 11749 H Total Protein (6.4-8.2) g/dL 6.7 Albumin (3.4-5.0) g/dL 2.9 L COVID-19 Source Nasopharynx SARS-CoV-2 (PCR) (Negative) Negative Influenza Type A (PCR) (Negative) Negative Influenza Type B (PCR) (Negative) Negative RSV (PCR) (Negative) Negative Quality:SDOH Health Related Social Needs: No Data to Display PFSH All Active Problems (Updated 02/28/24 @ 13:15 by Ilda Russell NP) Left lower lobe pneumonia (Acute) Urinary retention (Acute) HFrEF (heart failure with reduced ejection fraction) (Acute) PSVT (paroxysmal supraventricular tachycardia) (Acute) Advanced care planning/counseling discussion (Acute) Palliative care encounter (Acute) CHF (congestive heart failure) (Chronic) HTN (hypertension) (Chronic) CKD (chronic kidney disease) stage 3, GFR 30-59 ml/min (Chronic) Type 2 diabetes mellitus (Chronic) PAF (paroxysmal atrial fibrillation) (Chronic) Symptomatic bradycardia (Acute) Social History Smoking/Tobacco Use Status: Former Tobacco Use Smoking risk assessment performed?: Yes Alcohol Intake: current Alcohol Intake frequency: 0-2 drinks per day Drug use: Never Substance use type: does not use Details: Pt quit smoking 10 years ago Housing: house Do you feel safe at home: Yes Do you feel safe in your relationship?: Yes Additional Social history: at side
[2024-02-28 09:39] LABS: BE (Venous) -4 mmol/L (-2-3); HCO3 (Venous) 20 mmol/L (23-28); O2 Sat (Venous) 91 %; TCO2 (Venous) 19 mmol/L (24-29); pCO2 (Venous) 31 mmHg (41-51); pH (Venous) 7.42 (7.31-7.41); pO2 (Venous) 59 mmHg
[2024-02-28 09:50] LABS: Abs Immature Grans 0.03 10^3/uL (0.0-0.06); Absolute Basophil Count 0.06 10^3/uL (0.0-0.2); Absolute Lymphocyte Count 1.12 10^3/uL (1.2-3.4); Absolute Monocyte Count 0.61 10^3/uL (0.1-0.8); Basophils % 0.6 %; Eosinophils % 2.9 %; HCT 31.5 % (40.0-50.0); Immature Grans % 0.3 %; MCHC 31.7 % (32.0-36.0); MCV 98 fL (80-95); MPV 11.9 fL (8.0-11.0); Neutrophils % 79.2 %; Platelet Count 227 10^3/uL (130-400); RBC 3.23 10^6/uL (4.36-5.78); RDW 14.5 % (11.8-14.1); WBC 10.22 10^3/uL (4.4-10.8)
[2024-02-28 09:57] LABS: INR 1.1 (0.9-1.1); PTT Activated 27.9 sec (23.6-32.8); Prothrombin Time 11.3 sec (9.1-11.1)
[2024-02-28 10:10] LABS: ALT 13 U/L (16-63); AST 14 U/L (15-37); Albumin 2.9 g/dL (3.4-5.0); Alkaline Phosphatase 84 U/L (46-116); Anion Gap 12.1 mmol/L (3-11); BUN 33 mg/dL (7-18); Bilirubin, Total 0.56 mg/dL (0.2-1.0); CO2 20.9 mmol/L (21.0-32.0); CREATININE 2.3 mg/dL (0.70-1.30); Chloride 105 mmol/L (98-107); Estimated GFR 27.49 (mL/min/1.73m2); Glucose 151 mg/dL (74-106); NT-proBNP 12670 pg/mL (<300); Potassium 4.1 mmol/L (3.5-5.1); Sodium 138 mmol/L (136-145); Total Protein 6.7 g/dL (6.4-8.2); Troponin I 58 ng/L (4-76)
[2024-02-28 10:13] LABS: D-Dimer 4362 ng/mlFEU (<500)
[2024-02-28 10:15] LABS: COVID-19 PCR Negative (Negative); Influenza A PCR Negative (Negative); Influenza B PCR Negative (Negative); RSV PCR Negative (Negative)
[2024-02-28 10:16] LABS: Source Nasopharynx
--- NOTE | 2024-02-28 10:54 | DI.VRAD_ITS ---
PROCEDURE INFORMATION: Exam: XR Chest Exam date and time: 02/28/2024 9:57 AM Age: 83 years old Clinical indication: Other: SOB TECHNIQUE: Imaging protocol: Radiologic exam of the chest. Views: 1 view. COMPARISON: CR XR PORTABLE CHEST AP 02/11/2024 2:30 PM FINDINGS: Lungs: Left basilar airspace consolidation. Pleural spaces: Unremarkable. No pleural effusion. No pneumothorax. Heart/Mediastinum: Unremarkable. No cardiomegaly. Bones/joints: Unremarkable. IMPRESSION: Left basilar pneumonia or atelectasis. Dictated and Authenticated by: Zahira Singh MD. Ordering:MILTON Gonsales MD
[2024-02-28] MEDS: DOXYCYCLINE 100 MG in Normal Saline 100 ML IVPB (11:33)
[2024-02-28] MEDS: Furosemide 20 MG/2 ML VIAL IVP (11:33)
== END 2024-02-28 14:17 | disposition home or self-care (01) ==
PROVIDERS: Emergency Provider Registered Nurse Emergency; PCP Family Medicine
DX: R07.9 Chest pain, unspecified (principal); R06.02 Shortness of breath; R42 Dizziness and giddiness; J18.9 Pneumonia, unspecified organism; I50.9 Heart failure, unspecified
CPT/HCPCS: 36415; 80053; 82805; 87637; 93005; 96365; 96366; 96375; 99284; 71045; 83880; 84484; 85025; 85379; 85610; 85730; 93010; J1941

== ENCOUNTER 2024-03-06 15:31 | Inpatient (IN) | payer MEDICARE, OTHER, SELFPAY ==
[2024-03-06] VITALS (60 sets, daily range): BP systolic 102–133; BP diastolic 52–83; PULSE 68–109; RESP 0–52; TEMP 36.4–37; O2SAT 38–99
--- NOTE | 2024-03-06 15:15 | RT.EKG_ITS ---
APPROVED REPORT Exam: Resting ECG Reason for Exam: difficulty breathing Patient Location: E HR:89 bpm ECG Measurements Heart Rate 89 AXIS WI 183 P 59 QRSd 160 QRS -95 QT 432 T 60 QTc 527 Conclusion Sinus rhythm...normal P axis, V-rate 60- 99 Right bundle branch block...QRSd>120, terminal axis(90,270)
--- NOTE | 2024-03-06 15:30 | DI.RAD_ITS ---
Exam(s) XR PORTABLE CHEST AP EXAM: XR PORTABLE CHEST AP CLINICAL HISTORY: SOB/CP TECHNIQUE: 2D digital imaging was performed. COMPARISON: No exams were available for comparison FINDINGS: Exam is limited by under penetration at the lung bases. LUNGS: Pulmonary vascular prominence. Increased interstitial markings greater at the bases, consiste nt with CHF. Airspace edema versus pneumonia at the lung bases. HEART: Mildly enlarged. AORTA: Mildly tortuous. BONES: Unremarkable for age. Soft tissues: Unremarkable. IMPRESSION: Findings consistent with CHF. Superimposed basilar pneumonia not excluded. DATA REPOSITORY: RADIATION DOSE DELIVERED:
--- NOTE | 2024-03-06 15:48 | W.ED.GENAD ---
Discharge Plan Disposition Patient Disposition: Admit to [facility] Condition: Serious Discharge Details Clinical Impression: CHF exacerbation Admit Date/Time: 03/06/24 18:13 Admit Provider: Jasbir Valentino Attending Provider: Jasbir Valentino Primary Care Provider: Viry Jasmine ED Provider: Ilda Russell General Mode of arrival: EMS. Date/Time Provider Initiated Documentation: 03/06/24 15:33. Limitations to Documentation: no limitations. Information obtained by: patient, EMS, RN notes reviewed and old records reviewed. HPI Narrative: 83-year-old male with a past medical history of end stage CHF with reduced EF of 28%, CKD, type 2 diabetes, PSVT, A-fib presents to the ED via EMS with increased shortness of breath. Patient is on doxycycline continuously. He was diagnosed with pneumonia approximately 1 week ago. Patient was seen in the ER approximately 1 week ago and was discharged home on antibiotics. And he was taking furosemide which his primary provider took him off of. He has recently been taking lorazepam and anxiolytics and buspirone. He denies any nausea vomiting diarrhea. He is tachypneic upon arrival, satting 95% on 2 L nasal cannula, he reports being unable to perform activities of daily living due to the shortness of breath. Patient was given 324 mg of aspirin by EMS prior to arrival, of note also PCP put him on buspirone. Stopped Lasix approximately 2 days ago. Related Data Home Medications ?Medication ?Instructions ?Recorded ?Confirmed finasteride 5 mg tablet 5 mg PO DAILY 07/20/23 03/06/24 metformin 500 mg tablet,extended 500 mg PO DAILY 07/20/23 03/06/24 release 24 hr ascorbic acid (vitamin C) 500 mg 500 mg PO DAILY 11/03/23 03/06/24 tablet (Vitamin C) aspirin 81 mg chewable tablet 1 tab PO DAILY 11/03/23 03/06/24 clopidogrel 75 mg tablet 75 mg PO DAILY 11/03/23 03/06/24 doxycycline hyclate 100 mg tablet 100 mg PO BID 11/03/23 03/06/24 ferrous sulfate 325 mg (65 mg 325 mg PO DAILY 11/03/23 03/06/24 iron) tablet sennosides 8.6 mg-docusate sodium 1 tab-cap PO BID 11/03/23 03/06/24 50 mg capsule (Senna Plus) silodosin 8 mg capsule (Rapaflo) 8 mg PO DAILY 11/03/23 03/06/24 omega-3 fatty acids 1,000 mg 1,000 mg PO DAILY 11/04/23 03/06/24 capsule (Super [place]-3) vit C 250 mg-vit E 90 mg-zinc 40 1 tab PO BID 11/04/23 03/06/24 mg-copper 1 [id number] capsule (PreserVision AREDS-2) vitamin B complex 1 cap PO DAILY 11/04/23 03/06/24 acetaminophen 500 mg capsule 1,000 mg PO Q6H PRN 02/09/24 03/06/24 bisacodyl 10 mg rectal suppository 10 mg SD DAILY PRN 02/09/24 03/06/24 (Dulcolax (bisacodyl)) dapagliflozin propanediol 5 mg 5 mg PO DAILY 02/09/24 03/06/24 tablet (Farxiga) docusate sodium 100 mg capsule 100 mg PO BID 02/09/24 03/06/24 insulin glargine 100 unit/mL (3 10 unit subcut DAILY 02/09/24 03/06/24 mL) subcutaneous pen (Lantus Solostar U-100 Insulin) polyethylene glycol 3350 17 17 g PO DAILY 02/09/24 03/06/24 gram/dose oral powder (ClearLax) testosterone 2 pump topical DAILY 02/09/24 03/06/24 vitamin B complex-vitamin C-folic 1 tab PO DAILY 02/12/24 03/06/24 acid 0.8 mg tablet (Mary-Merissa) isosorbide mononitrate 30 mg 30 mg PO DAILY #7 tabs 02/17/24 03/06/24 tablet,extended release 24 hr methocarbamol 750 mg tablet 750 mg PO QID PRN PRN #12 tabs 02/17/24 03/06/24 ranolazine 500 mg tablet,extended 500 mg PO DAILY #7 tabs 02/17/24 03/06/24 release,12 hr sacubitril 24 mg-valsartan 26 mg 1 tab PO BID #14 tabs 02/17/24 03/06/24 tablet (Entresto) sucralfate 1 gram tablet 1 g PO 0730,1130,1630,2000 #90 tabs 02/17/24 03/06/24 cefpodoxime 200 mg tablet 200 mg PO BID Pneumonia 10 days 02/28/24 03/06/24 #20 tabs furosemide 20 mg tablet (Lasix) 20 mg PO DAILY CHF 20 days #20 tabs 02/28/24 03/06/24 buspirone 5 mg tablet mg 03/06/24 lorazepam 0.5 mg tablet mg 03/06/24 vit C 250 mg-vit E 90 mg-zinc 40 1 tab PO BID 03/06/24 03/06/24 mg-copper 1 in-[id number]-vnbcjk capsule (PreserVision AREDS-2) Previous Rx's ?Medication ?Instructions ?Recorded isosorbide mononitrate 30 mg 30 mg PO DAILY #7 tabs 02/17/24 tablet,extended release 24 hr methocarbamol 750 mg tablet 750 mg PO QID PRN PRN #12 tabs 02/17/24 ranolazine 500 mg tablet,extended 500 mg PO DAILY #7 tabs 02/17/24 release,12 hr sacubitril 24 mg-valsartan 26 mg 1 tab PO BID #14 tabs 02/17/24 tablet (Entresto) sucralfate 1 gram tablet 1 g PO 0730,1130,1630,2000 #90 tabs 02/17/24 cefpodoxime 200 mg tablet 200 mg PO BID Pneumonia 10 days 02/28/24 #20 tabs furosemide 20 mg tablet (Lasix) 20 mg PO DAILY CHF 20 days #20 tabs 02/28/24 Allergies Allergy/AdvReac Type Severity Reaction Status Date / Time levofloxacin AdvReac Mild Other (See Unverified 02/28/24 09:02 Comment) Statins AdvReac Mild Other (See Uncoded 02/28/24 09:02 Comment) General Stated Complaint: SOB YNES: 2 Review of Systems All systems reviewed & are unremarkable except as noted in HPI and below Constitutional Constitutional: Reports as per HPI, Reports lethargy and Reports weakness Cardiovascular Cardiovascular: Reports chest pain, Reports dyspnea and Reports dyspnea on exertion Respiratory Respiratory: Reports dyspnea and Reports dyspnea on exertion Genitourinary Genitourinary: Reports system reviewed and no additional complaints, except as documented (Self caths due to enlarged prostate) Neurologic Neurologic: Reports weakness Exam Narrative Exam Narrative: Constitutional: Alert and oriented x3. Appears stated age. Normal body habitus. Patient is tachypneic increased work of breathing. Head: Normocephalic, no trauma. Eyes: Pupils PERRL, Red reflex noted, EOM's intact. Eyelids symmetrical without lesions, discharge, or swelling. ENT: Bilateral TM's WNL, External ear normal to inspection, no mastoid TTP, swelling, or erythema, Nasal turbinates WNL, no nasal discharge. poor dentition, Posterior pharynx WNL, no exudate. Dry mucous membranes. Chest: RRR, Normal S1, S2, distal pulses intact. Resp: Diminished in the bases, no audible wheezing noted. Abdomen: Soft, non-distended, Normoactive bowel sounds all 4 quads. Does have some superficial contusions and ecchymosis noted to the abdominal wall. Musculoskeletal: Unable to assess gait, Moves all 4 extremities without difficulty. No pitting edema noted to bilateral lower extremities. Skin: Capillary refill less than 2 sec. Neurologic: Cranial nerves II-XII intact. Alert and oriented x 3. Motor: No deficits noted. Sensory: Intact bilaterally all 4 extremities. Hematologic/Lymphatic: No ecchymosis, no lymphadenopathy. Course Vital Signs Vital signs: Vital Signs Temperature 37.0 C 03/06/24 15:29 Pulse 94 H 03/06/24 15:29 Respiratory Rate 03/06/24 15:29 Blood Pressure 106/68 03/06/24 15:29 Pulse Oximetry 96 03/06/24 15:29 Temperature 37.0 C 03/06/24 15:29 Pulse 94 H 03/06/24 15:29 Respiratory Rate 24 03/06/24 15:29 Blood Pressure 106/68 03/06/24 15:29 Pulse Oximetry 98 03/06/24 15:35 Oxygen Delivery Method Nasal Cannula 03/06/24 15:35 Oxygen Flow Rate 1 03/06/24 15:35 Medical Decision Making 83-year-old male with a past medical history of end stage CHF with reduced EF of 28%, CKD, type 2 diabetes, PSVT, A-fib presents to the ED via EMS with increased shortness of breath. Patient is on doxycycline continuously. He was diagnosed with pneumonia approximately 1 week ago. Patient was seen in the ER approximately 1 week ago and was discharged home on antibiotics. And he was taking furosemide which his primary provider took him off of. He has recently been taking lorazepam and anxiolytics and buspirone. He denies any nausea vomiting diarrhea. He is tachypneic upon arrival, satting 95% on 2 L nasal cannula, he reports being unable to perform activities of daily living due to the shortness of breath. Patient was given 324 mg of aspirin by EMS prior to arrival, of note also PCP put him on buspirone. Stopped Lasix approximately 2 days ago. Cardiac workup ordered including CBC CMP troponin, proBNP PT PTT chest x-ray. Will give a single 0.4 NTG SL, and 40mg lasix IV. SO reports Lasix was helping prior to patient being taken off. X-ray shows progression of pneumonia to bilateral pneumonia and cardiomegaly with pulmonary vascular congestion. Patient was prescribed cefpodoxime 7 days ago. He also does take doxycycline twice daily on a regular basis. proBNP 16,000 up from 12,007 days ago, VBG shows a pCO2 of 31 pO2 62 bicarb 19 CO2 18 lactate 1.4, anion gap 12.9, BUN 47 creatinine 2.4, glucose 176, troponin is 69 which on high sensitive activity troponin anything less than 77 is considered within normal however I will order a 1 hour troponin due to it being between 4 and 76. This may just be demand ischemia from his CHF. 1700: Will page hospitalist for failed outpatient treatment, CHF exacerbation and worsening pneumonia. 1725: Spoke with Dr. Valentino, he recommends Cefepime and Azithromycin. Dr. Valentino here at [facility] for pt eval, he recommends ICU admission for CHF exacerbation. This text was generated using [employer] dictation system, please disregard any oddities of phrase or misspellings. Medical Records Medical records reviewed: Yes I reviewed the patient's medical records. Imaging Data Radiologic Study: Imaging: X-Ray Radiologist's impression: TECHNIQUE: Imaging protocol: Radiologic exam of the chest. Views: 1 view. COMPARISON: CR XR PORTABLE CHEST AP 12/30/2023 09:57 FINDINGS: Tubes, catheters and devices: EKG wires overlie the chest. Lungs: Coarse increased bilateral perihilar markings with increased interstitial markings consistent with vascular congestion. Focal areas of consolidation have progressed at the right and left lung base consistent with pneumonia. Pleural spaces: Unremarkable. No pleural effusion. No pneumothorax. Heart/Mediastinum: Cardiomegaly. Vasculature: Atherosclerotic disease. Bones/joints: Unremarkable for patient's age. IMPRESSION: 1. Cardiomegaly. Pulmonary vascular congestion. 2. Bilateral pneumonia. Lab Data Lab results reviewed: Yes I reviewed the patient's lab results. Labs: 03/06/24 16:48 Blood Blood Culture - Pending 03/06/24 16:34 Blood Blood Culture - Pending Laboratory Tests Range/Units 03/06/24 16:00 WBC (4.4-10.8) 10^3/uL 6.84 RBC (4.36-5.78) 10^6/uL 3.04 L Hgb (13.5-17.5) g/dL 9.5 L Hct (40.0-50.0) % 29.9 L MCV (80-95) fL 98 H MCH (27.0-33.0) pg 31.3 MCHC (32.0-36.0) % 31.8 L RDW (11.8-14.1) % 15.3 H Plt Count (130-400) 10^3/uL 172 MPV (8.0-11.0) fL 11.9 H Immature Gran % % 0.3 Neutrophils % % 70.9 Lymphocytes % % 14.5 Monocytes % % 9.2 Eosinophils % % 4.2 Basophils % % 0.9 Nucleated RBC % (0.0-0.3) % 0.0 Absolute Neutrophils (1.2-6.7) 10^3/uL 4.85 Absolute Lymphocytes (1.2-3.4) 10^3/uL 0.99 L Absolute Monocytes (0.1-0.8) 10^3/uL 0.63 Absolute Eosinophils (0.0-0.7) 10^3/uL 0.29 Absolute Basophils (0.0-0.2) 10^3/uL 0.06 PT (9.1-11.1) sec 11.9 H INR (0.9-1.1) 1.2 H APTT (23.6-32.8) sec 26.7 VBG pH (7.31-7.41) 7.39 VBG pCO2 (41-51) mmHg 31 L VBG pO2 mmHg 62 VBG HCO3 (23-28) mmol/L 19 L VBG Total CO2 (24-29) mmol/L 18 L VBG O2 Saturation % 91 VBG Base Excess (-2-3) mmol/L -6 L VBG Lactate (0.6-1.4) mmol/L 1.4 Sodium (136-145) mmol/L 141 Potassium (3.5-5.1) mmol/L 4.1 Chloride (98-107) mmol/L 108 H Carbon Dioxide (21.0-32.0) mmol/L 20.1 L Anion Gap (3-11) mmol/L 12.9 H BUN (7-18) mg/dL 47 H Creatinine (0.70-1.30) mg/dL 2.4 H Est GFR (CKD-EPI 2020) (mL/min/1.73m2) 26.12 Glucose (74-106) mg/dL 176 H Calcium (8.5-10.1) mg/dL 8.9 Magnesium (1.8-2.4) mg/dL 2.4 Total Bilirubin (0.2-1.0) mg/dL 0.52 AST (15-37) U/L 14 L ALT (16-63) U/L 17 Alkaline Phosphatase (46-116) U/L 92 Troponin I (<or=76) ng/L 69 NT-Pro-B Natriuret Pep (<300) pg/mL 42039 H Total Protein (6.4-8.2) g/dL 6.6 Albumin (3.4-5.0) g/dL 2.9 L Quality:SDOH Health Related Social Needs: No Data to Display PFSH All Active Problems (Updated 03/06/24 @ 19:04 by Jasbir Valentino MD) DVT prophylaxis (Acute) Chronic kidney disease, stage IV (severe) (Acute) Ischemic cardiomyopathy (Acute) Acute on chronic HFrEF (heart failure with reduced ejection fraction) (Acute) CHF exacerbation (Acute) Left lower lobe pneumonia (Acute) Urinary retention (Acute) HFrEF (heart failure with reduced ejection fraction) (Acute) PSVT (paroxysmal supraventricular tachycardia) (Acute) Advanced care planning/counseling discussion (Acute) Palliative care encounter (Acute) CHF (congestive heart failure) (Chronic) HTN (hypertension) (Chronic) Type 2 diabetes mellitus (Chronic) PAF (paroxysmal atrial fibrillation) (Chronic) Symptomatic bradycardia (Acute) Medical History (Updated 03/06/24 @ 19:04 by Jasbir Valentino MD) CKD (chronic kidney disease) stage 3, GFR 30-59 ml/min Social History Smoking/Tobacco Use Status: Former Tobacco Use Smoking risk assessment performed?: Yes Alcohol Intake: current Alcohol Intake frequency: 0-2 drinks per day Drug use: Never Substance use type: does not use Details: Pt quit smoking 10 years ago Housing: house Do you feel safe at home: Yes Do you feel safe in your relationship?: Yes Additional Social history: at side
[2024-03-06 16:08] LABS: BE (Venous) -6 mmol/L (-2-3); HCO3 (Venous) 19 mmol/L (23-28); O2 Sat (Venous) 91 %; TCO2 (Venous) 18 mmol/L (24-29); pCO2 (Venous) 31 mmHg (41-51); pH (Venous) 7.39 (7.31-7.41); pO2 (Venous) 62 mmHg
[2024-03-06 16:09] LABS: Abs Immature Grans 0.02 10^3/uL (0.0-0.06); Absolute Basophil Count 0.06 10^3/uL (0.0-0.2); Absolute Eosinophil Count 0.29 10^3/uL (0.0-0.7); Absolute Lymphocyte Count 0.99 10^3/uL (1.2-3.4); Absolute Monocyte Count 0.63 10^3/uL (0.1-0.8); Absolute Neutrophil Count 4.85 10^3/uL (1.2-6.7); Basophils % 0.9 %; Eosinophils % 4.2 %; HCT 29.9 % (40.0-50.0); HGB 9.5 g/dL (13.5-17.5); Immature Grans % 0.3 %; Lymphocytes % 14.5 %; MCH 31.3 pg (27.0-33.0); MCHC 31.8 % (32.0-36.0); MCV 98 fL (80-95); MPV 11.9 fL (8.0-11.0); Monocytes % 9.2 %; Neutrophils % 70.9 %; Platelet Count 172 10^3/uL (130-400); RBC 3.04 10^6/uL (4.36-5.78); RDW 15.3 % (11.8-14.1); RDW-SD 54.8 fL; WBC 6.84 10^3/uL (4.4-10.8)
[2024-03-06 16:25] LABS: INR 1.2 (0.9-1.1); PTT Activated 26.7 sec (23.6-32.8); Prothrombin Time 11.9 sec (9.1-11.1)
[2024-03-06 16:32] LABS: ALT 17 U/L (16-63); AST 14 U/L (15-37); Albumin 2.9 g/dL (3.4-5.0); Alkaline Phosphatase 92 U/L (46-116); Anion Gap 12.9 mmol/L (3-11); BUN 47 mg/dL (7-18); Bilirubin, Total 0.52 mg/dL (0.2-1.0); CO2 20.1 mmol/L (21.0-32.0); CREATININE 2.4 mg/dL (0.70-1.30); Calcium 8.9 mg/dL (8.5-10.1); Chloride 108 mmol/L (98-107); Estimated GFR 26.12 (mL/min/1.73m2); Glucose 176 mg/dL (74-106); Magnesium 2.4 mg/dL (1.8-2.4); NT-proBNP 16309 pg/mL (<300); Potassium 4.1 mmol/L (3.5-5.1); Sodium 141 mmol/L (136-145); Total Protein 6.6 g/dL (6.4-8.2); Troponin I 69 ng/L (<or=76)
[2024-03-06] MEDS: Furosemide 40 MG/4 ML VIAL IVP (16:32)
[2024-03-06] MEDS: nitroGLYcerin 0.4 MG TAB SL (16:32)
--- NOTE | 2024-03-06 16:32 | DI.VRAD_ITS ---
PROCEDURE INFORMATION: Exam: XR Chest Exam date and time: 03/06/2024 3:57 PM Age: 83 years old Clinical indication: Other: Sob/cp TECHNIQUE: Imaging protocol: Radiologic exam of the chest. Views: 1 view. COMPARISON: CR XR PORTABLE CHEST AP 12/30/2023 09:57 FINDINGS: Tubes, catheters and devices: EKG wires overlie the chest. Lungs: Coarse increased bilateral perihilar markings with increased interstitial markings consistent with vascular congestion. Focal areas of consolidation have progressed at the right and left lung base consistent with pneumonia. Pleural spaces: Unremarkable. No pleural effusion. No pneumothorax. Heart/Mediastinum: Cardiomegaly. Vasculature: Atherosclerotic disease. Bones/joints: Unremarkable for patient's age. IMPRESSION: 1. Cardiomegaly. Pulmonary vascular congestion. 2. Bilateral pneumonia. Dictated and Authenticated by: Mary Carmen Willingham MD. Ordering:MILTON Gonsales MD
[2024-03-06 16:42] LABS: Lactate 1.4 mmol/L (0.6-1.4)
[2024-03-06 17:20] LABS: Bilirubin Negative (Negative); Blood Negative (Negative); Clarity Cloudy (Clear); Glucose 500 mg/dL (Negative); Ketones Negative (Negative); Leukocyte Esterase Small (Negative); Nitrite Negative (Negative); Urobilinogen 0.2 mg/dL (Up to 0.2); pH 5.5 (5-8)
[2024-03-06 17:25] LABS: Troponin I 67 ng/L (<or=76)
[2024-03-06 17:31] LABS: Epithelial Cells Rare HPF (Negative); WBC 20-50 HPF (0-5)
[2024-03-06 17:32] LABS: Bacteria Few HPF (Negative); C & S Indicated? Yes; Crystals Negative HPF (Negative); Mucus Negative (Negative)
[2024-03-06 17:45] LABS: C-Reactive Protein 0.73 mg/dL (<or=0.5)
[2024-03-06 18:05] LABS: Procalcitonin < 0.1 ng/mL
--- NOTE | 2024-03-06 18:33 | W.PM.HP.N ---
Date of service: 03/06/24 Time of Service: 18:33 Assessment and Plan Assessment and plan (1) Acute on chronic HFrEF (heart failure with reduced ejection fraction): Start date: 03/06/24 Status: Acute Assessment and plan: Aggressive use of diuretics with Lasix and Diuril, CPAP, low-dose dobutamine, consider addition of nitroglycerin IV for afterload reduction. Check serial troponins and monitor his urine output and electrolytes and BUN and creatinine. Patient is currently full code however his CODE STATUS should be readdressed with him and his partner David considering that Taco's quality of life has been declining over the last several months. I do not see a need to repeat his echocardiogram we know that his LVEF is severely reduced to 28% with global hypokinesis. Critical care time spent interviewing and examining the patient, reviewing studies, discussing case with patient's nurse and consulting physicians was outside of time spent performing POCUS exam 60 minutes (2) Ischemic cardiomyopathy: Status: Acute Assessment and plan: Continue Imdur and Ranexa however if IV nitroglycerin as needed then the Imdur Ranexa should be put on hold. (3) Chronic kidney disease, stage IV (severe): Status: Acute Assessment and plan: Monitor urine output and renal function while aggressively diuresing. If his BUN and creatinine worsen while being aggressively diuresed then I would consider performing bedside echo to evaluate his LV and RV filling pressures as well as checking VEXUS to assess liver and renal congestion. (4) Type 2 diabetes mellitus: Status: Chronic Assessment and plan: Monitor blood sugars before meals and at bedtime cover with sliding scale and basal insulin 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 mellitus half-way insulin use: without half-way use Diabetes mellitus complication status: with kidney complications Diabetes mellitus complication detail: with chronic kidney disease Chronic kidney disease stage: stage 3 (moderate) Chronic kidney disease stage 3 subtype: stage 3b (GFR 30-44) Qualified Code(s): E11.22 - Type 2 diabetes mellitus with diabetic chronic kidney disease; N18.32 - Chronic kidney disease, stage 3b (5) HTN (hypertension): Status: Chronic Assessment and plan: Continue his Entresto and Imdur and monitor his blood pressure response to diuresis and dobutamine therapy Qualifiers: Hypertension type: primary hypertension Qualified Code(s): I10 - Essential (primary) hypertension (6) DVT prophylaxis: Status: Acute Assessment and plan: Enoxaparin 40 mg subcutaneously daily History of Present Illness History of Present Illness Chief Complaint: shortness of breath, chest pain Narrative: 83-year-old male with a history of end-stage ischemic cardiomyopathy, chronic kidney disease stage IV, PAF, PSVT, history of aortic aneurysm repair with endovascular stent, hypertension, type 2 diabetes mellitus who was recently hospitalized at [facility] from 02/09/2024 through 02/17/2024 with severe sepsis secondary to complicated urinary tract infection from Klebsiella causing bacteremia as well as a concomitant pneumonia which was aggravated by acute respiratory failure due to acute on chronic exacerbation of HFrEF. CHS was treated with aggressive diuresis along with dobutamine and nitroglycerin drip as well as BiPAP. He was put on goal-directed therapy including Entresto and Farxiga. He has had problems with BPH and chronic urinary retention and last admission required prolonged Benjamin catheter and had to be discharged with a Benjamin catheter in place. His last admission he had a troponin leak due to demand ischemia from sepsis and hypoxemia from CHF. He was recently seen in the emergency department on 02/28/2024 where he was diagnosed with a pneumonia and sent home on a 7-day course of cefpodoxime but also was felt to be in some congestive heart failure and given some IV Lasix and discharged home on oral Lasix. Couple days ago his primary care provider took him off of his diuretic for unclear reasons. Patient states that his primary care provider felt that his kidney function was worsening and that the Lasix was not helping him. He now comes in failure with increasing shortness of breath PND and orthopnea but no peripheral edema. He has had no fever or rigors or cough or sputum production. He has some intermittent chest pressure and discomfort into his back. Evaluation in the emergency department included routine chest x-ray that showed cardiomegaly and pulmonary vascular congestion and bilateral consolidations in the right and left lung bases for which the radiologist said was consistent with pneumonia. However clinically the patient has not behaved like a pneumonia and that he has had no fever rigors or leukocytosis in fact his WBCs were lowered today at 6800 compared to a week ago when it was 10,000. Furthermore his procalcitonin level is normal at less than 0.1 and his CRP is barely above normal at 0.73. So far has had 2 troponins while in the emergency department which have been negative at 69 and 67 these are high-sensitivity troponins. ECG demonstrates a right bundle branch block sinus rhythm rate of [address] elevation some nonspecific ST T T wave abnormalities in limb lead aVL and V1 and V2 essentially unchanged from his prior ECGs. Rest of his labs were remarkable for a stable anemia with a hemoglobin 9.5 g hematocrit 29% with a normal platelet count 172,000 VBG shows he is not retaining CO2 his pCO2 is 31 his pO2 is 62 and his pH is 7.39. Fluvid swab is pending at this time blood lactate level is normal at 1.4. Treatment rendered thus far included obtaining blood cultures and urine cultures he was given nitroglycerin x 1 tablet given Lasix 40 mg IV push and cefepime and azithromycin were ordered for what was presumed to be a pneumonia but has since been canceled. I presented to the emergency department to evaluate the patient myself to help determine best placement i.e. ICU versus the floor. Patient appeared to be tachypneic moderate dyspnea with short conversation he was nondiaphoretic. Patient did recognize me as his previous doctor during his prior hospitalization. Per my exam he had diffuse rales throughout with no rhonchi and his heart was regular slightly tachycardic I did not detect any pedal edema but he has JVD and HJR I performed a bedside POCUS of his lungs he has diffuse B-lines bilateral pleural effusions no consolidation no air bronchograms on his ultrasound. Based on combination of the history physical findings ultrasound findings laboratory findings I conclude that he seems to be in acute on chronic exacerbation of his end-stage cardiomyopathy and needs aggressive diuresis and probably low-dose inotrope with some dobutamine which helped turn around before. He may even benefit from some IV nitroglycerin for afterload reduction. Will try some BiPAP to help with preload reduction and my easy work of his breathing. Review of Systems All systems reviewed & are unremarkable except as noted in HPI and below Cardiovascular Cardiovascular: Reports chest pain at rest, Denies diaphoresis, Denies edema, Denies leg edema, Denies radiating jaw, neck or arm pain, Reports dyspnea, Reports dyspnea on exertion and Reports orthopnea Respiratory Respiratory: Denies chest congestion, Denies cough, Denies hemoptysis, Denies excessive phlegm production, Reports dyspnea and Reports dyspnea on exertion Gastrointestinal Gastrointestinal: Reports system reviewed and no additional complaints, except as documented Genitourinary Genitourinary: Reports nocturia and Reports urinary frequency Musculoskeletal Musculoskeletal: Reports back pain Integumentary/Breasts Skin/Breast: Reports system reviewed and no additional complaints, except as documented Neurologic Neurologic: Reports system reviewed and no additional complaints, except as documented Psychiatric Psychiatric: Reports system reviewed and no additional complaints, except as documented Endocrine Endocrine: Reports system reviewed and no additional complaints, except as documented Hematologic/Lymphatic Hematologic/Lymphatic: Reports system reviewed and no additional complaints, except as documented Allergic/Immunologic Allergic/Immunologic: Reports system reviewed and no additional complaints, except as documented PFSH All Active Problems (Updated 03/06/24 @ 19:04 by Jasbir Valentino MD) DVT prophylaxis (Acute) Chronic kidney disease, stage IV (severe) (Acute) Ischemic cardiomyopathy (Acute) Acute on chronic HFrEF (heart failure with reduced ejection fraction) (Acute) CHF exacerbation (Acute) Left lower lobe pneumonia (Acute) Urinary retention (Acute) HFrEF (heart failure with reduced ejection fraction) (Acute) PSVT (paroxysmal supraventricular tachycardia) (Acute) Advanced care planning/counseling discussion (Acute) Palliative care encounter (Acute) CHF (congestive heart failure) (Chronic) HTN (hypertension) (Chronic) Type 2 diabetes mellitus (Chronic) PAF (paroxysmal atrial fibrillation) (Chronic) Symptomatic bradycardia (Acute) Medical History (Updated 03/06/24 @ 19:04 by Jasbir Valentino MD) CKD (chronic kidney disease) stage 3, GFR 30-59 ml/min Social History Smoking/Tobacco Use Status: Former Tobacco Use Smoking risk assessment performed?: Yes Alcohol Intake: current Alcohol Intake frequency: 0-2 drinks per day Drug use: Never Substance use type: does not use Details: Pt quit smoking 10 years ago Housing: house Do you feel safe at home: Yes Do you feel safe in your relationship?: Yes Additional Social history: at side Meds Allergies and Home Medications Allergies Allergy/AdvReac Type Severity Reaction Status Date / Time levofloxacin AdvReac Mild Other (See Unverified 02/28/24 09:02 Comment) Statins AdvReac Mild Other (See Uncoded 02/28/24 09:02 Comment) Home Medications ?Medication ?Instructions ?Recorded ?Confirmed ?Type finasteride 5 mg tablet 5 mg PO DAILY 07/20/23 03/06/24 History metformin 500 mg tablet,extended 500 mg PO DAILY 07/20/23 03/06/24 History release 24 hr ascorbic acid (vitamin C) 500 mg 500 mg PO DAILY 11/03/23 03/06/24 History tablet (Vitamin C) aspirin 81 mg chewable tablet 1 tab PO DAILY 11/03/23 03/06/24 History clopidogrel 75 mg tablet 75 mg PO DAILY 11/03/23 03/06/24 History doxycycline hyclate 100 mg tablet 100 mg PO BID 11/03/23 03/06/24 History ferrous sulfate 325 mg (65 mg 325 mg PO DAILY 11/03/23 03/06/24 History iron) tablet sennosides 8.6 mg-docusate sodium 1 tab-cap PO BID 11/03/23 03/06/24 History 50 mg capsule (Senna Plus) silodosin 8 mg capsule (Rapaflo) 8 mg PO DAILY 11/03/23 03/06/24 History omega-3 fatty acids 1,000 mg 1,000 mg PO DAILY 11/04/23 03/06/24 History capsule (Super Mason-3) vit C 250 mg-vit E 90 mg-zinc 40 1 tab PO BID 11/04/23 03/06/24 History mg-copper 1 [id number] capsule (PreserVision AREDS-2) vitamin B complex 1 cap PO DAILY 11/04/23 03/06/24 History acetaminophen 500 mg capsule 1,000 mg PO Q6H PRN 02/09/24 03/06/24 History bisacodyl 10 mg rectal suppository 10 mg OK DAILY PRN 02/09/24 03/06/24 History (Dulcolax (bisacodyl)) dapagliflozin propanediol 5 mg 5 mg PO DAILY 02/09/24 03/06/24 History tablet (Farxiga) docusate sodium 100 mg capsule 100 mg PO BID 02/09/24 03/06/24 History insulin glargine 100 unit/mL (3 10 unit subcut DAILY 02/09/24 03/06/24 History mL) subcutaneous pen (Lantus Solostar U-100 Insulin) polyethylene glycol 3350 17 17 g PO DAILY 02/09/24 03/06/24 History gram/dose oral powder (ClearLax) testosterone 2 pump topical DAILY 02/09/24 03/06/24 History vitamin B complex-vitamin C-folic 1 tab PO DAILY 02/12/24 03/06/24 History acid 0.8 mg tablet (Mary-Merissa) isosorbide mononitrate 30 mg 30 mg PO DAILY #7 tabs 02/17/24 03/06/24 Rx tablet,extended release 24 hr methocarbamol 750 mg tablet 750 mg PO QID PRN PRN #12 tabs 02/17/24 03/06/24 Rx ranolazine 500 mg tablet,extended 500 mg PO DAILY #7 tabs 02/17/24 03/06/24 Rx release,12 hr sacubitril 24 mg-valsartan 26 mg 1 tab PO BID #14 tabs 02/17/24 03/06/24 Rx tablet (Entresto) sucralfate 1 gram tablet 1 g PO 0730,1130,1630,2000 #90 tabs 02/17/24 03/06/24 Rx cefpodoxime 200 mg tablet 200 mg PO BID Pneumonia 10 days 02/28/24 03/06/24 Rx #20 tabs furosemide 20 mg tablet (Lasix) 20 mg PO DAILY CHF 20 days #20 tabs 02/28/24 03/06/24 Rx buspirone 5 mg tablet mg 03/06/24 History lorazepam 0.5 mg tablet mg 03/06/24 History vit C 250 mg-vit E 90 mg-zinc 40 1 tab PO BID 03/06/24 03/06/24 History mg-copper 1 [id number] capsule (PreserVision AREDS-2) Exam Narrative Exam Narrative: MAGDIEL is lying in bed semisolid position lying on his left side which is the way he prefers to lie in bed. He is moderately tachypneic respiratory rate in the low 30s he is nondiaphoretic HEENT is remarkable for he has 10 to almost jaundiced appearance to his skin but sclera is not icteric oropharynx noninjected Neck is supple he has JVD and HJR to the angle of his jaw normal carotid pulses no bruits Lungs diffuse rales no rhonchi or wheezing Heart is regular to slightly tachycardic because of his rales and difficulty hearing any murmur Abdomen soft nondistended nontender questionable hepatomegaly on the right no splenomegaly no bruits, active bowel sounds Lower extremities no peripheral edema of his feet ankles or lower legs. Pedal pulses intact but diminished no cyanosis Neuro exam grossly intact no focal cranial nerve deficits no focal motor or sensory deficits Results Imaging Chest x-ray: report reviewed and image reviewed EKG: image reviewed Labs 03/06/24 16:00 03/06/24 16:00 Labs: Laboratory Results - last 24 hr 03/06/24 03/06/24 03/06/24 16:00 16:58 17:15 WBC 6.84 RBC 3.04 L Hgb 9.5 L Hct 29.9 L MCV 98 H MCH 31.3 MCHC 31.8 L RDW 15.3 H Plt Count 172 MPV 11.9 H Immature Gran % 0.3 Neutrophils % 70.9 Lymphocytes % 14.5 Monocytes % 9.2 Eosinophils % 4.2 Basophils % 0.9 Nucleated RBC % 0.0 Absolute Neutrophils 4.85 Absolute Lymphocytes 0.99 L Absolute Monocytes 0.63 Absolute Eosinophils 0.29 Absolute Basophils 0.06 PT 11.9 H INR 1.2 H APTT 26.7 VBG pH 7.39 VBG pCO2 31 L VBG pO2 62 VBG HCO3 19 L VBG Total CO2 18 L VBG O2 Saturation 91 VBG Base Excess -6 L VBG Lactate 1.4 Sodium 141 Potassium 4.1 Chloride 108 H Carbon Dioxide 20.1 L Anion Gap 12.9 H BUN 47 H Creatinine 2.4 H Est GFR (CKD-EPI 2020) 26.12 Glucose 176 H Calcium 8.9 Magnesium 2.4 Total Bilirubin 0.52 AST 14 L ALT 17 Alkaline Phosphatase 92 Troponin I 69 67 C-Reactive Protein 0.73 H NT-Pro-B Natriuret Pep 96201 H Total Protein 6.6 Albumin 2.9 L Procalcitonin < 0.1 Urine Color Yellow Urine Clarity Cloudy Urine pH 5.5 Ur Specific [place] 1.020 Urine Protein 30 H Urine Ketones Negative Urine Blood Negative Urine Nitrite Negative Urine Bilirubin Negative Urine Urobilinogen 0.2 Ur Leukocyte Esterase Small H Urine RBC 3-5 H Urine WBC 20-50 H Ur Epithelial Cells Rare Urine Crystals Negative Urine Bacteria Few Urine Mucus Negative Urine Other Many Yeast Ur Culture Indicated? Yes Urine Glucose 500 H Last Vital Signs Temp 36.9 C 03/06/24 16:13 Pulse 93 H 03/06/24 17:16 Resp 46 H 03/06/24 17:30 BP 130/81 03/06/24 17:16 Pulse Ox 91 L 03/06/24 17:30 Time Spent Time spent with Patient: 55-74 minutes Time was spent: preparing to see the patient(eg.review tests), obtaining and/or reviewing separately otained hiistory, ordering medications,tests, procedures, referring, communicating with other health manager long term care, indepentently interpreting results, counseling the patient and care coordination
--- NOTE | 2024-03-06 18:34 | W.POCUS ---
Pocus Exam Limited Thoracic Lung Exam DATE OF EXAM: 03/06/24 TIME OF EXAM: 17:30 PROVIDER THAT PERFORMED THE STUDY: Jasbir Valentino IS THIS A REPEAT EXAM DURING THIS ENCOUNTER: No REASON FOR EXAM: Cardiogenic Pulmonary Edema, Hypoxia and Shortness ofBreath VISUALIZED STRUCTURES: right anterior, left anterior, left lateral, right posterior, left posterior, right subcostal and left subcostal PERTINENT FINDINGS/IMPRESSION: B-lines/left side thoracis location: anterior, lateral and posterior, B-lines/right side thoracis location: anterior, lateral and posterior, Left pleural effusion (moderate to large) and Right pleural effusion (moderate) INCIDENTAL FINDINGS: bibasilar atelectasis, no consolidations, no air bronchograms
--- NOTE | 2024-03-06 19:24 | W.PCEDHO ---
Registration Status: Primary Language: Preferred Language: ED Information & Data Chief Complaint SOB 03/06/24 16:13 Chief Complaint SOB 03/06/24 15:51 Triage Note increased SOB since stopping 03/06/24 15:29 lasix a few days ago. worse today. chest pain into back of shoulder. recent pneumonia. Medical / Surgical History (Last Updated 03/06/24 @ 18:59 by Jasbir Valentino MD) CKD (chronic kidney disease) stage 3, GFR 30-59 ml/min Most Recent Vital Signs Temperature 36.9 C 03/06/24 16:13 Temperature Source Temporal Artery Scan 03/06/24 16:13 Pulse 93 H 03/06/24 17:16 Pulse 92 H 03/06/24 17:30 Respiratory Rate 46 H 03/06/24 17:30 Respiratory Effort Short of Breath, Labored, Accessory Muscle Use 03/06/24 16:13 Respiratory Depth Shallow 03/06/24 16:13 Respiratory Pattern Tachypnea 03/06/24 16:13 Blood Pressure 130/81 03/06/24 17:16 Blood Pressure Mean 94 03/06/24 17:16 Blood Pressure Position Supine 03/06/24 16:13 Pulse Oximetry 91 L 03/06/24 17:30 Respiratory End-tidal CO2 18 03/06/24 17:30 Oxygen Delivery Method Room Air 03/06/24 16:13 Oxygen Flow Rate 1 03/06/24 15:35 Allergies levofloxacin Adverse Reaction (Mild, Unverified 02/28/24 09:02) Other (See Comment) Statins Adverse Reaction (Mild, Uncoded 02/28/24 09:02) Other (See Comment) IV IV Catheter Type [Right Saline Lock Forearm] IV Catheter Gauge [Right 18 Forearm] Diagnostics 03/06/24 03/06/24 03/06/24 Range/Units 17:38 17:15 16:58 WBC (4.4-10.8) 10^3/uL RBC (4.36-5.78) 10^6/uL Hgb (13.5-17.5) g/dL Hct (40.0-50.0) % MCV (80-95) fL MCH (27.0-33.0) pg MCHC (32.0-36.0) % RDW (11.8-14.1) % Plt Count (130-400) 10^3/uL MPV (8.0-11.0) fL Immature Gran % % Neutrophils % % Lymphocytes % % Monocytes % % Eosinophils % % Basophils % % Nucleated RBC % (0.0-0.3) % Absolute Neutrophils (1.2-6.7) 10^3/uL Absolute Lymphocytes (1.2-3.4) 10^3/uL Absolute Monocytes (0.1-0.8) 10^3/uL Absolute Eosinophils (0.0-0.7) 10^3/uL Absolute Basophils (0.0-0.2) 10^3/uL PT (9.1-11.1) sec INR (0.9-1.1) APTT (23.6-32.8) sec VBG pH (7.31-7.41) VBG pCO2 (41-51) mmHg VBG pO2 mmHg VBG HCO3 (23-28) mmol/L VBG Total CO2 (24-29) mmol/L VBG O2 Saturation % VBG Base Excess (-2-3) mmol/L VBG Lactate (0.6-1.4) mmol/L Sodium (136-145) mmol/L Potassium (3.5-5.1) mmol/L Chloride (98-107) mmol/L Carbon Dioxide (21.0-32.0) mmol/L Anion Gap (3-11) mmol/L BUN (7-18) mg/dL Creatinine (0.70-1.30) mg/dL Est GFR (CKD-EPI 2020) (mL/min/1.73m2) Glucose (74-106) mg/dL Calcium (8.5-10.1) mg/dL Magnesium (1.8-2.4) mg/dL Total Bilirubin (0.2-1.0) mg/dL AST (15-37) U/L ALT (16-63) U/L Alkaline Phosphatase (46-116) U/L Troponin I 67 (<or=76) ng/L C-Reactive Protein 0.73 H (<or=0.5) mg/dL NT-Pro-B Natriuret Pep (<300) pg/mL Total Protein (6.4-8.2) g/dL Albumin (3.4-5.0) g/dL Procalcitonin < 0.1 ng/mL Urine Color Yellow (Yellow) Urine Clarity Cloudy (Clear) Urine pH 5.5 (5-8) Ur Specific [place] 1.020 (1.005-1.025) Urine Protein 30 H (Neg-Trace) mg/dL Urine Ketones Negative (Negative) mg/dL Urine Blood Negative (Negative) Urine Nitrite Negative (Negative) Urine Bilirubin Negative (Negative) Urine Urobilinogen 0.2 (Up to 0.2) mg/dL Ur Leukocyte Esterase Small H (Negative) Urine RBC 3-5 H (0-2) HPF Urine WBC 20-50 H (0-5) HPF Ur Epithelial Cells Rare (Negative) HPF Urine Crystals Negative (Negative) HPF Urine Bacteria Few (Negative) HPF Urine Mucus Negative (Negative) Urine Other Many Yeast (Negative) Ur Culture Indicated? Yes Urine Glucose 500 H (Negative) mg/dL COVID-19 Source Pending SARS-CoV-2 (PCR) Pending Influenza Type A (PCR) Pending Influenza Type B (PCR) Pending RSV (PCR) Pending 03/06/24 Range/Units 16:00 WBC 6.84 (4.4-10.8) 10^3/uL RBC 3.04 L (4.36-5.78) 10^6/uL Hgb 9.5 L (13.5-17.5) g/dL Hct 29.9 L (40.0-50.0) % MCV 98 H (80-95) fL MCH 31.3 (27.0-33.0) pg MCHC 31.8 L (32.0-36.0) % RDW 15.3 H (11.8-14.1) % Plt Count 172 (130-400) 10^3/uL MPV 11.9 H (8.0-11.0) fL Immature Gran % 0.3 % Neutrophils % 70.9 % Lymphocytes % 14.5 % Monocytes % 9.2 % Eosinophils % 4.2 % Basophils % 0.9 % Nucleated RBC % 0.0 (0.0-0.3) % Absolute Neutrophils 4.85 (1.2-6.7) 10^3/uL Absolute Lymphocytes 0.99 L (1.2-3.4) 10^3/uL Absolute Monocytes 0.63 (0.1-0.8) 10^3/uL Absolute Eosinophils 0.29 (0.0-0.7) 10^3/uL Absolute Basophils 0.06 (0.0-0.2) 10^3/uL PT 11.9 H (9.1-11.1) sec INR 1.2 H (0.9-1.1) APTT 26.7 (23.6-32.8) sec VBG pH 7.39 (7.31-7.41) VBG pCO2 31 L (41-51) mmHg VBG pO2 62 mmHg VBG HCO3 19 L (23-28) mmol/L VBG Total CO2 18 L (24-29) mmol/L VBG O2 Saturation 91 % VBG Base Excess -6 L (-2-3) mmol/L VBG Lactate 1.4 (0.6-1.4) mmol/L Sodium 141 (136-145) mmol/L Potassium 4.1 (3.5-5.1) mmol/L Chloride 108 H (98-107) mmol/L Carbon Dioxide 20.1 L (21.0-32.0) mmol/L Anion Gap 12.9 H (3-11) mmol/L BUN 47 H (7-18) mg/dL Creatinine 2.4 H (0.70-1.30) mg/dL Est GFR (CKD-EPI 2020) 26.12 (mL/min/1.73m2) Glucose 176 H (74-106) mg/dL Calcium 8.9 (8.5-10.1) mg/dL Magnesium 2.4 (1.8-2.4) mg/dL Total Bilirubin 0.52 (0.2-1.0) mg/dL AST 14 L (15-37) U/L ALT 17 (16-63) U/L Alkaline Phosphatase 92 (46-116) U/L Troponin I 69 (<or=76) ng/L C-Reactive Protein (<or=0.5) mg/dL NT-Pro-B Natriuret Pep 58220 H (<300) pg/mL Total Protein 6.6 (6.4-8.2) g/dL Albumin 2.9 L (3.4-5.0) g/dL Procalcitonin ng/mL Urine Color (Yellow) Urine Clarity (Clear) Urine pH (5-8) Ur Specific [place] (1.005-1.025) Urine Protein (Neg-Trace) mg/dL Urine Ketones (Negative) mg/dL Urine Blood (Negative) Urine Nitrite (Negative) Urine Bilirubin (Negative) Urine Urobilinogen (Up to 0.2) mg/dL Ur Leukocyte Esterase (Negative) Urine RBC (0-2) HPF Urine WBC (0-5) HPF Ur Epithelial Cells (Negative) HPF Urine Crystals (Negative) HPF Urine Bacteria (Negative) HPF Urine Mucus (Negative) Urine Other (Negative) Ur Culture Indicated? Urine Glucose (Negative) mg/dL COVID-19 Source SARS-CoV-2 (PCR) Influenza Type A (PCR) Influenza Type B (PCR) RSV (PCR) 03/06/24 17:15 Urine Culture - Pending Urine - Reflex from Ua 03/06/24 16:48 Blood Culture - Pending Blood 03/06/24 16:34 Blood Culture - Pending Blood Intake and Output - 24 Hour Total 03/06/24 15:24 thru 03/06/24 17:56 Output Total 500 Balance -500 Weight 84.4 kg Output: Urine 200 Other 300 Falls Risk Assessment History of Falls No History 03/06/24 16:13 Contributing Factors No Factors 03/06/24 16:13 Ambulatory Aids Independent 03/06/24 16:13 Tubes/Lines None 03/06/24 16:13 Gait Evaluation No gait disturbance 03/06/24 16:13 Cognition No cognitive impairment 03/06/24 16:13 Fall Total Score 0 03/06/24 16:13 Level of Risk Standard/Low Risk 03/06/24 16:13 Problems (Last Updated 03/06/24 @ 18:59 by Jasbir Valentino MD) DVT prophylaxis (Acute) Chronic kidney disease, stage IV (severe) (Acute) Ischemic cardiomyopathy (Acute) Acute on chronic HFrEF (heart failure with reduced ejection fraction) (Acute) HTN (hypertension) (Chronic) Type 2 diabetes mellitus (Chronic) v v v v v v v v v Sending and/or Receiving Nurses: Please use comment section below to note any information pertinent to the patient hand-off not included above. Information / Comments: Report received from: Marlene 03/06 1915
[2024-03-06 20:30] LABS: Troponin I 70 ng/L (<or=76)
[2024-03-06] MEDS: Normal Saline Flush 10 ML SYR IVP (21:30)
[2024-03-06] MEDS: Sacubitril/Valsartan 24 mg/26 mg TAB 1 EACH PO (21:37)
[2024-03-06] MEDS: Docusate Sodium 100 MG CAP PO (21:37)
[2024-03-06] MEDS: Enoxaparin 30 MG/0.3 ML SYR SC (21:37)
[2024-03-06] MEDS: Sucralfate 1 GM TAB PO (21:37)
[2024-03-06 22:21] LABS: COVID-19 PCR Negative (Negative); Influenza A PCR Negative (Negative); Influenza B PCR Negative (Negative); RSV PCR Negative (Negative)
[2024-03-06 22:25] LABS: Source Nasopharynx
[2024-03-07] VITALS (151 sets, daily range): BP systolic 85–128; BP diastolic 53–94; PULSE 58–102; RESP 14–47; TEMP 35.8–37; O2SAT 88–100
[2024-03-07] MEDS: LORazepam 0.5 MG TAB PO ×3 (02:40→23:03)
[2024-03-07] MEDS: Acetaminophen 500 MG TAB 1000 MG PO ×2 (03:34→20:21)
[2024-03-07] MEDS: DOBUTamine 500 MG/250 ML BAG 12.66 MG IV (04:18)
[2024-03-07] MEDS: Methocarbamol 750 MG TAB PO ×2 (04:19→17:29)
[2024-03-07 06:56] LABS: Abs Immature Grans 0.05 10^3/uL (0.0-0.06); Absolute Basophil Count 0.06 10^3/uL (0.0-0.2); Absolute Eosinophil Count 0.37 10^3/uL (0.0-0.7); Absolute Lymphocyte Count 1.37 10^3/uL (1.2-3.4); Absolute Monocyte Count 0.63 10^3/uL (0.1-0.8); Absolute Neutrophil Count 4.51 10^3/uL (1.2-6.7); Basophils % 0.9 %; Eosinophils % 5.3 %; HCT 29.6 % (40.0-50.0); HGB 9.4 g/dL (13.5-17.5); Immature Grans % 0.7 %; Lymphocytes % 19.6 %; MCH 31.2 pg (27.0-33.0); MCHC 31.8 % (32.0-36.0); MCV 98 fL (80-95); Neutrophils % 64.5 %; Platelet Count 147 10^3/uL (130-400); RBC 3.01 10^6/uL (4.36-5.78); RDW 15.3 % (11.8-14.1); RDW-SD 54.6 fL; WBC 6.99 10^3/uL (4.4-10.8)
[2024-03-07 07:20] LABS: ALT 19 U/L (16-63); AST 17 U/L (15-37); Albumin 2.7 g/dL (3.4-5.0); Alkaline Phosphatase 88 U/L (46-116); Anion Gap 12.6 mmol/L (3-11); BUN 53 mg/dL (7-18); Bilirubin, Total 0.43 mg/dL (0.2-1.0); CO2 20.4 mmol/L (21.0-32.0); CREATININE 2.5 mg/dL (0.70-1.30); Calcium 8.8 mg/dL (8.5-10.1); Chloride 109 mmol/L (98-107); Estimated GFR 24.87 (mL/min/1.73m2); Glucose 142 mg/dL (74-106); Magnesium 2.4 mg/dL (1.8-2.4); Potassium 3.5 mmol/L (3.5-5.1); Sodium 142 mmol/L (136-145)
--- NOTE | 2024-03-07 08:56 | PDOC.CMIN ---
Date of service: 03/07/24 Time of Service: 08:56 Care Management Initial Assmt Initial Assessment Reason for Hospitalization: Acute respiratory failure d/t acute on chronic HFREF Functional Status/Living Situation Patient Presentation: Sandra is tired today, he reports not sleeping well last night and struggling with nightmares. MD ordered home medication for anxiety that was not started on admission d/t reconciliation issues. Town of Residence: [facility] Resides with: Spouse (David-spouse, and a friend resides in home as well.) Significant Other/Family: Local Natural Supports: Additional friend lives within the home. Taco identifies strong support network. 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 RCT information reviewed. )) Medications Medication Management: No Issues/Barriers identified (Reports meds are bubble packed.) Advance Directives Advance Directives: Do you have an Advance Directive: N 02/28/24 08:49 AD On File at [facility]: N 02/28/24 08:49 Date Asked 03/06/24 03/06/24 15:39 AD Date Reviewed COLST On File at [facility] Yes 03/09/24 16:11 COLST Date Scanned 03/09/24 03/09/24 16:11 Comment: AD on file at [facility]: David as agent Code Status Resuscitation Status Full Code Portal Pt does not currently have a portal and education provided: Yes Insurance Coverage/Financial Issues Insurance: [facility], mutual of [place], reports having detention care insurance as well. Care Team Visit Care Team Role Provider Type Viry Jasmine Primary Care Provider NON-[facility] STAFF PHYSICIAN Ilda Russell, DEEPIKA Emergency Provider NURSE PRACTITIONER Jasbir Valentino MD Admit Provider [facility] STAFF PHYSICIAN Attending Provider Discharge Potential Discharge Needs: Imaging/labs (Bedside POCUS, Trending troponins, blood and urine cultures, cardiac monitoring, I&O, garcia placed, vitals Q1: in ICU, daily weights-patient on bedrest) and PT Evaluation Anticipated Barriers to Discharge: Medical Status Patient/Family Education Needs: Review discharge instructions, discuss Ask Me Three Transportation: Private vehicle Plan: Taco remains in the ICU, anxiety medication restarted, MD reports Taco's breathing is improving and he is diuresing well. CM following. PFSH All Active Problems (Updated 03/08/24 @ 15:52 by Tucker Lawrence) Anemia in CKD (chronic kidney disease) (Acute) Anxiety (Chronic) DVT prophylaxis (Acute) Chronic kidney disease, stage IV (severe) (Acute) Ischemic cardiomyopathy (Acute) Acute on chronic HFrEF (heart failure with reduced ejection fraction) (Acute) CHF exacerbation (Acute) Left lower lobe pneumonia (Acute) Urinary retention (Acute) HFrEF (heart failure with reduced ejection fraction) (Acute) PSVT (paroxysmal supraventricular tachycardia) (Acute) Advanced care planning/counseling discussion (Acute) Palliative care encounter (Acute) CHF (congestive heart failure) (Chronic) HTN (hypertension) (Chronic) Type 2 diabetes mellitus (Chronic) PAF (paroxysmal atrial fibrillation) (Chronic) Symptomatic bradycardia (Acute) Medical History (Updated 03/08/24 @ 15:52 by Tucker Lawrence) CKD (chronic kidney disease) stage 3, GFR 30-59 ml/min Social History Smoking/Tobacco Use Status: Former Tobacco Use Smoking risk assessment performed?: Yes Alcohol Intake: current Alcohol Intake frequency: 0-2 drinks per day Drug use: Never Substance use type: does not use Details: Pt quit smoking 10 years ago Housing: house Do you feel safe at home: Yes Do you feel safe in your relationship?: Yes Additional Social history: at side Readmission Assessment for Readmission Summary of readmission circumstances, based upon interviews: Couple days ago his primary care provider took him off of his diuretic for unclear reasons. Patient states that his primary care provider felt that his kidney function was worsening and that the Lasix was not helping him. SDOH(Care Management) Screening Will the Patient Participate in the Screening?: Yes Do you worry about having a steady place to live?: no Problems where you live: smoke detectors missing or not working, Carbon monoxide detectors missing or not working and unsafe denny/stairs In the past 12 months, have you had to go without electric, gas, oil or water in your home?: yes Have you or anyone in your house had to go without enough food to eat?: no Has lack of transportation kept you from medical appointments or from doing things needed for daily living?: no Has anyone in your support network made you feel unsafe for any reason?: no Social Determinants of Health Comments(SDOH Details): no electric due to a tree falling. states he already has assistance. Health Related Social Needs Health related social needs: inadequate housing(Z59.1) and material hardship(utilities)(Z59.87)
[2024-03-07] MEDS: Tamsulosin 0.4 MG CAPCR PO (09:35)
[2024-03-07] MEDS: Isosorbide Mononitrate 30 MG TABCR PO (09:35)
[2024-03-07] MEDS: Finasteride 5 MG TAB PO (09:35)
[2024-03-07] MEDS: Vitamins B Comp w/C TAB 1 TAB PO (09:35)
[2024-03-07] MEDS: Ranolazine 500 MG TABCR PO (09:35)
[2024-03-07] MEDS: Sucralfate 1 GM TAB PO ×4 (09:35→20:22)
[2024-03-07] MEDS: Sacubitril/Valsartan 24 mg/26 mg TAB 1 EACH PO ×2 (09:35→20:22)
[2024-03-07] MEDS: Omega-3 Fatty Acids 1000 MG CAP PO (09:35)
[2024-03-07] MEDS: Aspirin 81 MG CHEW PO (09:35)
[2024-03-07] MEDS: Clopidogrel 75 MG TAB PO (09:35)
[2024-03-07] MEDS: Docusate Sodium 100 MG CAP PO ×2 (09:35→20:21)
[2024-03-07] MEDS: Ascorbic Acid 500 MG TAB PO (09:35)
[2024-03-07] MEDS: Polyethylene Glycol 3350 17 GM PACKET PO (09:35)
[2024-03-07] MEDS: Insulin Glargine 300 UNITS/3 ML PEN 10 UNITS SC (09:36)
--- NOTE | 2024-03-07 09:58 | PGE_ITS ---
Date of Service Date of service: 03/07/24 Time of Service: 09:58 Assessment and Plan Assessment and plan (1) Acute on chronic HFrEF (heart failure with reduced ejection fraction): Start date: 03/06/24 Status: Acute Assessment and plan: continue iv lasix 40 mg iv q8h, wean dobutamine, continue goal directed therapy w/ his Farxiga, add spironolactone; he should not receive BB given his acute decompensation and in the past he has been intolerant of BB d/t worsening CHF. monitor UO and electrolytes. He had recent echo done this year and I do not expect any changes and see no value in repeating it. Serial POCUS exams of his lungs and IVC and interrogation of his hepatic and renal veins may be helpful if there is concern as to whether or not he is optimized on his volume status, but I think clinical exam seems to suffice for now. I did lung POCUS yesterday to convince the ED and for myself that this was not a pneumonia despite the radiologists interpretation of his pulmonary basilar infiltrates. Critical care time spent interviewing and examining the patient, reviewing studies, discussing case with patient's nurse and consulting physicians was 30 minutes (2) Ischemic cardiomyopathy: Status: Acute Assessment and plan: patient has not needed iv NTG, therefore continue w/ Imdur and Ranexa (3) Chronic kidney disease, stage IV (severe): Status: Acute Assessment and plan: continue to monitor renal function. there has been no acute change w/ diuretics; if there is a rise in his BUN and creatinine while on diuretics then I would perform pocus of his IVC and if this is <2.1 cm and contracts >50% w/ inspiration then this would indicated his RAP is low and diuretics should be held or decreased. further the renal and hepatic and portal veins can be insonated using PW doppler and if they are not pulsatile that his organs are not congested. (4) Type 2 diabetes mellitus: Status: Chronic Assessment and plan: Monitor blood sugars before meals and at bedtime cover with sliding scale and basal insulin; glucose levels are controlled. 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 insulin use: without terminal computer operator use Diabetes mellitus complication status: with kidney complications Diabetes mellitus complication detail: with chronic kidney disease Chronic kidney disease stage: stage 3 (moderate) Chronic kidney disease stage 3 subtype: stage 3b (GFR 30-44) Qualified Code(s): E11.22 - Type 2 diabetes mellitus with diabetic chronic kidney disease; N18.32 - Chronic kidney disease, stage 3b (5) HTN (hypertension): Status: Chronic Assessment and plan: Continue his Entresto and Imdur and monitor his blood pressure response to diuresis and dobutamine therapy Qualifiers: Hypertension type: primary hypertension Qualified Code(s): I10 - Essential (primary) hypertension (6) DVT prophylaxis: Status: Acute Assessment and plan: Enoxaparin 40 mg subcutaneously daily Subjective Subjective Interval history since last seen: Patient did not sleep well last night d/t anxiety, had night lee. He has chronic anxiety issues and takes Buspar at home but it was not re-ordered on admission as the dose was uncertain. He says that he takes buspar 5 mg bid. I will increase this to 5 mg tid and add sertraline 50 mg once daily. He can take melatonin at night rather than ativan. His breathing is much better. He seems to be diuresing. I will start to wean off the dobutamine but continue aggressive iv diuresis for today then hopefully get him back on oral diuretics tomorrow. I told Taco that the amount of diuretics is a balancing act and although he does not typically manifest his CHF exacerbation w/ pedal/leg edema but rather he gets dyspneic and has orthopnea, he needs to weigh himself daily and report any wt gains over 2 lbs in a day or over 3 lbs in a week as this may be early manifestions of his worsening acute CHF. Unfortunately w/ the degree of his cardiomyopathy the only intervention that will help correction is cardiac transplant or an LVAD and given his age, he would not be considered a candidate. Exam Narrative Exam Narrative: Taco is sitting up in bed, eating breakfast, his breathing is much better, he is not dyspneic w/ prolonged conversation Lungs: bibasilar rale, but improving, mid and upper lung casiano are now clearing Heart: RRR, (review of his rhythm shows sinus rhythm w/ 1st degree AV and BBB) Abdomen: soft, nontender Legs/feet: no edema Objective Last Vital Signs Temp 36.6 C 03/07/24 06:20 Pulse 67 03/07/24 07:01 Resp 33 H 03/07/24 07:10 BP 106/53 L 03/07/24 07:01 Pulse Ox 97 09/15/24 08:39 Laboratory Results - last 24 hr 03/06/24 03/06/24 03/06/24 16:00 16:58 17:15 WBC 6.84 RBC 3.04 L Hgb 9.5 L Hct 29.9 L MCV 98 H MCH 31.3 MCHC 31.8 L RDW 15.3 H Plt Count 172 MPV 11.9 H Immature Gran % 0.3 Neutrophils % 70.9 Lymphocytes % 14.5 Monocytes % 9.2 Eosinophils % 4.2 Basophils % 0.9 Nucleated RBC % 0.0 Absolute Neutrophils 4.85 Absolute Lymphocytes 0.99 L Absolute Monocytes 0.63 Absolute Eosinophils 0.29 Absolute Basophils 0.06 PT 11.9 H INR 1.2 H APTT 26.7 VBG pH 7.39 VBG pCO2 31 L VBG pO2 62 VBG HCO3 19 L VBG Total CO2 18 L VBG O2 Saturation 91 VBG Base Excess -6 L VBG Lactate 1.4 Sodium 141 Potassium 4.1 Chloride 108 H Carbon Dioxide 20.1 L Anion Gap 12.9 H BUN 47 H Creatinine 2.4 H Est GFR (CKD-EPI 2020) 26.12 Glucose 176 H Calcium 8.9 Magnesium 2.4 Total Bilirubin 0.52 AST 14 L ALT 17 Alkaline Phosphatase 92 Troponin I 69 67 C-Reactive Protein 0.73 H NT-Pro-B Natriuret Pep 13678 H Total Protein 6.6 Albumin 2.9 L Procalcitonin < 0.1 Urine Color Yellow Urine Clarity Cloudy Urine pH 5.5 Ur Specific [place] 1.020 Urine Protein 30 H Urine Ketones Negative Urine Blood Negative Urine Nitrite Negative Urine Bilirubin Negative Urine Urobilinogen 0.2 Ur Leukocyte Esterase Small H Urine RBC 3-5 H Urine WBC 20-50 H Ur Epithelial Cells Rare Urine Crystals Negative Urine Bacteria Few Urine Mucus Negative Urine Other Many Yeast Ur Culture Indicated? Yes Urine Glucose 500 H COVID-19 Source SARS-CoV-2 (PCR) Influenza Type A (PCR) Influenza Type B (PCR) RSV (PCR) 03/06/24 03/06/24 03/07/24 20:05 20:52 06:23 WBC 6.99 RBC 3.01 L Hgb 9.4 L Hct 29.6 L MCV 98 H MCH 31.2 MCHC 31.8 L RDW 15.3 H Plt Count 147 MPV 12.0 H Immature Gran % 0.7 Neutrophils % 64.5 Lymphocytes % 19.6 Monocytes % 9.0 Eosinophils % 5.3 Basophils % 0.9 Nucleated RBC % 0.0 Absolute Neutrophils 4.51 Absolute Lymphocytes 1.37 Absolute Monocytes 0.63 Absolute Eosinophils 0.37 Absolute Basophils 0.06 PT INR APTT VBG pH VBG pCO2 VBG pO2 VBG HCO3 VBG Total CO2 VBG O2 Saturation VBG Base Excess VBG Lactate Sodium 142 Potassium 3.5 Chloride 109 H Carbon Dioxide 20.4 L Anion Gap 12.6 H BUN 53 H Creatinine 2.5 H Est GFR (CKD-EPI 2020) 24.87 Glucose 142 H Calcium 8.8 Magnesium 2.4 Total Bilirubin 0.43 AST 17 ALT 19 Alkaline Phosphatase 88 Troponin I 70 C-Reactive Protein NT-Pro-B Natriuret Pep Total Protein 6.0 L Albumin 2.7 L Procalcitonin Urine Color Urine Clarity Urine pH Ur Specific [place] Urine Protein Urine Ketones Urine Blood Urine Nitrite Urine Bilirubin Urine Urobilinogen Ur Leukocyte Esterase Urine RBC Urine WBC Ur Epithelial Cells Urine Crystals Urine Bacteria Urine Mucus Urine Other Ur Culture Indicated? Urine Glucose COVID-19 Source Nasopharynx SARS-CoV-2 (PCR) Negative Influenza Type A (PCR) Negative Influenza Type B (PCR) Negative RSV (PCR) Negative PAWSS Have you Been Recently Intoxicated or Drunk Within the Last 30 days?: No Have you Ever Experienced Previous Episodes of Alcohol Withdrawal?: No Have you ever Experienced Withdrawal Seizures?: No Have you ever Experienced Delirium Tremens(DT)s?: No Have you ever undergone Alcohol Rehabilitation Treatment (i.e, inpt ot outpatient treatment programs)?: No Have you ever Experienced Blackouts?: No Have you ever Combined Alcohol with other Downers within the last 90 days?: No Have you ever Combined Alcohol with any other Substance of Abuse during the last 90 days?: No Positive Blood Alcohol level on Presentation? [PCS.BAL]: No Evidence of Increased Autonomic Activity (i.e. HR>120, tremor, sweating, agitation, nausea)?: No Result: 0 Time Spent with Patient Time Spent with Patient: 25-34 minutes Time was spent: preparing to see the patient(eg.review tests), ordering medications,tests, procedures, referring, communicating with other health career placement specialist (including his ICU nurseJohanna), indepentently interpreting results, counseling the patient and care coordination
[2024-03-07] MEDS: Furosemide 40 MG/4 ML VIAL IVP ×2 (11:18→17:29)
[2024-03-07] MEDS: Sertraline 50 MG TAB PO (11:19)
[2024-03-07] MEDS: Spironolactone 25 MG TAB 12.5 MG PO (11:19)
[2024-03-07] MEDS: busPIRone 5 MG TAB PO ×3 (11:19→20:21)
[2024-03-07] MEDS: Normal Saline Flush 10 ML SYR IVP ×2 (11:20→20:23)
[2024-03-07] MEDS: Ferrous Sulfate 325 MG TAB PO (11:53)
[2024-03-07] MEDS: Doxycycline Hyclate 100 MG CAP PO ×2 (13:35→17:29)
[2024-03-07 19:28] LABS: Troponin I 57 ng/L (<or=76)
[2024-03-07] MEDS: Sennosides/Docusate Sodium TAB 1 TAB PO (20:21)
[2024-03-07] MEDS: Melatonin 3 MG TAB 9 MG PO (20:22)
[2024-03-07] MEDS: Enoxaparin 30 MG/0.3 ML SYR SC (20:22)
[2024-03-08] VITALS (51 sets, daily range): BP systolic 81–122; BP diastolic 43–78; PULSE 48–98; RESP 11–47; TEMP 36.4–36.7; O2SAT 86–97
[2024-03-08] MEDS: Furosemide 40 MG/4 ML VIAL IVP ×3 (03:27→20:14)
[2024-03-08 06:28] LABS: Abs Immature Grans 0.02 10^3/uL (0.0-0.06); Absolute Basophil Count 0.06 10^3/uL (0.0-0.2); Absolute Lymphocyte Count 1.49 10^3/uL (1.2-3.4); Absolute Monocyte Count 0.77 10^3/uL (0.1-0.8); Absolute Neutrophil Count 4.43 10^3/uL (1.2-6.7); Basophils % 0.8 %; Eosinophils % 8.1 %; HCT 29.6 % (40.0-50.0); HGB 9.8 g/dL (13.5-17.5); Immature Grans % 0.3 %; Lymphocytes % 20.2 %; MCH 31.7 pg (27.0-33.0); MCHC 33.1 % (32.0-36.0); MCV 96 fL (80-95); MPV 11.9 fL (8.0-11.0); Monocytes % 10.4 %; Neutrophils % 60.2 %; Platelet Count 173 10^3/uL (130-400); RBC 3.09 10^6/uL (4.36-5.78); RDW 15.5 % (11.8-14.1); RDW-SD 52.8 fL; WBC 7.37 10^3/uL (4.4-10.8)
[2024-03-08 06:46] LABS: Anion Gap 10.1 mmol/L (3-11); BUN 52 mg/dL (7-18); CO2 24.9 mmol/L (21.0-32.0); CREATININE 2.5 mg/dL (0.70-1.30); Calcium 8.8 mg/dL (8.5-10.1); Chloride 106 mmol/L (98-107); Estimated GFR 24.87 (mL/min/1.73m2); Glucose 148 mg/dL (74-106); NT-proBNP 12493 pg/mL (<300); Potassium 3.3 mmol/L (3.5-5.1); Sodium 141 mmol/L (136-145)
[2024-03-08] MEDS: Vitamins B Comp w/C TAB 1 TAB PO (07:54)
[2024-03-08] MEDS: Sacubitril/Valsartan 24 mg/26 mg TAB 1 EACH PO ×2 (07:54→20:15)
[2024-03-08] MEDS: Ranolazine 500 MG TABCR PO (07:54)
[2024-03-08] MEDS: Isosorbide Mononitrate 30 MG TABCR PO (07:54)
[2024-03-08] MEDS: Sennosides/Docusate Sodium TAB 1 TAB PO ×2 (07:54→20:15)
[2024-03-08] MEDS: Sertraline 50 MG TAB PO (07:55)
[2024-03-08] MEDS: Aspirin 81 MG CHEW PO (07:55)
[2024-03-08] MEDS: Docusate Sodium 100 MG CAP PO (07:55)
[2024-03-08] MEDS: Spironolactone 25 MG TAB 12.5 MG PO (07:55)
[2024-03-08] MEDS: Ascorbic Acid 500 MG TAB PO (07:55)
[2024-03-08] MEDS: Finasteride 5 MG TAB PO (07:55)
[2024-03-08] MEDS: busPIRone 5 MG TAB PO ×3 (07:55→20:15)
[2024-03-08] MEDS: Sucralfate 1 GM TAB PO ×4 (07:55→20:16)
[2024-03-08] MEDS: Clopidogrel 75 MG TAB PO (07:55)
[2024-03-08] MEDS: Polyethylene Glycol 3350 17 GM PACKET PO (07:56)
[2024-03-08] MEDS: Insulin Glargine 300 UNITS/3 ML PEN 10 UNITS SC (08:01)
[2024-03-08] MEDS: Omega-3 Fatty Acids 1000 MG CAP PO (08:15)
[2024-03-08] MEDS: Normal Saline Flush 10 ML SYR IVP ×2 (08:18→20:22)
[2024-03-08] MEDS: Potassium Chloride 20 MEQ TABCR 40 MEQ PO (08:31)
--- NOTE | 2024-03-08 09:08 | CMPROGNOTE_ITS ---
Date of service: 03/08/24 Time of Service: 09:08 Care Management Progress Note Progress Note Text Progress Note Text: Taco was lying in bed when CM met with him earlier today. He looked uncomfortable, and was noted to be tacchypneic. When CM asked how he was, he gave the thumbs down. Taco was not able to speak in full sentences without becoming taxed. Taco's partner, David, was at the bedside as well. David did most of the talking, with Taco's permission, as Taco was just too tired and short of breath to talk. David stated that Taco's PCP took him off of his lasix last week, and they noticed that Taco started to become increasingly SOB with the first mis sed dose. David stated that Taco had a HH RN visit on 03/05, and the RN suggested an ER visit. Taco was in the ER the next day, and admitted. David stated that Taco has been mostly independent with his ADLs. There is a shower on the first floor that is a walk-in and has a seat. The bedroom is on the second floor, 14 steps to that floor. They are thinking about moving the bedroom to the first floor. Taco and David feel well supported by family, friends and neighbors. David stated that Taco has a palliative care appointment on 04/01. They were both pleased to hear that palliative care is planning on seeing Taco this admission. Discharge Potential Discharge Needs: PT Evaluation and PCP F/U Appt Anticipated Barriers to Discharge: Medical Status Patient/Family Education Needs: Review discharge instructions, discuss Ask Me Three Transportation: Private vehicle Plan: Anticipate that Taco will be discharged home with continued HH services for RN and PT. He will follow up with his PCP and continue per the prescribed plan of care. He will transport via private vehicle with his partner, David. SDOH(Care Management) Screening Will the Patient Participate in the Screening?: Yes Do you worry about having a steady place to live?: no Problems where you live: smoke detectors missing or not working, Carbon monoxide detectors missing or not working and unsafe denny/stairs In the past 12 months, have you had to go without electric, gas, oil or water in your home?: yes Have you or anyone in your house had to go without enough food to eat?: no Has lack of transportation kept you from medical appointments or from doing things needed for daily living?: no Has anyone in your support network made you feel unsafe for any reason?: no Social Determinants of Health Comments(SDOH Details): no electric due to a tree falling. states he already has assistance. Health Related Social Needs Health related social needs: inadequate housing(Z59.1) and material hardship(utilities)(Z59.87) Anticipated HH Services Anticipated HH Services at Discharge [facility], PT and RN.
[2024-03-08] MEDS: Doxycycline Hyclate 100 MG CAP PO ×2 (09:10→17:41)
[2024-03-08] MEDS: MORPHine 2 MG/ML SYR IVP (10:43)
[2024-03-08] MEDS: Ferrous Sulfate 325 MG TAB PO (10:44)
--- NOTE | 2024-03-08 12:29 | W.PM.PROGNOT ---
Date of Service Date of service: 03/08/24 Time of Service: 12:30 Assessment and Plan Assessment and plan (1) Acute on chronic HFrEF (heart failure with reduced ejection fraction): Start date: 03/06/24 Status: Acute Assessment and plan: Off dobutamine 03/07 continue iv lasix 40 mg iv q8h, he is down 5 L since admission continue goal directed therapy w/ his Farxiga, ARNI, and new low dose spironolactone; he should not receive BB given his acute decompensation and in the past he has been intolerant of BB d/t worsening CHF. Clarify issue with dapagliflozin (Farxiga) prior to discharge as he was not taking this as outpatient. monitor UO and electrolytes. He had recent echo done 02/10/24 and I do not expect any changes and see no value in repeating it. (2) Ischemic cardiomyopathy: Status: Acute Assessment and plan: patient has not needed iv NTG, therefore continue w/ Imdur and Ranexa. No change (3) Chronic kidney disease, stage IV (severe): Status: Acute Assessment and plan: continue to monitor renal function. there has been no acute change w/ diuretics; if there is a rise in his BUN and creatinine while on diuretics then reassess need for diuresis. (4) Type 2 diabetes mellitus: Status: Chronic Assessment and plan: Monitor blood sugars before meals and at bedtime cover with sliding scale and basal insulin; glucose levels are reasonably controlled. 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 mellitus care home insulin use: without care home use Diabetes mellitus complication status: with kidney complications Diabetes mellitus complication detail: with chronic kidney disease Chronic kidney disease stage: stage 3 (moderate) Chronic kidney disease stage 3 subtype: stage 3b (GFR 30-44) Qualified Code(s): E11.22 - Type 2 diabetes mellitus with diabetic chronic kidney disease; N18.32 - Chronic kidney disease, stage 3b (5) HTN (hypertension): Status: Chronic Assessment and plan: Continue his Entresto and Imdur and monitor Qualifiers: Hypertension type: primary hypertension Qualified Code(s): I10 - Essential (primary) hypertension (6) DVT prophylaxis: Status: Acute Assessment and plan: Enoxaparin 40 mg subcutaneously daily (7) Anxiety: Status: Chronic Assessment and plan: Developing associated with recent decline in health and CHF. On buspirone to try to limit benzodiazepine per PCP. Started on sertraline here. Also trialing morphine instead of lorazepam for dyspnea. Palliative care consulted. (8) Anemia in CKD (chronic kidney disease): Status: Acute Assessment and plan: stable. Get iron and B12 to see if he would benefit from supplumentation Subjective Subjective Patient reports: tolerating a regular diet; denies vomiting or fever Interval history since last seen: Events: Dobutamine off around 1800 03/07 Received lorazepam x 2 overnight for anxiety a/w SOB Taco feels better than when he came in, but still feels short of breath. He has episodes of more heavy breathing. He does feel anxious, lorazepam helps (PCP was giving him this). He states his PCP stopped his furosemide and gave him buspar instead before he came in (per notes he was getting low BP and fatigue with diuresis, Cr trending up). Exam Narrative Exam Narrative: Taco is sitting up in bed, eating breakfast, but with episodic tachypnea. He is still able to speak in full sentances. Lungs: Deminished breath sounds at bases bilaterallly, but no rales. No wheezes. Heart: RRR, no murmur Abdomen: soft, nontender Legs/feet: no edema Objective Last Vital Signs Temp 36.7 C 03/08/24 09:01 Pulse 77 03/08/24 09:01 Resp 20 03/08/24 09:01 BP 108/68 03/08/24 09:01 Pulse Ox 89 L 03/08/24 09:01 Laboratory Results - last 24 hr 03/07/24 03/08/24 19:00 05:30 WBC 7.37 RBC 3.09 L Hgb 9.8 L Hct 29.6 L MCV 96 H MCH 31.7 MCHC 33.1 RDW 15.5 H Plt Count 173 MPV 11.9 H Immature Gran % 0.3 Neutrophils % 60.2 Lymphocytes % 20.2 Monocytes % 10.4 Eosinophils % 8.1 Basophils % 0.8 Nucleated RBC % 0.0 Absolute Neutrophils 4.43 Absolute Lymphocytes 1.49 Absolute Monocytes 0.77 Absolute Eosinophils 0.60 Absolute Basophils 0.06 Sodium 141 Potassium 3.3 L Chloride 106 Carbon Dioxide 24.9 Anion Gap 10.1 BUN 52 H Creatinine 2.5 H Est GFR (CKD-EPI 2020) 24.87 Glucose 148 H Calcium 8.8 Troponin I 57 NT-Pro-B Natriuret Pep 16146 H PAWSS Have you Been Recently Intoxicated or Drunk Within the Last 30 days?: No Have you Ever Experienced Previous Episodes of Alcohol Withdrawal?: No Have you ever Experienced Withdrawal Seizures?: No Have you ever Experienced Delirium Tremens(DT)s?: No Have you ever undergone Alcohol Rehabilitation Treatment (i.e, inpt ot outpatient treatment programs)?: No Have you ever Experienced Blackouts?: No Have you ever Combined Alcohol with other Downers within the last 90 days?: No Have you ever Combined Alcohol with any other Substance of Abuse during the last 90 days?: No Positive Blood Alcohol level on Presentation? [PCS.BAL]: No Evidence of Increased Autonomic Activity (i.e. HR>120, tremor, sweating, agitation, nausea)?: No Result: 0 Time Spent with Patient Time Spent with Patient: >50 minutes Time was spent: preparing to see the patient(eg.review tests), obtaining and/or reviewing separately otained hiistory, ordering medications,tests, procedures, referring, communicating with other health director of critical care, indepentently interpreting results, counseling the patient and care coordination
--- NOTE | 2024-03-08 13:29 | IN_ITS ---
PT Notes Visit Reasons: Acute Resp Failure d/t Acute on Chronic HFREF Inpatient Physical Therapy Evaluation Date: 03/08/2024 Referring Doctor: Tucker Lawrence MD PT Orders: PT CONSULT: Safety Consult for D/C. general weakness a/w HFrEF, recent infection, multiple hospitalizations Precautions: Standard. Fall. Activity as tolerated. Patient Profile/Admitting Diagnosis: Sven is an 83-year-old male admitted on 03/06/2024 due to shortness of breath and increased anxiety. Patient is admitted for management of acute on chronic HFrEF, ischemic cardiomyopathy, CKD, T2DM, and hypertension. PMHX: All Active Problems (Updated 03/06/24 @ 19:04 by Jasbir Valentino MD) DVT prophylaxis (Acute) Chronic kidney disease, stage IV (severe) (Acute) Ischemic cardiomyopathy (Acute) Acute on chronic HFrEF (heart failure with reduced ejection fraction) (Acute) CHF exacerbation (Acute) Left lower lobe pneumonia (Acute) Urinary retention (Acute) HFrEF (heart failure with reduced ejection fraction) (Acute) PSVT (paroxysmal supraventricular tachycardia) (Acute) Advanced care planning/counseling discussion (Acute) Palliative care encounter (Acute) CHF (congestive heart failure) (Chronic) HTN (hypertension) (Chronic) Type 2 diabetes mellitus (Chronic) PAF (paroxysmal atrial fibrillation) (Chronic) Symptomatic bradycardia (Acute) Medical History (Updated 03/06/24 @ 19:04 by Jasbir Valentino MD) CKD (chronic kidney disease) stage 3, GFR 30-59 ml/min Social History/Home Situation: Lives with spouse and friend in a home in [facility] with 10 steps to enter with no rail. He reports 14 stairs in home to get to his bedroom. He states he ambulates with a cane independently. Likes to walk his dog daily. 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 Equipment Owned/DME: [facility] Subjective: Feels fatigued and out of breath at rest while lying in bed. Agreeable to trying out getting out of bed and to walking inside room to see how he does. Breathing much better in sitting. Per spouse David, patient has had chronic back pain but none reported today. Objective: General Observation: Telemetry in place. IV through right UE. Benjamin catheter in place. Mental Status: Alert and oriented x3 Pain: No report of back pain Vital Signs: Monitored via telemetry nursing ROM: Right Upper Extremity: Shoulder Flexion lacks the last 25% of AROM. Shoulder abduction lacks the last 25% of AROM. Elbow flexion WFL. Wrist flexion WFL. Functional opening and closing of hand WFL. Left Upper Extremity: Right Upper Extremity: Shoulder Flexion lacks the last 25% of AROM. Shoulder abduction lacks the last 25% of AROM. Elbow flexion WFL. Wrist flexion WFL. Functional opening and closing of hand WFL. Right Lower Extremity: Hip flexion lacks the last 25% of AROM. Hip abduction WFL. Knee flexion -20 degrees to 90 degrees. Ankle dorsiflexion to neutral only. Ankle plantarflexion WFL. Left Lower Extremity: Hip flexion lacks the last 25% of AROM. Hip abduction WFL. Knee flexion -20 degrees to 90 degrees. Ankle dorsiflexion to neutral only. Ankle plantarflexion WFL. Strength: Right Upper Extremity: Shoulder flexors 3-/5. Shoulder abductors 3-/5. Elbow flexors 4-/5. Elbow extensors 4-/5. Seo Assistant strong. Left Upper Extremity: Shoulder flexors 3-/5. Shoulder abductors 3-/5. Elbow flexors 4-/5. Elbow extensors 4-/5. Seo Assistant strong. Right Lower Extremity: Hip flexors 3-/5. Hip abductors 4-/5. Knee flexors 3-/5. Knee extensors 3-/5. Ankle dorsiflexors 3-/5. Ankle plantarflexors 4-/5. Left Lower Extremity: Hip flexors 3-/5. Hip abductors 4-/5. Knee flexors 3-/5. Knee extensors 3-/5. Ankle dorsiflexors 3-/5. Ankle plantarflexors 4-/5 Bed Mobility/Transfers: Minimal cueing provided for use of B hands as needed for support, movement sequence, AD management, and posture to reduce fall risk and minimize pain report Supine-sit: minimal assist Sit-stand: minmal assistminmal assistCGA with FWW Gait: 5 steps from bed to chair and then 12 steps to the door before needing to sit down. Was able to walk back from the opposite edge of bed back to chair for about 15 steps using front wheeled walker with contact-guard assist. FWW, WBAT, nonantalgic. HR ranged from 70s to 90s bpm throughout activity, O2 sats from 87 96% on RA, and RR up to 41 cpm but all normalized after session. Balance: Static Sitting: Good Dynamic Sitting: Good Static Standing: Fair Dynamic Standing: fair 4 Stage Balance Assessment: Feet together <10 seconds, Semi tandem <10 seconds, Tandem 5 secconds deferred Unilateral able to lift foot independently deferred Special Tests: Mobility Limitations Standardized Measure [facility] AM-PAC 6 clicks Basic Mobility Inpatient Short Form: Raw Score: 18 CMS Score: 47% Informed Consent/Education: Patient instructed in purpose of PT consult and plan of care. Agreeable to proceed with established PT POC to achieve personal goals. Assessment: Short of breath with HOB at 45 degrees admit. Breathing better with upright positioning on bedside chair with oxygen saturation reached up to 96% on RA. Requires use of a front wheeled walker for all mobility ADL performance and assistance of 1 for safety and fall reduction. Patient is a 83 year old male referred to physical therapy services with the diagnosis of congestive heart failure. Focused on pacing to minimize SOB throughout session. Patient presents with clinical signs and symptoms consistent with current/admitting diagnoses that have resulted to mobility limitations, gait instability, generalized weakness, and overall ADL decline as demonstrated by the following impairment level findings: 1. Decreased strength to B UE/LE major muscle groups 2. Impaired sitting/standing balance 3. Impaired activity tolerance 4. Limitation of joint range of motion in B shoulders hips, knees, ankles (chronic) 5. Shortness of breath 64977 moderate Impairments are contributing to the following functional limitations: 1. Decline in bed mobility skills 2. Decline in transfer skills 3. Difficulty with ambulation without assistive device and physical assistance 4. Increased completion time for mobility ADL performance 5. Increased risk for falls 6. Difficulty with managing steps alone safely Patient is assessed as a 63158 moderate complexity based on the following: History: 83-year-old male with past medical history as indicated above Examination: Demonstrable impairment in strength, balance, and mobility level with underlying impairments and functional limitations as exhibited above as well as deficit score of 47% utilizing the [facility] Mobility In patient Short Form Presentation: Evolving Decision Makin moderate complexity Goals: Goals X1 week 1. Supine-Sit independent 2. Sit-Supine independent 3. Sit-Stand independent 4. Stand-Sit independent 5. Bed-Chair independent 6. Chair-Bed independent 7. Independent gait on level surface with use of least restrictive device for at least 300 feet without report of pain nor dyspnea 8. Independent stair negotiation while holding onto bilateral rails for at least 10 steps without report of pain nor dyspnea 9. Independent with home exercise program 10. Good static and dynamic standing balance/tolerance Plan of Care/Treatment Plan: 1-2x/day, 7 days/week x 1 week. Plan of care has been reviewed with the INJECTION MOLDING ENGINEER providing the service under Physical Therapy direction. Initiate Physical Therapy intervention for strengthening, bed mobility, transfers, gait, stairs, balance training, use of assistive device. DISCHARGE RECOMMENDATIONS: Patient will benefit from home health PT services in order to progress mobility level using least restrictive assistive ambulatory device, assess home safety, identify additional equipment needs, and establish a functional maintenance program that will increase ability of patient to remain at home. TREATMENT CODE/TIME: 53164 x 20 minutes for 1 unit, 70634 x 24 minutes for 2 units (13: 29?14: 13). Thank you for the opportunity to participate in the care of this patient. Flora Medrano PT, DPT, CLT [facility] [place], [place]
--- NOTE | 2024-03-08 16:23 | PHA.REVIEW2 ---
Pharmacy Admission Review Admission Clinical Review Admission Pharmacy Review: Anemia in CKD (chronic kidney disease) (Acute) DVT prophylaxis (Acute) Chronic kidney disease, stage IV (severe) (Acute) Ischemic cardiomyopathy (Acute) Acute on chronic HFrEF (heart failure with reduced ejection fraction) (Acute) levofloxacin Adverse Reaction (Mild, Unverified 02/28/24 09:02) Other (See Comment) Statins Adverse Reaction (Mild, Uncoded 02/28/24 09:02) Other (See Comment) Resuscitation Status Full Code Height 6 ft Weight 74.2 kg Pharmacy Admission Review Renal Dosing Renal Dosing: BUN 52 mg/dL (7-18) H 03/08/24 05:30 Creatinine 2.5 mg/dL (0.70-1.30) H 03/08/24 05:30 Medications needing adjustments: Reviewed (crcl = 23) List of meds needing interventions: enoxaparin dosed properly @30 mg daily (DVT ppx), entresto dose is appropriate for eGFR <30, ranolazine ok @500 mg daily (use cautiously in crcl <30) Anticoagulation Anticoagulation: Hgb 9.8 g/dL (13.5-17.5) L 03/08/24 05:30 Hct 29.6 % (40.0-50.0) L 03/08/24 05:30 Plt Count 173 10^3/uL (130-400) 03/08/24 05:30 INR 1.2 (0.9-1.1) H 03/06/24 16:00 Creatinine 2.5 mg/dL (0.70-1.30) H 03/08/24 05:30 DVT Prophylaxis: Reviewed Medications: Enoxaparin (30 mg q24h) Therapeutic Anticoagulation: N/A Opiate Usage Evaluate Pain Scale/Pains Meds: Reviewed (not on opiates) Relevant Labs Relevant Labs: Sodium 141 mmol/L (136-145) 03/08/24 05:30 Potassium 3.3 mmol/L (3.5-5.1) L 03/08/24 05:30 Chloride 106 mmol/L (98-107) 03/08/24 05:30 Magnesium 2.4 mg/dL (1.8-2.4) 03/07/24 06:23 C-Reactive Protein 0.73 mg/dL (<or=0.5) H 03/06/24 16:58 Electrolytes, C-Reactive P, ESR: Reviewed DM Control DM Control: Reviewed Insulin Dosing, Diabetic Medication: insulin glargine 10 units daily (home dose). Farxiga & metformin on home med list with note they are on hold/not currently being taken - not ordered (no recent fills seen in Rx external fill history). Cardiac Review Cardiac Review: Troponin I 57 ng/L (<or=76) 03/07/24 19:00 NT-Pro-B Natriuret Pep 25254 pg/mL (<300) H 03/08/24 05:30 BP, HR, EF%: Reviewed (was on dobutamine drip, now stopped. ) QTc Review QTc: Reviewed (*QTc = 527*) List meds needing interventions: could be related to dobutamine, unlikely that any other medications are contributing IV to PO Switch IV Medications: Reviewed (IV lasix necessary for now, other meds are PO) Home Meds Home Med List reviewed: Reviewed Relevent Home Meds Not ordered & why?: silodosin 8 mg daily not on formulary, therapeutic sub to tamsulosin 0.4 mg HS - if patient's partner is able to supply silodosin from home then will be switched back. pt's own topical testosterone ordered but has not been brought in. Current Meds Current Medication Order Review: Reviewed Pharmacy Antibiotic Review Comments: doxycycline (chronic) for suppressive therapy
[2024-03-08] MEDS: Enoxaparin 30 MG/0.3 ML SYR SC (20:14)
[2024-03-08] MEDS: LORazepam 0.5 MG TAB PO (20:15)
[2024-03-08] MEDS: Acetaminophen 500 MG TAB 1000 MG PO (20:16)
[2024-03-08] MEDS: Melatonin 3 MG TAB 9 MG PO (20:16)
[2024-03-08] MEDS: Tamsulosin 0.4 MG CAPCR PO (20:18)
[2024-03-09] VITALS (42 sets, daily range): BP systolic 88–117; BP diastolic 52–71; PULSE 57–106; RESP 10–48; TEMP 36.5–37.3; O2SAT 85–98
--- NOTE | 2024-03-09 01:10 | PT.INTREAT ---
PT Notes Visit Reasons: Acute Resp Failure d/t Acute on Chronic HFREF Inpatient Physical Therapy Treatment Note Date: 03/09/2024 Precautions: Standard. Fall. Activity as tolerated. Subjective: Feels weaker but was amazed at how much she was able to do during the walk. Apologetic about not being able to do more. Denied dizziness, headaceh, chest pain and lightheadedness throughout. Per OTF Allen, patient did well with transfers from bed to commode and then from commode to bed. In the afternoon, patient was easily roused when name was called by PT. Agreeable to a second session. Complained of dizziness early on but subsided somewhat towards the end of walk. GARRISON Hernandez came in and provided wheelchair follow in the medsurg and ICU hallway. Per GARRISON Hernandez, patient has 1 step at entrance of house. Objective: General Observation: Telemetry in place. IV access through right UE. Benjamin catheter in place. Mental Status: Alert and oriented x3 Pain: No report of back pain Vital Signs: Monitored via telemetry nursing Bed Mobility/Transfers: Minimal cueing provided for use of B hands as needed for support, movement sequence, AD management, and posture to reduce fall risk and minimize pain report Supine-sit: contact guard assist with HOB at 30 degrees Sit-stand: minimal assist from low edge of bed Gait: AM session-- 75 feet + 75 feet using FWW with stand by assist and wheelchair follow. HR 75-97 bpm and SaO2 between 93% to 95% on RA. PM session--100 feet + 100 feet + 100 feet with three seated rests and minimal SOB. Dizzy during the first trip but subsided later in the walk. No report of pain. Moderate cueing given to stay close to walker for optimal weight distribution and posture while minimizing fatigue. L DF less than the R. Balance: Static Sitting: Good Dynamic Sitting: Good Static Standing: Fair Dynamic Standing: fair Assessment: Gait speed increasing. Activity tolerance improving. BP soft before PT started in AM and PM which may be causing the mild dizziness. SOB resolved with seated rests. Requires use of a front wheeled walker for all mobility ADL performance and assistance of 1 for safety and fall reduction. Plan of Care/Treatment Plan: Initiate seated/standing level strengthening exercises. Needs more work on controlled stand to sit for safety, progress stand<>sit movement transitions. Activity progression as tolerated. DISCHARGE RECOMMENDATIONS: Patient will benefit from home health PT services in order to progress mobility level using least restrictive assistive ambulatory device, assess home safety, identify additional equipment needs, and establish a functional maintenance program that will increase ability of patient to remain at home. TREATMENT CODE/TIME: Session 1-- 08508 x 23 minutes for 2 units (09: 26?09:49). Session 2-- 37820 32 minutes for 1 unit (13:10-13:42).
[2024-03-09] MEDS: LORazepam 0.5 MG TAB PO ×2 (02:49→19:42)
[2024-03-09] MEDS: Furosemide 40 MG/4 ML VIAL IVP ×2 (04:08→11:12)
[2024-03-09] MEDS: Normal Saline Flush 10 ML SYR IVP ×3 (04:09→19:24)
[2024-03-09 07:46] LABS: Anion Gap 11.3 mmol/L (3-11); BUN 53 mg/dL (7-18); CO2 25.7 mmol/L (21.0-32.0); CREATININE 2.6 mg/dL (0.70-1.30); Chloride 104 mmol/L (98-107); Estimated GFR 23.73 (mL/min/1.73m2); Glucose 141 mg/dL (74-106); Iron 39 ug/dL (65-175); Magnesium 2.2 mg/dL (1.8-2.4); Potassium 3.4 mmol/L (3.5-5.1); Sodium 141 mmol/L (136-145); Total Iron Binding Capacity 279 ug/dL (250-450); Transferrin Sat 14 % (20-55)
[2024-03-09 08:13] LABS: Vitamin B12 833 pg/mL (193-986)
[2024-03-09] MEDS: Spironolactone 25 MG TAB 12.5 MG PO (08:17)
[2024-03-09] MEDS: Docusate Sodium 100 MG CAP PO (08:21)
[2024-03-09] MEDS: Ascorbic Acid 500 MG TAB PO (08:21)
[2024-03-09] MEDS: Sennosides/Docusate Sodium TAB 1 TAB PO ×2 (08:21→19:21)
[2024-03-09] MEDS: Clopidogrel 75 MG TAB PO (08:21)
[2024-03-09] MEDS: Ranolazine 500 MG TABCR PO (08:21)
[2024-03-09] MEDS: Sacubitril/Valsartan 24 mg/26 mg TAB 1 EACH PO ×2 (08:21→19:23)
[2024-03-09] MEDS: Vitamins B Comp w/C TAB 1 TAB PO (08:21)
[2024-03-09] MEDS: Polyethylene Glycol 3350 17 GM PACKET PO (08:21)
[2024-03-09] MEDS: Omega-3 Fatty Acids 1000 MG CAP PO (08:21)
[2024-03-09] MEDS: Isosorbide Mononitrate 30 MG TABCR PO (08:22)
[2024-03-09] MEDS: Aspirin 81 MG CHEW PO (08:22)
[2024-03-09] MEDS: Insulin Glargine 300 UNITS/3 ML PEN 10 UNITS SC (08:22)
[2024-03-09] MEDS: Sertraline 50 MG TAB PO (08:22)
[2024-03-09] MEDS: Sucralfate 1 GM TAB PO ×4 (08:22→19:21)
[2024-03-09] MEDS: busPIRone 5 MG TAB PO ×3 (08:22→19:22)
[2024-03-09] MEDS: Finasteride 5 MG TAB PO (08:22)
--- NOTE | 2024-03-09 08:40 | CMPROGNOTE_ITS ---
Date of service: 03/09/24 Time of Service: 08:40 Care Management Progress Note Progress Note Text Progress Note Text: Taco was sitting up in bed with his lunch in front of him, when CM met with him today. He was listening to classical music. He was pleasant, and easily engaged. He looked a bit better than yesterday, and his O2 sat was noted to be a little higher today than yesterday. Taco was still short of breath while talking, but his O2 sat did stay >95% while doing so. Taco was noted to still be quite tachypneic, and was not really able to converse. He did state that he worked with PT today, and was exhausted by it. He also stated that his house would accommodate a bedroom on the first floor, we've done it before. Discharge Potential Discharge Needs: PCP F/U Appt Anticipated Barriers to Discharge: Medical Status Patient/Family Education Needs: Review discharge instructions, discuss Ask Me Three Plan: Anticipate that Taco will be discharged home with continued HH services for RN and PT. He will follow up with his PCP and continue per the prescribed plan of care. He will transport via private vehicle with his partner, David. CM will continue to follow. SDOH(Care Management) Screening Will the Patient Participate in the Screening?: Yes Do you worry about having a steady place to live?: no Problems where you live: smoke detectors missing or not working, Carbon monoxide detectors missing or not working and unsafe denny/stairs In the past 12 months, have you had to go without electric, gas, oil or water in your home?: yes Have you or anyone in your house had to go without enough food to eat?: no Has lack of transportation kept you from medical appointments or from doing things needed for daily living?: no Has anyone in your support network made you feel unsafe for any reason?: no Social Determinants of Health Comments(SDOH Details): no electric due to a tree falling. states he already has assistance. Health Related Social Needs Health related social needs: inadequate housing(Z59.1) and material hardship(utilities)(Z59.87) Anticipated HH Services Anticipated HH Services at Discharge [facility], PT and RN.
[2024-03-09] MEDS: Doxycycline Hyclate 100 MG CAP PO ×2 (09:34→18:06)
[2024-03-09] MEDS: POTASSIUM CHLORIDE 10 MEQ/100 ML BAG 100 MEQ IVINF ×3 (09:34→11:13)
[2024-03-09] MEDS: Ferrous Sulfate 325 MG TAB PO (11:11)
--- NOTE | 2024-03-09 12:02 | PCNE_ITS ---
Date of service: 03/09/24 Time of Service: 15:00 History of Present Illness History of Present Illness Chief Complaint: Weakness, congestive heart failure with shortness of breath, renal disease Narrative: Sven is an 83-year-old man who lives in [facility]. He has been admitted to [facility] several times over the last month. He has an ejection fraction of about 28% and he reports in the past it was normal. He has been sick with sepsis and then with congestive heart failure. 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 His partner David is also here. Tray says what he wants is more time to be normal. He wants to walk his dog and not feel weak. He is feeling very tired and weak at this time. David states that what ever is told to do something by physical therapy physicians etc. he does it completely. It is because of this that he did so well in the past. David states that he had been a DNR but switched to a full code because of his AAA repair. He states that no one has told him that during surgeries that his DNR would be suspended automatically. He has not yet reinstated it. He was recently seen by my colleague Dr. Moe and palliative care and he stated that he wants everything done. I am here today to discuss his goals and again to address his CODE STATUS Assessment and Plan Assessment and plan (1) Advanced care planning/counseling discussion: Status: Acute (2) Palliative care encounter: Status: Acute (3) Anxiety: Status: Chronic (4) CHF (congestive heart failure): Status: Chronic Qualifiers: Heart failure type: combined systolic and diastolic Heart failure chronicity: acute on chronic Qualified Code(s): I50.43 - Acute on chronic combined systolic (congestive) and diastolic (congestive) heart failure (5) Acute on chronic HFrEF (heart failure with reduced ejection fraction): Status: Acute Assessment and plan: Congestive heart failure?definitely requires furosemide. I would recommend that his partner David be told when he should be taking extra furosemide. Obviously regular lab draws will be necessary to be certain that he does not increase his creatinine too much and also tanked his potassium. There was some confusion with the transition from hospital to outpatient. I doubt that this will happen again. We talked for a long time about CODE STATUS. What he really wants is if he is in the hospital and has not observed code he would like a 10-minute trial of CPR. If he is out of the hospital he wants to peacefully. Renal insufficiency?important for him to hydrate properly and regulate diaphoresis Fatigue weakness?the fact that he went to [place] this summer is good news. Hopefully with physical therapy which she follows to OT and time he will be able to obtain his goal of having some normalcy in his life such as walking his dog and not having such severe weakness Regarding the shortness of breath I would try again the morphine. Maybe he needs to be pretty treated with ondansetron which do come in the oral dissolving tabs or perhaps even a smaller dose of the morphine I do think that it has great potential to help him with his shortness of breath He will be following up outpatient with palliative care I believe Dr. Moe already has an appointment for him. I am happy to see him again necessary I really enjoyed my visit with Pallavi Review of Systems Narrative: Severe weakness, short of breath. He has tried morphine for shortness of breath but got nauseated. PFSH All Active Problems (Updated 03/11/24 @ 00:07 by CAITLIN DIOP) Anemia in CKD (chronic kidney disease) (Acute) Anxiety (Chronic) Chronic kidney disease, stage IV (severe) (Acute) Ischemic cardiomyopathy (Acute) Acute on chronic HFrEF (heart failure with reduced ejection fraction) (Acute) CHF exacerbation (Acute) Left lower lobe pneumonia (Acute) Urinary retention (Acute) HFrEF (heart failure with reduced ejection fraction) (Acute) PSVT (paroxysmal supraventricular tachycardia) (Acute) Advanced care planning/counseling discussion (Acute) Palliative care encounter (Acute) CHF (congestive heart failure) (Chronic) HTN (hypertension) (Chronic) Type 2 diabetes mellitus (Chronic) PAF (paroxysmal atrial fibrillation) (Chronic) Symptomatic bradycardia (Acute) Medical History (Updated 03/11/24 @ 00:07 by CAITLIN DIOP) CKD (chronic kidney disease) stage 3, GFR 30-59 ml/min Social History Smoking/Tobacco Use Status: Former Tobacco Use Smoking risk assessment performed?: Yes Alcohol Intake: current Alcohol Intake frequency: 0-2 drinks per day Drug use: Never Substance use type: does not use Details: Pt quit smoking 10 years ago Housing: house Do you feel safe at home: Yes Do you feel safe in your relationship?: Yes Additional Social history: at side Exam Narrative Exam Narrative: Very gentle and sweet man. He is talking in complete sentences, but at times closes his eyes from what appears to be fatigued. His heart rate is in the 70s. He looks to his partner, David, for additions to what he is saying. He looks very tired Results Last Vital Signs Temp 97.7 F 03/09/24 01:25 Pulse 69 03/09/24 08:01 Resp 38 H 03/09/24 08:01 BP 99/63 L 03/09/24 08:01 Pulse Ox 87 L 03/09/24 08:01 Labs 03/08/24 05:30 03/10/24 05:33 Labs: Laboratory Results - last 24 hr 03/09/24 06:10 Sodium 141 Potassium 3.4 L Chloride 104 Carbon Dioxide 25.7 Anion Gap 11.3 H BUN 53 H Creatinine 2.6 H Est GFR (CKD-EPI 2020) 23.73 Glucose 141 H Calcium 9.0 Magnesium 2.2 Iron 39 L TIBC 279 Transferrin % Sat 14 L Vitamin B12 833 Imaging Additional studies: US FINDINGS: Small right pleural effusion. LIVER: Normal size and echogenicity. No focal liver lesions are seen. GALLBLADDER: No evidence of cholelithiasis. No evidence of wall thickening. No pericholecystic fluid identified. POSADAS'S SIGN: Negative. BILIARY SYSTEM: No intrahepatic or extrahepatic biliary ductal dilation. KIDNEYS: Kidneys are symmetric in size. No evidence of renal calculi. No evidence of hydronephrosis. No renal mass or cyst identified. PANCREAS: Normal where visualized. Partially obscured by bowel gas. SPLEEN: Not enlarged. ABDOMINAL AORTA AND IVC: Visualized portions normal caliber. Aorta partially obscured by bowel gas. Aorta bi-iliac stent noted. ASCITES: None seen. Bladder: Benjamin catheter in place. Not well distended with a volume 78 cc. Both ureteral jets were visualized. Enlarged prostate with volume of 74 cc. IMPRESSION: Liver and gallbladder are unremarkable. No evidence of hydronephrosis or renal calculi. Renal echogenicity appears normal. Enlarged prostate. Aorto bi-iliac stent. Time Spent Time Spent with Patient Time Spent(min): 58
--- NOTE | 2024-03-09 13:08 | PGE_ITS ---
Date of Service Date of service: 03/09/24 Time of Service: 08:09 Assessment and Plan Assessment and plan (1) Acute on chronic HFrEF (heart failure with reduced ejection fraction): Start date: 03/06/24 Status: Acute Assessment and plan: -On dobutamine 03/06-03/07 -Has been on iv lasix 40 mg iv q8h, he is down 6+ L since admission, will continue. -continue goal directed therapy w/ his Farxiga, ARNI, and new low dose spironolactone; he should not receive BB given his acute decompensation and in the past he has been intolerant of BB d/t worsening CHF. Clarify issue with dapagliflozin (Farxiga) prior to discharge as he was not taking this as outpatient even though it was prescribed.. -continue to monitor UO and electrolytes. - He had recent echo done 02/10/24 and I do not expect any changes and see no value in repeating it. - can change to med/surg status today, continue telemetry (2) Ischemic cardiomyopathy: Status: Acute Assessment and plan: patient has not needed iv NTG, therefore continue w/ Imdur and Ranexa. No change (3) Chronic kidney disease, stage IV (severe): Status: Acute Assessment and plan: continue to monitor renal function. there has been no acute change w/ diuretics; if there is a rise in his BUN and creatinine while on diuretics then reassess need for diuresis. Supplement K+ cautiously and QTc looks a little long on telemetry. Mg good. (4) Type 2 diabetes mellitus: Status: Chronic Assessment and plan: Monitor blood sugars before meals and at bedtime cover with sliding scale and basal insulin; glucose levels are reasonably controlled. 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 Diabetes mellitus complication status: with kidney complications Diabetes mellitus complication detail: with chronic kidney disease Chronic kidney disease stage: stage 3 (moderate) Chronic kidney disease stage 3 subtype: stage 3b (GFR 30-44) Qualified Code(s): E11.22 - Type 2 diabetes mellitus with diabetic chronic kidney disease; N18.32 - Chronic kidney disease, stage 3b (5) HTN (hypertension): Status: Chronic Assessment and plan: Continue his Entresto and Imdur and monitor Qualifiers: Hypertension type: primary hypertension Qualified Code(s): I10 - Essential (primary) hypertension (6) Anxiety: Status: Chronic Assessment and plan: Developing associated with recent decline in health and CHF. On buspirone to try to limit benzodiazepine per PCP. Started on sertraline here. Has prn morphine for dyspnea as well. Palliative care consulted. (7) Anemia in CKD (chronic kidney disease): Status: Acute Assessment and plan: stable. B12 good but iron a little low, continue to supplement. (8) DVT prophylaxis: Status: Acute Assessment and plan: Enoxaparin 40 mg subcutaneously daily Subjective Subjective Patient reports: denies vomiting or fever Interval history since last seen: Per RN and Taco, he felt a little confused when he woke up this morning. Feels like he is thinking clearly now however. He did get lorazepam last night. His breathing feels a little better, but he still has episodes of breathing heavy. No chest pain. No cough. He had a good appetite for breakfast, but now his stomach feels a bit queasy. He felt this way yesterday and didn't eat much dinner. He has noted he feels better sitting up in chair, more SOB lying flat. Exam Narrative Exam Narrative: Taco is sitting up in bed, eating breakfast, able to speak in full sentences, but still episodically tachypneic. Lungs: Slight rale right base, not left, improved air movement. No wheezes. Heart: RRR, no murmur Abdomen: soft, nontender/nondistended Legs/feet: no edema, not tender Objective Last Vital Signs Temp 36.5 C 03/09/24 01:25 Pulse 69 03/09/24 08:01 Resp 38 H 03/09/24 08:01 BP 99/63 L 03/09/24 08:01 Pulse Ox 87 L 03/09/24 08:01 Laboratory Results - last 24 hr 03/09/24 06:10 Sodium 141 Potassium 3.4 L Chloride 104 Carbon Dioxide 25.7 Anion Gap 11.3 H BUN 53 H Creatinine 2.6 H Est GFR (CKD-EPI 2020) 23.73 Glucose 141 H Calcium 9.0 Magnesium 2.2 Iron 39 L TIBC 279 Transferrin % Sat 14 L Vitamin B12 833 PAWSS Have you Been Recently Intoxicated or Drunk Within the Last 30 days?: No Have you Ever Experienced Previous Episodes of Alcohol Withdrawal?: No Have you ever Experienced Withdrawal Seizures?: No Have you ever Experienced Delirium Tremens(DT)s?: No Have you ever undergone Alcohol Rehabilitation Treatment (i.e, inpt ot outpatient treatment programs)?: No Have you ever Experienced Blackouts?: No Have you ever Combined Alcohol with other Downers within the last 90 days?: No Have you ever Combined Alcohol with any other Substance of Abuse during the last 90 days?: No Positive Blood Alcohol level on Presentation? [PCS.BAL]: No Evidence of Increased Autonomic Activity (i.e. HR>120, tremor, sweating, agitation, nausea)?: No Result: 0 Time Spent with Patient Time Spent with Patient: >50 minutes Time was spent: preparing to see the patient(eg.review tests), obtaining and/or reviewing separately otained hiistory, ordering medications,tests, procedures, referring, communicating with other health director career services, indepentently interpreting results, counseling the patient and care coordination
--- NOTE | 2024-03-09 16:13 | CHAPLAIN ---
Taco was up in the chair when I visited. His friend David was with him. Taco was tired and feel asleep while I was there . I will continue to visit.
[2024-03-09] MEDS: Furosemide 80 MG TAB PO (16:34)
[2024-03-09] MEDS: Enoxaparin 30 MG/0.3 ML SYR SC (19:19)
[2024-03-09] MEDS: Melatonin 3 MG TAB 9 MG PO (19:22)
[2024-03-10] VITALS (44 sets, daily range): BP systolic 93–114; BP diastolic 55–74; PULSE 53–99; RESP 9–52; TEMP 35.9; O2SAT 89–98
[2024-03-10] MEDS: LORazepam 0.5 MG TAB PO (01:32)
[2024-03-10] MEDS: Sucralfate 1 GM TAB PO ×3 (06:59→16:18)
[2024-03-10 07:11] LABS: Anion Gap 10.8 mmol/L (3-11); BUN 53 mg/dL (7-18); CO2 26.2 mmol/L (21.0-32.0); CREATININE 2.6 mg/dL (0.70-1.30); Calcium 8.7 mg/dL (8.5-10.1); Chloride 104 mmol/L (98-107); Estimated GFR 23.73 (mL/min/1.73m2); Glucose 154 mg/dL (74-106); Magnesium 2.3 mg/dL (1.8-2.4); Potassium 3.9 mmol/L (3.5-5.1); Sodium 141 mmol/L (136-145)
[2024-03-10] MEDS: Ranolazine 500 MG TABCR PO (08:44)
[2024-03-10] MEDS: Polyethylene Glycol 3350 17 GM PACKET PO (08:44)
[2024-03-10] MEDS: Sennosides/Docusate Sodium TAB 1 TAB PO (08:45)
[2024-03-10] MEDS: Doxycycline Hyclate 100 MG CAP PO (08:45)
[2024-03-10] MEDS: Vitamins B Comp w/C TAB 1 TAB PO (08:45)
[2024-03-10] MEDS: Ascorbic Acid 500 MG TAB PO (08:46)
[2024-03-10] MEDS: Omega-3 Fatty Acids 1000 MG CAP PO (08:46)
[2024-03-10] MEDS: Sacubitril/Valsartan 24 mg/26 mg TAB 1 EACH PO (08:46)
[2024-03-10] MEDS: Aspirin 81 MG CHEW PO (08:47)
[2024-03-10] MEDS: Finasteride 5 MG TAB PO (08:47)
[2024-03-10] MEDS: busPIRone 5 MG TAB PO ×2 (08:47→13:57)
[2024-03-10] MEDS: Isosorbide Mononitrate 30 MG TABCR PO (08:47)
[2024-03-10] MEDS: Spironolactone 25 MG TAB PO (08:47)
[2024-03-10] MEDS: Docusate Sodium 100 MG CAP PO (08:47)
[2024-03-10] MEDS: Clopidogrel 75 MG TAB PO (08:47)
[2024-03-10] MEDS: Sertraline 50 MG TAB PO (08:47)
[2024-03-10] MEDS: Normal Saline Flush 10 ML SYR IVP (08:48)
[2024-03-10] MEDS: Furosemide 80 MG TAB PO ×2 (08:50→16:18)
[2024-03-10] MEDS: Insulin Glargine 300 UNITS/3 ML PEN 10 UNITS SC (08:59)
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
--- NOTE | 2024-03-10 10:05 | W.PC.ACHO ---
Registration Status: Primary Language: Preferred Language: ED Information & Data Chief Complaint SOB 03/06/24 16:13 Chief Complaint SOB 03/06/24 15:51 Triage Note increased SOB since stopping 03/06/24 15:29 lasix a few days ago. worse today. chest pain into back of shoulder. recent pneumonia. Medical / Surgical History (Last Updated 03/06/24 @ 18:59 by Jasbir Valentino MD) CKD (chronic kidney disease) stage 3, GFR 30-59 ml/min Most Recent Vital Signs Temperature 36.6 C 03/09/24 22:01 Temperature Source Temporal Artery Scan 03/09/24 01:25 Pulse 69 03/10/24 09:12 Pulse 76 03/10/24 09:12 Respiratory Rate 13 03/10/24 09:12 Respiratory Effort Short of Breath 03/06/24 19:40 Respiratory Depth Normal 03/06/24 19:40 Respiratory Pattern Tachypnea 03/06/24 19:40 Blood Pressure 96/59 L 03/10/24 09:12 Blood Pressure Mean 71 03/10/24 09:12 Blood Pressure Position Supine 03/06/24 16:13 Pulse Oximetry 96 03/10/24 08:01 Respiratory End-tidal CO2 13 03/06/24 19:10 Oxygen Delivery Method Room Air 03/07/24 23:15 Oxygen Flow Rate 0 03/07/24 23:15 Pain Level 0 03/09/24 01:25 Allergies levofloxacin Adverse Reaction (Mild, Unverified 02/28/24 09:02) Other (See Comment) Statins Adverse Reaction (Mild, Uncoded 02/28/24 09:02) Other (See Comment) Active Medications Generic Name Dose Route Start Last Admin Trade Name Freq PRN Reason Stop Dose Admin Acetaminophen 1,000 mg 03/06/24 20:09 03/08/24 20:16 Acetaminophen 500 Mg Tab PO 1,000 mg Q6H PRN PRN Administration Ascorbic Acid 500 mg 03/07/24 08:30 03/10/24 08:46 Ascorbic Acid 500 Mg Tab PO 500 mg DAILY MARTIN Administration Aspirin 81 mg 03/07/24 08:30 03/10/24 08:47 Aspirin 81 Mg Chew PO 81 mg DAILY MARTIN Administration Buspirone HCl 5 mg 03/07/24 10:00 03/10/24 08:47 Buspirone 5 Mg Tab PO 5 mg TID MARTIN Administration Clopidogrel Bisulfate 75 mg 03/07/24 08:30 03/10/24 08:47 Clopidogrel 75 Mg Tab PO 75 mg DAILY MARTIN Administration Docusate Sodium 100 mg 03/06/24 20:00 03/10/24 08:47 Docusate Sodium 100 Mg Cap PO 100 mg BID MARTIN Administration Doxycycline Hyclate 100 mg 03/07/24 09:30 03/10/24 08:45 Doxycycline Hyclate 100 Mg Cap PO 100 mg 0930,1800 MARTIN Administration Enoxaparin Sodium 30 mg 03/06/24 20:00 03/09/24 19:19 Enoxaparin 30 Mg/0.3 Ml Syr SC 30 mg HS MARTIN Administration Ferrous Sulfate 325 mg 03/07/24 12:00 03/09/24 11:11 Ferrous Sulfate 325 Mg Tab PO 325 mg 1200 MARTIN Administration Finasteride 5 mg 03/07/24 08:30 03/10/24 08:47 Finasteride 5 Mg Tab PO 5 mg DAILY MARTIN Administration Fish Oil 1,000 mg 03/07/24 08:30 03/10/24 08:46 [place]-3 Fatty Acids 1000 Mg Cap PO 1,000 mg DAILY MARTIN Administration Furosemide 80 mg 03/09/24 16:00 03/10/24 08:50 Furosemide 80 Mg Tab PO 80 mg BID@0830,1600 [facility] Administration Insulin Glargine 10 units 03/07/24 08:30 03/10/24 08:59 Insulin Glargine 300 Units/3 Ml Pen SC 10 units DAILY MARTIN Administration Isosorbide Mononitrate 30 mg 03/07/24 08:30 03/10/24 08:47 Isosorbide Mononitrate 30 Mg Tabcr PO 30 mg DAILY MARTIN Administration Lorazepam 0.5 mg 03/07/24 17:15 03/10/24 01:32 Lorazepam 0.5 Mg Tab PO 0.5 mg Q6H PRN PRN Administration Melatonin 9 mg 03/07/24 20:00 03/09/24 19:22 Melatonin 3 Mg Tab PO 9 mg HS MARTIN Administration Methocarbamol 750 mg 03/06/24 19:52 03/07/24 17:29 Methocarbamol 750 Mg Tab PO 750 mg QID PRN PRN Administration Morphine Sulfate 2 mg 03/08/24 10:27 03/08/24 10:43 Morphine 2 Mg/Ml Syr IVP 2 mg Q4H PRN PRN Administration Patient's Own 2 each 03/08/24 08:30 03/09/24 08:42 Medication ( TP Not Given Testosterone 20.25 DAILY MARTIN Mg/1.25 Gram (1.62 % ) Gel) Pt's Own Medication 1 each 03/09/24 20:00 03/09/24 19:20 Silodosin 8mg PO 1 each Capsule HS MARTIN Administration Polyethylene Glycol 17 gm 03/07/24 08:30 03/10/24 08:44 Polyethylene Glycol 3350 17 Gm Packet PO 17 gm DAILY MARTIN Administration Ranolazine 500 mg 03/07/24 08:30 03/10/24 08:44 Ranolazine 500 Mg Tabcr PO 500 mg DAILY MARTIN Administration Sacubitril/Valsartan 1 each 03/06/24 20:00 03/10/24 08:46 Sacubitril/Valsartan 24 Mg/26 Mg Tab PO 1 each BID MARTIN Administration Senna/Docusate Sodium 1 tab 03/07/24 08:30 03/10/24 08:45 Sennosides/Docusate Sodium Tab PO 1 tab BID MARTIN Administration Sertraline HCl 50 mg 03/07/24 10:05 03/10/24 08:47 Sertraline 50 Mg Tab PO 50 mg DAILY MARTIN Administration Sodium Chloride 0 ml 03/06/24 15:33 03/09/24 04:09 Normal Saline Flush 10 Ml Syr IVP 20 ml PRN PRN Administration Sodium Chloride 0 ml 03/06/24 20:00 03/10/24 08:48 Normal Saline Flush 10 Ml Syr IVP 40 ml BID MARTIN Administration Spironolactone 25 mg 03/10/24 08:30 03/10/24 08:47 Spironolactone 25 Mg Tab PO 25 mg DAILY MARTIN Administration Sucralfate 1 gm 03/06/24 20:00 03/10/24 06:59 Sucralfate 1 Gm Tab PO 1 gm 0730,1130,1630,2000 MARTIN Administration Vit C/Vit E/Zinc/Copper/Lutein 1 tab 03/07/24 08:30 03/10/24 08:44 Preservision Tablet PO 1 tab BID MARTIN Administration Vitamin B Complex/Vitamin C 1 tab 03/07/24 08:30 03/10/24 08:45 Vitamins B Comp W/C Tab PO 1 tab DAILY MARTIN Administration IV IV Catheter Type [Right upper Saline Lock forearm] IV Catheter Type [Right Saline Lock Forearm] IV Catheter Gauge [Right upper 20 forearm] IV Catheter Gauge [Right 18 Forearm] Diagnostics 03/10/24 Range/Units 05:33 Sodium 141 (136-145) mmol/L Potassium 3.9 (3.5-5.1) mmol/L Chloride 104 (98-107) mmol/L Carbon Dioxide 26.2 (21.0-32.0) mmol/L Anion Gap 10.8 (3-11) mmol/L BUN 53 H (7-18) mg/dL Creatinine 2.6 H (0.70-1.30) mg/dL Est GFR (CKD-EPI 2020) 23.73 (mL/min/1.73m2) Glucose 154 H (74-106) mg/dL Calcium 8.7 (8.5-10.1) mg/dL Magnesium 2.3 (1.8-2.4) mg/dL 03/06/24 21:40 Blood Culture - Preliminary Blood NO GROWTH 72 HOURS 03/06/24 16:48 Blood Culture - Preliminary Blood NO GROWTH 72 HOURS [id number] Documentation Fingerstick Glucose Start: 03/06/24 21:40 Freq: Status: Complete Protocol: Activity Type Activity Date Activity User E-sign Co-sign Detail Recorded Client Recorded Date Recorded By Document 03/08/24 08:00 BKG DAEMON(5) NVT-BG05 03/08/24 08:00 BKG DAEMON(6) Fingerstick Glucose Start: 03/08/24 08:08 Freq: .AC Status: Active Protocol: Activity Type Activity Date Activity User E-sign Co-sign Detail Recorded Client Recorded Date Recorded By Document 03/10/24 07:34 BKG DAEMON(7) NVT-BG05 03/10/24 07:35 BKG DAEMON(8) Intake and Output - 24 Hour Total 03/06/24 15:24 thru 03/10/24 09:05 Intake Total 3571.597 Output Total 93058 Balance -6863.403 Weight 72 kg Intake: IV 421.597 Oral 3150 Output: Urine 54174 Other 300 Other: Urine Color Yellow Urine Appearance Clear Sediment Urine Odor None Comment Bag not clamped, small puddle on floor. Stool Size Large Stool Characteristics Soft Formed Brown Voiding Methods Indwelling Catheter Urinary Catheter Urinary Catheter Date of 03/06/24 Insertion [Coude] Urinary Catheter Date of 03/06/24 Insertion [Coude] Urinary Catheter Date of 03/06/24 Insertion [Coude] Time of insertion [Coude] 21:55 Time of insertion [Coude] 21:55 Time of insertion [Coude] 21:55 Falls Risk Assessment History of Falls No History 03/06/24 19:40 Contributing Factors No Factors 03/06/24 19:40 Ambulatory Aids Uses ambulatory device 03/06/24 19:40 Tubes/Lines W/no contributing factors 03/06/24 19:40 Gait Evaluation No gait disturbance 03/06/24 19:40 Cognition No cognitive impairment 03/06/24 19:40 Fall Total Score 25 03/06/24 19:40 Level of Risk Moderate Risk 03/06/24 19:40 Problems (Last Updated 03/06/24 @ 18:59 by Jasbir Valentino MD) Anemia in CKD (chronic kidney disease) (Acute) Anxiety (Chronic) DVT prophylaxis (Acute) Chronic kidney disease, stage IV (severe) (Acute) Ischemic cardiomyopathy (Acute) Acute on chronic HFrEF (heart failure with reduced ejection fraction) (Acute) HTN (hypertension) (Chronic) Type 2 diabetes mellitus (Chronic) v v v v v v v v v Sending and/or Receiving Nurses: Please use comment section below to note any information pertinent to the patient hand-off not included above. Information / Comments: Patient lethargic. Vitals within normal limits and no complaints of pain. Report received from: BRITTANIE Levine
--- NOTE | 2024-03-10 11:17 | PTTR_ITS ---
PT Notes Visit Reasons: Acute Resp Failure d/t Acute on Chronic HFREF Inpatient Physical Therapy Treatment Note Date: 03/10/2024 Precautions: Standard. Fall. Activity as tolerated. Subjective: Did not sleep well last night. Sleeping when PT came in but was able to respond quickly when called. Still feels weak. Has reservations about HH PT as he hdoes not feel they can help him. verbalized he knows his exercises. In the afternoon, patient was more tired but was willing to perform and show his home exercises and try the stairs with encouragement from PT and SO David. So David agreeable with HH pT coming over to continue with strengthening. Objective: General Observation: Telemetry in place. IV access through right UE. Benjamin catheter in place. Mental Status: Alert and oriented x3 Pain: No report of back pain Vital Signs: Monitored via telemetry nursing Bed Mobility/Transfers: Minimal cueing provided for use of B hands as needed for support, movement sequence, AD management, and posture to reduce fall risk and minimize pain report Supine-sit: minimal assist with HOB at 30 degrees Sit-stand: minimal assist from low edge of bed In the PM: stand by assist with sit<>stand from bedside chair and from wheelchair using B hands for support. Gait: AM session-- 75 feet x 4 using FWW with stand by assist and wheelchair follow. Needed 4 seated rests. Minimally dizzy but subsided later on in the walk. Step height and length small, patient almost shuffling. Minimal SOB subsided with rest. PM session-- 5 feet + 5 feet to conserve energy for exercise performance and s tair negotiation. Complained of weakness and fatigue. Balance: Static Sitting: Good Dynamic Sitting: Good Static Standing: Fair Dynamic Standing: Fair Assessment: Moved out of ICU since this morning onto med surg level of care. Gait speed increasing. Activity tolerance improving. SOB resolved with seated rests. Requires use of a front wheeled walker for all mobility ADL performance and assistance of 1 for safety and fall reduction. Continue with HH PT to progress overall functional mobility status. Plan of Care/Treatment Plan: Progress seated/standing level strengthening exercise as tolerated. Needs more work on controlled stand to sit for safety, progress stand<>sit movement transitions. Activity progression as tolerated. Balance DISCHARGE RECOMMENDATIONS: Patient will benefit from home health PT services in order to progress mobility level using least restrictive assistive ambulatory device, assess home safety, identify additional equipment needs, and establish a functional maintenance program that will increase ability of patient to remain at home. TREATMENT CODE/TIME: Session 1-- 93875 x 32 minutes for 2 units (11:17?11:49). Session 2-- 00538 x 12 minutes for 1 unit, 23517 x 12 minutes for 1 unit (14:26-14:50).
[2024-03-10] MEDS: Ferrous Sulfate 325 MG TAB PO (12:33)
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
--- NOTE | 2024-03-10 15:38 | W.PM.DS.N ---
Date of service: 03/10/24 Time of Service: 15:38 DS: Diagnosis Discharge Diagnosis (1) Acute on chronic HFrEF (heart failure with reduced ejection fraction): Status: Acute (2) Ischemic cardiomyopathy: Status: Acute (3) Chronic kidney disease, stage IV (severe): Status: Acute (4) Type 2 diabetes mellitus: Status: Chronic (5) HTN (hypertension): Status: Chronic (6) Anxiety: Status: Chronic (7) Anemia in CKD (chronic kidney disease): Status: Acute (8) DVT prophylaxis: Status: Acute Discharge Plan Disposition Patient Disposition: Home W/Home Health Services Condition: Fair Discharge Details Reason For Visit: Acute Resp Failure d/t Acute on Chronic HFREF Admit Date/Time: 03/06/24 18:13 Admit Provider: Jasbir Valentino Attending Provider: Jasbir Valentino Primary Care Provider: Viry Jasmine Hospital Course Hospital Course: 83 yo M with CKD4 and ischemic cardiomyopathy with HFrEF who was recently admitted for sepsis a/w pneumonia and UTI who presented with SOB and was admitted for CHF exacerbation. He was on CPAP and dobutamine overnight the first night along with IV furosemide. He did respond to IV furosemide and was negative 6.5+ liters during his stay. His renal function remained stable with eGFR in the mid to low 20s. He was discharged on 80mg furosemide BID with plan for daily weights and close follow up with home health and PCP. His weight was down to 72kg, down 5kg from 03/07. He was also started on spironolactone at 12.5mg, then increased to 25mg. His Entresto was continued. He was not taking his dapagliflozin, but he was encouraged to resume this to improve his cardiac and renal prognosis. Of note a persistent Reza-Chowdhury pattern of breathing was noted with periods of tachypnea and apnea. This was observed by and discussed with the [employer] Dr. Wood as well. This is likely caused by his heart failure. He was not hypoxic. This did contribute to anxious appearance. His anxiety was treated with buspirone and sertraline as well as prn lorazepam. He was groggy and slower mentally after getting lorazepam here. We did try morphine but he didn't like it. He was seen by Dr. Rosas from Palliative care, her note was pending at time of discharge. His anemia was stable. His iron was still low and ferrous sulfate continued. He should get EPO therapy when his transferrin saturation is >20% if his hgb is still <10. He was seen by PT. Home health PT also recommended to continue working on strength and safety. Home Meds and New Rx's Prescriptions: New furosemide 80 mg tablet 80 mg PO BID Qty: 60 0RF spironolactone 25 mg tablet 25 mg PO DAILY Qty: 30 0RF sertraline 50 mg tablet 50 mg PO DAILY Qty: 30 0RF Continued ascorbic acid (vitamin C) [Vitamin C] 500 mg tablet 500 mg PO DAILY Senna Plus 8.6-50 mg capsule 1 tab-cap PO BID ferrous sulfate 325 mg (65 mg iron) tablet 325 mg PO DAILY clopidogrel 75 mg tablet 75 mg PO DAILY aspirin 81 mg tablet,chewable 1 tab PO DAILY silodosin [Rapaflo] 8 mg capsule 8 mg PO DAILY Patient Comments: Take 1 capsule by mouth once a day with food doxycycline hyclate 100 mg tablet 100 mg PO BID Patient Comments: TAKE 1 TABLET BY MOUTH TWICE DAILY FOR SUPRESSIVE THERAPY PreserVision AREDS-2 250-90-40-1 mg capsule 1 tab PO BID omega-3 fatty acids [Super [place]-3] 1,000 mg capsule 1,000 mg PO DAILY vitamin B complex Capsule 1 cap PO DAILY PreserVision AREDS-2 250-90-40-1 mg capsule 1 tab PO BID lorazepam 0.5 mg tablet 0.5 mg PO Q6H PRN Patient Comments: TAKE ONE TABLET BY MOUTH EVERY 6 HOURS NEEDED FOR ANXIETY OR SEVERE FOR SHORTNESS OF BREATH finasteride 5 mg tablet 5 mg PO DAILY Patient Comments: Take 1 tablet by mouth every night acetaminophen 500 mg capsule 1,000 mg PO Q6H PRN bisacodyl [Dulcolax (bisacodyl)] 10 mg suppository 10 mg AK DAILY PRN docusate sodium 100 mg capsule 100 mg PO BID dapagliflozin propanediol [Farxiga] 5 mg tablet 5 mg PO DAILY polyethylene glycol 3350 [ClearLax] 17 gram/dose powder 17 g PO DAILY testosterone 20.25 mg/1.25 gram (1.62 %) gel in metered-dose pump 2 pump topical DAILY Rx Instructions: apply 1 pump amount over max area of EACH upper arm and shoulder insulin glargine [Lantus Solostar U-100 Insulin] 100 unit/mL (3 mL) insulin pen 10 unit subcut DAILY Mary-Merissa 0.8 mg tablet 1 tab PO DAILY isosorbide mononitrate 30 mg Tablet Extended Release 24 Hr 30 mg PO DAILY Qty: 7 0RF methocarbamol 750 mg Tablet 750 mg PO QID PRN PRNQty: 12 0RF ranolazine 500 mg Tablet Extended Release 12 Hr 500 mg PO DAILY Qty: 7 0RF sucralfate 1 gram Tablet 1 g PO 0730,1130,1630,2000 Qty: 90 0RF Entresto 24-26 mg Tablet 1 tab PO BID Qty: 14 0RF furosemide [Lasix] 20 mg tablet 20 mg PO DAILY 20 Days Qty: 20 1RF Rx Instructions: Take 1 tablet daily in the morning Changed buspirone 5 mg tablet 5 mg PO TID Qty: 0 0RF Discontinued metformin 500 mg tablet extended release 24 hr 500 mg PO DAILY Patient Comments: Take 1 tablet by mouth once a day cefpodoxime 200 mg tablet 200 mg PO BID 10 Days Qty: 20 0RF Rx Instructions: must administer with a meal/food Discharge Instructions Instructions: Heart Failure, Adult (DC) Additional Instructions: You are now on furosemide 80mg twice a day. You may be able to decrease this after you see your doctor. We also prescribed another heart medication called spironolactone. This helps the heart failure and helps the furosemide work better. The dapagliflozin (Farxiga) is another medication that has been shown to prolong survival in heart failure and decrease the risk of progression to needing dialysis for kidney failure. If you can tolerate this, you should restart it. We prescribed sertraline to help with anxiety. We ordered resumption of home health nursing and PT. Stand Alone Forms: Nursing Discharge Form Referrals: Viry Jasmine [Primary Care Provider] - 03/18/24 3:20 pm Activity:: Activity as Tolerated Equipment/Supplies:: No Equipment Needed Diet:: Low Sodium Discharge Orders Discharge Orders: Discharge Order (Routine); Ordered 03/10/24 Ordered By: Tucker Lawrence Other Ambulatory Orders: Basic Metabolic Panel (Routine) Timeframe: 1 Week Facility: [facility] - Location: Laboratory Outpatient - [facility] Ordered By: Tucker Lawrence Magnesium (Routine) Timeframe: 1 Week Facility: [facility] - Location: Laboratory Outpatient - [facility] Ordered By: Tucker Lawrence Discharge Data Discharge Date/Time-TO BE ENTERED AT DEPARTURE: 03/10/24 16:38 DS: Summary Time Spent with Patient providing and/or coordinating discharge services: Greater than 30 minutes Status at Discharge Functional status at discharge: uses cane/walker Overall status at discharge: patient is back to baseline Mental Status: mental status grossly normal Speech and Movement: delayed speech Mood: congruent mood Affect: normal affect Quality:SDOH Health Related Social Needs: Health related social needs inadequate housing, material hardship Health related social needs details the electricity was out in the home due to fallen tree. this is resolved Exam Narrative Exam Narrative: Taco is sitting up in bed, eating breakfast, able to speak in full sentences, but still episodically tachypneic, then few seconds of apnea. Voice is slow but intelligible. Lungs: Lungs clear, no more rales, improved air movement. No wheezes. Heart: RRR, no murmur Abdomen: soft, nontender/nondistended Legs/feet: no edema, not tender Psych Mental Status: mental status grossly normal Speech and Movement: delayed speech Mood: congruent mood Affect: normal affect DS: Data Vitals/I&O Vitals and I&O: Vital Signs Temperature 35.9 C L 03/10/24 10:07 Temperature Source Temporal Artery Scan 03/10/24 10:07 Pulse 63 03/10/24 10:07 Pulse 90 03/10/24 12:20 Respiratory Rate 20 03/10/24 10:07 Respiratory Effort Short of Breath 03/06/24 19:40 Respiratory Depth Normal 03/06/24 19:40 Respiratory Pattern Tachypnea 03/06/24 19:40 Blood Pressure 101/55 L 03/10/24 10:07 Blood Pressure Mean 71 03/10/24 09:12 Blood Pressure Position Supine 03/06/24 16:13 Pulse Oximetry 95 03/10/24 10:07 Respiratory End-tidal CO2 13 03/06/24 19:10 Oxygen Delivery Method Room Air 03/10/24 10:07 Oxygen Flow Rate 0 03/10/24 10:07 Pain Level 0 03/10/24 09:50 Intake & Output 03/09/24 03/10/24 03/10/24 23:59 11:59 23:59 Intake Total 500 / 1140 360 / 860 500 / 860 Output Total 850 / 2275 635 / 835 200 / 835 Balance -350 / -1135 -275 / 25 300 / 25 Weight 72 kg Intake: IV 110 / 270 Oral 390 / 870 360 / 860 500 / 860 Output: Urine 850 / 2275 635 / 835 200 / 835 Other: Urine Color Yellow Yellow Yellow Urine Appearance Clear Clear Clear Sediment Urine Odor None Comment Bag not clamped, small puddle on floor. Stool Size Large Stool Characteristics Soft Formed Brown Voiding Methods Self-Catheterization Data Completed and Pending Labs on day of discharge: Labs from last 24 hours 03/10/24 05:33 Sodium 141 Potassium 3.9 Chloride 104 Carbon Dioxide 26.2 Anion Gap 10.8 BUN 53 H Creatinine 2.6 H Est GFR (CKD-EPI 2020) 23.73 Glucose 154 H Calcium 8.7 Magnesium 2.3 Preliminary micro results at discharge 03/06/24 21:40 Blood Culture - Preliminary Blood NO GROWTH 72 HOURS 03/06/24 16:48 Blood Culture - Preliminary Blood NO GROWTH 72 HOURS PFSH All Active Problems (Updated 03/08/24 @ 15:52 by Tucker Lawrence) Anemia in CKD (chronic kidney disease) (Acute) Anxiety (Chronic) Chronic kidney disease, stage IV (severe) (Acute) Ischemic cardiomyopathy (Acute) Acute on chronic HFrEF (heart failure with reduced ejection fraction) (Acute) CHF exacerbation (Acute) Left lower lobe pneumonia (Acute) Urinary retention (Acute) DVT prophylaxis (Acute) HFrEF (heart failure with reduced ejection fraction) (Acute) PSVT (paroxysmal supraventricular tachycardia) (Acute) Advanced care planning/counseling discussion (Acute) Palliative care encounter (Acute) CHF (congestive heart failure) (Chronic) HTN (hypertension) (Chronic) Type 2 diabetes mellitus (Chronic) PAF (paroxysmal atrial fibrillation) (Chronic) Symptomatic bradycardia (Acute) Medical History (Updated 03/08/24 @ 15:52 by Tucker Lawrence) CKD (chronic kidney disease) stage 3, GFR 30-59 ml/min Social History Smoking/Tobacco Use Status: Former Tobacco Use Smoking risk assessment performed?: Yes Alcohol Intake: current Alcohol Intake frequency: 0-2 drinks per day Drug use: Never Substance use type: does not use Details: Pt quit smoking 10 years ago Housing: house Do you feel safe at home: Yes Do you feel safe in your relationship?: Yes Additional Social history: at side Time Spent with Patient Time Spent with Patient: 45-69 minutes Time was spent: preparing to see the patient(eg.review tests), obtaining and/or reviewing separately otained hiistory, ordering medications,tests, procedures, referring, communicating with other health critical care clinical nurse specialist, indepentently interpreting results, counseling the patient and care coordination
== END 2024-03-10 16:38 | disposition home health service (06) | DRG 291 ==
LOC: ER 18:24 → ICU 19:40 → MS 03-10 09:52
PROVIDERS: Family Medicine; Admitting Provider Internal Medicine; Emergency Provider Registered Nurse Emergency; PCP Family Medicine; Visit Provider Internal Medicine
DX: I13.0 Hypertensive heart and chronic kidney disease with heart failure and stage 1 through stage 4 chronic kidney disease, or unspecified chronic kidney disease (principal); I50.23 Acute on chronic systolic (congestive) heart failure; N18.4 Chronic kidney disease, stage 4 (severe); I47.19 Other supraventricular tachycardia; I25.5 Ischemic cardiomyopathy; E11.22 Type 2 diabetes mellitus with diabetic chronic kidney disease; Z79.84 Long term (current) use of oral hypoglycemic drugs; I48.0 Paroxysmal atrial fibrillation; R33.9 Retention of urine, unspecified; Z87.891 Personal history of nicotine dependence; Z79.4 Long term (current) use of insulin; D63.1 Anemia in chronic kidney disease; I44.0 Atrioventricular block, first degree; I45.10 Unspecified right bundle-branch block
CPT/HCPCS: 00123; 36415; 80048; 80053; 82805; 84145; 87040; 87637; 90656; 93005; 96374; 97110; 97162; 97530; 99285; 71045; 81003; 81015; 82607; 83540; 83550; 83605; 83735; 83880; 84484; 85025; 85610; 85730; 86140; 87086; 93010; 99233; 99239; 99291; J1205; J1250; J1650; J1815; J1940; J2270; J3480; J3490

== ENCOUNTER 2024-03-18 17:55 | Outpatient (REF) | payer MEDICARE, OTHER, SELFPAY ==
[2024-03-18 21:19] LABS: Anion Gap 8.4 mmol/L (3-11); BUN 60 mg/dL (7-18); CO2 25.6 mmol/L (21.0-32.0); CREATININE 2.7 mg/dL (0.70-1.30); Calcium 9.3 mg/dL (8.5-10.1); Chloride 102 mmol/L (98-107); Estimated GFR 22.68 (mL/min/1.73m2); Glucose 182 mg/dL (74-106); Magnesium 2.7 mg/dL (1.8-2.4); Potassium 4.2 mmol/L (3.5-5.1); Sodium 136 mmol/L (136-145)
== END 2024-03-18 17:56 | disposition home or self-care (01) ==
LOC: NCHCN 17:55
PROVIDERS: PCP Family Medicine; Visit Provider Family Medicine
DX: I50.9 Heart failure, unspecified (principal); E83.42 Hypomagnesemia
CPT/HCPCS: 80048; 83735

== ENCOUNTER 2024-03-27 17:22 | Emergency (ER) | payer MEDICARE, OTHER, SELFPAY ==
[2024-03-27 17:24] VITALS: BP 105/69; PULSE 92; RESP 14; TEMP 36.3; O2SAT 97
[2024-03-27 17:53] LABS: Abs Immature Grans 0.02 10^3/uL (0.0-0.06); Absolute Basophil Count 0.07 10^3/uL (0.0-0.2); Absolute Eosinophil Count 0.34 10^3/uL (0.0-0.7); Absolute Lymphocyte Count 1.31 10^3/uL (1.2-3.4); Absolute Monocyte Count 0.68 10^3/uL (0.1-0.8); Absolute Neutrophil Count 4.78 10^3/uL (1.2-6.7); Eosinophils % 4.7 %; HCT 33.3 % (40.0-50.0); HGB 10.4 g/dL (13.5-17.5); Immature Grans % 0.3 %; Lymphocytes % 18.2 %; MCH 30.6 pg (27.0-33.0); MCHC 31.2 % (32.0-36.0); MCV 98 fL (80-95); MPV 11.6 fL (8.0-11.0); Monocytes % 9.4 %; Neutrophils % 66.4 %; Platelet Count 157 10^3/uL (130-400); RDW 14.4 % (11.8-14.1); RDW-SD 52.2 fL
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
[2024-03-27 18:08] LABS: INR 1.1 (0.9-1.1); PTT Activated 27.4 sec (23.6-32.8); Prothrombin Time 10.9 sec (9.1-11.1)
[2024-03-27 18:09] LABS: ALT 19 U/L (16-63); AST 12 U/L (15-37); Albumin 3.4 g/dL (3.4-5.0); Alkaline Phosphatase 99 U/L (46-116); Anion Gap 9.8 mmol/L (3-11); BUN 53 mg/dL (7-18); Bilirubin, Total 0.45 mg/dL (0.2-1.0); CO2 27.2 mmol/L (21.0-32.0); CREATININE 2.5 mg/dL (0.70-1.30); Calcium 9.4 mg/dL (8.5-10.1); Chloride 106 mmol/L (98-107); Estimated GFR 24.87 (mL/min/1.73m2); Glucose 212 mg/dL (74-106); Potassium 5.1 mmol/L (3.5-5.1); Sodium 143 mmol/L (136-145); Total Protein 7.5 g/dL (6.4-8.2)
[2024-03-27 18:31] VITALS: PULSE 110; RESP 20; O2SAT 95
[2024-03-27 18:49] LABS: Bilirubin Negative (Negative); Blood Large (Negative); Clarity Cloudy (Clear); Glucose >=1000 mg/dL (Negative); Ketones Negative (Negative); Leukocyte Esterase Negative (Negative); Nitrite Negative (Negative); Specific Gravity 1.015 (1.005-1.025); Urobilinogen 0.2 mg/dL (Up to 0.2)
[2024-03-27 18:55] LABS: C & S Indicated? Yes; RBC >50 HPF (0-2)
--- NOTE | 2024-03-27 19:35 | DI.CT_ITS ---
Exam(s) CT ABDOMEN PELVIS WO EXAM: CT ABDOMEN PELVIS WO CLINICAL HISTORY: gross hematuria; pt with CKD stage IV. TECHNIQUE: Imaging Protocol: Axial computed tomography images with coronal and sagittal reformatted images were created and reviewed. Oral: / no COMPARISON: CT CT THORAX ABD/PEL CTA from 11/03/2023 US US ABDOMEN RENAL from 02/12/2024 FINDINGS: Lung Bases: Dependent changes. Interlobular septal thickening consistent with mild pulmonary edema. Trace right pleural effusion. The heart is dilated. Small hiatal hernia. Liver: Normal density. No suspicious mass. Gallbladder and biliary tract: No radiodense calculus or biliary dilation. Pancreas: Somewhat atrophic. Normal density. No abnormal calcifications or inflammatory process. Spleen: Normal. Kidneys: Normal size, contour and axis. No radiodense parenchymal stones. Renal vasculature heavily calcified. No obstructive uropathy. No suspicious masses seen. Adrenal glands: No masses seen. Lymph nodes: Within normal limits. Vasculature: Abdominal aorta non-dilated. Aorto bi-iliac, celiac axis, SMA and renal artery stents . Femoral arteries heavily calcified. Soft tissues: Small bilateral fatty containing inguinal hernias. Tiny fatty containing umbilical her scooter. Bladder: Mild wall thickening. No mass or calculi. Bowel: Duodenal diverticulum. No obstruction or bowel wall thickening. Appendix normal. Descendin g and sigmoid diverticulosis. No evidence of diverticulitis. Large quantity of stool. Peritoneal cavity: No ascites. No focal collection. No mesenteric inflammatory response. Reproductive organs: Markedly enlarged prostate. Right testicular prosthesis. Bones: Unremarkable for age. IMPRESSION: No cause for hematuria identified. No evidence of hydronephrosis or urinary tract calculus. The damaris cifications in the kidneys appear to be vascular calcifications. No evidence of renal or bladder mas s given limitations of this noncontrast exam. Trace right pleural effusion. Interlobular septal thickening consistent with mild pulmonary edema. Cardiomegaly. RADIATION DOSE DELIVERED: Total DLP DATA REPOSITORY: All CT scans at this facility are submitted to the National Radiology Data Registry (NRDR) Dose Index Registry (DIR) with the [employer] ([employer]). RADIATION OPTIMIZATION: All CT scans at this facility use at least one of these dose optimization te chniques: automated exposure control; mA and/or kV adjustment per patient size (includes targeted exa ms where dose is matched to clinical indication); or iterative reconstruction.
--- NOTE | 2024-03-27 21:15 | DI.VRAD_ITS ---
PROCEDURE INFORMATION: Exam: CT Abdomen And Pelvis Without Contrast Exam date and time: 03/27/2024 7:27 PM Age: 83 years old Clinical indication: Other: Gross hematuria; PT with ckd stage iv TECHNIQUE: Imaging protocol: Computed tomography of the abdomen and pelvis without contrast. COMPARISON: CT THORAX ABD/PEL CTA 11/03/2023 4:28 PM FINDINGS: Lungs: Smooth thickening of the interlobular pulmonary septa throughout both lung bases. Mild bilateral dependent pulmonary opacity. Atelectasis suspected. Calcified right lower lobe pulmonary granuloma. Pleural spaces: Small right pleural effusion. Heart: Heart only partially included in the field of view but enlarged. Coronary artery calcification. Diaphragm: 2.8 cm hiatal hernia. Mild elevation of the right hemidiaphragm. Liver: Grossly unremarkable unenhanced liver. Gallbladder and biliary ducts: Moderate gallbladder distension. No calcified gallstones or biliary dilatation. Pancreas: Mild-moderate atrophy of the pancreas. Spleen: Grossly unremarkable unenhanced spleen. Adrenal glands: Normal appearing adrenal glands. Kidneys and ureters: Nonobstructing bilateral renal calcifications, in large part vascular calcifications. No hydronephrosis or ureterectasis. No obstructing ureteral stones. Stomach and bowel: No oral contrast. Stomach partially decompressed. 4.2 cm x 3.0 cm proximal duodenal diverticulum, image 49 of series 2. No small bowel dilatation to suggest obstruction. Normal-appearing fecal material in the colon. Diverticulosis through the descending and sigmoid segments but no evidence of diverticulitis or colitis. Appendix: Normal appendix. Intraperitoneal space: No gross ascites or free air. Vasculature: Abdominal aortic aneurysm with a maximum AP dimension of 3.9 cm. Redemonstration of an intraluminal stent graft extending from the distal thoracic aorta throughout the abdominal aorta with graft limbs extending into the common iliac arteries bilaterally. Ostial stents noted at the celiac, superior mesenteric, and both renal artery origins. Patency not assessed in the absence of intravenous contrast. Lymph nodes: No pathologically enlarged mesenteric, retroperitoneal, or pelvic sidewall lymph nodes. Urinary bladder: Urinary bladder partially decompressed. Reproductive: Enlarged prostate gland, 4.8 cm x 6.1 cm maximum axial dimension. Normal-appearing seminal vesicles. Spheroid foreign body in the right hemiscrotum. Testicular prosthesis ? Correlation with procedure history recommended. Bones/joints: No acute fracture seen among the bones of the abdomen or pelvis. Spinal degenerative change with discogenic degeneration, anterior osteophytes, and facet arthrosis at multiple levels. Grade 1 anterolisthesis of L4 on L5. Soft tissues: Small fat containing ventral hernia at the umbilicus. Small fat containing bilateral inguinal region hernias. IMPRESSION: 1. The cause of hematuria is not identified. Further evaluation is recommended. 2. Enlarged prostate gland, 4.8 cm x 6.1 cm maximum axial dimension. 3. No obstructing ureteral stones, hydronephrosis, or evidence of recent stone passage. 4. Small right pleural effusion. Smooth thickening of the interlobular pulmonary septa throughout the lung bases suggesting interstitial pulmonary edema or volume overload, likely from congestive heart failure given cardiomegaly. 5. Additional findings, as above. Dictated and Authenticated by: Claude Paul MD. Ordering:ANNI Gonsales MD
[2024-03-27 21:27] VITALS: BP 109/60; PULSE 101; RESP 16; TEMP 36.1; O2SAT 98
--- NOTE | 2024-03-27 21:32 | NUR.NOTE ---
IV was d/c'd at 2130
== END 2024-03-27 21:43 | disposition home or self-care (01) ==
PROVIDERS: Emergency Provider Nurse Practitioner Family; PCP Family Medicine
DX: N40.1 Benign prostatic hyperplasia with lower urinary tract symptoms; R33.8 Other retention of urine; E11.22 Type 2 diabetes mellitus with diabetic chronic kidney disease; I13.0 Hypertensive heart and chronic kidney disease with heart failure and stage 1 through stage 4 chronic kidney disease, or unspecified chronic kidney disease; N18.4 Chronic kidney disease, stage 4 (severe); I50.22 Chronic systolic (congestive) heart failure; I48.0 Paroxysmal atrial fibrillation; Z79.02 Long term (current) use of antithrombotics/antiplatelets; Z79.82 Long term (current) use of aspirin; Z79.4 Long term (current) use of insulin; Z87.891 Personal history of nicotine dependence
CPT/HCPCS: 80053; 99284; 74176; 81003; 81015; 85025; 85610; 85730; 87086; 99283

== ENCOUNTER 2024-04-05 16:48 | Outpatient (REF) | payer MEDICARE, OTHER, SELFPAY ==
[2024-04-05 22:22] LABS: Anion Gap 11.9 mmol/L (3-11); BUN 55 mg/dL (7-18); CO2 26.1 mmol/L (21.0-32.0); CREATININE 3.1 mg/dL (0.70-1.30); Calcium 9.2 mg/dL (8.5-10.1); Chloride 103 mmol/L (98-107); Estimated GFR 19.21 (mL/min/1.73m2); Glucose 202 mg/dL (74-106); NT-proBNP 13729 pg/mL (<300); Potassium 4.3 mmol/L (3.5-5.1); Sodium 141 mmol/L (136-145)
== END 2024-04-05 16:49 | disposition home or self-care (01) ==
LOC: NCHCN 16:48
PROVIDERS: PCP Family Medicine; Visit Provider Family Medicine
DX: I50.9 Heart failure, unspecified (principal)
CPT/HCPCS: 80048; 83880

== ENCOUNTER 2024-04-09 12:46 | Inpatient (IN) | payer MEDICARE, OTHER, SELFPAY ==
[2024-04-09] VITALS (73 sets, daily range): BP systolic 63–150; BP diastolic 43–122; PULSE 40–142; RESP 0–33; TEMP 36.2–37.1; O2SAT 92–100
--- NOTE | 2024-04-09 12:45 | RT.EKG_ITS ---
APPROVED REPORT Exam: Resting ECG Reason for Exam: Dizziness Patient Location: E HR:86 bpm ECG Measurements Heart Rate 86 AXIS NH 148 P 60 QRSd 176 QRS -91 QT 449 T 72 QTc 538 Conclusion Sinus rhythm...normal P axis, V-rate 60- 99 Multiform ventricular premature complexes...short R-R, variable morphology RBBB and LAFB...QRSd >120mS, axis(-40,240) Physician: no stemi, RBBB present, unchanged
--- NOTE | 2024-04-09 13:00 | DI.RAD_ITS ---
Exam(s) XR PORTABLE CHEST AP EXAM: XR PORTABLE CHEST AP CLINICAL HISTORY: sob, near syncope. TECHNIQUE: 2D digital imaging was performed. COMPARISON: CR,XR XR PORTABLE CHEST AP from 03/06/[address] ABDOMEN PELVIS WO from 03/27/2024 FINDINGS: Single AP portable view. Mild cardiomegaly again noted. Mediastinum not widened. There are mildly increased interstitial mar kings in both lower lobes although less than was evident 03/06/2024. There are no distinct Jacquelyn B lines. No obvious pleural effusions. Skin fold artifact lower right lung noted. IMPRESSION: Increased markings in lung bases noted. However, this appears significantly less than was evident on 03/06/2024. DATA REPOSITORY: RADIATION DOSE DELIVERED:
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
[2024-04-09 14:08] LABS: Abs Immature Grans 0.02 10^3/uL (0.0-0.06); Absolute Basophil Count 0.02 10^3/uL (0.0-0.2); Absolute Eosinophil Count 0.08 10^3/uL (0.0-0.7); Absolute Lymphocyte Count 0.98 10^3/uL (1.2-3.4); Absolute Monocyte Count 0.54 10^3/uL (0.1-0.8); Absolute Neutrophil Count 4.24 10^3/uL (1.2-6.7); Basophils % 0.3 %; Eosinophils % 1.4 %; HCT 28.6 % (40.0-50.0); HGB 9.2 g/dL (13.5-17.5); Immature Grans % 0.3 %; Lymphocytes % 16.7 %; MCH 30.1 pg (27.0-33.0); MCHC 32.2 % (32.0-36.0); MCV 94 fL (80-95); MPV 10.8 fL (8.0-11.0); Monocytes % 9.2 %; Neutrophils % 72.1 %; Platelet Count 215 10^3/uL (130-400); RBC 3.06 10^6/uL (4.36-5.78); RDW 14.8 % (11.8-14.1); RDW-SD 50.4 fL; WBC 5.88 10^3/uL (4.4-10.8)
[2024-04-09 14:21] LABS: INR 1.2 (0.9-1.1); PTT Activated 26.3 sec (23.6-32.8); Prothrombin Time 11.5 sec (9.1-11.1)
[2024-04-09 14:33] LABS: ALT 16 U/L (16-63); AST 15 U/L (15-37); Alkaline Phosphatase 107 U/L (46-116); Anion Gap 10.7 mmol/L (3-11); BUN 49 mg/dL (7-18); Bilirubin, Total 0.73 mg/dL (0.2-1.0); CO2 25.3 mmol/L (21.0-32.0); CREATININE 2.8 mg/dL (0.70-1.30); Calcium 8.8 mg/dL (8.5-10.1); Chloride 95 mmol/L (98-107); Estimated GFR 21.71 (mL/min/1.73m2); Glucose 121 mg/dL (74-106); NT-proBNP 15969 pg/mL (<300); Potassium 3.9 mmol/L (3.5-5.1); Sodium 131 mmol/L (136-145); Total Protein 6.8 g/dL (6.4-8.2); Troponin I 42 ng/L (<or=76)
[2024-04-09 15:26] LABS: Lactate 1.7 mmol/L (0.6-1.4)
[2024-04-09 15:28] LABS: Bilirubin Negative (Negative); Blood Negative (Negative); Clarity Clear (Clear); Glucose 100 mg/dL (Negative); Ketones Negative (Negative); Leukocyte Esterase Small (Negative); Nitrite Negative (Negative); Specific Gravity <= 1.005 (1.005-1.025); Urobilinogen 0.2 mg/dL (Up to 0.2); pH 5.5 (5-8)
[2024-04-09] MEDS: Normal Saline 500 ML IV (15:30)
[2024-04-09 15:38] LABS: Bacteria Negative HPF (Negative); C & S Indicated? Yes; Crystals Negative HPF (Negative); Epithelial Cells Rare HPF (Negative); Mucus Negative (Negative); Other Cells Rare Yeast (Negative); RBC Negative HPF (0-2)
[2024-04-09 15:45] LABS: Troponin I 39 ng/L (<or=76)
[2024-04-09] MEDS: CEFEPIME 2 GM in Normal Saline 100 ML IVPB (16:38)
[2024-04-09 16:51] LABS: Procalcitonin < 0.1 ng/mL
[2024-04-09 17:51] LABS: Troponin I 41 ng/L (<or=76)
--- NOTE | 2024-04-09 18:28 | W.PC.ACHO ---
Registration Status: Primary Language: Preferred Language: ED Information & Data Chief Complaint Dizzy/Sync 04/09/24 13:48 Triage Note Patient state he is low 04/09/24 12:49 blood pressure, dizziness and nauseasince the last 2 days. Reported right sided chest pain on anbd off for a long time Subjective feeling dizzy and light 04/09/24 13:35 headed Medical / Surgical History (Last Reviewed 04/09/24 @ 14:40 by Be Orr DO) CKD (chronic kidney disease) stage 3, GFR 30-59 ml/min Most Recent Vital Signs Temperature 36.2 C L 04/09/24 14:25 Temperature Source Temporal Artery Scan 04/09/24 14:25 Pulse 77 04/09/24 18:15 Pulse 94 H 04/09/24 18:15 Respiratory Rate 28 H 04/09/24 18:15 Respiratory Effort Normal 04/09/24 14:25 Respiratory Depth Normal 04/09/24 14:25 Respiratory Pattern Normal 04/09/24 13:35 Blood Pressure 104/80 04/09/24 18:15 Blood Pressure Mean 88 04/09/24 18:15 Pulse Oximetry 96 04/09/24 18:15 Oxygen Delivery Method Room Air 04/09/24 12:49 Oxygen Flow Rate 0 04/09/24 12:49 Pain Level 0 04/09/24 14:25 Allergies levofloxacin Adverse Reaction (Mild, Unverified 04/09/24 13:09) Other (See Comment) Statins Adverse Reaction (Mild, Uncoded 04/09/24 13:09) Other (See Comment) Precautions Isolation Standard precaution 04/09/24 13:35 IV IV Catheter Type [Left Upper Saline Lock arm] IV Catheter Gauge [Left Upper 18 arm] Diet Orders Category Date Time Status Diabetes Consistent CHO/Heart Healthy [DIET] Nutrition 04/09/24 Dinner Active Diagnostics 04/09/24 04/09/24 04/09/24 Range/Units 17:28 15:20 14:01 WBC 5.88 (4.4-10.8) 10^3/uL RBC 3.06 L (4.36-5.78) 10^6/uL Hgb 9.2 L (13.5-17.5) g/dL Hct 28.6 L (40.0-50.0) % MCV 94 (80-95) fL MCH 30.1 (27.0-33.0) pg MCHC 32.2 (32.0-36.0) % RDW 14.8 H (11.8-14.1) % Plt Count 215 (130-400) 10^3/uL MPV 10.8 (8.0-11.0) fL Immature Gran % 0.3 % Neutrophils % 72.1 % Lymphocytes % 16.7 % Monocytes % 9.2 % Eosinophils % 1.4 % Basophils % 0.3 % Nucleated RBC % 0.0 (0.0-0.3) % Absolute Neutrophils 4.24 (1.2-6.7) 10^3/uL Absolute Lymphocytes 0.98 L (1.2-3.4) 10^3/uL Absolute Monocytes 0.54 (0.1-0.8) 10^3/uL Absolute Eosinophils 0.08 (0.0-0.7) 10^3/uL Absolute Basophils 0.02 (0.0-0.2) 10^3/uL PT 11.5 H (9.1-11.1) sec INR 1.2 H (0.9-1.1) APTT 26.3 (23.6-32.8) sec VBG Lactate 1.7 H (0.6-1.4) mmol/L Sodium 131 L (136-145) mmol/L Potassium 3.9 (3.5-5.1) mmol/L Chloride 95 L (98-107) mmol/L Carbon Dioxide 25.3 (21.0-32.0) mmol/L Anion Gap 10.7 (3-11) mmol/L BUN 49 H (7-18) mg/dL Creatinine 2.8 H (0.70-1.30) mg/dL Est GFR (CKD-EPI 2020) 21.71 (mL/min/1.73m2) Glucose 121 H (74-106) mg/dL Calcium 8.8 (8.5-10.1) mg/dL Total Bilirubin 0.73 (0.2-1.0) mg/dL AST 15 (15-37) U/L ALT 16 (16-63) U/L Alkaline Phosphatase 107 (46-116) U/L Troponin I 41 39 42 (<or=76) ng/L NT-Pro-B Natriuret Pep 08933 H (<300) pg/mL Total Protein 6.8 (6.4-8.2) g/dL Albumin 3.0 L (3.4-5.0) g/dL Procalcitonin < 0.1 ng/mL TSH 2.60 (0.36-3.74) uIU/mL Urine Color Yellow (Yellow) Urine Clarity Clear (Clear) Urine pH 5.5 (5-8) Ur Specific [place] <= 1.005 (1.005-1.025) Urine Protein Negative (Neg-Trace) mg/dL Urine Ketones Negative (Negative) mg/dL Urine Blood Negative (Negative) Urine Nitrite Negative (Negative) Urine Bilirubin Negative (Negative) Urine Urobilinogen 0.2 (Up to 0.2) mg/dL Ur Leukocyte Esterase Small H (Negative) Urine RBC Negative (0-2) HPF Urine WBC 10-20 H (0-5) HPF Ur Epithelial Cells Rare (Negative) HPF Urine Crystals Negative (Negative) HPF Urine Bacteria Negative (Negative) HPF Urine Mucus Negative (Negative) Urine Other Rare Yeast (Negative) Ur Culture Indicated? Yes Urine Glucose 100 H (Negative) mg/dL 04/09/24 16:19 Blood Culture - Pending Blood 04/09/24 16:02 Blood Culture - Pending Blood 04/09/24 15:20 Urine Culture - Pending Urine - Reflex from Ua Intake and Output - 24 Hour Total 04/09/24 12:46 thru 04/09/24 17:46 Intake Total 620 Output Total 400 Balance 220 Weight 70.76 kg Intake: IV 620 Output: Urine 400 Falls Risk Assessment Contributing Factors No Factors 04/09/24 13:39 Ambulatory Aids Independent 04/09/24 13:39 Tubes/Lines None 04/09/24 13:39 Gait Evaluation No gait disturbance 04/09/24 13:39 Cognition No cognitive impairment 04/09/24 13:39 Fall Total Score 0 04/09/24 13:39 Level of Risk Standard/Low Risk 04/09/24 13:39 Problems (Last Reviewed 04/09/24 @ 14:40 by Be Orr DO) Urinary tract infection (Acute) Sepsis (Acute) Shock (Acute) v v v v v v v v v Sending and/or Receiving Nurses: Please use comment section below to note any information pertinent to the patient hand-off not included above. Information / Comments: Report received from: Andres Harrison RN
--- NOTE | 2024-04-09 19:23 | HPE_ITS ---
Date of service: 04/09/24 Time of Service: 15:00 Assessment and Plan Assessment and plan (1) Acute on chronic HFrEF (heart failure with reduced ejection fraction): Start date: 03/06/24 Status: Acute Assessment and plan: Will check echocardiogram Gentle hydration (2) Ischemic cardiomyopathy: Status: Acute Assessment and plan: Check echocardiogram (3) Chronic kidney disease, stage IV (severe): Status: Acute Assessment and plan: continue to monitor renal function. (4) Type 2 diabetes mellitus: Status: Chronic Assessment and plan: Continue patient's outpatient insulin regimen and check 4 times daily sugars 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 mellitus halfway insulin use: without medical terminologist use Diabetes mellitus complication status: with kidney complications Diabetes mellitus complication detail: with chronic kidney disease Chronic kidney disease stage: stage 3 (moderate) Chronic kidney disease stage 3 subtype: stage 3b (GFR 30-44) Qualified Code(s): E11.22 - Type 2 diabetes mellitus with diabetic chronic kidney disease; N18.32 - Chronic kidney disease, stage 3b (5) HTN (hypertension): Status: Chronic Assessment and plan: Hold blood pressure medicines due to hypotension Qualifiers: Hypertension type: primary hypertension Qualified Code(s): I10 - Essential (primary) hypertension (6) Anxiety: Status: Chronic Assessment and plan: Continue outpatient medications (7) Anemia in CKD (chronic kidney disease): Status: Acute Assessment and plan: stable. Hemoglobin has been dropping. Continue to monitor daily (8) DVT prophylaxis: Status: Deleted Assessment and plan: He is on oral anticoagulation. (9) Urinary tract infection: Status: Acute (10) Sepsis: Status: Acute Assessment and plan: Continue intravenous cefepime Patient simply cannot continue to reuse catheters as he likely has a urinary tract infection and sepsis secondary to same I did talk with the patient and his partner about single use catheters which will be very important for the patient to utilize in the future. (11) Shock: Status: Acute Assessment and plan: Admit to ICU. Levophed ordered to support blood pressure Continue gentle hydration (12) Full code status: Status: Acute Assessment and plan: Patient's prognosis is guarded History of Present Illness History of Present Illness Chief Complaint: short of breath, fatigue, lightheadedness Narrative: Clinical course reviewed including notes, orders, labs, vitals, meds, imaging, and cultures. Care is discussed with primary nurse. Patient is well-known to this hospital for repeated admissions. He has known congestive heart failure with ejection fraction in the 20s. Echocardiogram was ordered today. 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 He developed right chest discomfort and shortness of breath with extreme fatigue over the last several days. He has a chronic cough. Presenting to the hospital his blood pressure was in the 80s. He was given IV fluids with increased blood pressures but he continues to drop his blood pressures. His urine analysis shows evidence of infection. The patient has macular degeneration and cannot see so well but he is able to self cath. They reuse catheters by washing them and soap and water and then reusing them. The patient is not skilled with self-catheterization. He has received a total of about 500 cc of normal saline in the emergency department with a peak systolic about 110 and dropped systolic down in the 70s. Now, on admission to the ICU, his systolic blood pressures in the 90s. He was given intravenous cefepime in the emergency department. He is accompanied by his partner. There is been no recent travel At home they have pets including 3 birds 2 cats and a dog. All the animals are well at this time Patient does not have a hot tub nor is he being around 1 recently. [facility] All Active Problems (Updated 04/09/24 @ 18:30 by CAITLIN DIOP) Urinary tract infection (Acute) Sepsis (Acute) Shock (Acute) Hematuria (Acute) Full code status (Acute) If He has witnessed cardiac arrest in the hospital, he would like a 10- minute trial of CPR. If he has a cardiac arrest outside the hospital, he does not want CPR. He still would like to be transferred to the hospital and treated should he be ill or have an injury and would like treatment with IV fluids and IV antibiotics. See COLST form for additional information Anemia in CKD (chronic kidney disease) (Acute) Anxiety (Chronic) Chronic kidney disease, stage IV (severe) (Acute) Ischemic cardiomyopathy (Acute) Acute on chronic HFrEF (heart failure with reduced ejection fraction) (Acute) CHF exacerbation (Acute) Left lower lobe pneumonia (Acute) Urinary retention (Acute) HFrEF (heart failure with reduced ejection fraction) (Acute) PSVT (paroxysmal supraventricular tachycardia) (Acute) Advanced care planning/counseling discussion (Acute) Palliative care encounter (Acute) CHF (congestive heart failure) (Chronic) HTN (hypertension) (Chronic) Type 2 diabetes mellitus (Chronic) PAF (paroxysmal atrial fibrillation) (Chronic) Symptomatic bradycardia (Acute) Medical History CKD (chronic kidney disease) stage 3, GFR 30-59 ml/min Social History Smoking/Tobacco Use Status: Former Tobacco Use Smoking risk assessment performed?: Yes Alcohol Intake: current Alcohol Intake frequency: 0-2 drinks per day Drug use: Never Substance use type: does not use Details: Pt quit smoking 10 years ago Housing: house Do you feel safe at home: Yes Do you feel safe in your relationship?: Yes Additional Social history: at side Meds Allergies and Home Medications Allergies Allergy/AdvReac Type Severity Reaction Status Date / Time levofloxacin AdvReac Mild Other (See Unverified 04/09/24 13:09 Comment) Statins AdvReac Mild Other (See Uncoded 04/09/24 13:09 Comment) Home Medications ?Medication ?Instructions ?Recorded ?Confirmed ?Type finasteride 5 mg tablet 5 mg PO DAILY 07/20/23 04/09/24 History ascorbic acid (vitamin C) 500 mg 500 mg PO DAILY 11/03/23 04/09/24 History tablet (Vitamin C) aspirin 81 mg chewable tablet 1 tab PO DAILY 11/03/23 04/09/24 History clopidogrel 75 mg tablet 75 mg PO DAILY 11/03/23 04/09/24 History doxycycline hyclate 100 mg tablet 100 mg PO BID 11/03/23 04/09/24 History ferrous sulfate 325 mg (65 mg 325 mg PO .qod 11/03/23 04/09/24 History iron) tablet sennosides 8.6 mg-docusate sodium 1 tab-cap PO BID 11/03/23 04/09/24 History 50 mg capsule (Senna Plus) silodosin 8 mg capsule (Rapaflo) 8 mg PO DAILY 11/03/23 04/09/24 History omega-3 fatty acids 1,000 mg 1,000 mg PO DAILY 11/04/23 04/09/24 History capsule (Super [place]-3) vitamin B complex 1 cap PO DAILY 11/04/23 04/09/24 History acetaminophen 500 mg capsule 1,000 mg PO Q6H PRN 02/09/24 04/09/24 History dapagliflozin propanediol 5 mg 5 mg PO DAILY 02/09/24 04/09/24 History tablet (Farxiga) docusate sodium 100 mg capsule 100 mg PO BID PRN 02/09/24 04/09/24 History insulin glargine 100 unit/mL (3 10 unit subcut DAILY 02/09/24 04/09/24 History mL) subcutaneous pen (Lantus Solostar U-100 Insulin) polyethylene glycol 3350 17 17 g PO DAILY PRN 02/09/24 04/09/24 History gram/dose oral powder (ClearLax) testosterone 2 pump topical DAILY 02/09/24 04/09/24 History vitamin B complex-vitamin C-folic 1 tab PO DAILY 02/12/24 04/09/24 History acid 0.8 mg tablet (Mary-Merissa) methocarbamol 750 mg tablet 750 mg PO QID PRN PRN #12 tabs 02/17/24 04/09/24 Rx ranolazine 500 mg tablet,extended 500 mg PO DAILY #7 tabs 02/17/24 04/09/24 Rx release,12 hr sacubitril 24 mg-valsartan 26 mg 1 tab PO BID #14 tabs 02/17/24 04/09/24 Rx tablet (Entresto) vit C 250 mg-vit E 90 mg-zinc 40 1 tab PO BID 03/06/24 04/09/24 History mg-copper 1 cr-gmyisy-fnhxhe capsule (PreserVision AREDS-2) spironolactone 25 mg tablet 25 mg PO DAILY #30 tabs 03/10/24 04/09/24 Rx furosemide 80 mg tablet 80 mg PO DAILY 03/27/24 04/09/24 History pen needle, diabetic 31 gauge x 04/09/24 04/09/24 History 3/16 (TechLITE Pen Needle) Exam Narrative Exam Narrative: Patient is alert and oriented x 3 and in no acute distress. He is lying supine in a emergency department gurney. He is evaluated in the emergency department. His partner is at the bedside. HEENT: Neck supple, MM pink and moist, conjunctiva non-injected, sclera non- icteric, Pupils equal and reactive to light symmetrically, no JVD, no A waves. No thyromegaly. No carotid bruit CHEST: Bilaterally symmetrical with inspiration and expiration. No use of accessory muscles of respiration. No nasal flaring. RESP: Clear to auscultation bilaterally, no rales, rhonchi or wheeze, no pleural friction rub, no post-tussive crackles or apical rales. COR: RRR no murmur appreciated, distant heart tones, no rub or gallop ABDOMEN: Soft, non tender diffusely, normally active bowel sounds diffusely, No hepatosplenomegaly, No abdominal bruit, no masses, no tenderness on deep abdominal palpation. G/U: deferred Rectal: deferred MUSCULOSKELETAL: Bilaterally symmetrical, no muscle belly tenderness or mass DERMIS: Skin warm and dry, no ulcers or rashes, EXTREMITIES: No cyanosis, clubbing or edema, no gross deformities of the large or small joints of the upper or lower extremities. NEUROLOGICAL: Cranial nerves intact II-XII without notable deficit, No peripheral neurosensory or motor deficits noted. LYMPH: No anterior or posterior cervical, no supraclavicular, No axillary, no epitrochlear or femoral lymphadenopathy. Results Labs 04/09/24 14:01 04/09/24 14:01 Labs: Laboratory Results - last 24 hr 04/09/24 04/09/24 04/09/24 14:01 15:20 17:28 WBC 5.88 RBC 3.06 L Hgb 9.2 L Hct 28.6 L MCV 94 MCH 30.1 MCHC 32.2 RDW 14.8 H Plt Count 215 MPV 10.8 Immature Gran % 0.3 Neutrophils % 72.1 Lymphocytes % 16.7 Monocytes % 9.2 Eosinophils % 1.4 Basophils % 0.3 Nucleated RBC % 0.0 Absolute Neutrophils 4.24 Absolute Lymphocytes 0.98 L Absolute Monocytes 0.54 Absolute Eosinophils 0.08 Absolute Basophils 0.02 PT 11.5 H INR 1.2 H APTT 26.3 VBG Lactate 1.7 H Sodium 131 L Potassium 3.9 Chloride 95 L Carbon Dioxide 25.3 Anion Gap 10.7 BUN 49 H Creatinine 2.8 H Est GFR (CKD-EPI 2020) 21.71 Glucose 121 H Calcium 8.8 Total Bilirubin 0.73 AST 15 ALT 16 Alkaline Phosphatase 107 Troponin I 42 39 41 NT-Pro-B Natriuret Pep 40637 H Total Protein 6.8 Albumin 3.0 L Procalcitonin < 0.1 TSH 2.60 Urine Color Yellow Urine Clarity Clear Urine pH 5.5 Ur Specific [place] <= 1.005 Urine Protein Negative Urine Ketones Negative Urine Blood Negative Urine Nitrite Negative Urine Bilirubin Negative Urine Urobilinogen 0.2 Ur Leukocyte Esterase Small H Urine RBC Negative Urine WBC 10-20 H Ur Epithelial Cells Rare Urine Crystals Negative Urine Bacteria Negative Urine Mucus Negative Urine Other Rare Yeast Ur Culture Indicated? Yes Urine Glucose 100 H Last Vital Signs Temp 36.5 C 04/09/24 18:56 Pulse 95 H 04/09/24 18:56 Resp 19 04/09/24 18:56 BP 94/67 L 04/09/24 18:56 Pulse Ox 99 04/09/24 18:56 Time Spent Time spent with Patient: >75 minutes Time was spent: preparing to see the patient(eg.review tests), obtaining and/or reviewing separately otained hiistory, ordering medications,tests, procedures, referring, communicating with other health day care provider (Discussed at length with Dr. Orr), indepentently interpreting results, counseling the patient and care coordination
[2024-04-09] MEDS: Doxycycline Hyclate 100 MG CAP PO (20:08)
[2024-04-09] MEDS: Sacubitril/Valsartan 24 mg/26 mg TAB 1 EACH PO (20:08)
[2024-04-09] MEDS: Melatonin 3 MG TAB 6 MG PO (22:07)
[2024-04-10] VITALS (35 sets, daily range): BP systolic 75–111; BP diastolic 50–71; PULSE 47–117; RESP 9–39; O2SAT 93–100
[2024-04-10] MEDS: CEFEPIME 1 GM in Normal Saline 50 ML IVPB ×2 (04:40→16:30)
[2024-04-10 06:25] LABS: HCT 25.6 % (40.0-50.0); HGB 8.5 g/dL (13.5-17.5); MCH 30.4 pg (27.0-33.0); MCHC 33.2 % (32.0-36.0); MCV 91 fL (80-95); MPV 11.5 fL (8.0-11.0); Platelet Count 197 10^3/uL (130-400); RDW 15.1 % (11.8-14.1); RDW-SD 49.2 fL; WBC 7.25 10^3/uL (4.4-10.8)
[2024-04-10 06:44] LABS: Anion Gap 14.6 mmol/L (3-11); BUN 55 mg/dL (7-18); CO2 21.4 mmol/L (21.0-32.0); CREATININE 2.7 mg/dL (0.70-1.30); Calcium 8.7 mg/dL (8.5-10.1); Chloride 101 mmol/L (98-107); Estimated GFR 22.68 (mL/min/1.73m2); Glucose 110 mg/dL (74-106); Magnesium 2.3 mg/dL (1.8-2.4); Potassium 3.8 mmol/L (3.5-5.1); Sodium 137 mmol/L (136-145)
--- NOTE | 2024-04-10 08:34 | PGE_ITS ---
Date of Service Date of service: 04/10/24 Time of Service: 08:34 Assessment and Plan Assessment and plan (1) Acute on chronic HFrEF (heart failure with reduced ejection fraction): Start date: 03/06/24 Status: Acute Assessment and plan: appears improved hemodynamics. Gentle hydration continue (2) Ischemic cardiomyopathy: Status: Acute Assessment and plan: stable at this time. nearing end stages of cardiac disease. (3) Chronic kidney disease, stage IV (severe): Status: Acute Assessment and plan: continue to monitor renal function. (4) Type 2 diabetes mellitus: Status: Chronic Assessment and plan: Continue patient's outpatient insulin regimen and check 4 times daily sugars 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 mellitus longitudinal float operator insulin use: without longitudinal float operator use Diabetes mellitus complication status: with kidney complications Diabetes mellitus complication detail: with chronic kidney disease Chronic kidney disease stage: stage 3 (moderate) Chronic kidney disease stage 3 subtype: stage 3b (GFR 30-44) Qualified Code(s): E11.22 - Type 2 diabetes mellitus with diabetic chronic kidney disease; N18.32 - Chronic kidney disease, stage 3b (5) HTN (hypertension): Status: Chronic Assessment and plan: Hold blood pressure medicines due to hypotension Qualifiers: Hypertension type: primary hypertension Qualified Code(s): I10 - Essential (primary) hypertension (6) Anxiety: Status: Chronic Assessment and plan: Continue outpatient medications (7) Anemia in CKD (chronic kidney disease): Status: Acute Assessment and plan: stable. Hemoglobin has been dropping. Continue to monitor daily (8) DVT prophylaxis: Status: Deleted Assessment and plan: He is on oral anticoagulation. (9) Urinary tract infection: Status: Acute (10) Sepsis: Status: Acute Assessment and plan: Continue intravenous cefepime Patient simply cannot continue to reuse catheters as he likely has a urinary tract infection and sepsis secondary to same He has macular degeneration and cannot see what he is doing to catheterize himself. hence the catheters get very contaminated I did talk with the patient and his partner about single use catheters which will be very important for the patient to utilize in the future. (11) Shock: Status: Acute Assessment and plan: Admit to ICU. Levophed ordered to support blood pressure Continue gentle hydration (12) Full code status: Status: Acute Assessment and plan: Patient's prognosis is guarded Subjective Subjective Interval history since last seen: Clinical course reviewed including notes, orders, labs, vitals, meds, imaging, and cultures. Care is discussed with primary nurse. Continues on IV fluid support. Norepinephrine is ordered for BP support but not used overnight Patient's systolic blood pressures dropped from the 90s down into the high 70s. Now > 100 Blood cultures x 2 no growth to date urine culture pending Continues on IV cefepime and BID doxycycline as suppressant for MRSA aortic arch vascular graft infection. Exam Narrative Exam Narrative: Patient is alert and oriented x 3 and in no acute distress. He is lying supine in a ICU bed appearing more comfortable than he was upon admission. His color is much improved, no longer ashen lutz. HEENT: Neck supple, MM pink and moist, conjunctiva non-injected, sclera non- icteric, Pupils equal and reactive to light symmetrically, no JVD, no A waves. No thyromegaly. No carotid bruit CHEST: Bilaterally symmetrical with inspiration and expiration. No use of accessory muscles of respiration. No nasal flaring. RESP: Clear to auscultation bilaterally, no rales, rhonchi or wheeze, no pleural friction rub, no post-tussive crackles or apical rales. COR: RRR no murmur appreciated, distant heart tones, no rub or gallop ABDOMEN: Soft, non tender diffusely, normally active bowel sounds diffusely, No hepatosplenomegaly, No abdominal bruit, no masses, no tenderness on deep ab dominal palpation. G/U: deferred Rectal: deferred MUSCULOSKELETAL: Bilaterally symmetrical, no muscle belly tenderness or mass DERMIS: Skin warm and dry, no ulcers or rashes, EXTREMITIES: No cyanosis, clubbing or edema, no gross deformities of the large or small joints of the upper or lower extremities. NEUROLOGICAL: Cranial nerves intact II-XII without notable deficit, No peripheral neurosensory or motor deficits noted. LYMPH: No anterior or posterior cervical, no supraclavicular, No axillary, no epitrochlear or femoral lymphadenopathy. Objective Last Vital Signs Temp 37.1 C 04/09/24 21:15 Pulse 89 04/10/24 01:01 Resp 16 04/10/24 02:01 BP 78/55 L 04/10/24 02:01 Pulse Ox 98 04/10/24 02:01 Laboratory Results - last 24 hr 04/09/24 04/09/24 04/09/24 14:01 15:20 17:28 WBC 5.88 RBC 3.06 L Hgb 9.2 L Hct 28.6 L MCV 94 MCH 30.1 MCHC 32.2 RDW 14.8 H Plt Count 215 MPV 10.8 Immature Gran % 0.3 Neutrophils % 72.1 Lymphocytes % 16.7 Monocytes % 9.2 Eosinophils % 1.4 Basophils % 0.3 Nucleated RBC % 0.0 Absolute Neutrophils 4.24 Absolute Lymphocytes 0.98 L Absolute Monocytes 0.54 Absolute Eosinophils 0.08 Absolute Basophils 0.02 PT 11.5 H INR 1.2 H APTT 26.3 VBG Lactate 1.7 H Sodium 131 L Potassium 3.9 Chloride 95 L Carbon Dioxide 25.3 Anion Gap 10.7 BUN 49 H Creatinine 2.8 H Est GFR (CKD-EPI 2020) 21.71 Glucose 121 H Calcium 8.8 Magnesium Total Bilirubin 0.73 AST 15 ALT 16 Alkaline Phosphatase 107 Troponin I 42 39 41 NT-Pro-B Natriuret Pep 18641 H Total Protein 6.8 Albumin 3.0 L Procalcitonin < 0.1 TSH 2.60 Urine Color Yellow Urine Clarity Clear Urine pH 5.5 Ur Specific [place] <= 1.005 Urine Protein Negative Urine Ketones Negative Urine Blood Negative Urine Nitrite Negative Urine Bilirubin Negative Urine Urobilinogen 0.2 Ur Leukocyte Esterase Small H Urine RBC Negative Urine WBC 10-20 H Ur Epithelial Cells Rare Urine Crystals Negative Urine Bacteria Negative Urine Mucus Negative Urine Other Rare Yeast Ur Culture Indicated? Yes Urine Glucose 100 H 04/10/24 05:55 WBC 7.25 RBC 2.80 L Hgb 8.5 L Hct 25.6 L MCV 91 MCH 30.4 MCHC 33.2 RDW 15.1 H Plt Count 197 MPV 11.5 H Immature Gran % Neutrophils % Lymphocytes % Monocytes % Eosinophils % Basophils % Nucleated RBC % Absolute Neutrophils Absolute Lymphocytes Absolute Monocytes Absolute Eosinophils Absolute Basophils PT INR APTT VBG Lactate Sodium 137 Potassium 3.8 Chloride 101 Carbon Dioxide 21.4 Anion Gap 14.6 H BUN 55 H Creatinine 2.7 H Est GFR (CKD-EPI 2020) 22.68 Glucose 110 H Calcium 8.7 Magnesium 2.3 Total Bilirubin AST ALT Alkaline Phosphatase Troponin I NT-Pro-B Natriuret Pep Total Protein Albumin Procalcitonin TSH Urine Color Urine Clarity Urine pH Ur Specific [place] Urine Protein Urine Ketones Urine Blood Urine Nitrite Urine Bilirubin Urine Urobilinogen Ur Leukocyte Esterase Urine RBC Urine WBC Ur Epithelial Cells Urine Crystals Urine Bacteria Urine Mucus Urine Other Ur Culture Indicated? Urine Glucose Time Spent with Patient Time Spent with Patient: >50 minutes Time was spent: preparing to see the patient(eg.review tests), obtaining and/or reviewing separately otained hiistory, ordering medications,tests, procedures, referring, communicating with other health career counselor, indepentently interpreting results, counseling the patient and care coordination
[2024-04-10] MEDS: Vitamins B Comp w/C TAB 1 TAB PO (08:36)
[2024-04-10] MEDS: Ranolazine 500 MG TABCR PO (08:36)
[2024-04-10] MEDS: Aspirin 81 MG CHEW PO (08:36)
[2024-04-10] MEDS: Clopidogrel 75 MG TAB PO (08:36)
[2024-04-10] MEDS: Ferrous Sulfate 325 MG TAB PO (08:36)
[2024-04-10] MEDS: Omega-3 Fatty Acids 1000 MG CAP PO (08:36)
[2024-04-10] MEDS: Doxycycline Hyclate 100 MG CAP PO ×2 (08:37→20:30)
[2024-04-10] MEDS: Sacubitril/Valsartan 24 mg/26 mg TAB 1 EACH PO ×2 (08:37→20:59)
[2024-04-10] MEDS: Ascorbic Acid 500 MG TAB PO (08:37)
[2024-04-10] MEDS: Finasteride 5 MG TAB PO (08:37)
[2024-04-10] MEDS: Insulin Glargine 300 UNITS/3 ML PEN 10 UNITS SC (08:47)
--- NOTE | 2024-04-10 08:57 | INITIAL_ITS ---
Date of service: 04/10/24 Time of Service: 08:57 Care Management Initial Assmt Initial Assessment Reason for Hospitalization: CHF and hypotension Functional Status/Living Situation Patient Presentation: Taco was lying in bed when CM met with him. He was polite but not very talkative. Taco was admitted with CHF. He informed CM that he does not plan to remain in the hospital very long. He shared that he uses a cane for ambulatory assistance and receives home health services for nursing and PT. These will be resumed at discharge. Clinically Taoc remains ICU level of care. His SBP is in the 70s-90s and he is on a nor-epinephrine drip. CM will follow. 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) Instrumental Activities of Daily Living (ADLs): Requires support Activities/Hobbies/SocialSupport: independent with ADLs, needs assistance with transportation Medications Medication Management: No Issues/Barriers identified Advance Directives Advance Directives: Do you have an Advance Directive: N 02/28/24 08:49 AD On File at [facility]: N 02/28/24 08:49 Date Asked 04/09/24 04/09/24 12:52 AD Date Reviewed COLST On File at [facility] Yes 03/09/24 16:11 COLST Date Scanned 03/09/24 03/09/24 16:11 Code Status Resuscitation Status Full Code Care Team Visit Care Team Role Provider Type Viry Jasmine Primary Care Provider MD [facility] STAFF PHYSICIAN Be Orr, Emergency Provider [facility] STAFF PHYSICIAN Carlyle Patiño DO Admit Provider [facility] STAFF PHYSICIAN Attending Provider Discharge Potential Discharge Needs: PCP F/U Appt Anticipated Barriers to Discharge: None Identified Patient/Family Education Needs: Review discharge instructions, discuss Ask Me Three Transportation: Private vehicle Plan: Taco is being closely monitored in the ICU. He will likely return home when medically cleared,with a resumption of home health services for nursing and PT. He will follow up with his software installation engineer and PCP and transport with his . CM will continue to support discharge planning needs. PFSH All Active Problems (Updated 04/09/24 @ 18:30 by CAITLIN DIOP) Urinary tract infection (Acute) Sepsis (Acute) Shock (Acute) Hematuria (Acute) Full code status (Acute) If He has witnessed cardiac arrest in the hospital, he would like a 10- minute trial of CPR. If he has a cardiac arrest outside the hospital, he does not want CPR. He still would like to be transferred to the hospital and treated should he be ill or have an injury and would like treatment with IV fluids and IV antibiotics. See COLST form for additional information Anemia in CKD (chronic kidney disease) (Acute) Anxiety (Chronic) Chronic kidney disease, stage IV (severe) (Acute) Ischemic cardiomyopathy (Acute) Acute on chronic HFrEF (heart failure with reduced ejection fraction) (Acute) CHF exacerbation (Acute) Left lower lobe pneumonia (Acute) Urinary retention (Acute) HFrEF (heart failure with reduced ejection fraction) (Acute) PSVT (paroxysmal supraventricular tachycardia) (Acute) Advanced care planning/counseling discussion (Acute) Palliative care encounter (Acute) CHF (congestive heart failure) (Chronic) HTN (hypertension) (Chronic) Type 2 diabetes mellitus (Chronic) PAF (paroxysmal atrial fibrillation) (Chronic) Symptomatic bradycardia (Acute) Medical History CKD (chronic kidney disease) stage 3, GFR 30-59 ml/min Social History Smoking/Tobacco Use Status: Former Tobacco Use Smoking risk assessment performed?: Yes Alcohol Intake: current Alcohol Intake frequency: 0-2 drinks per day Drug use: Never Substance use type: does not use Details: Pt quit smoking 10 years ago Housing: house Do you feel safe at home: Yes Do you feel safe in your relationship?: Yes Additional Social history: at side SDOH(Care Management) Screening Will the Patient Participate in the Screening?: Yes Do you worry about having a steady place to live?: no Problems where you live: no known problems In the past 12 months, have you had to go without electric, gas, oil or water in your home?: no Have you or anyone in your house had to go without enough food to eat?: no Has lack of transportation kept you from medical appointments or from doing things needed for daily living?: no Has anyone in your support network made you feel unsafe for any reason?: no
--- NOTE | 2024-04-10 13:04 | IN_ITS ---
Date of service: 04/10/24 Time of Service: 12:05 PT Notes Visit Reasons: Hypotension, Congestive Heart Failure Inpatient Physical Therapy Evaluation I certify the need for these services as being medically necessary and skilled as furnished under this plan of treatment while under my care. Please sign and return within 14 days if you agree with the plan of care listed below.? Thank you for this referral! ? Referring Physician? Date Referring Doctor:? Carlyle Patiño PT Orders: PT CONSULT for limited ability Precautions: cardiac, fall risk Patient Profile/Admitting Diagnosis:? The patient is an 83 yo male adm on 04/09/24 for acute on chronic HFrEF (heart failure with reduced ejection fraction) with hypotension, Ischemic cardiomyopathy, Chronic kidney disease, stage IV (severe), Type 2 diabetes mellitus with an acute UTI. Reports he was able to walk better and was going on walks with his dog, Milagros, after his recent repair and cardiac rehab Past Medical History: Urinary tract infection (Acute) Sepsis (Acute) Shock (Acute) Hematuria (Acute) Full code status (Acute) If He has witnessed cardiac arrest in the hospital, he would like a 10-minute trial of CPR. If he has a cardiac arrest outside the hospital, he does not want CPR. He still would like to be transferred to the hospital and treated should he be ill or have an injury and would like treatment with IV fluids and IV antibiotics. See COLST form for additional informationAnemia in CKD (chronic kidney disease) (Acute) Anxiety (Chronic) Chronic kidney disease, stage IV (severe) (Acute) Ischemic cardiomyopathy (Acute) Acute on chronic HFrEF (heart failure with reduced ejection fraction) (Acute) CHF exacerbation (Acute) Left lower lobe pneumonia (Acute) Urinary retention (Acute) HFrEF (heart failure with reduced ejection fraction) (Acute) PSVT (paroxysmal supraventricular tachycardia) (Acute) Advanced care planning/counseling discussion (Acute) Palliative care encounter (Acute) CHF (congestive heart failure) (Chronic) HTN (hypertension) (Chronic) Type 2 diabetes mellitus (Chronic) PAF (paroxysmal atrial fibrillation) (Chronic) Symptomatic bradycardia (Acute) CKD (chronic kidney disease) stage 3, GFR 30-59 ml/min Patient reports macular degeneration with extreme issues with his vision and lumbar spinal stenosis Medications: See chart Social History/Home Situation: 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 Bedroom is upstairs at home. Has a cane only.At home they have pets including 3 birds 2 cats and a dog. Subjective: Pleased to have a PT visit him today as he is concerned about losing strength and the ability to walk. Objective: on tele throughout session. Prior to OOB: 100/55 89 BPM. 98 % RA. back in bed after ambulation: 98/62 99 bpm 99% on RA. Frequent PVC's throughout Mental Status: Patient is alert and oriented. Mild TYONEK Pain: No direct c/o pain during today's session. Chronic LBP Vital Signs: see above ROM/Strength:Able to move UE and LE against graviity. Grossly 4-4+/5 in lower extremities Sensation: Not tested. patient reports no numbness or tingling Soft tissue/edema: No gross abnormalities observed Bed Mobility: Supine to/from sit supervision with cuing and assist for lines Transfers: Sit to/from stand cga 2x with several attempts secondary to trying to stand prior to arriving at EOB. Gait: Ambulated 50 feet with standard walker with assist for lines close supervision. Mildly unsteady. Decreased foot clearance bilaterally. Balance: Mldly unsteady. [facility] AM-PAC 6 clicks Basic Mobility Inpatient Short Form: Raw Score: 18? CMS Score: 46.58% Informed Consent/Education:? Patient instructed in purpose of PT consult and plan of care and is agreeable Assessment:? Patient is an 83 year old male adm on 04/09/24 for acute on chronic HFrEF (heart failure with reduced ejection fraction) with hypotension, Ischemic cardiomyopathy, Chronic kidney disease, stage IV (severe), Type 2 diabetes mellitus with an a Patient presents with decreased strength, decreased functional mobility, decreased balance and difficulty with ambulation. The patient would benefit from skilled inpatient services to improve these impairments to maximize function and safety. May benefit from a rolling walker for home. Would benefit from home health upon discharge. May need to move his bedroom downstairs. Patient is assessed as:? Low 14939?? History: frequent hospitalizations Examination: see above Presentation: Stable and uncomplicated? Decision Making:? Low (0 history, 1-2 exam, stable/predictable, easy 20) Physical Therapy Goals: 3 days Able to get in/out of bed with supervision only. Able to perform sit to/from stand with supervision only. Able to walk 150 feet with rolling walker with supervision only. Able to go up and down 2-3 steps with 1 rail with contact guard assist only. Independent with home exercise program Plan of Care/Treatment Plan: 1x/day, 7 days/week x 1 week. Plan of care has been reviewed with the NURSE OUTREACH CASE MANAGER providing the service under Physical Therapy direction. Initiate Physical Therapy intervention for strengthening, bed mobility, transfers, gait, stairs, balance training, use of assistive device. DISCHARGE RECOMMENDATIONS: Informed consent Prior to the start and throughout the course of the examination and treatment, patient was made aware of the specifics and purpose of the physical assessment and treatment procedures. Appropriate draping procedures were utilized to protect modesty where applicable. Billing Charges: Treatment Units Time Duration Manual Therapy(31005) Hands-on techniques to modulate pain increase joint range of motion reduce or eliminate soft tissue swelling, inflammation, or restriction facilitate relaxation and improve contractile and non-contractile tissue extensibility ? ? Therapeutic Procedures (46432) Instruction in therapeutic exercises to develop strength and endurance, range of motion and flexibility. HEP instruction and review: Provided skilled instruction in proper exercise performance: Provided skilled manual cues to facilitate proper muscle recruitment and/or movement pattern Neurological Re-Education(47080) To improve balance, coordination, kinesthetic and proprioceptive sensations. ? ? Ultrasound(98934) To promote healing. ? ? Gait Training(27337) ? ? Therapeutic Activity(09431) Instruction in dynamic activities with one on one patient contact by the provider to improve functional performance as follows: ?1 20 ? Self Care Training(04218) ? ? E-Stim (Attended)(34259) ? ? Low IE(62034) 1 35 Mod IE(03069) ? ? High IE(41561) ? ? Time Coded Treatment Time ? 20 Total Treatment Time ? 55
[2024-04-10] MEDS: Midodrine 2.5 MG TAB 5 MG PO (20:30)
[2024-04-10] MEDS: Ondansetron 4 MG/2 ML VIAL IVP (20:58)
[2024-04-10] MEDS: Melatonin 3 MG TAB 6 MG PO (21:28)
[2024-04-11] VITALS (33 sets, daily range): BP systolic 73–114; BP diastolic 40–97; PULSE 41–105; RESP 0–41; TEMP 36.5–37; O2SAT 95–100
[2024-04-11] MEDS: CEFEPIME 1 GM in Normal Saline 50 ML IVPB ×2 (04:24→16:44)
[2024-04-11 06:02] LABS: HCT 27.6 % (40.0-50.0); MCH 30.2 pg (27.0-33.0); MCHC 32.6 % (32.0-36.0); MCV 93 fL (80-95); MPV 11.6 fL (8.0-11.0); Platelet Count 196 10^3/uL (130-400); RBC 2.98 10^6/uL (4.36-5.78); RDW 15.4 % (11.8-14.1); RDW-SD 51.2 fL; WBC 7.19 10^3/uL (4.4-10.8)
[2024-04-11 06:19] LABS: Anion Gap 13.2 mmol/L (3-11); BUN 69 mg/dL (7-18); CO2 20.8 mmol/L (21.0-32.0); CREATININE 2.9 mg/dL (0.70-1.30); Calcium 8.6 mg/dL (8.5-10.1); Chloride 103 mmol/L (98-107); Estimated GFR 20.81 (mL/min/1.73m2); Glucose 170 mg/dL (74-106); Magnesium 2.5 mg/dL (1.8-2.4); Potassium 4.7 mmol/L (3.5-5.1); Sodium 137 mmol/L (136-145)
--- NOTE | 2024-04-11 07:58 | W.PM.PROGNOT ---
Date of Service Date of service: 04/11/24 Time of Service: 07:58 Assessment and Plan Assessment and plan (1) Acute on chronic HFrEF (heart failure with reduced ejection fraction): Start date: 03/06/24 Status: Acute Assessment and plan: appears improved hemodynamics. Gentle hydration continue Patient started on midodrine with prompt blood pressure response up 20 points Will continue to hold diuretics at this time. Patient is on SGLT2 inhibitors Hopefully the midodrine will continue to improve patient's cardiac output. Discharge is on hold today. Patient asks if we can talk to his family who is coming in later this afternoon. Consider continuing midodrine as outpatient if effects continue to be as beneficial as they have been to this point. (2) Ischemic cardiomyopathy: Status: Acute Assessment and plan: stable at this time. nearing end stages of cardiac disease. Should consider palliative care. (3) Chronic kidney disease, stage IV (severe): Status: Acute Assessment and plan: continue to monitor renal function. (4) Type 2 diabetes mellitus: Status: Chronic Assessment and plan: Continue patient's outpatient insulin regimen and check 4 times daily sugars 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 mellitus fdc insulin use: without fdc use Diabetes mellitus complication status: with kidney complications Diabetes mellitus complication detail: with chronic kidney disease Chronic kidney disease stage: stage 3 (moderate) Chronic kidney disease stage 3 subtype: stage 3b (GFR 30-44) Qualified Code(s): E11.22 - Type 2 diabetes mellitus with diabetic chronic kidney disease; N18.32 - Chronic kidney disease, stage 3b (5) HTN (hypertension): Status: Chronic Assessment and plan: Hold blood pressure medicines due to hypotension Qualifiers: Hypertension type: primary hypertension Qualified Code(s): I10 - Essential (primary) hypertension (6) Anxiety: Status: Chronic Assessment and plan: Continue outpatient medications (7) Anemia in CKD (chronic kidney disease): Status: Acute Assessment and plan: stable. Hemoglobin has been dropping. Continue to monitor daily (8) DVT prophylaxis: Status: Deleted Assessment and plan: He is on oral anticoagulation. (9) Urinary tract infection: Status: Acute (10) Sepsis: Status: Acute Assessment and plan: Continue intravenous cefepime Patient simply cannot continue to reuse catheters as he likely has a urinary tract infection and sepsis secondary to same, however urine culture is negative. He has macular degeneration and cannot see what he is doing to catheterize himself. hence the catheters get very contaminated I did previously talk with the patient and his partner about single use catheters which will be very important for the patient to utilize in the future. (11) Shock: Status: Acute Assessment and plan: Admit to ICU. Levophed ordered to support blood pressure Continue gentle hydration (12) Full code status: Status: Acute Assessment and plan: Patient's prognosis is guarded, he is near end-stage from his ischemic cardiomyopathy. Subjective Subjective Interval history since last seen: Clinical course reviewed including notes, orders, labs, vitals, meds, imaging, and cultures. Care is discussed with primary nurse. Continues on IV fluid support. Norepinephrine is ordered for BP support but has not been used Patient's systolic blood pressures dropped from the 90s down into the high 70s. Now in high 90s range systolic. Patient started on midodrine, post dosing, blood pressure up 20 points systolic. Respiratory rate is increased and the patient's been having difficulty breathing. He has been coughing more likely cardiogenic bronchospastic edema. Continue to hold diuretics Blood cultures x 2 no growth to date urine culture pending Continues on IV cefepime and BID doxycycline as suppressant for MRSA aortic arch vascular graft infection. White count 7.2, hemoglobin 9.0, platelet 196 Sodium 137, potassium 4.7, BUN 69, creatinine 2.9 (patient's normal appears to be 2.6) Urine culture no growth final Blood cultures no growth 36+ hours Discussed resuscitation status with the patient. He states he would like everything done if it would be easy to bring him back. If it would be more difficult to bring him back he does not want anything done. We will continue him as a full code. Exam Narrative Exam Narrative: Patient is alert and oriented x 3 and in no acute distress. He is lying supine in a ICU bed appearing more comfortable than he was upon admission. His color is much improved, no longer ashen lutz. HEENT: Neck supple, MM pink and moist, conjunctiva non-injected, sclera non-icteric, Pupils equal and reactive to light symmetrically, no JVD, no A waves. No thyromegaly. No carotid bruit CHEST: Bilaterally symmetrical with inspiration and expiration. No use of accessory muscles of respiration. No nasal flaring. RESP: Clear to auscultation bilaterally, no rales, rhonchi or wheeze, no pleural friction rub, no post-tussive crackles or apical rales. COR: RRR no murmur appreciated, distant heart tones, no rub or gallop ABDOMEN: Soft, non tender diffusely, normally active bowel sounds diffusely, No hepatosplenomegaly, No abdominal bruit, no masses, no tenderness on deep abdominal palpation. G/U: deferred Rectal: deferred MUSCULOSKELETAL: Bilaterally symmetrical, no muscle belly tenderness or mass DERMIS: Skin warm and dry, no ulcers or rashes, EXTREMITIES: No cyanosis, clubbing or edema, no gross deformities of the large or small joints of the upper or lower extremities. NEUROLOGICAL: Cranial nerves intact II-XII without notable deficit, No peripheral neurosensory or motor deficits noted. LYMPH: No anterior or posterior cervical, no supraclavicular, No axillary, no epitrochlear or femoral lymphadenopathy. Objective Last Vital Signs Temp 37.1 C 04/09/24 21:15 Pulse 96 H 04/10/24 17:01 Resp 29 H 04/10/24 17:01 BP 97/55 L 04/10/24 17:01 Pulse Ox 100 04/10/24 17:01 Laboratory Results - last 24 hr 04/11/24 05:48 WBC 7.19 RBC 2.98 L Hgb 9.0 L Hct 27.6 L MCV 93 MCH 30.2 MCHC 32.6 RDW 15.4 H Plt Count 196 MPV 11.6 H Sodium 137 Potassium 4.7 Chloride 103 Carbon Dioxide 20.8 L Anion Gap 13.2 H BUN 69 H Creatinine 2.9 H Est GFR (CKD-EPI 2020) 20.81 Glucose 170 H Calcium 8.6 Magnesium 2.5 H Time Spent with Patient Time Spent with Patient: >50 minutes Time was spent: preparing to see the patient(eg.review tests), obtaining and/or reviewing separately otained hiistory, ordering medications,tests, procedures, referring, communicating with other health child care center assistant director, indepentently interpreting results, counseling the patient and care coordination
[2024-04-11] MEDS: Ranolazine 500 MG TABCR PO (08:10)
[2024-04-11] MEDS: Vitamins B Comp w/C TAB 1 TAB PO (08:10)
[2024-04-11] MEDS: Doxycycline Hyclate 100 MG CAP PO ×2 (08:10→20:23)
[2024-04-11] MEDS: Midodrine 2.5 MG TAB 5 MG PO ×3 (08:10→20:24)
[2024-04-11] MEDS: Finasteride 5 MG TAB PO (08:10)
[2024-04-11] MEDS: Sacubitril/Valsartan 24 mg/26 mg TAB 1 EACH PO ×2 (08:10→20:24)
[2024-04-11] MEDS: Aspirin 81 MG CHEW PO (08:10)
[2024-04-11] MEDS: Ascorbic Acid 500 MG TAB PO (08:11)
[2024-04-11] MEDS: Clopidogrel 75 MG TAB PO (08:11)
[2024-04-11] MEDS: Omega-3 Fatty Acids 1000 MG CAP PO (08:11)
[2024-04-11] MEDS: Insulin Glargine 300 UNITS/3 ML PEN 10 UNITS SC (08:12)
--- NOTE | 2024-04-11 11:54 | PT.INTREAT ---
PT Notes Visit Reasons: Hypotension, Congestive Heart Failure Inpatient Physical Therapy Treatment Note [facility] Date: 04/11/24 PRECAUTIONS:Standard SUBJECTIVE: Pt reports that he is tired but would like to exercise. OBJECTIVE: Therapeutic Activities (35115n[2]): Direct one-on-one instruction in dynamic activities to improve functional performance. ? BED MOBILITY/TRANSFERS? Supine-sit: Min assist x 1? Sit-supine: Min assist x 1 ? Sit-stand: CGA ? Stand-sit: CGA ? Provided skilled cues and instruction on performance and technique throughout. Gait Training (65804q[]): Direct one-on-one instruction and skilled instruction in: [] Patient education regarding pacing and breathing techniques to maximize activity tolerance? GAIT? Assistive Device: FWW ? Weight bearing: Full Assist: CGA ? Distance:? Approx 40 ft with one seated rest.? Therapeutic Exercises (99122f[]): Direct one-on-one instruction in therapeutic exercises to develop strength, endurance, range of motion and flexibility. ? Exercises ? Row x 10 Q.S. x 10 ? ASSESSMENT:? Pt was somewhat frustrated with his energy level. PLAN: Cont as per PT POC. TREATMENT CODE/TIME: 11:10-11:35 ( 25) TAx2 DISCHARGE RECOMMENDATION: []
--- NOTE | 2024-04-11 18:35 | W.PC.ACHO ---
Registration Status: Primary Language: Preferred Language: ED Information & Data Chief Complaint Dizzy/Sync 04/09/24 13:48 Triage Note Patient state he is low 04/09/24 12:49 blood pressure, dizziness and nauseasince the last 2 days. Reported right sided chest pain on anbd off for a long time Subjective feeling dizzy and light 04/09/24 13:35 headed Medical / Surgical History (Last Reviewed 04/09/24 @ 14:40 by Be Orr DO) CKD (chronic kidney disease) stage 3, GFR 30-59 ml/min Most Recent Vital Signs Temperature 36.5 C 04/11/24 18:24 Temperature Source Temporal Artery Scan 04/11/24 18:24 Pulse 85 04/11/24 18:24 Pulse 88 04/11/24 17:02 Respiratory Rate 17 04/11/24 18:24 Respiratory Effort Incrsd Work of Breathing 04/09/24 18:56 Respiratory Depth Normal 04/09/24 18:56 Respiratory Pattern Tachypnea 04/09/24 18:56 Blood Pressure 90/58 L 04/11/24 18:24 Blood Pressure Mean 61 04/11/24 17:02 Blood Pressure Position Supine 04/09/24 18:56 Pulse Oximetry 97 04/11/24 18:24 Oxygen Delivery Method Room Air 04/11/24 18:24 Oxygen Flow Rate 0 04/11/24 18:24 Pain Level 0 04/11/24 18:24 Allergies levofloxacin Adverse Reaction (Mild, Unverified 04/09/24 13:09) Other (See Comment) Statins Adverse Reaction (Mild, Uncoded 04/09/24 13:09) Other (See Comment) Precautions Isolation Standard precaution 04/09/24 13:35 Active Medications Generic Name Dose Route Start Last Admin Trade Name Freq PRN Reason Stop Dose Admin Ascorbic Acid 500 mg 04/10/24 08:30 04/11/24 08:11 Ascorbic Acid 500 Mg Tab PO 500 mg DAILY MARTIN Administration Aspirin 81 mg 04/10/24 08:30 04/11/24 08:10 Aspirin 81 Mg Chew PO 81 mg DAILY MARTIN Administration Clopidogrel Bisulfate 75 mg 04/10/24 08:30 04/11/24 08:11 Clopidogrel 75 Mg Tab PO 75 mg DAILY MARTIN Administration Doxycycline Hyclate 100 mg 04/09/24 20:00 04/11/24 08:10 Doxycycline Hyclate 100 Mg Cap PO 100 mg BID MARTIN Administration Ferrous Sulfate 325 mg 04/10/24 09:00 04/10/24 08:36 Ferrous Sulfate 325 Mg Tab PO 325 mg Q48H MARTIN Administration Finasteride 5 mg 04/10/24 08:30 04/11/24 08:10 Finasteride 5 Mg Tab PO 5 mg DAILY MARTIN Administration Fish Oil 1,000 mg 04/10/24 08:30 04/11/24 08:11 [place]-3 Fatty Acids 1000 Mg Cap PO 1,000 mg DAILY MARTIN Administration Cefepime HCl 1 gm/ Sodium 50 mls @ 100 mls/hr 04/10/24 04:00 04/11/24 16:44 Chloride IVPB 100 mls/hr Q12H MARTIN Administration Insulin Glargine 10 units 04/10/24 08:30 04/11/24 08:12 Insulin Glargine 300 Units/3 Ml Pen SC 10 units DAILY MARTIN Administration Melatonin 6 mg 04/10/24 07:21 04/10/24 21:28 Melatonin 3 Mg Tab PO 6 mg HS PRN PRN Administration Sleep Midodrine 5 mg 04/10/24 20:10 04/11/24 13:46 Midodrine 2.5 Mg Tab PO 5 mg TID MARTIN Administration Non-Formulary Medication 5 mg 04/10/24 08:30 04/11/24 08:26 Dapagliflozin Propanediol [Farxiga] PO Not Given DAILY [facility] Non-Formulary Medication 8 mg 04/10/24 08:30 04/11/24 08:26 Silodosin [Rapaflo] PO Not Given DAILY [facility] Ondansetron HCl 4 mg 04/10/24 20:11 04/10/24 20:58 Ondansetron 4 Mg/2 Ml Vial IVP 4 mg Q4H PRN PRN Administration Ranolazine 500 mg 04/10/24 08:30 04/11/24 08:10 Ranolazine 500 Mg Tabcr PO 500 mg DAILY MARTIN Administration Sacubitril/Valsartan 1 each 04/09/24 20:00 04/11/24 08:10 Sacubitril/Valsartan 24 Mg/26 Mg Tab PO 1 each BID MARTIN Administration Vit C/Vit E/Zinc/Copper/Lutein 1 tab 04/10/24 20:00 04/11/24 08:11 Preservision Tablet PO 1 tab BID MARTIN Administration Vitamin B Complex/Vitamin C 1 tab 04/10/24 08:30 04/11/24 08:10 Vitamins B Comp W/C Tab PO 1 tab DAILY MARTIN Administration IV IV Catheter Type [Left Upper Peripheral IV arm] IV Catheter Gauge [Left Upper 18 arm] Diagnostics 04/11/24 Range/Units 05:48 WBC 7.19 (4.4-10.8) 10^3/uL RBC 2.98 L (4.36-5.78) 10^6/uL Hgb 9.0 L (13.5-17.5) g/dL Hct 27.6 L (40.0-50.0) % MCV 93 (80-95) fL MCH 30.2 (27.0-33.0) pg MCHC 32.6 (32.0-36.0) % RDW 15.4 H (11.8-14.1) % Plt Count 196 (130-400) 10^3/uL MPV 11.6 H (8.0-11.0) fL Sodium 137 (136-145) mmol/L Potassium 4.7 (3.5-5.1) mmol/L Chloride 103 (98-107) mmol/L Carbon Dioxide 20.8 L (21.0-32.0) mmol/L Anion Gap 13.2 H (3-11) mmol/L BUN 69 H (7-18) mg/dL Creatinine 2.9 H (0.70-1.30) mg/dL Est GFR (CKD-EPI 2020) 20.81 (mL/min/1.73m2) Glucose 170 H (74-106) mg/dL Calcium 8.6 (8.5-10.1) mg/dL Magnesium 2.5 H (1.8-2.4) mg/dL 04/09/24 16:19 Blood Culture - Preliminary Blood NO GROWTH 48 HOURS 04/09/24 16:02 Blood Culture - Preliminary Blood NO GROWTH 48 HOURS 04/09/24 15:20 Urine Culture - Final Urine - Reflex from Ua [id number] Documentation Fingerstick Glucose Start: 04/11/24 08:14 Freq: Status: Active Protocol: Activity Type Activity Date Activity User E-sign Co-sign Detail Recorded Client Recorded Date Recorded By Document 04/11/24 08:13 CAITLIN DAGHAZAL(3) [id number] 04/11/24 08:14 BKBarbie DAEMON(4) Intake and Output - 24 Hour Total 04/09/24 12:46 thru 04/11/24 18:22 Intake Total 1530 Output Total 4325 Balance -2795 Weight 75 kg Intake: IV 770 Oral 760 Output: Urine 4325 Other: Urine Color Yellow Urine Appearance Sediment Urine Odor Normal Stool Size Small Stool Characteristics Formed Urinary Catheter Urinary Catheter Date of 04/09/24 Insertion [Urethral (Benjamin)] Time of insertion [Urethral ( 20:30 Benjamin)] Falls Risk Assessment Contributing Factors No Factors 04/09/24 13:39 Ambulatory Aids Independent 04/09/24 13:39 Tubes/Lines None 04/09/24 13:39 Gait Evaluation No gait disturbance 04/09/24 13:39 Cognition No cognitive impairment 04/09/24 13:39 Fall Total Score 0 04/09/24 13:39 Level of Risk Standard/Low Risk 04/09/24 13:39 Problems (Last Reviewed 04/09/24 @ 14:40 by Be Orr DO) Urinary tract infection (Acute) Sepsis (Acute) Shock (Acute) Full code status (Acute) Anemia in CKD (chronic kidney disease) (Acute) Anxiety (Chronic) Chronic kidney disease, stage IV (severe) (Acute) Ischemic cardiomyopathy (Acute) Acute on chronic HFrEF (heart failure with reduced ejection fraction) (Acute) HTN (hypertension) (Chronic) Type 2 diabetes mellitus (Chronic) v v v v v v v v v Sending and/or Receiving Nurses: Please use comment section below to note any information pertinent to the patient hand-off not included above. Information / Comments: pt arrived to Rm [id number] via Wheelchair Report received from: Edwige, ALTERATION WORKROOM SUPERVISOR
[2024-04-11] MEDS: Normal Saline Flush 10 ML SYR (20:23)
[2024-04-11] MEDS: Acetaminophen 500 MG TAB 1000 MG PO (20:24)
[2024-04-11] MEDS: Melatonin 3 MG TAB 6 MG PO (22:37)
[2024-04-12] VITALS (10 sets, daily range): BP systolic 80–94; BP diastolic 40–64; PULSE 48–81; RESP 16–22; TEMP 36.3–36.9; O2SAT 97–100
[2024-04-12] MEDS: CEFEPIME 1 GM in Normal Saline 50 ML IVPB ×2 (04:45→15:10)
[2024-04-12] MEDS: Normal Saline Flush 10 ML SYR IVP ×2 (04:45→19:46)
[2024-04-12 06:51] LABS: HCT 27.1 % (40.0-50.0); HGB 8.7 g/dL (13.5-17.5); MCH 30.2 pg (27.0-33.0); MCHC 32.1 % (32.0-36.0); MCV 94 fL (80-95); MPV 11.9 fL (8.0-11.0); Platelet Count 182 10^3/uL (130-400); RBC 2.88 10^6/uL (4.36-5.78); RDW 15.8 % (11.8-14.1); RDW-SD 53.3 fL; WBC 8.64 10^3/uL (4.4-10.8)
[2024-04-12 07:04] LABS: Anion Gap 11.8 mmol/L (3-11); BUN 75 mg/dL (7-18); CO2 21.2 mmol/L (21.0-32.0); Calcium 8.7 mg/dL (8.5-10.1); Chloride 104 mmol/L (98-107); Estimated GFR 19.98 (mL/min/1.73m2); Glucose 149 mg/dL (74-106); Magnesium 2.5 mg/dL (1.8-2.4); Potassium 5.1 mmol/L (3.5-5.1); Sodium 137 mmol/L (136-145)
--- NOTE | 2024-04-12 08:25 | NUR.NOTE ---
Nursing Note: Pt refusing medications, VS, and care until he gets a suppository. Provider Igor notified. CLAUDE RN
--- NOTE | 2024-04-12 08:45 | CMPROGNOTE_ITS ---
Care Management Progress Note Progress Note Text Progress Note Text: Palliative consult ordered, awaiting recommendations. Patient currently has home health RN/PT services through [facility]. Anticipate, patient will discharge home with resumption of [facility] services and follow up with his local Palliative care team. Discharge Potential Discharge Needs: PCP F/U Appt Anticipated Barriers to Discharge: Medical Status Patient/Family Education Needs: Review discharge instructions, discuss Ask Me Three Transportation: Other (Dependent on dispo) Plan: Anticipate, Sandra will discharge home with resumption of [facility] services (RN/PT) when medically ready for discharge. Follow up with dry cleaning counter clerk and PCP and his local Palliative Care team. Transportation will be provided by . SDOH(Care Management) Screening Will the Patient Participate in the Screening?: Yes Do you worry about having a steady place to live?: no Problems where you live: no known problems In the past 12 months, have you had to go without electric, gas, oil or water in your home?: no Have you or anyone in your house had to go without enough food to eat?: no Has lack of transportation kept you from medical appointments or from doing things needed for daily living?: no Has anyone in your support network made you feel unsafe for any reason?: no Anticipated HH Services Anticipated [facility] Services at [facility] (RN/PT) Resumption.
[2024-04-12] MEDS: Ranolazine 500 MG TABCR PO (09:04)
[2024-04-12] MEDS: Sacubitril/Valsartan 24 mg/26 mg TAB 1 EACH PO ×2 (09:05→19:45)
[2024-04-12] MEDS: Doxycycline Hyclate 100 MG CAP PO ×2 (09:05→19:45)
[2024-04-12] MEDS: Midodrine 2.5 MG TAB 5 MG PO ×3 (09:05→19:46)
[2024-04-12] MEDS: Omega-3 Fatty Acids 1000 MG CAP PO (09:05)
[2024-04-12] MEDS: Ferrous Sulfate 325 MG TAB PO (09:05)
[2024-04-12] MEDS: Aspirin 81 MG CHEW PO (09:05)
[2024-04-12] MEDS: Vitamins B Comp w/C TAB 1 TAB PO (09:05)
[2024-04-12] MEDS: Ascorbic Acid 500 MG TAB PO (09:05)
[2024-04-12] MEDS: Clopidogrel 75 MG TAB PO (09:05)
[2024-04-12] MEDS: Finasteride 5 MG TAB PO (09:05)
[2024-04-12] MEDS: Bisacodyl 10 MG SUPP PR (09:05)
[2024-04-12] MEDS: Insulin Glargine 300 UNITS/3 ML PEN 10 UNITS SC (09:16)
--- NOTE | 2024-04-12 13:52 | PT.INTREAT ---
PT Notes Visit Reasons: Hypotension, Congestive Heart Failure Inpatient Physical Therapy Treatment Note [facility] Date: 04/12/24 PRECAUTIONS:Standard SUBJECTIVE: Pt reports that his stomach is not feeling well today. OBJECTIVE: Therapeutic Activities (71613q[]): Direct one-on-one instruction in dynamic activities to improve functional performance. ? Therapeutic Exercises (69651u[1]): Direct one-on-one instruction in therapeutic exercises to develop strength, endurance, range of motion and flexibility. ? Exercises ? Rowing x 10 Horz abd x 10 Shoulder flexion x 10 Hip abd x 10 SLR x 10 ASSESSMENT:? Pt reports that he has been up earlier to that bathroom and to the chair and does not feel up to going for a walk right now. Pt fatigued fairly quickly today. PLAN: Cont as per PT POC. TREATMENT CODE/TIME: 1:15-1:25 (10) TP DISCHARGE RECOMMENDATION: []
--- NOTE | 2024-04-12 18:03 | PCNE_ITS ---
Date of service: 04/12/24 Time of Service: 14:00 History of Present Illness Narrative: Mr. España is an 83 y/o M currently hospitalized 2/2 UTI w/sepsis; PMHx sig for CKD (stage 4), ischemic cardiomyopathy (EF in low 20's), a fib, h/o aortic aneurism (s/p stent repairs, w/MRSA infx on chronic doxy); f/b PC in community; partner David joins visit Hospital course: presented to ED after calling HH and PCP for assistance, was told only option to present to hospital; c/o weakness, syncope, nausea, feeling off x2 days; on ED work up low BPs remained, despite IVF, found to be in shock, transferred to ICU and started on Levophed for BP, IV cefepime for UTI; good response w/midodrine today, BPs mostly >90 systolic all day; he does not tolerate increased fluid, oral or IV 2/2 his advanced heart disease - suspected chronic straight catheter involvement in UTI, need for new plan post discharge; currently has garcia in - per staff: has specific needs and demands which dictate how and when he will accept care, including this morning when he wanted a suppository before any oral meds for constipation; he did move his bowels today; ADL assistance w/dressing, bathing, stand by assist w/transfers using walker, nearing his baseline; today he has spent nearly all day in bed, did walk to restroom and back once Taco is aware of why he is in the hospital, and tells a similar story to this mornings request for suppository; - BM: he typically takes Senna 2 tabs daily at home, unclear if receiving this while in hospital; he was not satisfied w/this mornings BM and feels he has more stool in him; intermittent nausea he assosticates w/this, w/some bloating - PO/appetite: did not eat breakfast d/t refusing it before suppository, did not like lunch, w/some concerns of mismanagement of food, so only had a few bites, then luigi said no, optimistic for dinner today - BP: did try oral intake increase prior to ED presentaiton w/no effect on BP or way he was feeling; encouraged by midodrine effect Taco was doing better w/care and remaining hospitalized while in ICU attentive level care, now that he is not there he wonders if he should go home bc he only wants to be here if it is beneficial - they are aware that hospice could be considered, they are unsure what this would entail, interested in this possibility - they have caregivers established for 2x/wk 1/2 days and O/E VNA PT/RN, David provides significant care as well; David feels they could take him home in his current state, azam bc they have family coming this weekend which will provide to help as well - 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 to help pay w/caregivers Assessment and Plan Assessment and plan (1) Urinary tract infection: Status: Acute Assessment and plan: IV cefepime f/b urology in [facility], provider is aware he is hospitalized, has been managing outpatient orders for straight catheter, currently w/garcia in place, was told he should/would be considering a permanent catheter moving forward (2) Sepsis: Status: Acute (3) Full code status: Status: Acute (4) Chronic kidney disease, stage IV (severe): Status: Acute (5) Ischemic cardiomyopathy: Status: Acute (6) Acute on chronic HFrEF (heart failure with reduced ejection fraction): Status: Acute Assessment and plan: continue midodrine for low BPs, may continue outpatient does not tolerate IVF well, continue gentle hydration PRN (7) Advanced care planning/counseling discussion: Status: Acute Assessment and plan: reviewed current treatment plan, potential plan for discharge as soon as tomorrow, pending stability reviewed hospice on discharge as means for more supports in home, to help answer question next time of what do we do, to avoid repeat hospitalizations, etc; reviewed hospice benefit briefly spent 22 mins w/ACP (8) Palliative care encounter: Status: Acute Assessment and plan: f/b Dr Moe outpatient PC, they would like to continue working with her tomorrow if able (9) Encounter for hospice care discussion: Status: Acute Assessment and plan: per chart review, hospice has been reviewed and offered to patient previously. would be in O/E VNA area, unfortunately they do not do hospital consults would benefit from ongoing review of hospice benefit hospice admission: HFrEF Review of Systems Narrative: as per HPI PFSH All Active Problems (Updated 04/12/24 @ 18:20 by Dariela Rodas NP) Encounter for hospice care discussion (Acute) Urinary tract infection (Acute) Sepsis (Acute) Shock (Acute) Hematuria (Acute) Full code status (Acute) If He has witnessed cardiac arrest in the hospital, he would like a 10- minute trial of CPR. If he has a cardiac arrest outside the hospital, he does not want CPR. He still would like to be transferred to the hospital and treated should he be ill or have an injury and would like treatment with IV fluids and IV antibiotics. See COLST form for additional information Anemia in CKD (chronic kidney disease) (Acute) Anxiety (Chronic) Chronic kidney disease, stage IV (severe) (Acute) Ischemic cardiomyopathy (Acute) Acute on chronic HFrEF (heart failure with reduced ejection fraction) (Acute) CHF exacerbation (Acute) Left lower lobe pneumonia (Acute) Urinary retention (Acute) HFrEF (heart failure with reduced ejection fraction) (Acute) PSVT (paroxysmal supraventricular tachycardia) (Acute) Advanced care planning/counseling discussion (Acute) Palliative care encounter (Acute) CHF (congestive heart failure) (Chronic) HTN (hypertension) (Chronic) Type 2 diabetes mellitus (Chronic) PAF (paroxysmal atrial fibrillation) (Chronic) Symptomatic bradycardia (Acute) Medical History CKD (chronic kidney disease) stage 3, GFR 30-59 ml/min Social History Smoking/Tobacco Use Status: Former Tobacco Use Smoking risk assessment performed?: Yes Alcohol Intake: current Alcohol Intake frequency: 0-2 drinks per day Drug use: Never Substance use type: does not use Details: Pt quit smoking 10 years ago Housing: house Do you feel safe at home: Yes Do you feel safe in your relationship?: Yes Additional Social history: at side Exam Narrative Exam Narrative: General: older adult male, lying in bed on side, easily engaged in conversation HEENT: hearing grossly WNL, normocephalic, atraumatic Resp: even and unlabored, speaks full sentences w/o SOB; coughs intermittent x4 times, dry Psych: cooperative, pleasant, thought process WNL, impoverished; loose association speech/movement WNL, - does mention x1 day of thinking Dr poisoning his fish able to self soothe and correct thought process, denies current fears of poisoning/harm being caused to him Results Last Vital Signs Temp 97.9 F 10/21/24 16:02 Pulse 67 04/12/24 16:02 Resp 18 04/12/24 16:02 BP 92/56 L 04/12/24 16:02 Pulse Ox 97 04/12/24 16:02 Labs 04/12/24 06:30 04/12/24 06:30 Labs: Laboratory Results - last 24 hr 04/12/24 06:30 WBC 8.64 RBC 2.88 L Hgb 8.7 L Hct 27.1 L MCV 94 MCH 30.2 MCHC 32.1 RDW 15.8 H Plt Count 182 MPV 11.9 H Sodium 137 Potassium 5.1 Chloride 104 Carbon Dioxide 21.2 Anion Gap 11.8 H BUN 75 H Creatinine 3.0 H Est GFR (CKD-EPI 2020) 19.98 Glucose 149 H Calcium 8.7 Magnesium 2.5 H Time Spent Time Spent with Patient Time Spent(min): 90
--- NOTE | 2024-04-12 19:47 | W.PM.PROGNOT ---
Date of Service Date of service: 04/12/24 Time of Service: 19:47 Assessment and Plan Assessment and plan (1) Acute on chronic HFrEF (heart failure with reduced ejection fraction): Start date: 03/06/24 Status: Acute Assessment and plan: hemodynamics not as good as yesterday. Gentle hydration continue Continue midodrine Will continue to hold diuretics at this time. Patient is on SGLT2 inhibitors Patient's long-term prognosis is very poor He is approaching near end-stage cardiomyopathy. Discussed with palliative care. Hospice would be a good alternative care model for the patient. It does not appear he is many days left. (2) Ischemic cardiomyopathy: Status: Acute Assessment and plan: stable at this time. nearing end stages of cardiac disease. Should consider palliative care. (3) Chronic kidney disease, stage IV (severe): Status: Acute Assessment and plan: continue to monitor renal function. (4) Type 2 diabetes mellitus: Status: Chronic Assessment and plan: Continue patient's outpatient insulin regimen and check 4 times daily sugars 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 mellitus watermaster insulin use: without halfway use Diabetes mellitus complication status: with kidney complications Diabetes mellitus complication detail: with chronic kidney disease Chronic kidney disease stage: stage 3 (moderate) Chronic kidney disease stage 3 subtype: stage 3b (GFR 30-44) Qualified Code(s): E11.22 - Type 2 diabetes mellitus with diabetic chronic kidney disease; N18.32 - Chronic kidney disease, stage 3b (5) HTN (hypertension): Status: Chronic Assessment and plan: Hold blood pressure medicines due to hypotension Qualifiers: Hypertension type: primary hypertension Qualified Code(s): I10 - Essential (primary) hypertension (6) Anxiety: Status: Chronic Assessment and plan: Continue outpatient medications (7) Anemia in CKD (chronic kidney disease): Status: Acute Assessment and plan: stable. Hemoglobin has been dropping. Continue to monitor daily (8) DVT prophylaxis: Status: Deleted Assessment and plan: He is on oral anticoagulation. (9) Urinary tract infection: Status: Acute (10) Sepsis: Status: Acute Assessment and plan: Resolved (11) Full code status: Status: Acute Assessment and plan: Patient's prognosis is guarded, he is near end-stage from his ischemic cardiomyopathy. Patient asked if he runs into a problem and it is relatively straightforward to correct the problem, he would like everything done. If it was more complex, he would not want complex issues performed. Subjective Subjective Interval history since last seen: Clinical course reviewed including notes, orders, labs, vitals, meds, imaging, and cultures. Care is discussed with primary nurse. Patient denies lightheadedness. He has not had a bowel movement in several days he has for suppository. Exam Narrative Exam Narrative: Patient is alert and oriented x 3 and in no acute distress. He is lying supine in a medical surgical bed appearing more comfortable than he was upon admission. His color is much improved, no longer ashen lutz. HEENT: Neck supple, MM pink and moist, conjunctiva non-injected, sclera non-icteric, Pupils equal and reactive to light symmetrically, no JVD, no A waves. No thyromegaly. No carotid bruit CHEST: Bilaterally symmetrical with inspiration and expiration. No use of accessory muscles of respiration. No nasal flaring. RESP: Clear to auscultation bilaterally, no rales, rhonchi or wheeze, no pleural friction rub, no post-tussive crackles or apical rales. COR: RRR no murmur appreciated, distant heart tones, no rub or gallop ABDOMEN: Soft, non tender diffusely, normally active bowel sounds diffusely, No hepatosplenomegaly, No abdominal bruit, no masses, no tenderness on deep abdominal palpation. G/U: deferred Rectal: deferred MUSCULOSKELETAL: Bilaterally symmetrical, no muscle belly tenderness or mass DERMIS: Skin warm and dry, no ulcers or rashes, EXTREMITIES: No cyanosis, clubbing or edema, no gross deformities of the large or small joints of the upper or lower extremities. NEUROLOGICAL: Cranial nerves intact II-XII without notable deficit, No peripheral neurosensory or motor deficits noted. LYMPH: No anterior or posterior cervical, no supraclavicular, No axillary, no epitrochlear or femoral lymphadenopathy. Objective Last Vital Signs Temp 36.8 C 04/12/24 19:23 Pulse 77 04/12/24 19:23 Resp 18 04/12/24 19:23 BP 80/40 L 04/12/24 19:23 Pulse Ox 98 04/12/24 19:23 Laboratory Results - last 24 hr 04/12/24 06:30 WBC 8.64 RBC 2.88 L Hgb 8.7 L Hct 27.1 L MCV 94 MCH 30.2 MCHC 32.1 RDW 15.8 H Plt Count 182 MPV 11.9 H Sodium 137 Potassium 5.1 Chloride 104 Carbon Dioxide 21.2 Anion Gap 11.8 H BUN 75 H Creatinine 3.0 H Est GFR (CKD-EPI 2020) 19.98 Glucose 149 H Calcium 8.7 Magnesium 2.5 H Time Spent with Patient Time Spent with Patient: 25-34 minutes Time was spent: preparing to see the patient(eg.review tests), obtaining and/or reviewing separately otained hiistory, ordering medications,tests, procedures, referring, communicating with other health physician primary care sports medicine, indepentently interpreting results, counseling the patient and care coordination
[2024-04-13 03:19] VITALS: BP 99/59; PULSE 50; RESP 17; TEMP 36; O2SAT 97
[2024-04-13] MEDS: CEFEPIME 1 GM in Normal Saline 50 ML IVPB ×2 (04:49→16:03)
[2024-04-13] MEDS: Normal Saline Flush 10 ML SYR IVP (04:49)
[2024-04-13 06:49] LABS: HCT 27.2 % (40.0-50.0); HGB 8.8 g/dL (13.5-17.5); MCH 30.3 pg (27.0-33.0); MCHC 32.4 % (32.0-36.0); MCV 94 fL (80-95); MPV 11.7 fL (8.0-11.0); Platelet Count 175 10^3/uL (130-400); RDW 16.2 % (11.8-14.1); RDW-SD 53.1 fL; WBC 9.73 10^3/uL (4.4-10.8)
[2024-04-13 07:09] LABS: BUN 75 mg/dL (7-18); CREATININE 3.1 mg/dL (0.70-1.30); Calcium 8.8 mg/dL (8.5-10.1); Chloride 105 mmol/L (98-107); Estimated GFR 19.21 (mL/min/1.73m2); Glucose 145 mg/dL (74-106); Magnesium 2.6 mg/dL (1.8-2.4); Potassium 5.3 mmol/L (3.5-5.1); Sodium 139 mmol/L (136-145)
[2024-04-13 07:30] VITALS: BP 93/63; PULSE 78; RESP 18; TEMP 37; O2SAT 100
[2024-04-13] MEDS: Omega-3 Fatty Acids 1000 MG CAP PO (07:59)
[2024-04-13] MEDS: Ascorbic Acid 500 MG TAB PO (07:59)
[2024-04-13] MEDS: Clopidogrel 75 MG TAB PO (07:59)
[2024-04-13] MEDS: Vitamins B Comp w/C TAB 1 TAB PO (07:59)
[2024-04-13] MEDS: Sacubitril/Valsartan 24 mg/26 mg TAB 1 EACH PO (07:59)
[2024-04-13] MEDS: Doxycycline Hyclate 100 MG CAP PO (07:59)
[2024-04-13] MEDS: Insulin Glargine 300 UNITS/3 ML PEN 10 UNITS SC (08:00)
[2024-04-13] MEDS: Finasteride 5 MG TAB PO (08:00)
[2024-04-13] MEDS: Midodrine 2.5 MG TAB 5 MG PO ×2 (08:00→14:00)
[2024-04-13] MEDS: Aspirin 81 MG CHEW PO (08:00)
[2024-04-13] MEDS: Ranolazine 500 MG TABCR PO (08:00)
--- NOTE | 2024-04-13 08:10 | W.PM.PROGNOT ---
Date of Service Date of service: 04/13/24 Time of Service: 08:10 Assessment and Plan Assessment and plan (1) Acute on chronic HFrEF (heart failure with reduced ejection fraction): Start date: 03/06/24 Status: Acute Assessment and plan: hemodynamics not as good as yesterday. Gentle hydration continue Continue midodrine Will continue to hold diuretics at this time. Patient is on SGLT2 inhibitors, ineffective at this level of renal function. Patient's long-term prognosis is very poor He is approaching near end-stage cardiomyopathy. Discussed with palliative care. Hospice would be a good alternative care model for the patient. It does not appear he is many days left. (2) Ischemic cardiomyopathy: Status: Acute Assessment and plan: stable at this time. nearing end stages of cardiac disease. Should consider palliative care. (3) Chronic kidney disease, stage IV (severe): Status: Acute Assessment and plan: continue to monitor renal function. (4) Type 2 diabetes mellitus: Status: Chronic Assessment and plan: Continue patient's outpatient insulin regimen and check 4 times daily sugars 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 mellitus fpc insulin use: without watermelon inspector use Diabetes mellitus complication status: with kidney complications Diabetes mellitus complication detail: with chronic kidney disease Chronic kidney disease stage: stage 3 (moderate) Chronic kidney disease stage 3 subtype: stage 3b (GFR 30-44) Qualified Code(s): E11.22 - Type 2 diabetes mellitus with diabetic chronic kidney disease; N18.32 - Chronic kidney disease, stage 3b (5) HTN (hypertension): Status: Chronic Assessment and plan: Hold blood pressure medicines due to hypotension Qualifiers: Hypertension type: primary hypertension Qualified Code(s): I10 - Essential (primary) hypertension (6) Anxiety: Status: Chronic Assessment and plan: Continue outpatient medications (7) Anemia in CKD (chronic kidney disease): Status: Acute Assessment and plan: stable. Hemoglobin has been dropping. Continue to monitor daily (8) DVT prophylaxis: Status: Deleted Assessment and plan: He is on oral anticoagulation. 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 (10) Sepsis: Status: Acute Assessment and plan: Resolved (11) Full code status: Status: Acute Assessment and plan: Patient's prognosis is guarded, he is near end-stage from his ischemic cardiomyopathy. Patient asked if he runs into a problem and it is relatively straightforward to correct the problem, he would like everything done. If it was more complex, he would not want complex issues performed. (12) Hyperkalemia: Status: Acute Assessment and plan: Potassium yesterday 5.1, today 5.3 in the face of decreasing renal function. Patient not on potassium supplements. Will give Kayexalate. Orders entered. Subjective Subjective Interval history since last seen: Clinical course reviewed including notes, orders, labs, vitals, meds, imaging, and cultures. Care is discussed with primary nurse. White count 9.7, platelet 175, serum sodium 139, potassium 5.3, creatinine 3.1 (it appears patient's baseline creatinine is been in the 2.5-2.7 range) Exam Narrative Exam Narrative: Patient is alert and oriented x 3 and in no acute distress. He is lying supine in a medical surgical bed appearing more comfortable than he was upon admission. His color is much improved, no longer ashen lutz. HEENT: Neck supple, MM pink and moist, conjunctiva non-injected, sclera non-icteric, Pupils equal and reactive to light symmetrically, no JVD, no A waves. No thyromegaly. No carotid bruit CHEST: Bilaterally symmetrical with inspiration and expiration. No use of accessory muscles of respiration. No nasal flaring. RESP: Clear to auscultation bilaterally, no rales, rhonchi or wheeze, no pleural friction rub, no post-tussive crackles or apical rales. COR: RRR no murmur appreciated, distant heart tones, no rub or gallop ABDOMEN: Soft, non tender diffusely, normally active bowel sounds diffusely, No hepatosplenomegaly, No abdominal bruit, no masses, no tenderness on deep abdominal palpation. G/U: deferred Rectal: deferred MUSCULOSKELETAL: Bilaterally symmetrical, no muscle belly tenderness or mass DERMIS: Skin warm and dry, no ulcers or rashes, EXTREMITIES: No cyanosis, clubbing or edema, no gross deformities of the large or small joints of the upper or lower extremities. NEUROLOGICAL: Cranial nerves intact II-XII without notable deficit, No peripheral neurosensory or motor deficits noted. LYMPH: No anterior or posterior cervical, no supraclavicular, No axillary, no epitrochlear or femoral lymphadenopathy. Objective Last Vital Signs Temp 36.0 C L 10/22/24 03:19 Pulse 50 L 04/13/24 03:19 Resp 17 04/13/24 03:19 BP 99/59 L 04/13/24 03:19 Pulse Ox 97 04/13/24 03:19 Laboratory Results - last 24 hr 04/13/24 06:39 WBC 9.73 RBC 2.90 L Hgb 8.8 L Hct 27.2 L MCV 94 MCH 30.3 MCHC 32.4 RDW 16.2 H Plt Count 175 MPV 11.7 H Sodium 139 Potassium 5.3 H Chloride 105 Carbon Dioxide 21.0 Anion Gap 13.0 H BUN 75 H Creatinine 3.1 H Est GFR (CKD-EPI 2020) 19.21 Glucose 145 H Calcium 8.8 Magnesium 2.6 H
[2024-04-13] MEDS: Bisacodyl 10 MG SUPP PR (09:09)
[2024-04-13 11:20] VITALS: BP 92/56; PULSE 77; RESP 16; TEMP 36.4; O2SAT 100
[2024-04-13 13:59] VITALS: BP 94/65
--- NOTE | 2024-04-13 14:03 | PHACLINREV_ITS ---
Pharmacy Admission Review Admission Clinical Review Admission Pharmacy Review: Hyperkalemia (Acute) Encounter for hospice care discussion (Acute) Urinary tract infection (Acute) Sepsis (Acute) Shock (Acute) Full code status (Acute) Anemia in CKD (chronic kidney disease) (Acute) Chronic kidney disease, stage IV (severe) (Acute) Ischemic cardiomyopathy (Acute) Acute on chronic HFrEF (heart failure with reduced ejection fraction) (Acute) Advanced care planning/counseling discussion (Acute) Palliative care encounter (Acute) levofloxacin Adverse Reaction (Mild, Unverified 04/09/24 13:09) Other (See Comment) Statins Adverse Reaction (Mild, Uncoded 04/09/24 13:09) Other (See Comment) Resuscitation Status Full Code Height 6 ft Weight 69.581 kg Comments Comments/Follow Ups: Discussions of hospice per morning meeting Pharmacy Admission Review Renal Dosing Renal Dosing: BUN 75 mg/dL (7-18) H 04/13/24 06:39 Creatinine 3.1 mg/dL (0.70-1.30) H 04/13/24 06:39 Medications needing adjustments: Intervened (CrCl 17.77 mL/min, SCr increased from 3) List of meds needing interventions: Put patients own order of silodosin on hold as medication is contraindicated when CrCl < 30. The med was never brought in for patient but put on hold just in case. Anticoagulation Anticoagulation: Hgb 8.8 g/dL (13.5-17.5) L 04/13/24 06:39 Hct 27.2 % (40.0-50.0) L 04/13/24 06:39 Plt Count 175 10^3/uL (130-400) 04/13/24 06:39 INR 1.2 (0.9-1.1) H 04/09/24 14:01 Creatinine 3.1 mg/dL (0.70-1.30) H 04/13/24 06:39 DVT Prophylaxis: Reviewed Medications: Aspirin (and clopidogrel) Relevant Labs Relevant Labs: Sodium 139 mmol/L (136-145) 04/13/24 06:39 Potassium 5.3 mmol/L (3.5-5.1) H 04/13/24 06:39 Chloride 105 mmol/L (98-107) 04/13/24 06:39 Magnesium 2.6 mg/dL (1.8-2.4) H 04/13/24 06:39 Electrolytes, C-Reactive P, ESR: Reviewed (K 5.3 - order put in for kayexalate) DM Control DM Control: Glucose 145 mg/dL (74-106) H 04/13/24 06:39 Finger Stick Blood Glucose 145 0800 DM Control: Reviewed Insulin Dosing, Diabetic Medication: Patient has order for glargine 10 units daily and order for patients own Farxiga (was not brought in so has not been get ting) Cardiac Review Cardiac Review: Troponin I 41 ng/L (<or=76) 04/09/24 17:28 NT-Pro-B Natriuret Pep 93564 pg/mL (<300) H 04/09/24 14:01 Blood Pressure 94/65 1359 Blood Pressure 92/56 1120 Blood Pressure 93/63 0730 Blood Pressure 99/59 0319 BP, HR, EF%: Reviewed (BP WNL) List meds needing interventions: Has order for midodrine 5mg PO TID and Entresto twice daily QTc Review QTc: Reviewed (538 from 04/09/24) IV to PO Switch IV Medications: Reviewed (cefepime and ondansetron) Home Meds Home Med List reviewed: Reviewed Relevent Home Meds Not ordered & why?: furosemide (on hold due to hypotension), spironolactone (on hold due to hypotension) and testosterone Current Meds Current Medication Order Review: Intervened Comments: Changed silodosin and Farixga from non-formulary orders to patients own orders per pharmacy protocol. Put silodosin on hold (see renal function section) Added Iv admission order set Pharmacy Antibiotic Review Relevant Labs: WBC 9.73 10^3/uL (4.4-10.8) 04/13/24 06:39 Procalcitonin < 0.1 ng/mL 04/09/24 14:01 Temperature 36.4 C Temperature 37 C Temperature 36.0 C Microbiology 04/09/24 16:19 Blood Culture - Preliminary Blood NO GROWTH 72 HOURS 04/09/24 16:02 Blood Culture - Preliminary Blood NO GROWTH 72 HOURS Pharmacy Antibiotic Activity: C/S review and Reviewed, no change Comments: Patient on cefepime, day 4, for UTI/sepsis. Patient is also on doxycycline PO BID as maintenance for suppressive therapy. Comments Comments/Follow Ups: Discussions of hospice per morning meeting
--- NOTE | 2024-04-13 14:17 | PT.INTREAT ---
PT Notes Visit Reasons: Hypotension, Congestive Heart Failure Inpatient Physical Therapy Treatment Note [facility] Date: 04-13-2024 PRECAUTIONS: Standard, fall risk, Benjamin catheter SUBJECTIVE: Patient reports he has not had a bowel movement in several days and has received a suppository but he is willing to try walking OBJECTIVE: Supine in bed ? PAIN: Denied ? Therapeutic Activities (44994): Direct one-on-one instruction in dynamic activities to improve functional performance. ?? Provided skilled cues and instruction on performance and technique throughout. Bed mobility: Independent Transfers: Sit to stand supervision Stand to sit supervision with cue to keep FWW with in front of him Bed to chair: With FWW supervision Ambulation: Patient ambulated with FWW 75 feet on level surfaces including 3 turns with CGA demonstrating reciprocal gait pattern. Patient required sit rest after 75 feet then able to ambulate 50 feet with FWW CGA. Patient reports fatigue and lower extremities resulting in need for sit rest and mild MONZON. ASSESSMENT: Patient with increased tolerance to standing tasks this session as compared to prior session. He continues to be limited by fatigue, dyspnea on exertion and decreased activity tolerance. Patient declined to participate in stairs training this session due to current bowel issues. Patient would need assistance in entering home if discharge as he does not demonstrate activity tolerance and pacing to complete flight of stairs to enter his home. PLAN: Pt would benefit from skilled PT 1-2 times per day for global strengthening, transfers, ambulation, and balance facilitation TREATMENT CODE/TIME: 43735 x 25 minutes for 2 units/1050?1115 DISCHARGE RECOMMENDATION: Home with HH PT when medically appropriate for discharge
[2024-04-13 15:03] VITALS: BP 92/58; PULSE 83; RESP 16; TEMP 37.6; O2SAT 99
--- NOTE | 2024-04-13 15:46 | PDOC.CMPRO ---
Date of service: 04/13/24 Time of Service: 15:46 Care Management Progress Note Progress Note Text Progress Note Text: Sandra continues to His prognosis is poorPer hospitalist, pt is medically Patient meets Hospice criteria,Palliative is consulted, recommended follow up with local Palliative Care Team after discharge. Patient currently has home health RN/PT services through [facility]. Anticipate, patient will discharge home with resumption of [facility] services and follow up with his local Palliative care team. SDOH(Care Management) Screening Will the Patient Participate in the Screening?: Yes Do you worry about having a steady place to live?: no Problems where you live: no known problems In the past 12 months, have you had to go without electric, gas, oil or water in your home?: no Have you or anyone in your house had to go without enough food to eat?: no Has lack of transportation kept you from medical appointments or from doing things needed for daily living?: no Has anyone in your support network made you feel unsafe for any reason?: no
--- NOTE | 2024-04-13 15:50 | PT.INNT ---
PT Notes Visit Reasons: Hypotension, Congestive Heart Failure Attempted to see patient for a second session this afternoon but he is with his SO Tripp and Dr. Vickers for a palliative meeting. Will see patient for another session tomorrow. morning as ordered.
--- NOTE | 2024-04-13 16:08 | CMDISCH_ITS ---
Date of service: 04/13/24 Time of Service: 16:09 LACE Index Scoring Tool Questions: Length of Stay (in days): 4 - 6 Was the patient admitted via the E.D.?: Yes Comorbidities: Congestive Heart Failure and Liver or Renal Disease E.D. Visits: 6 Answers: Total Score: 16 Risk of Readmission: High Risk Care Management Discharge Plan Reason for Hospitalization: Hypotension, CHF Discharge Plan: Discharge home via private vehicle with with resumption of caregiver supports and VNA services. Follow up with local providers and discharge plan of care. Hospice Consult is planned for (Dr. Moe reviewed recommendations with [facility]). Patient/Family Education Needs: Review discharge instructions, limitations, medications and plan to follow up with local providers. Discuss ask me three. Services Needed at Discharge: Home Health Care Services (Resumption of [facility] RN/PT. ) SDOH Health Related Social Needs: Health related social needs inadequate housing(Z59.1), material hardship(utilities)(Z59.87) Health related social needs details the electricity wa s out in the home due to fallen tree. this is resolved
--- NOTE | 2024-04-13 17:33 | DSE_ITS ---
Date of service: 04/13/24 Time of Service: 17:33 DS: Diagnosis Discharge Diagnosis (1) Acute on chronic HFrEF (heart failure with reduced ejection fraction): Status: Acute Asessment and Plan: End-stage cardiomyopathy (2) Ischemic cardiomyopathy: Status: Acute Asessment and Plan: End-stage ischemic cardiac (3) Chronic kidney disease, stage IV (severe): Status: Acute Asessment and Plan: Worsening renal failure (4) Type 2 diabetes mellitus: Status: Chronic Asessment and Plan: Stable, continue medications (5) HTN (hypertension): Status: Chronic Asessment and Plan: Stable, continue medications (6) Anxiety: Status: Chronic Asessment and Plan: Patient is lashing out at staff as he realizes he is reaching the end of his life. (7) Anemia in CKD (chronic kidney disease): Status: Acute Asessment and Plan: stable. (8) DVT prophylaxis: Status: Deleted Asessment and Plan: resolved (9) Urinary tract infection: Status: Acute Asessment and Plan: cultures negative, likely prostate infection (10) Sepsis: Status: Acute Asessment and Plan: resolved (11) Full code status: Status: Acute (12) Hyperkalemia: Status: Acute Asessment and Plan: recieved kayexcelyte today. Discharge Plan Disposition Patient Disposition: Home Condition: Fair Discharge Details Reason For Visit: Hypotension, Congestive Heart Failure Admit Date/Time: 04/09/24 18:08 Admit Provider: Carlyle Patiño Attending Provider: Carlyle Patiño Primary Care Provider: Viry Jasmine Hospital Course Hospital Course: Patient was admitted to the hospital on with known congestive heart failure with rest of shortness of breath and hypotension. He received saline bolus in the emergency and had labile systolic blood pressure following which as high as 110 dropping down in the 70s. 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 He has difficulty self catheterize. He has been directed by his urologist, Dr. Alvarez, to reuse his catheters to wash them with soap and water per the patient's report. He was treated with intravenous cefepime anticipating a urinary tract infection with the possibility of infection contributing to his hypotension. He was admitted to the intensive care unit monitor closely. His blood pressure has been rather labile and low, responsive to fluids but then he developed pulmonary edema. Diuretics were avoided due to the patient's low systolic blood pressure and clinical evidence of low intravascular volume. He was started on oral midodrine and experienced a significant increase in his systolic blood pressure 15-20 points. He has been tolerating the midodrine without complaint. Patient has a history of aortic dissection and had a vascular graft placed. 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 After being treated initially for this infection, he was placed on chronic long- term twice a day doxycycline suppressive therapy. His cardiac echocardiograms show an ejection fraction in the 20 percentile. Blood and urine cultures were negative. It has been very difficult to caring for the patient as he has repeatedly been hostile to this examiner and demanded that I leave the room on multiple occasions. Today, when he was being visited by palliative care, I joined and when I introduced myself as the hospital doctor the patient became visibly upset and yelled You are a damn liar! He pointed his finger at me angrily and exclaimed he would write a very bad review of me. The patient's partner David attempted to soften the interactions by being an advocate for the patient and discussing care needs with me so the patient would not have to discuss with me. The patient likely does not remember me coming to see him as I spent brief times with him as he did not want me there and asked me to leave. I asked him if it was OK if I prayed for him. He told me to do what I want. I did explain to the patient that his heart does not have a lot of days left. Patient was angry and stated As if I didn't know. Patient has been discussing hospice and hospice is a good option for his care, should he decide to enroll. If Marianne will be evaluated as an outpatient if he decides to opt for hospice. We will try to obtain several days worth of the midodrine for him prior to discharge as it is unlikely that his home pharmacy will have a supply of medicine on hand or will get it promptly. No other prescription needs are identified by follow-up for the patient. We will be sending the patient home on an antibiotic (Cipro 500mg PO once daily) to cover infection which is likely affecting his prostate. Urine culture was negative however his urine continues to remain cloudy. He has a Benjamin catheter in place, it was not clear during our discussion in the room whether or not he will leave the hospital with the Benjamin in place and have it removed at home or remove the Benjamin before he is discharged home. We will accommodate his desires regarding the Benjamin. He has expressed a preference for both choices. Due to the uncomfortable nature of the conversations in the room, I excused myself. Home Meds and New Rx's Prescriptions: New midodrine 2.5 mg Tablet 5 mg PO TID Qty: 90 0RF ciprofloxacin HCl [Cipro] 500 mg tablet 500 mg PO DAILY Qty: 10 0RF Continued ascorbic acid (vitamin C) [Vitamin C] 500 mg tablet 500 mg PO DAILY Senna Plus 8.6-50 mg capsule 1 tab-cap PO BID ferrous sulfate 325 mg (65 mg iron) tablet 325 mg PO .qod clopidogrel 75 mg tablet 75 mg PO DAILY aspirin 81 mg tablet,chewable 1 tab PO DAILY silodosin [Rapaflo] 8 mg capsule 8 mg PO DAILY Patient Comments: Take 1 capsule by mouth once a day with food doxycycline hyclate 100 mg tablet 100 mg PO BID Patient Comments: TAKE 1 TABLET BY MOUTH TWICE DAILY FOR SUPRESSIVE THERAPY omega-3 fatty acids [Super [place]-3] 1,000 mg capsule 1,000 mg PO DAILY vitamin B complex Capsule 1 cap PO DAILY PreserVision AREDS-2 250-90-40-1 mg capsule 1 tab PO BID spironolactone 25 mg tablet 25 mg PO DAILY Qty: 30 0RF Patient Comments: took last pill today, unsure how long to continue for (DME) pen needle, diabetic [TechLITE Pen Needle] 31 gauge x 3/16 needle MISCELLANEOUS finasteride 5 mg tablet 5 mg PO DAILY Patient Comments: Take 1 tablet by mouth every night acetaminophen 500 mg capsule 1,000 mg PO Q6H PRN docusate sodium 100 mg capsule 100 mg PO BID PRN dapagliflozin propanediol [Farxiga] 5 mg tablet 5 mg PO DAILY polyethylene glycol 3350 [ClearLax] 17 gram/dose powder 17 g PO DAILY PRN testosterone 20.25 mg/1.25 gram (1.62 %) gel in metered-dose pump 2 pump topical DAILY Rx Instructions: apply 1 pump amount over max area of EACH upper arm and shoulder insulin glargine [Lantus Solostar U-100 Insulin] 100 unit/mL (3 mL) insulin pen 10 unit subcut DAILY Mary-Merissa 0.8 mg tablet 1 tab PO DAILY methocarbamol 750 mg Tablet 750 mg PO QID PRN PRNQty: 12 0RF ranolazine 500 mg Tablet Extended Release 12 Hr 500 mg PO DAILY Qty: 7 0RF Entresto 24-26 mg Tablet 1 tab PO BID Qty: 14 0RF furosemide 80 mg tablet 80 mg PO DAILY Discharge Instructions Instructions: Heart Failure, Adult (DC) Stand Alone Forms: Nursing Discharge Form Referrals: Viry Jasmine [Primary Care Provider] - 04/26/24 11:30 am Activity:: Activity as Tolerated Equipment/Supplies:: No Equipment Needed Diet:: As Tolerated Discharge Orders Discharge Orders: Discharge Order (Routine); Ordered 04/13/24 Ordered By: Carlyle Patiño Discharge Data Discharge Date/Time-TO BE ENTERED AT DEPARTURE: 04/13/24 17:26 DS: Summary Time Spent with Patient providing and/or coordinating discharge services: Greater than 30 minutes Status at Discharge Functional status at discharge: uses cane/walker (patient is blind due to macular degeneration) Overall status at discharge: patient is not back to baseline Mental Status: mental status grossly normal (very angry to staff today.) Speech and Movement: agitated Mood: angry Affect: hostile (depending on who he is talking to, to some staff he is cordial, to others ) Quality:SDOH Health Related Social Needs: Health related social needs inadequate housing(Z59.1), material hardship(utilities)(Z59.87) Health related social needs details the electricity wa s out in the home due to fallen tree. this is resolved Exam Narrative Exam Narrative: I did not physically examine the patient today. His exam appears to be unchanged. Psych Mental Status: mental status grossly normal (very angry to staff today.) Speech and Movement: agitated Mood: angry Affect: hostile (depending on who he is talking to, to some staff he is cordial, to others ) DS: Data Vitals/I&O Vitals and I&O: Vital Signs Temperature 37.6 C H 04/13/24 15:03 Temperature Source Tympanic 04/13/24 15:03 Pulse 83 04/13/24 15:03 Pulse 88 04/11/24 17:02 Respiratory Rate 16 04/13/24 15:03 Respiratory Effort Incrsd Work of Breathing 04/09/24 18:56 Respiratory Depth Normal 04/09/24 18:56 Respiratory Pattern Tachypnea 04/09/24 18:56 Blood Pressure 92/58 L 04/13/24 15:03 Blood Pressure Mean 61 04/11/24 17:02 Blood Pressure Position Supine 04/09/24 18:56 Pulse Oximetry 99 04/13/24 15:03 Oxygen Delivery Method Room Air 04/13/24 15:03 Oxygen Flow Rate 0 04/13/24 15:03 Pain Level 7 04/13/24 15:12 Comment Rn notified. 04/13/24 15:03 Intake & Output 04/12/24 04/13/24 04/13/24 23:59 11:59 23:59 Intake Total 260 / 310 50 / 100 50 / 100 Output Total 350 / 525 175 / 525 Balance 260 / 135 -300 / -425 -125 / -425 Weight 69.581 kg Intake: IV 60 / 110 50 / 100 50 / 100 Oral 200 / 200 Output: Urine 350 / 525 175 / 525 Other: Urine Color Yellow Yellow Urine Appearance Clear Clear Urine Odor Normal Stool Size Small Stool Characteristics Formed Hard Brown Data Completed and Pending Labs on day of discharge: Labs from last 24 hours 04/13/24 06:39 WBC 9.73 RBC 2.90 L Hgb 8.8 L Hct 27.2 L MCV 94 MCH 30.3 MCHC 32.4 RDW 16.2 H Plt Count 175 MPV 11.7 H Sodium 139 Potassium 5.3 H Chloride 105 Carbon Dioxide 21.0 Anion Gap 13.0 H BUN 75 H Creatinine 3.1 H Est GFR (CKD-EPI 2020) 19.21 Glucose 145 H Calcium 8.8 Magnesium 2.6 H Preliminary micro results at discharge 04/09/24 16:19 Blood Culture - Preliminary Blood NO GROWTH 72 HOURS 04/09/24 16:02 Blood Culture - Preliminary Blood NO GROWTH 72 HOURS PFSH All Active Problems Hyperkalemia (Acute) Encounter for hospice care discussion (Acute) Urinary tract infection (Acute) Sepsis (Acute) Shock (Acute) Hematuria (Acute) Full code status (Acute) If He has witnessed cardiac arrest in the hospital, he would like a 10- minute trial of CPR. If he has a cardiac arrest outside the hospital, he does not want CPR. He still would like to be transferred to the hospital and treated should he be ill or have an injury and would like treatment with IV fluids and IV antibiotics. See COLST form for additional information Anemia in CKD (chronic kidney disease) (Acute) Anxiety (Chronic) Chronic kidney disease, stage IV (severe) (Acute) Ischemic cardiomyopathy (Acute) Acute on chronic HFrEF (heart failure with reduced ejection fraction) (Acute) CHF exacerbation (Acute) Left lower lobe pneumonia (Acute) Urinary retention (Acute) HFrEF (heart failure with reduced ejection fraction) (Acute) PSVT (paroxysmal supraventricular tachycardia) (Acute) Advanced care planning/counseling discussion (Acute) Palliative care encounter (Acute) CHF (congestive heart failure) (Chronic) HTN (hypertension) (Chronic) Type 2 diabetes mellitus (Chronic) PAF (paroxysmal atrial fibrillation) (Chronic) Symptomatic bradycardia (Acute) Medical History CKD (chronic kidney disease) stage 3, GFR 30-59 ml/min Social History Smoking/Tobacco Use Status: Former Tobacco Use Smoking risk assessment performed?: Yes Alcohol Intake: current Alcohol Intake frequency: 0-2 drinks per day Drug use: Never Substance use type: does not use Details: Pt quit smoking 10 years ago Housing: house Do you feel safe at home: Yes Do you feel safe in your relationship?: Yes Additional Social history: at side Time Spent with Patient Time Spent with Patient: 45-69 minutes Time was spent: preparing to see the patient(eg.review tests), obtaining and/or reviewing separately otained hiistory, ordering medications,tests, procedures, referring, communicating with other health healthcare receptionist, indepentently interpreting results, counseling the patient and care coordination
== END 2024-04-13 17:26 | disposition home or self-care (01) | DRG 291 ==
LOC: ER 16:25 → ICU 18:29 → MS 04-11 18:07
PROVIDERS: Admitting Provider Internal Medicine; Emergency Provider Student in an Organized Health Care Education/Training Program; PCP Family Medicine; Visit Provider Internal Medicine
DX: I13.0 Hypertensive heart and chronic kidney disease with heart failure and stage 1 through stage 4 chronic kidney disease, or unspecified chronic kidney disease (principal); A41.9 Sepsis, unspecified organism; I50.23 Acute on chronic systolic (congestive) heart failure; R65.21 Severe sepsis with septic shock; T83.518A Infection and inflammatory reaction due to other urinary catheter, initial encounter; N18.4 Chronic kidney disease, stage 4 (severe); I47.10 Supraventricular tachycardia, unspecified; N41.0 Acute prostatitis; I25.5 Ischemic cardiomyopathy; E11.22 Type 2 diabetes mellitus with diabetic chronic kidney disease; F41.9 Anxiety disorder, unspecified; D63.1 Anemia in chronic kidney disease; E87.5 Hyperkalemia; Z79.4 Long term (current) use of insulin; R33.9 Retention of urine, unspecified; I48.0 Paroxysmal atrial fibrillation; R00.1 Bradycardia, unspecified; H35.30 Unspecified macular degeneration; Z95.828 Presence of other vascular implants and grafts; R05.3 Chronic cough; Z79.2 Long term (current) use of antibiotics
CPT/HCPCS: 00123; 36415; 36573; 80048; 80053; 84145; 85027; 87040; 93005; 93308; 96361; 96365; 97110; 97161; 97530; 99291; 71045; 81003; 81015; 83605; 83735; 83880; 84443; 84484; 85025; 85610; 85730; 87086; 93010; 99223; 99231; 99233; 99239; J0692; J1815; J2405; J3490